=== PATIENT | male | born 1970 | race Caucasian/White ===

== ENCOUNTER 2017-11-19 12:36 | Emergency (ER) | payer OTHER, SELFPAY ==
[2017-11-19 12:38] VITALS: BP 109/76; PULSE 116; RESP 16; TEMP 36.4; O2SAT 95; BMI 29.4
--- NOTE | 2017-11-19 13:08 | RAD_ITS ---
STUDY: X-RAY - LEFT KNEE REASON FOR EXAM: Male, 47 years old. Laceration to the anterior aspect of the knee. TECHNIQUE: 2 view(s) of the knee. 3 images were obtained. COMPARISON: None. FINDINGS: Normal visualized distal femur. Healed Bailey-Schlatter disease. Normal proximal tibiofibular articulation. Normal medial femorotibial compartment. Normal lateral femorotibial compartment. Normal patellofemoral articulation. Laceration of the prepatellar soft tissues. RAD/Knee 1 or 2 Views IMPRESSION: Laceration of the prepatellar soft tissues. Electronically Signed: Murali Alexander MD at 13:36 EDT Tel [phone], Service support ,
--- NOTE | 2017-11-19 14:35 | ED.VISSUMM ---
- ER Visit Summary Date of Service: 11/19/17 Chief Complaint: Laceration History of Present Illness: The patient is a [address] Chandler. His tetanus is up-to-date. Reports that he cut his left knee with a chain saw just prior to coming emergency department. Reports he is a burning pain is 7 out of 10 at worst and 3 out of 10 currently is worsened by walking relieved by rest. Denies any paresthesias distally. Physical Examination: Vitals: Stable. Afebrile. General: Well-nourished and well-developed. Head: Normocephalic atraumatic. Neck: Supple, no lymphadenopathy. No JVD. Nontender. Cardiovascular: Regular rate and rhythm. No murmurs. Respiratory: No respiratory distress. Clear to auscultation bilaterally. Abdominal: Soft, nontender, nondistended, normal bowel sounds. No guarding, rebound, or peritoneal signs. Back: Nontender. Extremities: 4 cm laceration over the left patella. Minimal active bleeding. Neurovascular intact distally.. Skin: Normal color, no rash. Neurologic: Alert and oriented ?3. Cranial nerves II through XII are intact. Normal strength and sensation. Psych: Normal affect. Test Results: X-ray shows no bony involvement. Emergency Department Course and Treatment: Patient refused pain medications. He had his wound anesthetized and repaired. He tolerated it well. Treatment Plan: Patient be discharged instructions follow Dr. Chandler in 2 weeks for suture removal. Return to the emergency department for any worsening symptoms. Disposition: To home in improved and stable condition. Impression: 1. Left knee laceration, 4 cm, repaired. Procedure note: Wound was cleansed with chlorhexidine soap. Anesthetized with 1% lidocaine without epinephrine. Copiously irrigated with normal saline. Wound was explored there is no foreign material present. It was debrided. It was closed with 6 simple interrupted 4-0 ethilon sutures. The patient tolerated it well. This note was generated with [employer] dictation software. It may contain incorrect words, spelling, and punctuation that were not noted in review of the chart prior to signing ED Disposition - Plan for ED Patient: Disposition: Home or Assisted Living Chief Complaint: Laceration Instructions: ED Laceration All Referrals: Criss Chandler MD [Primary Care Provider] - 10-14 Days suture removal
[2017-11-19 14:41] VITALS: BP 128/89; PULSE 83; RESP 16; O2SAT 96
== END 2017-11-19 14:43 | disposition home or self-care (01) ==
LOC: ED 13:28
PROVIDERS: Emergency Provider Emergency Medicine; Family Provider Internal Medicine; PCP Internal Medicine
DX: S81.012A Laceration without foreign body, left knee, initial encounter (principal); E78.00 Pure hypercholesterolemia, unspecified; Z79.899 Other long term (current) drug therapy; W29.3XXA Contact with powered garden and outdoor hand tools and machinery, initial encounter; Y93.89 Activity, other specified; Y92.89 Other specified places as the place of occurrence of the external cause; Y99.8 Other external cause status
CPT/HCPCS: 12002; 73560; 99283

== ENCOUNTER → 2019-09-05 | Outpatient (CLI) | payer OTHER, SELFPAY ==
--- NOTE | 2019-09-05 12:47 | CT_ITS ---
STUDY: CT ABDOMEN AND PELVIS WITHOUT CONTRAST REASON FOR EXAM: Male, 48 years old. ABD/FLANK PAIN, HX PITUITARY TUMOR, ON MEDS TO SHRINK IT X 3 YRS RADIATION DOSAGE (If Supplied By Facility): CTDIvol = ( 10.42 ) mGy, DLP = ( 544.13 ) mGycm TECHNIQUE: Transaxial images were obtained from the dome of the diaphragm to the symphysis pubis without oral contrast, and without intravenous contrast. Sagittal and coronal images were reconstructed. Individualized dose optimization techniques were used for this CT. COMPARISON: None. FINDINGS: The visualized lung bases are unremarkable. The visualized portions of the heart are within normal limits. Normal liver. Normal gallbladder and extrahepatic biliary system. Normal spleen. Normal pancreas. Normal bilateral adrenal glands. Normal right kidney. Normal left kidney. Incidental note is made of a retroaortic left renal vein. There is a small hiatal hernia. Normal small intestine. There are colonic diverticula consistent with diverticulosis. The appendix is visualized and appears normal. There is scattered atherosclerotic calcification of the abdominal aorta, without a demonstrated aneurysm. Normal inferior vena cava. Normal retroperitoneum. Normal urinary bladder. Calcified phleboliths are seen within the pelvis. There is a small umbilical hernia containing fat. Normal osseous structures. CT/Abdomen/Pelvis without Cont IMPRESSION: No acute abnormality is seen. Electronically Signed: Murali Alexander, at 13:28 EDT , Service support ,
== END | disposition home or self-care (01) ==
LOC: CT 12:45
PROVIDERS: PCP Internal Medicine; Referring Provider Nurse Practitioner Adult Health; Visit Provider Nurse Practitioner Adult Health
DX: R10.9 Unspecified abdominal pain (principal)
CPT/HCPCS: 74176

== ENCOUNTER → 2019-12-02 | Outpatient (CLI) | payer OTHER, SELFPAY ==
[2019-12-02 12:46] LABS: Albumin, Serum 3.5 g/dL (3.2-5.0); BUN 12 mg/dL (7-18); BUN/Creat Ratio 9.6 RATIO (10-20); Calcium,Total 9.2 mg/dL (8.5-10.1); Chloride 108 mmol/L (98-107); Creatinine, Serum 1.25 mg/dL (0.70-1.30); EST Glomerular Filtration Rate 65 mL/min (>60); Est Glom Filt Rate - Afr Amer 79 mL/min (>60); Glucose 94 mg/dL (74-106); Phosphorus 2.4 mg/dL (2.5-4.9); Potassium 4.2 mmol/L (3.5-5.1); Sodium Level 139 mmol/L (136-145)
== END | disposition home or self-care (01) ==
LOC: LAB 11:49
PROVIDERS: PCP Internal Medicine; Referring Provider Internal Medicine Nephrology; Visit Provider Internal Medicine Nephrology
DX: N18.2 Chronic kidney disease, stage 2 (mild) (principal)
CPT/HCPCS: 36415; 80069

== ENCOUNTER 2020-07-17 07:37 | Emergency (ER) | payer OTHER, SELFPAY ==
[2020-07-17 07:38] VITALS: BP 144/93; PULSE 106; RESP 16; TEMP 36.8; O2SAT 98; BMI 30.1
--- NOTE | 2020-07-17 08:03 | CT_ITS ---
STUDY: CT ABDOMEN AND PELVIS WITHOUT CONTRAST REASON FOR EXAM: Male, 49 years old. abd pain RADIATION DOSAGE (If Supplied By Facility): CTDIvol = ( 10.55 ) mGy, DLP = ( 566.47 ) mGycm TECHNIQUE: Transaxial images were obtained from the dome of the diaphragm to the symphysis pubis without oral contrast, and without intravenous contrast. Sagittal and coronal images were reconstructed. Individualized dose optimization techniques were used for this CT. COMPARISON: 09/05/2019 FINDINGS: The visualized lung bases are unremarkable. The visualized portions of the heart are within normal limits. Normal liver. Normal gallbladder and extrahepatic biliary system. Normal spleen. Normal pancreas. Normal bilateral adrenal glands. Normal right kidney. Normal left kidney. Normal visualized stomach. Normal small intestine. Normal colon. The appendix is visualized and appears normal. Normal abdominal aorta. Normal inferior vena cava. Normal retroperitoneum. Normal urinary bladder. There is a small umbilical hernia containing fat. Normal osseous structures. CT/Abdomen/Pelvis without Cont IMPRESSION: No acute abnormality. Electronically Signed: Joey Agarwal MD at 9:08 EDT Tel , Service support ,
[2020-07-17 08:05] LABS: Absolute Lymphocyte Count 2.07 X10^3/uL (0.83-4.51); Basophil# 0.07 X10^3/uL; Basophil% 0.6 % (0-1); Eosinophils% 1.7 % (0-5); Hematocrit 44.1 % (40-54); Hemoglobin 13.8 g/dL (13.0-16.5); Lymphocyte # 2.07 X10^3/ul (0.83-4.51); Lymphocyte % 17.7 % (19-41); Mean Corp Hgb Conc 31.3 g/dL (32-36); Mean Corpuscular Hgb 26.3 pg (27.0-32.0); Mean Platelet Vol. 8.9 fl (6.2-12.0); Monocyte# 1.23 X10^3/uL; Monocyte% 10.5 % (0-10); NRBC Flagged by Analyzer 0 % (0-5); Neutrophil # 8.01 X10^3/uL (2.7-7.7); Neutrophil % 68.4 % (47-70); Platelet Count 326 K/mm3 (150-450); RBC Distribution Width CV 13.7 % (11.6-14.6); RBC Distribution Width SD 42.3 fl (35.1-43.9); Red Blood Count 5.25 M/mm3 (4.6-6.2); White Blood Count 11.7 K/mm3 (4.4-11.0)
[2020-07-17 08:08] VITALS: BP 144/93; PULSE 106; RESP 16; TEMP 36.8; O2SAT 98
--- NOTE | 2020-07-17 08:13 | EDS_ITS ---
HPI History of Present Illness Chief Complaint: Abd Pain Informant: patient Narrative Narrative: 49-year-old male presenting with abdominal pain and back pain. He states this started a couple of days ago. He states last week he had fever and sore throat which has now resolved. He was tested for Covid and strep which were both negative. He now complains of constipation, lower back pain, lower abdominal pain. Denies vomiting. Denies fever. Denies chest pain or shortness of breath. Denies other complaints. Recent Illness/Hospitalization: No [facility] Medical History (Updated 07/17/20 @ 10:[address] Marli Duque MD) Depression GERD (gastroesophageal reflux disease) Hyperlipidemia Hypothyroid Pituitary adenoma Home Medications cabergoline 0.5 mg PO BANSAL 11/19/17 [History Last Taken Unknown] pantoprazole 40 mg PO DAILY 11/19/17 [History Last Taken Unknown] rosuvastatin 10 mg PO DAILY 11/19/17 [History Last Taken Unknown] cephalexin 500 mg PO Q12 #14 capsule 07/17/20 [Rx Last Taken Unknown] duloxetine 30 mg PO DAILY 07/17/20 [History Last Taken Unknown] levothyroxine [Levoxyl] 50 mcg PO DAILY 07/17/20 [History Last Taken Unknown] Allergy/AdvReac Type Severity Reaction Status Date / Time Penicillins [PCN] Allergy Rash Verified 11/19/17 12:37 Sulfa (Sulfonamide AdvReac Nausea Verified 11/19/17 12:37 Antibiotics) Surgical History (Updated 07/17/20 @ 07:46 by Cristiane Pascual) H/O umbilical hernia repair Social History Smoking Status: Never smoker ROS [facility] ED Constitutional Constitutional ED: Denies fever(s) Eyes Eyes: Denies change in vision ENT ENT ED: Denies rhinorrhea or sore throat Cardiovascular Cardiovascular: Denies chest pain or palpitations Respiratory/Chest Respiratory/Chest: Denies cough or dyspnea Gastrointestinal Gastrointestinal: Reports abdominal pain and constipation; Denies diarrhea, nausea or vomiting Genitourinary Genitourinary ED: Denies dysuria Musculoskeletal Musculoskeletal: Denies myalgias Integumentary Denies rash Neurologic Neurologic: Denies headache(s) EXAM Physical Exam Const Vital Signs: 07/17/20 07:38 07/17/20 08:08 Temperature 98.2 F 98.2 F Temperature Source Oral Oral Pulse Rate 106 H 106 H Respiratory Rate 16 16 Blood Pressure 144/93 H 144/93 H Blood Pressure Mean 110 110 Pulse Ox 98 98 Oxygen Delivery Method Room Air Positive well nourished and well developed General Appearance ED: well developed HEENT Reports normocephalic and head/scalp atraumatic Eyes PERRL and EOMs intact bilaterally Neck supple General: Negative for tenderness Chest Wall inspection of chest normal Resp normal respiratory effort and clear to auscultation bilaterally Cardio regular rate and regular rhythm GI non-tender and non-distended Palpation: soft; Negative for guarding or rebound tenderness present no CVA tenderness Back/Spine no CVA tenderness Extremity normal to inspection Neuro oriented x3 Sensorium / Orientation: alert Psych mental status grossly normal MDM MDM MDM Narrative Medical decision making narrative: Patient is resting comfortably on reevaluation. CT abdomen pelvis is unremarkable. His creatinine is 1.73. He states he follows with a community planning technician and will follow up with nephrology. UA shows 5-10 white blood cells, 5-10 red blood cells. Urine culture was sent. He was started on Keflex. Advised to follow up with primary care physician. Advised return to ED if worsening complaints. Lab Data Attestation: I reviewed the patient's lab results. Labs: Laboratory Results - last 24 hr 07/17/20 07/17/20 07/17/20 07:53 07:53 08:21 WBC 11.7 H RBC 5.25 Hgb 13.8 Hct 44.1 MCV 84.0 MCH 26.3 L MCHC 31.3 L RDW Std Deviation 42.3 RDW Coeff of Gabriela 13.7 Plt Count 326 MPV 8.9 Immature Gran % (Auto) 1.100 H Neut % (Auto) 68.4 Lymph % (Auto) 17.7 L [place]aines % (Auto) 10.5 H Eos % (Auto) 1.7 Baso % (Auto) 0.6 Absolute Neuts (auto) 8.0 H Absolute Lymphs (auto) 2.07 Nucleated RBC % 0 Sodium 140 Potassium 3.9 Chloride 105 Carbon Dioxide 26.0 Anion Gap 9 BUN 17 Creatinine 1.73 H Estim Creat Clear Calc 53.33 Est GFR (MDRD) Af Amer 54 L Est GFR (MDRD) Non-Af 45 L BUN/Creatinine Ratio 9.8 L Glucose 118 H Calcium 9.1 Total Bilirubin 0.40 Direct Bilirubin 0.13 AST 28 ALT 49 Alkaline Phosphatase 102 Total Protein 7.6 Albumin 3.1 L Globulin 4.5 H Lipase 90 Urine Color Yellow Urine Clarity Clear Urine pH 6.0 Ur Specific Weir 1.010 Urine Protein 30 H Urine Glucose (UA) Normal Urine Ketones Negative Urine Occult Blood 250 H Urine Nitrite Negative Urine Bilirubin Negative Urine Urobilinogen Normal Ur Leukocyte Esterase 100 H Urine RBC 5-10 SEEN Urine WBC 5-10 SEEN Ur Squamous Epith Cells 0 SEEN Urine Bacteria 0 SEEN Urine Mucus 0 SEEN Radiography Diagnostic Testing: Radiology Impression Abdomen/Pelvis CT 07/17/20 08:03 IMPRESSION: No acute abnormality. Electronically Signed: Joey Agarwal MD at 9:08 EDT Tel , Service support , Discharge Plan Triage Chief Complaint: Abd Pain ED Provider: Marli Duque Dx/Rx/DC Orders Clinical Impression: Bilateral flank pain Instructions: ED Flank Pain, Uncertain Cause Prescriptions: New cephalexin [cephalexin] 500 MG capsule 500 mg PO Q12 Qty: 14 RF: 0 No Action pantoprazole 40 MG tablet 40 mg PO DAILY RF: 0 cabergoline 0.5 MG tablet 0.5 mg PO BANSAL RF: 0 rosuvastatin 10 MG tablet 10 mg PO DAILY RF: 0 levothyroxine [Levoxyl] 50 mcg tablet 50 mcg PO DAILY RF: 0 duloxetine 30 mg capsule,delayed release(DR/EC) 30 mg PO DAILY RF: 0 Primary Care Provider: Criss Chandler Referrals: Criss Chandler MD [Primary Care Provider] - Disposition Disposition: Home, self care
[2020-07-17] MEDS: 0.9% Normal Saline 1,000 ML 1000 ML IV (08:17)
[2020-07-17 08:22] LABS: AST(SGOT) 28 U/L (15-37); Alanine Aminotransfer ALT/SGPT 49 U/L (16-61); Albumin, Serum 3.1 g/dL (3.2-5.0); Alkaline Phosphatase 102 U/L (45-117); Anion Gap 9 (5-15); BUN 17 mg/dL (7-18); BUN/Creat Ratio 9.8 RATIO (10-20); Bilirubin, Direct 0.13 mg/dL (0.00-0.30); Calcium,Total 9.1 mg/dL (8.5-10.1); Chloride 105 mmol/L (98-107); Creatinine, Serum 1.73 mg/dL (0.70-1.30); EST Glomerular Filtration Rate 45 mL/min (>60); Est Glom Filt Rate - Afr Amer 54 mL/min (>60); Estimated Creatinine Clearance 53.33 ml/min; Globulin 4.5 g/dL (2.2-4.2); Glucose 118 mg/dL (74-106); Lipase 90 U/L (73-393); Potassium 3.9 mmol/L (3.5-5.1); Protein, Total 7.6 g/dL (6.4-8.2); Sodium Level 140 mmol/L (136-145)
[2020-07-17 08:28] LABS: Bacteria 0 SEEN /hpf (None Seen); Mucous, Urine 0 SEEN /hpf (<or=2+); Squamous Epithelial Cells - UA 0 SEEN /hpf (0-5)
[2020-07-17 08:37] LABS: Color, Urine Yellow (Yellow); Glucose, Dipstick Normal (Normal); Ketone-Dipstick Negative (Negative); Leukocyte Esterase-Dipstick 100 /ul (Negative); Nitrite-Dipstick Negative (Negative); Occult Blood-Urine 250 /ul (Negative); Protein-Dipstick 30 mg/dl (Negative); Urine Bilirubin Dipstick Negative (Negative); Urine Clarity Clear (Clear); Urine Urobilinogen Normal (Normal)
[2020-07-17 08:42] LABS: Red Blood Cells-Urine 5-10 SEEN /hpf (0-5); White Blood Cells 5-10 SEEN /hpf (0-5)
[2020-07-17 10:38] VITALS: BP 141/89; PULSE 85; RESP 16; O2SAT 98
== END 2020-07-17 10:39 | disposition home or self-care (01) ==
PROVIDERS: Emergency Provider Emergency Medicine; PCP Internal Medicine
DX: R10.9 Unspecified abdominal pain (principal); F32.9 Major depressive disorder, single episode, unspecified; K21.9 Gastro-esophageal reflux disease without esophagitis; E78.5 Hyperlipidemia, unspecified; E03.9 Hypothyroidism, unspecified; Z79.899 Other long term (current) drug therapy
CPT/HCPCS: 74176; 80048; 80076; 81001; 83690; 85025; 87086; 87088; 96360; 99285; J7030; A4216

== ENCOUNTER → 2020-08-18 09:31 | Outpatient (CLI) | payer OTHER, SELFPAY ==
[2020-08-18 12:04] LABS: Albumin, Serum 3.5 g/dL (3.2-5.0); BUN 11 mg/dL (7-18); Chloride 105 mmol/L (98-107); Creatinine, Serum 1.37 mg/dL (0.70-1.30); EST Glomerular Filtration Rate 59 mL/min (>60); Est Glom Filt Rate - Afr Amer 71 mL/min (>60); Glucose 95 mg/dL (74-106); Potassium 4.1 mmol/L (3.5-5.1); Sodium Level 139 mmol/L (136-145)
== END ==
PROVIDERS: Visit Provider Internal Medicine Nephrology
DX: N18.2 Chronic kidney disease, stage 2 (mild) (principal)
CPT/HCPCS: 36415; 80069

== ENCOUNTER → 2020-09-27 08:55 | Outpatient (CLI) | payer OTHER, SELFPAY ==
[2020-09-27 09:33] LABS: Hematocrit 46.1 % (40-54); Hemoglobin 14.6 g/dL (13.0-16.5); Mean Corp Hgb Conc 31.7 g/dL (32-36); Mean Corpuscular Hgb 26.9 pg (27.0-32.0); Mean Corpuscular Volume 84.9 fL (80-94); Mean Platelet Vol. 9.4 fl (6.2-12.0); Platelet Count 285 K/mm3 (150-450); RBC Distribution Width CV 14.8 % (11.6-14.6); RBC Distribution Width SD 46.2 fl (35.1-43.9); Red Blood Count 5.43 M/mm3 (4.6-6.2); White Blood Count 7.4 K/mm3 (4.4-11.0)
[2020-09-27 10:03] LABS: Albumin, Serum 3.8 g/dL (3.2-5.0); BUN 13 mg/dL (7-18); BUN/Creat Ratio 10.7 RATIO (10-20); Calcium,Total 8.8 mg/dL (8.5-10.1); Chloride 104 mmol/L (98-107); Creatinine, Serum 1.22 mg/dL (0.70-1.30); EST Glomerular Filtration Rate 67 mL/min (>60); Est Glom Filt Rate - Afr Amer 81 mL/min (>60); Glucose 83 mg/dL (74-106); Phosphorus 2.2 mg/dL (2.5-4.9); Potassium 3.7 mmol/L (3.5-5.1); Sodium Level 139 mmol/L (136-145)
== END ==
PROVIDERS: PCP Internal Medicine; Referring Provider Internal Medicine Nephrology; Visit Provider Internal Medicine Nephrology
DX: N18.2 Chronic kidney disease, stage 2 (mild) (principal)
CPT/HCPCS: 36415; 80069; 85027

== ENCOUNTER → 2021-10-03 | Outpatient (CLI) | payer OTHER, SELFPAY ==
[2021-10-03 09:12] LABS: Albumin, Serum 3.7 g/dL (3.2-5.0); BUN 15 mg/dL (7-18); BUN/Creat Ratio 11.7 RATIO (10-20); Calcium,Total 9.1 mg/dL (8.5-10.1); Chloride 102 mmol/L (98-107); Creatinine, Serum 1.28 mg/dL (0.70-1.30); EST Glomerular Filtration Rate 63 mL/min (>60); Est Glom Filt Rate - Afr Amer 76 mL/min (>60); Glucose 97 mg/dL (74-106); Phosphorus 3.1 mg/dL (2.5-4.9); Potassium 3.9 mmol/L (3.5-5.1); Sodium Level 135 mmol/L (136-145)
== END | disposition home or self-care (01) ==
LOC: LAB 08:09
PROVIDERS: PCP Internal Medicine; Referring Provider Internal Medicine Nephrology; Visit Provider Internal Medicine Nephrology
DX: N18.2 Chronic kidney disease, stage 2 (mild) (principal)
CPT/HCPCS: 36415; 80069

== ENCOUNTER 2022-01-09 15:02 | Day surgery (SDC) | payer OTHER, SELFPAY ==
[2022-01-09 15:03] VITALS: BP 146/101; PULSE 122; RESP 16; TEMP 37.1; O2SAT 98; BMI 32.5
--- NOTE | 2022-01-09 15:08 | CT_ITS ---
INDICATION: Strangulated hernia. History of umbilical hernia repair x3 EXAMINATION: CT ABDOMEN AND PELVIS WITH CONTRAST - CT Abdomen And Pelvis W/ Contrast Injection TECHNIQUE: Helically acquired images were obtained of the abdomen and pelvis following IV contrast. A radiation dose optimization technique was used for this scan. IV Contrast dosage and agent: 100 mL of Isovue 370 Oral contrast: None. COMPARISON: July 17, 2020. FINDINGS: LOWER CHEST: Lung bases are clear. No cardiomegaly or pericardial effusion. LIVER: Homogeneous. No focal mass. GALLBLADDER AND BILIARY TREE: No calcified gallstones. No gallbladder distension or wall edema. No intra- or extrahepatic biliary ductal dilation. PANCREAS: No focal cystic or solid mass. SPLEEN: Normal size without focal cystic or solid mass. ADRENAL GLANDS: No nodules. KIDNEYS AND URETERS: Normal right kidney. There is a small cyst in the lower pole of the left kidney. No hydronephrosis. Normal visualized ureters. PERITONEUM: No ascites or free air. No other fluid collection. BOWEL: Normal stomach. Normal small bowel. Sigmoid diverticula to gliosis without acute inflammatory change. Normal appendix. LYMPH NODES: No enlarged mesenteric or retroperitoneal lymph nodes. VESSELS: Aorta is non-dilated. Normal IVC. URINARY BLADDER: Unremarkable. REPRODUCTIVE ORGANS: Normal prostate and seminal vesicles. Phleboliths are noted in the pelvis. ABDOMINAL WALL: There is an umbilical hernia of omental fat with marked stranding most within the omental fat and surrounding subcutaneous tissues. The possible strangulation cannot be ruled out. BONES: No lytic or blastic abnormality. CT/Abdomen/Pelvis W IV Cont ONLY IMPRESSION: 1. Umbilical hernia with marked inflammatory changes suggesting possible strangulated hernia. 2. Otherwise stable findings. Electronically Signed: Rock Peters DO at 16:21 EST ,
[2022-01-09 15:50] LABS: Absolute Lymphocyte Count 2.57 X10^3/uL (0.83-4.51); Absolute Neutrophil Count 4.6 X10^3/uL (2.0-7.7); Basophil# 0.06 X10^3/uL; Basophil% 0.7 % (0-1); Eosinophil# 0.19 X10^3/uL; Eosinophils% 2.3 % (0-5); Hematocrit 49.2 % (40-54); Hemoglobin 16.5 g/dL (13.0-16.5); Lymphocyte # 2.57 X10^3/ul (0.83-4.51); Lymphocyte % 31.1 % (19-41); Mean Corp Hgb Conc 33.5 g/dL (32-36); Mean Corpuscular Hgb 29.5 pg (27.0-32.0); Mean Corpuscular Volume 87.9 fL (80-94); Mean Platelet Vol. 9.1 fl (6.2-12.0); Monocyte# 0.81 X10^3/uL; Monocyte% 9.8 % (0-10); NRBC Flagged by Analyzer 0 % (0-5); Neutrophil # 4.61 X10^3/uL (2.7-7.7); Neutrophil % 55.9 % (47-70); Platelet Count 269 K/mm3 (150-450); RBC Distribution Width CV 13.2 % (11.6-14.6); RBC Distribution Width SD 42.4 fl (35.1-43.9); White Blood Count 8.3 K/mm3 (4.4-11.0)
--- NOTE | 2022-01-09 16:02 | EX.ED.DYSGE1 ---
HPI History of Present Illness Chief Complaint: Abd Pain Narrative Narrative: Patient presents with abdominal pain that started yesterday he has a history of umbilical hernia, he has had it repaired he saw his surgeon today who could not reduce except ER. He has no fever or chills but he does complaining of pain. He has some nausea but no vomiting he thinks he is still passing gas [facility] Medical History Depression GERD (gastroesophageal reflux disease) Hyperlipidemia Hypothyroid Pituitary adenoma Home Medications pantoprazole 40 mg tablet,delayed release 40 mg PO DAILY 11/19/17 [History Last Taken Unknown] duloxetine 30 mg capsule,delayed release 30 mg PO DAILY 07/17/20 [History Last Taken Unknown] levothyroxine 50 mcg tablet (Levoxyl) 50 mcg PO DAILY 07/17/20 [History Last Taken Unknown] Allergy/AdvReac Type Severity Reaction Status Date / Time Penicillins [PCN] Allergy Rash Verified 01/09/22 15:05 Sulfa (Sulfonamide AdvReac Nausea Verified 01/09/22 15:05 Antibiotics) Surgical History H/O umbilical hernia repair Social History Smoking Status: Never smoker ROS ROS ED ROS Narrative Past medical history: Reviewed Medications: Reviewed Social history: Noncontributory Review of systems: All systems negative except as indicated General: No fever Neck: No neck pain Cardiovascular: No chest pain Respiratory: No shortness of breath or cough Gastrointestinal: Abdominal pain as in HPI Genitourinary: No dysuria Musculoskeletal: Denies myalgias no difficulty with ambulation Skin: No rash Neurological: No memory loss, confusion or any focal weakness Psych: No recent behavioral changes Hematologic: No easy bleeding or easy bruising EXAM Physical Exam Narrative Exam Narrative: Physical exam General: Patient appears relatively comfortable in the bed Head: Normocephalic, Atraumatic Eyes: Conjunctiva not pale ENT: Moist mucous membranes Neck: Supple, Nontender, No lymphadenopathy Cardiovascular: Regular, slightly tachycardic. No obvious murmur Respiratory: No distress, CTA bilaterally Abdomen: Soft, there is an umbilical hernia that is indurated and erythematous, I cannot reproduce it. Back: Nontender, Normal Inspection. Negative for: CVA tenderness Extremities: Nontender, No edema Skin: Normal color, No rash Neurological: Alert, Normal Strength, Normal Sensation Psychological: Normal affect Const Vital Signs: 01/09/22 15:03 Temperature 98.8 F Temperature Source Temporal Pulse Rate 122 H Respiratory Rate 16 Blood Pressure 146/101 H Blood Pressure Mean 116 Pulse Ox 98 Oxygen Delivery Method Room Air MDM MDM MDM Narrative Medical decision making narrative: Patient does not have current leukocytosis he appears well he does not require analgesia at this time. I will do a CAT scan and he will need to go to the operating room I talked to the surgeon Lab Data Labs: Laboratory Results - last 24 hr 01/09/22 15:40 WBC 8.3 RBC 5.60 Hgb 16.5 Hct 49.2 MCV 87.9 MCH 29.5 MCHC 33.5 RDW Std Deviation 42.4 RDW Coeff of Gabriela 13.2 Plt Count 269 MPV 9.1 Immature Gran % (Auto) 0.200 Neut % (Auto) 55.9 Lymph % (Auto) 31.1 [place] % (Auto) 9.8 Eos % (Auto) 2.3 Baso % (Auto) 0.7 Absolute Neuts (auto) 4.6 Absolute Lymphs (auto) 2.57 Nucleated RBC % 0 Discharge Plan Triage Chief Complaint: Abd Pain ED Provider: Destin Melendez Dx/Rx/DC Orders Clinical Impression: Incarcerated umbilical hernia, Abdominal pain, Nausea Prescriptions: No Action pantoprazole 40 MG tablet 40 mg PO DAILY levothyroxine [Levoxyl] 50 mcg tablet 50 mcg PO DAILY duloxetine 30 mg capsule,delayed release(DR/EC) 30 mg PO DAILY Primary Care Provider: Criss Chandler Referrals: Criss Chandler MD [Primary Care Provider] - Disposition Disposition: Acute Care Hospital [facility]
[2022-01-09 16:14] LABS: Anion Gap 7 (5-15); BUN 13 mg/dL (7-18); BUN/Creat Ratio 9.3 RATIO (10-20); Calcium,Total 9.2 mg/dL (8.5-10.1); Chloride 104 mmol/L (98-107); EST Glomerular Filtration Rate 57 mL/min (>60); Est Glom Filt Rate - Afr Amer 69 mL/min (>60); Estimated Creatinine Clearance 62.42 ml/min; Glucose 104 mg/dL (74-106); Potassium 4.1 mmol/L (3.5-5.1); Sodium Level 138 mmol/L (136-145)
--- NOTE | 2022-01-09 16:54 | PCM.HP.BLA ---
History and Physical Date of Admission: 01/09/22 HISTORY AND PHYSICAL ? Yo Vaughn 1970 ? ? REFERRING PHYSICIAN: Marya Palomino APRN.CNP ? CHIEF COMPLAINT: Consult ? HPI: Yo is a 51 year old male with a complaint of a bulge and discomfort in his prior umbilical incision. The patient notes discomfort in this area with lifting, straining, coughing, and moving. The symptoms have increased, over the past few hours. ? The patient notes no symptoms of bowel obstruction and denies nausea or vomiting. The patient was seen by his primary care physician who felt the patient has a hernia. Yo was referred for evaluation and treatment. ? The patient is being seen by me today at the request of Dr. Palomino for my opinion and advice regarding Recurrent incisional hernia with incarceration (primary encounter diagnosis). ? ? PAST MEDICAL HISTORY PAST MEDICAL HISTORY Diagnosis Date ? ALLERGIC RHINITIS NOS 06/29/2005 ? ANXIETY STATE NOS 06/29/2005 ? CHR SOLAR SKIN DAMAGE NOS 06/01/2006 ? Chronic musculoskeletal pain ? ? Esophageal reflux 06/29/2005 ? HYPERLIPIDEMIA NEC/NOS 06/29/2005 ? Hypogonadotropic hypogonadism (HCC) 01/02/2017 ? Hypothyroidism 01/02/2017 ? Pituitary macroadenoma (HCC) 01/02/2017 ? Pituitary tumor ? ? [facility] ? Sebaceous cyst 06/01/2006 ? SEBORRHEIC KERATOSIS NOS 06/01/2006 ? SOLAR LENGINES///DYSCHROMIA OTHER 06/01/2006 ? ? PAST SURGICAL HISTORY PAST SURGICAL HISTORY Procedure Laterality Date ? EGD ? 04/16/2002 ? incompetent LES ? ESOPHAGOGASTRODUODENOSCOPY TRANSORAL DIAGNOSTIC ? 07/16/2017 ? EGD ? REPAIR FIRST ABDOMINAL WALL HERNIA ? 11/12/2006 ? supraumbilical hernia with mesh ? RPR UMBILICAL HRNA 5 YRS/> REDUCIBLE ? 11/02/2006 ? simple umbilical hernia ? ? ? CURRENT MEDICATIONS Current Outpatient Medications Medication Sig ? levothyroxine (LEVOXYL) 50 mcg tablet Take 1 tablet by mouth once daily. Take on empty stomach. For Thyroid ? pantoprazole DR (PROTONIX) 40 mg tablet To take empty stomach with water 2 times a day. ? DULoxetine (CYMBALTA) 30 mg capsule TAKE 1 CAPSULE DAILY FOR CHRONIC MUSCULOSKELETAL PAIN ? clonazePAM (KLONOPIN) 0.5 mg tablet Take 1 tablet by mouth once daily as needed for up to 90 days. ? iv contrast (will be provided with radiology test) CT ABD/PEL -Inject, intravenously, once for 1 dose.No IV access, insert saline lock prior to the beginning of sedation, infusion, injection of imaging exam. Discontinue saline lock post exam. If Pt. has a central line or IVAD, may access for administration according to line specific nursing protocol. Once exam is complete flush line and de-access according to line specific nursing protocol in the CT contrast administration guidelines link. ? enteric contrast (will be provided with radiology test) For CT ABD/PEL W IVCON Routine order Administer, As Directed One Time Only, via Oral, Rectal, both Oral and Rectal, Enteric Tube, Stoma or Indwelling Catheter, Enteric Contrast as designated per enteric contrast guidelines ? rosuvastatin (CRESTOR) 10 mg tablet Take 1 tablet by mouth once daily. ? acetaminophen (TYLENOL EXTRA STRENGTH) 500 mg tablet Take 1 tablet by mouth every 6 hours as needed for Pain. ? No current facility-administered medications for this visit. ? ? ALLERGIES: Lipitor [Atorvastatin Calcium], Penicillins, Seasonal Allergies, and Sulfa (Sulfonamide Antibiotics) ? PERSONAL HISTORY: SOCIAL HISTORY Social History ? Tobacco Use ? Smoking status: Never ? Smokeless tobacco: Current ? ? Types: Chew Vaping Use ? Vaping Use: Never used Substance Use Topics ? Alcohol use: Not Currently ? ? Comment: Occasionally once every 3-4 months ? Drug use: No ? FAMILY HISTORY: FAMILY HISTORY FAMILY HISTORY Problem Relation Age of Onset ? Hypertension Mother ? ? HYPERLIPIDEMIA ? Lipids Mother ? ? Thyroid Mother ? ? Hypertension Father ? ? Lipids Father ? ? No Known Problems Sister ? ? No Known Problems Sister ? ? No Known Problems Brother ? ? No Known Problems Maternal Grandmother ? ? Stroke Maternal Grandfather ? ? No Known Problems Paternal Grandmother ? ? No Known Problems Paternal Grandfather ? ? ? REVIEW OF SYMPTOMS: The review of systems data was entered by the nurse and reviewed by me ? Nursing Notes: Adrienne Houston RN 01/09/2022 2:34 PM Signed REVIEW OF SYSTEMS: General: The patient denies fatigue, denies weight loss, denies weight gain, denies feeling hot, and denies feelings of cold. Eyes: The patient denies glaucoma, denies eye injury/surgery, does not wear glasses or contacts. Ear/Nose/Throat: The patient NOTES allergies, NOTES hayfever, denies ear infections, and denies bloody noses. Cardiovascular: The patient denies chest pain, denies heart disease, denies high blood pressure,denies cardiac stent, denies prior heart attack, denies irregular heart beat, NOTES high cholesterol, denies poor circulation, denies heart failure, other cardiac issues, denies claudication, denies cold feet, denies peripheral arterial stent. Respiratory: The patient denies tuberculosis, denies pneumonia, denies frequent cough, denies pulmonary embolism, denies shortness of breath, and denies coughing up blood. Gastrointestinal: The patient denies difficulty swallowing, NOTES acid reflux, denies ulcers, denies vomiting, denies jaundice/hepatitis, denies gallbladder problems, denies black or tarry stools, denies hemorrhoids, denies bleeding from rectum, denies diverticulitis, denies constipation, denies diarrhea, denies loss of stool control, and NOTES hernias. Kidney/Bladder: The patient denies kidney stones, NOTES kidney failure, denies urine infections, and denies bloody urine. Skin: The patient denies a history of skin cancer, denies bleeding/changing moles, and denies a history of skin rash. Neurologic: The patient denies a history of epilepsy/convulsions, denies headaches, denies head/spinal injuries, and denies stroke/TIA. Psychiatric: The patient denies psychiatric medications, denies depression, and denies voices, denies substance abuse. Endocrine: The patient NOTES thyroid disorders, denies diabetes, and NOTES hormonal problems. Hematologic: The patient denies a history of bruising, denies bleeding, and denies anemia, denies blood clots. Infections: The patient denies a history of measles and mumps, denies rheumatic fever, and denies sexually transmitted diseases. Musculoskeletal: The patient denies back pain/injury, denies back problems, denies sciatica, denies knee/foot trouble, denies arthritis, or denies gout. ? ? When was patient's last Mammogram screening? N/A ? Last Colonoscopy: None ? Adrienne Houston RN PHYSICAL EXAMINATION: ? General: The patient is 51 year old male, well nourished, well hydrated in no acute distress. The patient is oriented to time, place, and person. ? VITALS: Blood pressure 124/92, pulse 110, temperature 36.3 ?C (97.3 ?F), temperature source Temporal, resp. rate 16, height 175.3 cm (5' 9), weight 101.6 kg (224 lb), SpO2 97 %. Body mass index is 33.08 kg/m?. ? HEENT: Normal cephalic, ataumatic, pupils are equally round, sclera are anicteric, mucous membranes are moist, oropharynx is clear. Neck has no masses, asymmetry or lymphadenopathy. Thyroid is unremarkable. ? Respiratory: Clear to auscultation and percussion. Normal respiratory excursion and pattern. ? Cardiac: Examination is regular rate and rhythm. ? Abdominal exam: Soft, nontender, with no palpable masses. No hepatosplenomegaly. A moderate incisional hernia ? Rectal exam: exam deferred ? Extremities: no clubbing, cyanosis or edema. No adenopathy. ? Other: ? ? LABORATORY VALUES: As Noted ? RADIOLOGIC STUDIES: As Noted ? Assessment IMPRESSION: Recurrent incisional hernia with incarceration (primary encounter diagnosis) ? PLAN: My plan is to perform a incisional hernia repair with mesh. The planned surgical procedure was discussed extensively with the patient. The risks, benefits, anticipated outcomes and possible complications were mentioned. Yo figueroaands that all hernia repair surgery has a chance of recurrence and/or chronic post operative pain. My staff has also explained the procedure in understandable terms and the patient was given the option to take printed material concerning the planned procedure. The patient had the opportunity to ask questions concerning the planned procedure. The patient freely consents to the planned procedure. ? ? Patient will be going to the emergency department for a stat CT scan of the abdomen. After this will be taking him to surgery. I do not believe he has bowel stuck in this but he is exquisitely tender and this needs to be done tonight ? My findings have been communicated to Dr. Palomino via shared medical record. This note will be forwarded to Dr. Criss Chandler MD. ? Diagnoses: (K43.0) Recurrent incisional hernia with incarceration (primary encounter diagnosis) ? Anticipated CPT Code: recurrent incarcerated ventral/incisional hernia repair with mesh- [id number]? + [id number] ? Anticipated Anesthetic: General ? Patient weight: Blood pressure 124/92, pulse 110, temperature 36.3 ?C (97.3 ?F), temperature source Temporal, resp. rate 16, height 175.3 cm (5' 9), weight 101.6 kg (224 lb), SpO2 97 %. BMI: Body mass index is 33.08 kg/m?. ? Planned antibiotic: clindamycin 900mg IVPB configuration management advisor to OR ? SCDs needed - Yes Return to Clinic: The patient is instructed to follow-up with me 1 week post operatively. ? Pablo Alfaro III, MD I have examined the patient and the H&P has been reviewed. There are no clinical changes since date of exam.
--- NOTE | 2022-01-09 16:55 | OP.PCM_ITS ---
Problems Associated Problem List Diagnoses (1) Recurrent incisional hernia with incarceration: Report of Operation Date of Procedure: 01/09/22 Pre-Operative Diagnosis: Recurrent incisional hernia with incarceration Post-Operative Diagnosis: Same Surgery/Procedure Performed:: Repair of recurrent incarcerated incisional hernia no mesh Surgeon: Pablo Alfaro x ray developer: Janie Castellanos Type of Anesthesia: General Anesthesiologist: Timbo Cam Specimen's removed: Strangulated omentum Estimated Blood Loss (mL): < 25 cc Description of Procedure: Patient was brought into the operating room. Placed in the supine position. Under excellent general anesthetic the abdomen was sterilely prepped and draped in usual fashion. Local was injected just above the umbilicus and going down towards the left side. Incision was made dissection was carried down hard omentum was identified it was dusky. I dissected all around it with electrocautery and eventually I came to the point where I needed to make a decision on what to do with this firm omentum I thought the best thing to do was using harmonic dissector and transected which I did and I sent the omental piece off to pathology for permanent sectioning I had good pneumostasis here I brought the defect together which was approximately the size of a dime with 3 interrupted sutures of #1 Nurolon's. Local was injected into the fascia. Incision was brought together with deep dermal stitches of 3-0 Vicryl then a running 4-0 Monocryl. Steri-Strips were applied sterile dressings were applied and the patient tolerated the procedure well. Admit VTE Documentation VTE Present on Admission: No VTE Mechan Device Prophylaxis: SCD's VTE Pharm Prophylaxis ordered?: No Reason prophylaxis not ordered:: Treatment Not Indicated
[2022-01-09] MEDS: Clindamycin 900 MG/50 ML BAG 75 MG IV (17:00)
--- NOTE | 2022-01-09 17:15 | HERN_PTH ---
PATIENT: NICK CINTRON LOC: [facility] [place][id number] AGE/SX: 51/M ROOM: RE01/09/[address]: Dr. Pablo Alfaro MD : 1970 BED: DIS: 01/09/2022 SPEC #: [id number] RECD: 01/10/22 06:55 STATUS: MARÍA WIL #: [id number] CHRYSTAL: 01/09/22 17:[address]: Pablo Alfaro DEPT: SURGICAL PATHOLOGY RECD BY: Rocío Liao ENTERED: 01/10/22 08:04 SP TYPE: Hernia OTHR DR: Dr. Criss Chandler MD Tissues: HERNIA Procedures: Surgery Specimen Level II HEADER OPERATION: Hernia, umbilical repair PRE-OP DIAGNOSIS: Incarcerated umbilical hernia TISSUE SUBMITTED: Hernia MICROSCOPIC DIAGNOSIS Hernia: A piece of fibroadipose and fibroconnective tissue, consistent with hernia sac with focal hemorrhage, chronic inflammation and reactive changes. /SJ 01/11/22 MICROSCOPIC DESCRIPTION Slides are reviewed. GROSS DESCRIPTION Received is one container labeled with the patient name and designated hernia. The specimen consists of one irregular fragment of light elder soft tissue that measures 4 x 3 x 2.5 cm. Sections reveal focal hemorrhagic cut surfaces. No mass lesion is identified. Bushwalking Guide sections are submitted in one cassette. /SJ:isaak 01/10/2022 TC:5 CPT:21486
[2022-01-09] MEDS: Bupivacaine 0.25% 30 ML Vial (17:36)
--- NOTE | 2022-01-09 17:39 | EX.PCM.DISCH ---
Discharge Instructions Procedure Hernia Diet Discharge Diet: Light diet - advance as tolerated Activity Discharge Activity: Return to Normal Activity, May Drive (when you are no longer taking narcotic pain medications.) and May Shower (with the bandage in place 1-2 days after surgery.) Lifting Restrictions: 20 pounds for 8 weeks. Additional Activity Instructions:: Climbing stairs is fine, walking is encouraged. Sitting in bed may be uncomfortable. Sitting up using your lateral muscles (sitting up sideways) is usually more comfortable. Do not drive, work heavy equipment of sign legal documents for 24 hours. If your hernia repair was an ingunial repair, you may have scrotal swelling, an ice pack and/or athletic support can provide more comfort. Pain medications may cause nausea, you should typically eat light foods as you take your pain medications. Pain medications may also cause constipation. If you have difficulty with this, discuss with your doctor. Dressing / Incision Call your doctor if your incision/area has: Continuous Slow Oozing, Sudden Increased Bleeding, Increased Pain/ Swelling, Increased Redness and Foul Smelling Discharge Call your doctor if you observe: Fever of 101 or Higher Suture Line Care: Avoid Pulling/Pushing and Avoid Pinching/Bending Change Dressing in: 2 days Cleanse incision/area with: Soap & Water Additional Dressing/Incision Instructions:: Leave the operative bandage on for 2-3 days. When you remove the bandage, leave the steri-strips on place until your follow up appointment or they fall off. Follow Up Care Please Follow Up With: Karma Marshall PA-C When: Call office to schedule an appointment to be seen in 7 days. Test Results: Test results from this visit will be discussed in further detail at your follow-up appointment, if applicable. Discharge Plan Triage Chief Complaint: Abd Pain ED Provider: Destin Melendez Dx/Rx/DC Orders Clinical Impression: Incarcerated umbilical hernia, Abdominal pain, Nausea Prescriptions: New oxycodone-acetaminophen [Percocet] 5-325 mg tablet 1 tab PO Q4H PRN (Reason: pain) 5 Days Qty: 20 0RF No Action pantoprazole 40 MG tablet 40 mg PO DAILY levothyroxine [Levoxyl] 50 mcg tablet 50 mcg PO DAILY duloxetine 30 mg capsule,delayed release(DR/EC) 30 mg PO DAILY Primary Care Provider: Criss Chandler Referrals: Criss Chandler MD [Primary Care Provider] - Karma Marshall PA-C [Med Staff - [facility]] - Disposition Disposition: Home, Self Care Discharge Date/Time: 01/09/22 16:39
[2022-01-09 17:57] VITALS: BP 146/101; BP 147/99; PULSE 107; RESP 16; TEMP 36.8; O2SAT 93
[2022-01-09 18:00] VITALS: BP 121/89; BP 146/101; PULSE 101; RESP 16; O2SAT 92
[2022-01-09 18:15] VITALS: BP 134/90; BP 146/101; PULSE 101; RESP 16; O2SAT 95
[2022-01-09 18:30] VITALS: BP 125/92; BP 146/101; PULSE 89; RESP 16; TEMP 37.1; O2SAT 97
[2022-01-09 18:59] VITALS: BP 120/92; BP 146/101; PULSE 89; RESP 16; O2SAT 97
[2022-01-14 08:18] VITALS: BP 120/92; PULSE 89; RESP 16; TEMP 37.1; O2SAT 97
== END 2022-01-09 19:04 | disposition home or self-care (01) ==
LOC: ED 16:30 → SDC 18:04 → ACINP 18:04
PROVIDERS: Emergency Provider Emergency Medicine; PCP Internal Medicine; Visit Provider Surgery
PROC: (CPT 49566; principal; 2022-01-09 17:00)
DX: K43.0 Incisional hernia with obstruction, without gangrene (principal); K21.9 Gastro-esophageal reflux disease without esophagitis; F32.A Depression, unspecified; E03.9 Hypothyroidism, unspecified; Z79.899 Other long term (current) drug therapy
CPT/HCPCS: 49566; 00752; 74177; 80048; 85025; 88302; 99281; J7120; Q9967; J2405

== ENCOUNTER 2023-08-29 11:27 | Emergency (ER) | payer OTHER, SELFPAY ==
[2023-08-29] VITALS (7 sets, daily range): BP systolic 138–146; BP diastolic 89–104; PULSE 46–100; RESP 7–18; TEMP 36.9–37; O2SAT 95–100; BMI 30.8
--- NOTE | 2023-08-29 11:24 | EKG12_ITS ---
Test Reason : SVT Blood Pressure : / mmHG Vent. Rate : 096 BPM Atrial Rate : 096 BPM P-R Int : 168 ms QRS Dur : 086 ms QT Int : 342 ms P-R-T Axes : 042 055 026 degrees QTc Int : 432 ms Normal sinus rhythm Normal ECG Confirmed by DESHAUN JUNIOR, DONNA ([id number]), assignment editor ROMÁN WILLS ([id number]) on 08/31/2023 9:29:24 AM Referred By: OTIS/PAMELLA Confirmed By:DONNA MEADE MD
--- NOTE | 2023-08-29 11:30 | ED.VIS.CHEST ---
HPI History of Present Illness Chief Complaint: Palpitations [facility] Medical History Depression GERD (gastroesophageal reflux disease) Hyperlipidemia Hypothyroid Pituitary adenoma Home Medications ?Medication ?Instructions ?Recorded ?Last Taken ?Type pantoprazole 40 mg tablet,delayed 40 mg PO DAILY 11/19/17 Unknown History release duloxetine 30 mg capsule,delayed 30 mg PO DAILY 07/17/20 Unknown History release levothyroxine 50 mcg tablet 50 mcg PO DAILY 07/17/20 Unknown History (Levoxyl) cabergoline 0.5 mg tablet 0.25 mg PO .week 08/29/23 Unknown History metoprolol tartrate 25 mg tablet 12.5 mg (1/2 x 25 mg) PO BID 08/29/23 Unknown Rx days #30 tabs Allergy/AdvReac Type Severity Reaction Status Date / Time Penicillins (PCN) Allergy Rash Verified 08/29/23 11:37 Sulfa (Sulfonamide AdvReac Nausea Verified 08/29/23 11:37 Antibiotics) Surgical History H/O umbilical hernia repair Social History Smoking Status: Never smoker EXAM Physical Exam Const Vital Signs: 08/29/23 11:28 08/29/23 11:30 08/29/23 12:27 Temperature 98.5 F Temperature Source Temporal Pulse Rate 100 73 Respiratory Rate 17 13 Respiratory Effort Normal Non-Labored Respiratory Pattern Normal Blood Pressure 146/104 H 138/89 H Blood Pressure Mean 118 105 Pulse Ox 95 96 Oxygen Delivery Method Room Air Room Air 08/29/23 13:00 08/29/23 13:30 08/29/23 14:00 Temperature Temperature Source Pulse Rate 62 58 L 60 Respiratory Rate 14 12 17 Respiratory Effort Respiratory Pattern Blood Pressure 144/102 H 140/103 H Blood Pressure Mean 116 115 Pulse Ox 99 96 98 Oxygen Delivery Method Room Air 08/29/23 14:00 08/29/23 14:15 08/29/23 14:50 Temperature 98.6 F Temperature Source Pulse Rate 46 L 54 L 61 Respiratory Rate 7 L 17 18 Respiratory Effort Respiratory Pattern Blood Pressure 140/103 H 140/103 H Blood Pressure Mean 115 115 Pulse Ox 100 Oxygen Delivery Method MDM MDM MDM Narrative Medical decision making narrative: HISTORY OF PRESENT ILLNESS: 52-year-old male presents with palpitations. He states yesterday evening approximately 18 hours prior to arrival patient noted lightheadedness and palpitations. He noted this was exacerbated by exertion. Denies chest pain or shortness of breath. Denies using any stimulant drugs (cocaine, methamphetamine). Notes he drinks coffee but this is normal. 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 Denies any leg swelling or calf tenderness. Denies any family history of sudden cardiac . Notes his mother has history of A-fib. He denies ever having an issue with his heart rhythm. Notes compliance with levothyroxine. Denies any additional doses. Denies any bleeding diathesis, volume loss. Notes he sweats a lot although he drinks lots of Powerade which has large electrolytes she does not think he is dehydrated. The patient denies recent surgery in the last 4 weeks or immobilization in the last 3 days, denies previous diagnosis of DVT or PE, hemoptysis, unilateral leg swelling or malignancy with treatment the last 6 months or palliative. No estrogen use noted. REVIEW OF SYSTEMS: Pertinent positives: Palpitations Pertinent negatives: Chest pain, shortness of breath, lightheadedness, syncope PHYSICAL EXAM: Nursing triage notes reviewed, Vital signs reviewed Constitutional: please see mdm HENT: MMM Eyes: Pupils equal round and reactive to light, Extraocular muscles intact Neck: No stridor, no JVD, full neck ROM Lungs: Clear to auscultation, No wheezing or rales. No increased work of breathing, no conversational dyspnea, no accessory muscle use, no nasal flaring. No respiratory distress noted Heart: Regular rate and rhythm, No murmurs, No rubs and No gallops, 2+ distal pulses (radial, femoral, posterior tibial) in all extremities Abdomen: Soft, there is no tenderness, rigidity, rebound or guarding, no obvious peritoneal signs, no palpable pulsatile abdominal masses, no auscultated abdominal bruit : No CVAT Extremities: No edema Neuro: No focal neurological deficits, cranial nerves II through XII intact, 5/5 strength in all extremities. Intact sensation to light touch in all extremities, 2+ reflexes bilateral patella tendons. Normal gait. No ataxia. Skin: No rash or lesions noted MEDICAL DECISION MAKING: Chief Complaint: Palpitations External records reviewed: No recent cardiac catheterizations, stress test or echocardiograms noted in the chart Factors affecting care: Hypothyroidism, Social determinants of health: Chewing tobacco, denies methamphetamine or cocaine History obtained from others: Patient's Consults: none MDM Narrative: Patient was initially was hemodynamically stable, afebrile and nontoxic-appearing. No focal cardiopulmonary maladies. No stigmata of VTE. Patient did not appear dehydrated or in distress. I considered the following differential diagnosis: Arrhythmia, anemia, electro disturbance, ACS, PE While I considered pulmonary embolism as a potential etiology I think this is less likely given low risk Wells score and negative D-dimer. I obtained a broad lab and imaging workup to further elucidate the etiology the patient complaint. Treat the patient initially 1 L normal saline and oral metoprolol to control his heart rate given the positional nature of his arrhythmia. ALL IMAGES (IF OBTAINED) HAVE BEEN PERSONALLY REVIEWED AND INTERPRETED BY MYSELF. EKG with normal sinus rhythm, right axis deviation, normal intervals, no STEMI, no WPW, no short OK, no ARVD, no Brugada syndrome noted CBC without leukocytosis, severe anemia, no thrombocytopenia. BMP without evidence of significant electrolyte abnormalities, no anion gap, no acute kidney injury. D-dimer negative, low VTE High-sensitivity troponin is negative, no evidence of myocardial ischemia TSH, free T3 and free T4 negative I have personally reviewed the patient's chest x-ray. Chest x-ray is unremarkable for pulmonary edema, pneumothorax, pneumonia or focal cardiopulmonary abnormality. The synthesis of the patient's history, physical exam, images suggest no acute life-limiting etiology. He was given a prophylactic dose of oral metoprolol which improved his symptoms. No obvious arrhythmia, recurrent ischemia. No evidence precipitating cause. Will give close cardiology follow-up and a prescription for metoprolol to take 12.5 mg twice a day. I will arrange close cardiology follow-up. The patient and/or family, caregivers express understanding. The patient and/or family, caregivers agrees with the plan. Shared decision making: I will have a discussion with the patient and or visitors regarding risk/benefits of further testing or admission. They will be made aware of of the risk/benefits inherent in this decision they will be given the opportunity to voice understanding. Total critical care time today provided was at least 0 minutes. This excludes separately billable procedures. Critical care time (if documented) is secondary to the patient having high probability of clinically significant/life threatening deterioration in the patient's condition which required my urgent intervention. Impression: 1. Palpitations 2. SVT (resolved) Dispo: Discharge home This note was generated with [employer] dictation software. It may contain incorrect words, spelling, and punctuation that were not noted in review of the chart prior to signing. Lab Data Labs: Laboratory Results - last 24 hr 08/29/23 08/29/23 11:30 13:50 WBC 7.8 RBC 6.03 Hgb 16.9 H Hct 53.2 MCV 88.2 MCH 28.0 MCHC 31.8 L RDW Std Deviation 44.6 H RDW Coeff of Gabriela 13.9 Plt Count 303 MPV 9.6 Immature Gran % (Auto) 0.500 Neut % (Auto) 57.8 Lymph % (Auto) 29.4 Gaines % (Auto) 9.0 Eos % (Auto) 2.1 Baso % (Auto) 1.2 H Absolute Neuts (auto) 4.5 Absolute Lymphs (auto) 2.29 Nucleated RBC % 0 D-Dimer Quant (PE/DVT) 0.32 Sodium 137 Potassium 3.7 Chloride 102 Carbon Dioxide 29.0 Anion Gap 6 BUN 16 Creatinine 1.39 H Estim Creat Clear Calc 72.78 Est GFR (MDRD) Af Amer 69 Est GFR (MDRD) Non-Af 57 L BUN/Creatinine Ratio 11.5 Glucose 92 Calcium 10.0 Troponin I High Sens 5 4 TSH 2.59 Free T4 0.88 Free T3 pg/dL 2.7 Radiography Diagnostic Testing: Clinical Impression(s) from Imaging Studies Chest X-Ray 08/29/23 11:42 IMPRESSION: No active disease. Electronically Signed: Joey Agarwal MD at 12:21 EDT , Discharge Plan Triage Chief Complaint: Palpitations ED Provider: Colton Downs Dx/Rx/DC Orders Instructions: ED Understanding Supraventricular Tachycardia (SVT) Prescriptions: New metoprolol tartrate 25 mg tablet 12.5 mg PO BID 30 Days Qty: 30 0RF No Action pantoprazole 40 MG tablet 40 mg PO DAILY levothyroxine [Levoxyl] 50 mcg tablet 50 mcg PO DAILY duloxetine 30 mg capsule,delayed release(DR/EC) 30 mg PO DAILY cabergoline 0.5 mg tablet 0.25 mg PO .week Primary Care Provider: Criss Chandler Referrals: Klever Elena MD [Med Staff - Active Staff] - Activity Restrictions/Additional Instructions: Thank you for trusting us with your care today! Please take metoprolol 200 mg twice a day. Please return to the emergency department if your symptoms change or worsen. Please follow with cardiology (Dr. Elena) for further outpatient evaluation and management. Print Language: Cook Islander Disposition Disposition: Home, Self Care Discharge Date/Time: 08/29/23 15:08
--- NOTE | 2023-08-29 11:42 | RAD_ITS ---
STUDY: X-RAY CHEST REASON FOR EXAM: Male, 52 years old. palpitations TECHNIQUE: Single AP portable view of the chest. COMPARISON: 06/27/2009 FINDINGS: The lungs are clear and expanded. Elevated right hemidiaphragm which is unchanged. Normal size heart. Normal mediastinum and jose j. Normal visualized pulmonary arteries. Normal visualized aortic arch and descending thoracic aorta. Normal visualized thoracic spine. Normal visualized ribs, clavicles, and shoulders. There is no demonstrated abnormality of the visualized soft tissue structures of the upper abdomen. RAD/Chest 1 View (Portable) IMPRESSION: No active disease. Electronically Signed: Joey Agarwal MD at 12:21 EDT ,
[2023-08-29 12:02] LABS: Absolute Lymphocyte Count 2.29 X10^3/uL (0.83-4.51); Absolute Neutrophil Count 4.5 X10^3/uL (2.0-7.7); Basophil# 0.09 X10^3/uL; Basophil% 1.2 % (0-1); Eosinophil# 0.16 X10^3/uL; Eosinophils% 2.1 % (0-5); Hematocrit 53.2 % (40-54); Hemoglobin 16.9 g/dL (13.0-16.5); Lymphocyte # 2.29 X10^3/ul (0.83-4.51); Lymphocyte % 29.4 % (19-41); Mean Corp Hgb Conc 31.8 g/dL (32-36); Mean Corpuscular Volume 88.2 fL (80-94); Mean Platelet Vol. 9.6 fl (6.2-12.0); NRBC Flagged by Analyzer 0 % (0-5); Neutrophil % 57.8 % (47-70); Platelet Count 303 K/mm3 (150-450); RBC Distribution Width CV 13.9 % (11.6-14.6); RBC Distribution Width SD 44.6 fl (35.1-43.9); Red Blood Count 6.03 M/mm3 (4.6-6.2); White Blood Count 7.8 K/mm3 (4.4-11.0)
[2023-08-29 12:20] LABS: Anion Gap 6 (5-15); BUN 16 mg/dL (7-18); BUN/Creat Ratio 11.5 RATIO (10-20); Chloride 102 mmol/L (98-107); Creatinine, Serum 1.39 mg/dL (0.70-1.30); EST Glomerular Filtration Rate 57 mL/min (>60); Est Glom Filt Rate - Afr Amer 69 mL/min (>60); Estimated Creatinine Clearance 72.78 ml/min; Free T3 2.7 pg/mL (2.18-3.98); Glucose 92 mg/dL (74-106); Potassium 3.7 mmol/L (3.5-5.1); Sodium Level 137 mmol/L (136-145); T4 Free Direct 0.88 ng/dL (0.76-1.46); Thyroid Stim Hormone (TSH) 2.59 uIU/mL (0.358-3.74); Troponin-I HS (w/2H Reflex) 5 pg/mL (3.0-78.0)
[2023-08-29] MEDS: 0.9% Normal Saline (1000mL) 1,000 ML 999 ML IV (12:30)
[2023-08-29] MEDS: Metoprolol Tartrate 25 MG Tablet PO (12:31)
[2023-08-29 12:33] LABS: D-Dimer Quantitative (DVT/PE) 0.32 FEU/ug/m (0.27-0.49)
[2023-08-29 13:52] LABS: Reflex Troponin-HS? (from REC) Y
[2023-08-29 14:18] LABS: Troponin-I HS 4 pg/mL (3.0-78.0)
== END 2023-08-29 15:08 | disposition home or self-care (01) ==
PROVIDERS: Emergency Provider Emergency Medicine; PCP Internal Medicine; Visit Provider Emergency Medicine
DX: R00.2 Palpitations (principal); I48.91 Unspecified atrial fibrillation; E78.5 Hyperlipidemia, unspecified; E03.9 Hypothyroidism, unspecified; K21.9 Gastro-esophageal reflux disease without esophagitis; C00-D49 Neoplasms; Z79.890 Hormone replacement therapy; F17.220 Nicotine dependence, chewing tobacco, uncomplicated; D64.9 Anemia, unspecified; Z79.899 Other long term (current) drug therapy; R42 Dizziness and giddiness
CPT/HCPCS: 71045; 80048; 83880; 84439; 84443; 84481; 84484; 85025; 85379; 93005; 96360; 96361; 99284; J7030; A4216

== ENCOUNTER 2023-11-20 08:31 | Day surgery (SDC) | payer OTHER, SELFPAY ==
--- NOTE | 2023-11-14 09:20 | PCM.HP.BLA ---
History and Physical Date of Admission: 11/20/23 Pleasant 53-year-old who presents for an EP study and possible ablation. 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 In the emergency room he was noted to be hemodynamically stable blood work was unremarkable with a hemoglobin of 16 electrolytes were normal TSH troponin and T3 were all noted to be normal. He was subsequently discharged with low-dose beta-loco. His EKG while he was not in the SVT demonstrated normal sinus rhythm with a rate of 96 bpm. He has not had this in the past but he says that more recently he has been having some and it appears to be worse when he stands up. His lipid profile in February demonstrated total cholesterol of 252 HDL of 34 LDL 170. His physical exam he has unremarkable his electrocardiogram demonstrates sinus rhythm with a rate of 85 bpm. Intake Vital Signs See EMR Allergies See EMR Medications See EMR [facility] Medical History Palpitations Hypogonadotropic hypogonadism Chronic musculoskeletal pain Anxiety Incarcerated umbilical hernia Pituitary adenoma Hypothyroid Hyperlipidemia Depression GERD (gastroesophageal reflux disease) Surgical History H/O umbilical hernia repair Family History Mother Hypertension Hyperlipidemia Thyroid disorderFather Hypertension HyperlipidemiaGrandfather CVA (cerebral vascular accident) Social History Smoking Status: Never smoker Smokeless tobacco user: chewing tobacco alcohol intake: current alcohol intake frequency: holidays/special occasions only substance use type: does not use ROS Const Const: Positive for fatigue; Negative for weakness, headache(s), daytime sleepiness or difficulty sleeping ENT ENT: Negative for headache(s), dizziness or Nosebleed/epistaxis Cardio Chest Pain: No Palpitations: Yes (fluttering) feels like its: fast Edema: None Resp Respiratory: Negative for SOB with activity, SOB at rest, SOB orthopnea\SOB lying down or Cough GI GI: Negative nausea, vomiting or heartburn Neuro Neuro: Negative for dizziness, lightheadedness, near syncope, headache(s) or weakness Endo Endo: Positive for fatigue Cardiology Exam Const Appearance: cooperative, healthy appearing, no acute distress, well developed and well groomed Nutritional Appearance: average body habitus and well nourished Orientation: alert, awake and oriented x3 Head Head: normal to inspection, normocephalic and atraumatic Ears: hearing grossly normal bilaterally and external ears normal Nose: external nose normal, nares normal, nasal mucous membranes and turbinates normal, septum normal and no nasal discharge Face and Sinus: face symmetric Mouth: oral mucosae normal, tongue normal, oropharynx normal and moist mucous membranes Teeth and gingiva: dentition normal Throat: posterior oropharynx normal, tonsils normal and uvula midline Eyes General: appearance normal, both eyes and all related structures Eyelids: eyelids normal Conjunctivae: conjunctivae normal Pupils: PERRL, normal by confrontation and accommodation normal EOM: EOM intact bilaterally Neck Neck: normal visual inspection, trachea midline and no JVD JVD: +5 Carotids: normal carotid upstroke and bounding pulses Chest Chest inspection: normal inspection of the chest, symmetric chest movement and normal respiratory effort Auscultation: Bilateral: Clear to Auscultation Cardio Palpation: normal PMI Rate: regular rate Rhythm: regular rhythm Heart sounds: S1 normal, S2 normal and normal, physiologic split S2; Negative rub, gallop or murmur GI GI: normal to inspection, soft, no hepatosplenomegaly and bowel sounds present Neuro General: patient alert, patient awake, patient oriented x3, gait normal, moves all extremities and no focal sensory deficit Skin Skin: no rashes or lesions noted Extremities Pulses: Normal: Right Femoral Pulse, Left Femoral Pulse, Right Dorsalis Pedis Pulse, Left Dorsalis Pedis Pulse, Right Posterior Tibial Pulse, Left Posterior Tibial Pulse, Right Radial Pulse and Left Radial Pulse Lower Extremity Edema: None: Bilateral Musculoskel Musculoskeletal: No joint tenderness Psych Psychological: normal affect Supplemental Info Supplemental Information Assessment and Plan Assessment and Plan (1) SVT (supraventricular tachycardia): Status: Acute Plan: He does have a history of a supraventricular tachycardia. He will proceed with an EP study with review to AV nayeli ablation modification.
[2023-11-19 09:38] VITALS: BMI 29.7
[2023-11-20 08:54] LABS: Hematocrit 48.7 % (40-54); Hemoglobin 15.6 g/dL (13.0-16.5); Mean Corpuscular Hgb 28.4 pg (27.0-32.0); Mean Corpuscular Volume 88.5 fL (80-94); Mean Platelet Vol. 9.1 fl (6.2-12.0); Platelet Count 251 K/mm3 (150-450); RBC Distribution Width CV 12.9 % (11.6-14.6); RBC Distribution Width SD 42.3 fl (35.1-43.9); White Blood Count 6.9 K/mm3 (4.4-11.0)
[2023-11-20 09:21] LABS: Anion Gap 5 (5-15); BUN 12 mg/dL (7-18); BUN/Creat Ratio 10.2 RATIO (10-20); Calcium,Total 9.5 mg/dL (8.5-10.1); Chloride 107 mmol/L (98-107); Creatinine, Serum 1.18 mg/dL (0.70-1.30); EST Glomerular Filtration Rate 69 mL/min (>60); Est Glom Filt Rate - Afr Amer 83 mL/min (>60); Estimated Creatinine Clearance 83.31 ml/min; Glucose 104 mg/dL (74-106); Potassium 4.2 mmol/L (3.5-5.1); Sodium Level 139 mmol/L (136-145)
--- NOTE | 2023-11-20 11:29 | ELECTROSTU_ITS ---
Electrophysiology Report Electrophysiology Report Yo West is a 53 year old male who has a past medical history of palpitations, hypogonadotropic hypogonadism, depression, hyperlipidemia, hypothyroidism, and an incarcerated hernia, who presented to the [facility] EP lab for further evaluation regarding palpitations and SVT. Procedure Summary * Patient prepped and draped in sterile fashion. * Right groin infiltrated with lidocaine. * Right femoral access obtained x3 with ultrasound guidance. * Sheaths inserted into femoral veins via Seldinger technique. * Catheters inserted through right groin. * EPS results listed below in conclusions. * Isuprel testing performed. * Sheaths pulled in lab and hemostasis achieved per protocol. Findings: BASELINE ISUPREL 3mcg/min 6mcg/min SCL: 793ms SCL: 650ms 540ms AH: 107ms AH: 69ms 73ms HV: 43ms HV: 49ms 46ms Maximum SNRT: 1055ms CSNRT: [ ]ms AVBCL: [ ]ms AVBCL: [ ]ms VABCL: [ ]ms VABCL: [ ]ms Decremental Conduction? [Y/N] Decremental Conduction? [Y/N] Concentric: [Y/N] Concentric: [Y/N] AP BCL: [ ]ms AVN ERP [ ]ms @ [ ]ms AVN ERP [ ]ms @ [ ]ms AP ERP [ ]ms @ [ ]ms AP ERP [ ]ms @ [ ]ms VERP [ ]ms @ [ ]ms VERP [ ]ms @ [ ]ms [ ]ms @ [ ]ms [ ]ms @ [ ]ms [ ]ms @ [ ]ms [ ]ms @ [ ]ms BASELINE ISUPREL Inducible Tachycardia: [Y/N] Inducible Tachycardia: [Y/N] Diagnosis: [ ] Diagnosis: [ ] VA interval at Hisduring tachycardia: [ ] VA interval at Hisduring tachycardia: [ ] Ablation of: [ ] Ablation Parameters: [ ] Ablation Catheter Used: [ ] Results of Ablation Site of Ablation: [ ] [Successful/Unsuccessful] Post Ablation Testing BASELINE ISUPREL SCL: [ ]ms SCL: [ ]ms AH: [ ]ms AH: [ ]ms HV: [ ]ms HV: [ ]ms AVBCL: [ ]ms AVBCL: [ ]ms AVN ERP [ ]ms @ [ ]ms AVN ERP [ ]ms @ [ ]ms VA BCL: [ ]ms VA BCL: [ ]ms Bidirectional Block Achieved: [Y/N] Septal to Lateral Block Conduction Time: [ ] Lateral to septal Block Conduction Time: [ ] Conclusions 1. Baseline rhythm is [ ]. 2. Normal sinus node function (longest SNRT [ ]ms). 3. Normal AV node function, normal infranodal conduction (HV= [ ]ms). 4. No evidence of accessory pathway. 5. No evidence of dual AV node physiology. 6. VA conduction present and is decremental.? 7. No inducible SVT or VT, latter by S5 protocol. Recommendations 1. [ ] 2. Bedrest for [ ] hours 3. The patient can continue to follow-up with [ ].
--- NOTE | 2023-11-20 11:29 | EX.ELECTROPH ---
Electrophysiology Report Electrophysiology Report Yo West is a 53 year old male who has a past medical history of palpitations, hypogonadotropic hypogonadism, depression, hyperlipidemia, hypothyroidism, and an incarcerated hernia, who presented to the [place] EP lab for further evaluation regarding palpitations and SVT. Procedure Summary Patient prepped and draped in sterile fashion. Right groin infiltrated with lidocaine. Right femoral access obtained x3 with ultrasound guidance. Sheaths inserted into femoral veins via Seldinger technique. Catheters inserted through right groin. EPS results listed below in conclusions. Isuprel testing performed. Sheaths pulled in lab and hemostasis achieved per protocol. Findings: BASELINE ISUPREL 3mcg/min 6mcg/min SCL: 793ms SCL: 650ms 540ms AH: 107ms AH: 69ms HV: 43ms HV: 49ms 46ms Maximum SNRT: 1055ms CSNRT: 266ms AVBCL: 390ms AVBCL: 320ms 260ms VABCL: VAD VABCL: intermittent at 580ms 460ms Decremental Conduction? NA Decremental Conduction? y Concentric: NA Concentric: Y AP BCL: NA AVN ERP 280ms @ 600ms AVN ERP <200ms @ 500ms <200 @ 460ms VERP NA VERP 400ms @ 460ms BASELINE ISUPREL Inducible Tachycardia: N Inducible Tachycardia: N Conclusions 1. Baseline rhythm is sinus. 2. Normal sinus node function (longest SNRT 1055ms). 3. Normal AV node function, normal infranodal conduction (HV= 43ms). 4. No evidence of accessory pathway. 5. No evidence of dual AV node physiology. 6. VAD at baseline, with intermittent conduction on isuprel 7. No inducible SVT at baseline or on isuprel Recommendations 1. Continue metoprolol. Obtain 30 day event monitor 2. Bedrest for 3 hours 3. The patient can continue to follow-up with Dr. Elena.
== END 2023-11-20 14:40 | disposition home or self-care (01) ==
PROVIDERS: Internal Medicine Cardiovascular Disease; PCP Internal Medicine; Referring Provider Internal Medicine; Visit Provider Internal Medicine
DX: I47.10 Supraventricular tachycardia, unspecified (principal); E78.5 Hyperlipidemia, unspecified; K21.9 Gastro-esophageal reflux disease without esophagitis; F17.220 Nicotine dependence, chewing tobacco, uncomplicated
CPT/HCPCS: 36415; 80048; 85027; 93620; 93623; 99152; 99153; C1730; J7040; C1894; J2405

== ENCOUNTER 2024-10-25 10:54 | Emergency (ER) | payer OTHER, SELFPAY ==
[2024-10-25 10:55] VITALS: BP 163/111; PULSE 107; RESP 18; TEMP 37.4; O2SAT 96; BMI 30.2
--- NOTE | 2024-10-25 11:57 | RAD_ITS ---
EXAM: Two-view x-ray evaluation of the right tibia and fibula. CLINICAL HISTORY: Posterior calf pain. COMPARISON: None. TECHNIQUE: AP and lateral views of the right tibia and fibula were obtained. FINDINGS: The tibia and fibula are intact. The knee and ankle joints appear unremarkable. 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 There are no soft tissue abnormalities. RAD/Tibia & Fibula 2 Views IMPRESSION: Normal right tibia and fibula. Reading Location: [id number]
--- OUTSIDE RECORDS SUMMARY | 2024-10-25 12:05 | XMS RPT_ITS | CCD ---
Author Organization [facility] ion Partnership [facility] Care Team Providers Care Lead Slot Technician Name Role Phone Geraldine JUNIOR, Thuan Primary Care Provider Ganta, Thuan Primary Care Unavailable Colton Downs Attending Unavailable Jet AR MANAGER, Gisel Attending Unavailable Ganta, Thuan Primary Care Unavailable Harmony, Khurram Consulting Unavailable Harmony, Khurram Referring Unavailable Ganta, Thuan Primary Care Unavailable Harmony, Khurram Consulting Unavailable Harmony, Khurram Attending Unavailable Harmony, Khurram Referring Unavailable Ganta, Thuan Referring Unavailable Ganta, Thuan Primary Care Unavailable Angella AR MANAGER, Issa Reveles Attending Unavailable Ganta, Thuan Primary Care Unavailable Harmony, Khurram Referring Unavailable Harmony, Khurram Attending Unavailable Ganta, Thuan Primary Care Unavailable Ulices, Klever Attending Unavailable Ulices, Florence Referring Unavailable Ganta, Thuan Primary Care Unavailable Ulices, Florence Attending Unavailable Ganta, Thuan Referring Unavailable Eloiseta Thuan JUNIOR Primary Care Provider Val Landis PA-C Unavailable Older MARINE SERVICE OPERATOR.NIGHT MANAGER, Marya Unavailable Syl Serrato PA-C Unavailable MIRA EDGE Attending Unavailable GANTA, THUAN Primary Care Unavailable GANTA, THUAN Primary Care Unavailable NICCI MARKS Attending Unavailable GANTA, THUAN Primary Care Unavailable NICCI MARKS Referring Unavailable GANTA, THUAN Primary Care Unavailable GANTA, THUAN Attending Unavailable Allergies Allergy Classification Reported Allergen(s) Allergy Type Date of Onset Reaction(s) Facility (20 sources) atorvastatin; Translations: [ATORVASTATIN CALCIUM] Drug Allergy 4 Other: See Comments [facility] Work Phone: (5 sources) Penicillins; Translations: [PENICILLINS] Propensity to adverse reactions 6 Rash [facility] (20 sources) Seasonal allergy; Translations: [SEASONAL ALLERGIES] Allergy to substance 8 Itching [facility] Work Phone: (20 sources) Sulfonamides (Antibiotic); Translations: [SULFA (SULFONAMIDE ANTIBIOTICS)] Drug Allergy 8 GI Upset [facility] (16 sources) Penicillins Propensity to adverse reactions 6 [facility] (1 source) Penicillins Allergy to substance 2 Rash [facility] Work Phone: (1 source) Sulfonamides (Antibiotic) Propensity to adverse reactions 2 Nausea [facility] Work Phone: (15 sources) ezetimibe; Translations: [EZETIMIBE] Drug Allergy 2 Diarrhea [facility] Work Phone: (15 sources) rosuvastatin; Translations: [ROSUVASTATIN] Drug Allergy 2 Other: See Comments [facility] Work Phone: (1 source) atorvastatin Drug Allergy 4 [facility] (1 source) ezetimibe Drug Allergy 4 [facility] (1 source) Penicillins Drug allergy (disorder) 4 [facility] (1 source) rosuvastatin Drug Allergy 4 [facility] (1 source) Sulfonamides (Antibiotic) Drug allergy (disorder) 4 [facility] (1 source) Penicillins Propensity to adverse reactions 6 [facility] Medications Current Medications Medication Drug Class(es) Dates Sig (Normalized) Sig (Original) cephalexin 500 mg oral capsule (1 source) Cephalosporin Antibacterial Start: 07-17-2020 take 500 mg by mouth every twelve hours Cephalexin Active 500 MG PO EVERY 12 HOURS July 17, 2020 12:00am clonazePAM 0.5 mg oral tablet (16 sources) Benzodiazepine Start: 03-20-2023 End: 08-31-2024 take 1 tablet by mouth once daily as needed clonazePAM (KLONOPIN) 0.5 mg tablet Indications: Panic attack Take 1 tablet by mouth once daily as needed for up to 90 days. 30 tablet 1 06/02/2024 08/31/2024 Active Start: 01-31-2022 End: 05-01-2022 take 1 tablet by mouth once daily as needed clonazePAM (KLONOPIN) 0.5 mg tablet Indications: PFD (pelvic floor dysfunction) Take 1 tablet by mouth once daily as needed for up to 90 days. 30 tablet 1 01/31/2022 Active Start: 11-18-2019 take 1 tablet by kishore th once daily as needed clonazePAM (KLONOPIN) 0.5 mg tablet Indications: PFD (pelvic floor dysfunction) Take 1 tablet by mouth once daily as needed for up to 90 days. 30 tablet 1 11/18/2019 Active Comment on above: Take 1 tablet by kishore th once daily as needed for up to 90 days. DULoxetine 30 mg delayed release oral capsule (20 sources) Serotonin and Norepinephrine Reuptake Inhibitor Start: 02-24-2024 End: 06-02-2024 DULoxetine (CYMBALTA) 30 mg capsule Indications: Anxiety TAKE 1 CAPSULE DAILY FOR CHRONIC MUSCULOSKELETAL PAIN 90 capsule 3 06/02/2024 Active Start: 02-27-2023 End: 02-22-2024 DULoxetine (CYMBALTA) 30 mg capsule TAKE 1 CAPSULE DAILY FOR CHRONIC MUSCULOSKELETAL PAIN 90 capsule 3 02/27/2023 02/22/2024 Discontinued Start: 01-30-2022 DULoxetine (CY MBALTA) 30 mg capsule TAKE 1 CAPSULE DAILY FOR CHRONIC MUSCULOSKELETAL PAIN 90 capsule 3 01/30/2022 Active Start: 07-17-2020 End: 07-28-2021 DULoxetine (CYMBALTA) 30 mg capsule TAKE 1 CAPSULE DAILY FOR CHRONIC MUSCULOSKELETAL PAIN 90 capsule 3 01/17/2021 Active Comment on above: TAKE 1 CAPSULE DAILY FOR CHRONIC MUSCULOSKELETAL PAIN enteric contrast (will be provided with radiology test) (2 sources) Start: 01-09-2022 End: 01-10-2022 enteric contrast (will be provided with radiology test) Indications: Periumbilical abdominal pain , Periumbilical mass , Infection in abdomen (HCC) For CT ABD/PEL W IVCON Routine order Administer, As Directed One Time Only, via Oral, Rectal, both Oral and Rectal, Enteric Tube, Stoma or Indwelling Catheter, Enteric Contrast as designated per enteric contrast guidelines 1 Each 0 01/09/2022 01/10/2022 Active Comment on above: For CT ABD/PEL W IVC ON Routine order Administer, As Directed One Time Only, via Oral, Rectal, both Oral and Rectal, Enteric Tube, Stoma or Indwelling Catheter, Enteric Contrast as designated per enteric contrast guidelines iv contrast (will be provided with radiology test) (3 sources) Start: 02-06-2022 End: 02-07-2022 iv contrast (will be provided with radiology test) Indications: Prolactinoma (HCC) MRI Pituitary Inject, intravenously, once for 1 dose. No IV access, insert saline lock prior to the beginning of sedation, infusion, injection of imaging exam. Discontinue saline lock post exam. If Pt. has a central line or IVAD, may access for administration according to line specific nursing protocol. Once exam is complete flush line and de-access according to line specific nursing protocol in the MR contrast administration guidelines link. 1 Each 0 02/06/2022 02/07/2022 Active Start: 01-09-2022 End: 01-10-2022 iv contrast (will be provide d with radiology test) Indications: Periumbilical abdominal pain , Periumbilical mass , Infection in abdomen (HCC) CT ABD/PEL -Inject, intravenously, once for 1 dose.No IV access, insert saline lock prior to the beginning of sedation, infusion, injection of imaging exam. Discontinue saline lock post exam. If Pt. has a central line or IVAD, may access for administration according to line specific nursing protocol. Once exam is complete flush line and de-access according to line specific nursing protocol in the CT contrast administration guidelines link. 1 Each 0 01/09/2022 01/10/2022 Active Comment on above: CT ABD/PEL -Inject, intravenously, once for 1 dose.No IV access, insert saline lock prior to the beginning of sedation, infusion, injection of imaging exam. Discontinue saline lock post exam. If Pt. has a central line or IVAD, may access for administration according to line specific nursing protocol. Once exam is complete flush line and de-access according to line specific nursing protocol in the CT contrast administration guidelines link. MRI Pituitary Inject , intravenously, once for 1 dose. No IV access, insert saline lock prior to the beginning of sedation, infusion, injection of imaging exam. Discontinue saline lock post exam. If Pt. has a central line or IVAD, may access for administration according to line specific nursing protocol. Once exam is complete flush line and de-access according to line specific nursing protocol in the MR contrast administration guidelines link. lansoprazole 30 mg delayed release oral capsule (3 sources) Proton Pump Inhibitor Start: End: take 1 capsule by mouth once daily lansoprazole (PREVACID) 30 mg capsule Take 1 capsule by mouth once daily. 90 capsule 3 01/21/2021 07/28/2021 Discontinued Comment on above: Take 1 capsule by mo [facility] once daily. levothyroxine sodium 0.05 mg oral tablet (20 sources) l-Thyroxine Start: End: take 1 tablet by mouth once daily for thyroid dysfunction levothyroxine (LEVOXYL) 50 mcg tablet Indications: Hypothyroidism, unspecified type Take 1 tablet by mouth once daily. Take on empty stomach. For Thyroid 90 tablet 3 06/02/2024 Active Start: 03-20-2023 End: 04-04-2024 take 1 tablet by mouth once daily for thyroid dysfunction levothyroxine (LEVOXYL) 50 mcg tablet Indications: Hypothyroidism, unspecified type Take 1 tablet by mouth once daily. Take on empty stomach. For Thyroid 90 tablet 3 03/20/2023 04/04/2024 Discontinued Start: 07-17-2020 End: 08-01-2022 take 1 tablet by mouth once daily for thyroid dysfunction levothyroxine (LEVOXYL) 50 mcg tablet Indications: Hypothyroidism, unspecified type Take 1 tablet by mouth once daily. Take on empty stomach. For Thyroid 90 tablet 3 07/28/2021 08/01/2022 Discontinued Comment on above: [facility] Take on empty stomach. For Thyroid lisdexamfetamine dimesylate 20 mg oral capsule (12 sources) Central Nervous System Stimulant Start: End: take 1 capsule by mouth once daily lisdexamfetamine (VYVANSE) 20 mg capsule Indications: Attention deficit hyperactivity disorder (ADHD), unspecified ADHD type Take 1 capsule by mouth once daily for 30 days. Do not start before March 26, 2021. 30 capsule 0 03/26/2021 07/28/2021 Discontinued Start: 01-21-2021 End: 07-28-2021 take 1 tablet by mouth once daily lisdexamfetamine (VYVANSE) 20 mg chew Indications: Attention deficit hyperactivity disorder (ADHD), predominantly inattentive type Take 1 tablet by mouth once daily for 30 days. 30 tablet 0 01/21/2021 07/28/2021 Discontinued Comment on above: Take 1 tablet by [facility] once daily for 30 days. Take 1 capsule by mo [facility] once daily for 30 days. Take 1 capsule by [facility] once daily for 30 days. Do not start before February 24, 2021. Take 1 capsule by [facility] once daily for 30 days. Do not start before March 26, 2021. pantoprazole 40 mg delayed release oral tablet (20 sources) Proton Pump Inhibitor Start: 03-27-2024 End: 06-02-[address] (PROTONIX) 40 mg tablet Indications: Gastroesophageal reflux disease without esophagitis To take empty stomach with water 2 times a day. 180 tablet 3 06/02/2024 Active Start: 03-20-2023 End: 03-25-[address] (PROTONIX) 4 0 mg tablet To take empty stomach with water 2 times a day. 180 tablet 3 03/20/2023 03/25/2024 Discontinued Start: 01-30-2022 pantoprazole D R (PROTONIX) 40 mg tablet To take empty stomach with water 2 times a day. 180 tablet 3 01/30/2022 Active Start: 03-16-2021 pantoprazole D R (PROTONIX) 40 mg tablet To take empty stomach with water 2 times a day. 180 tablet 3 03/16/2021 Active Start: 11-19-2017 take 40 mg by mouth once daily Pantoprazole Active 40 MG PO DAILY November 18, 2017 11:00pm Comment on above: To take empty stomac h with water 2 times a day. Completed/Discontinued Medications Medication Drug Class(es) Dates Sig (Normalized) Sig (Original) acetaminophen 500 mg oral tablet (6 sources) Start: 07-10-2020 take 1 tablet by mouth every six hours as needed acetaminophen (TYLENOL EXTRA STRENGTH) 500 mg tablet Take 1 tablet by mouth every 6 hours as needed for Pain. 20 tablet 0 07/10/2020 Active Comment on above: Take 1 tablet by kishore every 6 hours as needed for Pain. benzocaine 15 mg / menthol 2.6 mg oral lozenge (4 sources) Standardized Chemical Allergen Start: 07-10-2020 End: 01-09-2022 benzocaine-menthol (CEPACOL) 15-2.6 mg lozg lozenge Take 1 Lozenge by mouth every 3 hours as needed. 15 Lozenge 0 07/10/2020 01/09/2022 Discontinued (Discontinued by Patient) Comment on above: Take 1 Lozenge by mo [facility] every 3 hours as needed. cabergoline 0.5 mg oral tablet (17 sources) Ergot Derivative Start: 08-09-2022 End: 06-02-2024 take 0.5 tablet by mouth once cabergoline (DOSTINEX) 0.5 mg tablet Indications: Hyperprolactinemia (HCC) Take 0.5 tablets by mouth every Sunday and Sunday. 12 tablet 3 08/09/2022 06/02/2024 Discontinued Start: 02-19-2022 End: 08-07-2022 take 0.5 tablet by mouth once cabergoline (DOSTINEX) 0.5 mg tablet Indications: Hyperprolactinemia (HCC) Take 0.5 tablets by mouth every Sunday and Sunday. 12 tablet 3 02/19/2022 08/07/2022 Discontinued Start: 11-19-2017 End: 07-28-2021 take 1 tablet by mouth every week cabergoline (DOSTINEX) 0.5 mg tablet Take 1 tablet by mouth one time a week. 12 tablet 3 08/20/2019 07/28/2021 Discontinued Comment on above: [facility]. Take 0.5 tablets by mouth every Sunday and Sunday. metoprolol tartrate 25 mg oral tablet (8 sources) beta-Adrenergic Loco Start: 08-29-2023 End: 06-02-2024 metoprolol tartrate, short acting, (LOPRESSOR) 25 mg tablet Take 12.5 mg by mouth two times a day. 08/29/2023 06/02/2024 Discontinued omega-3 acid ethyl esters (long term) 1000 mg oral capsule (3 sources) Start: 03-20-2023 End: 09-17-2023 omega-3 acid ethyl esters (LOVAZA) 1 gram capsule Indications: Mixed hyperlipidemia Take 2 capsules by mouth two times a day. 360 capsule 3 03/20/2023 09/17/2023 Discontinued Start: 08-07-2022 omega-3 acid e thyl esters (LOVAZA) 1 gram capsule Indications: Mixed hyperlipidemia Take 2 capsules by mouth twice daily. 360 capsule 3 08/07/2022 Active Comment on above: Take 2 capsules by [facility] twice daily. polyethylene glycol 3350 [id number] mg / potassium chloride 2970 mg / sodium bicarbonate 6740 mg / sodium chloride 5860 mg / sodium sulfate 30995 mg powder for oral solution (3 sources) Osmotic Laxative Start: End: peg 3350-Electrolytes (GOLYTELY) 236-22.74-6.74 -5.86 gram suspension Follow colonoscopy instructions 4000 mL 0 08/04/2022 09/17/2023 Discontinued Comment on above: Follow colonoscopy i nstructions pregabalin 25 mg oral capsule (2 sources) Start: End: take 1 capsule by mouth twice daily pregabalin (LYRICA) 25 mg capsule Indications: Neuropathy Take 1 capsule by mouth twice daily for 180 days. 60 capsule 5 07/28/2021 01/09/2022 Discontinued (Discontinued by Patient) Comment on above: Take 1 capsule by [facility] twice daily for 180 days. rosuvastatin calcium 10 mg oral tablet (10 sources) HMG-CoA Reductase Inhibitor Start: 018 End: take 1 tablet by mouth once daily rosuvastatin (CRESTOR) 10 mg tablet Indications: Mixed hyperlipidemia Take 1 tablet by mouth once daily. 90 tablet 3 07/28/2021 02/07/2022 Discontinued (Side Effects) Comment on above: TAKE 1 TABLET ONCE D AILY [facility] sildenafil 50 mg oral tablet (3 sources) Phosphodiesterase 5 Inhibitor Start: 023 End: sildenafil (VIAGRA) 50 mg tablet Indications: Erectile dysfunction, unspecified erectile dysfunction type Take 1 tablet by mouth as needed. 12 tablet 3 08/07/2022 09/17/2023 Discontinued Comment on above: Take 1 tablet by kishore as needed. 1 ml triamcinolone acetonide 40 mg/ml injection (7 sources) Corticosteroid Start: 025 End: 025 triamcinolone acetonide 40 mg injection (KeNALog 40) Start: 06-02-2024 End: 06-02-2024 inject 1 dose by intramuscular injection once 40 mg, INTRAMUSCULAR, ONCE, 1 dose, On Sun06/02/24 at 1000 Start: 06-27-2023 End: 06-27-2023 inject 1 mL by intramuscular injection once triamcinolone acetonide (KENALOG) 40 mg/mL injection Inject 1 mL intramuscularly one time only for 1 dose. 1 mL 0 06/27/2023 06/27/2023 Discontinued Start: 06-27-2023 End: 06-27-2023 triamcinolone acetonide 40 m g injection (KeNALog 40) Start: 06-27-2023 End: 06-27-2023 triamcinolone acetonide 40 m g injection (KeNALog 40) Start: 08-01-2022 End: 08-01-2022 triamcinolone acetonide 40 m g injection (KeNALog 40) Start: 07-28-2021 End: 07-28-2021 triamcinolone acetonide 40 m g injection (KeNALog 40) Problems Active Problems Problem Classification Problem Date Documented Da te Episodic/Chronic Abdominal pain (4 sources) Flank pain; Translations: [Unspecified abdominal pain] Episodic Allergic reactions (4 sources) Allergic condition; Translations: [Allergy, unspecified, initial encounter] Episodic Anxiety disorders (20 sources) Mixed anxiety and depressive disorder; Translations: [Anxiety disorder, unspecified] Onset: 6 Resolved: 2 10-30-2018 Chronic Cardiac dysrhythmias (3 sources) Supraventricular tachycardia; Translations: [SVT (supraventricular tachycardia) (HCC)] Onset: 4 09-17-2023 Chronic Cardiac dysrhythmias (2 sources) Palpitations; Translations: [Palpitations] Onset: 4 Episodic Disorders of lipid metabolism (20 sources) Mixed hyperlipidemia; Translations: [Mixed hyperlipidemia] Onset: 6 07-23-2018 Chronic Esophageal disorders (20 sources) Gastroesophageal reflux disease; Translations: [Gastro-esophageal reflux disease without esophagitis] Onset: 6 06-29-2005 Chronic Nausea and vomiting (1 source) Nausea; Translations: [Nausea] Episodic Nutritional deficiencies (20 sources) Vitamin D deficiency; Translations: [Vitamin D deficiency, unspecified] Onset: 9 10-30-2018 Chronic Other and unspecified benign neoplasm (10 sources) Pituitary adenoma; 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] Onset: 9 10-30-2018 Episodic Other and unspecified benign neoplasm (3 sources) Prolactinoma; 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] Episodic Other connective tissue disease (1 source) Pelvic floor dysfunction; Translations: [Other specified disorders of muscle] 06-02-2024 Episodic Other endocrine disorders (16 sources) Male hypogonadism; Translations: [Testicular hypofunction] Onset: 2 Chronic Other endocrine disorders (19 sources) Hyperprolactinemia; Translations: [Hyperprolactinemia] Onset: 2 Chronic Other endocrine disorders (1 source) Hyperprolactinemia; Translations: [Hyperprolactinemia (HCC)] Onset: 2 Chronic Other gastrointestinal disorders (1 source) Central abdominal mass; Translations: [Periumbilic swelling, mass or lump] Episodic Other nervous system disorders (1 source) Neuropathy; Translations: [Polyneuropathy, unspecified] Chronic Other nervous system disorders (1 source) Polyneuropathy; Translations: [Polyneuropathy, unspecified] 06-02-2024 Chronic Other nutritional; endocrine; and metabolic disorders (15 sources) Obese class I; Translations: [Obesity, unspecified] Onset: 2 Chronic Other upper respiratory disease (11 sources) Allergic rhinitis; Translations: [Allergic rhinitis, unspecified] Onset: 6 06-29-2005 Chronic Other upper respiratory disease (10 sources) Seasonal allergic rhinitis; Translations: [Other seasonal allergic rhinitis] Onset: 6 06-27-2023 Chronic Peritonitis and intestinal abscess (1 source) Infectious disease of abdomen; Translations: [Peritonitis, unspecified] Episodic Thyroid disorders (20 sources) Hypothyroidism; Translations: [Hypothyroidism, unspecified] Onset: 4 Chronic Unclassified (2 sources) Supraventricular tachycardia, unspecified; Translations: [Supraventricular tachycardia, unspecified] Onset: 4 Past or Other Problems Problem Classification Problem Date Documented Da te Episodic/Chronic Abdominal hernia (20 sources) Umbilical hernia; Translations: [Umbilical hernia without obstruction or gangrene] Onset: 10-03-2006 Resolved: 08-08-2022 10-03-2006 Episodic Gastritis and duodenitis (15 sources) Gastritis; Translations: [Gastritis, unspecified, without bleeding] Onset: 10-30-2018 Resolved: 02-06-2022 10-30-2018 Episodic Other aftercare (1 source) Encounter for therapeutic drug level monitoring; Translations: [Encounter for therapeutic drug monitoring] Onset: 09-17-2023 Episodic Other and unspecified benign neoplasm (12 sources) Microprolactinoma; 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] Onset: 03-08-2022 03-08-2022 Episodic Other circulatory disease (10 sources) Elevated blood-pressure reading without diagnosis of hypertension; Translations: [Elevated blood-pressure reading, without diagnosis of hypertension] Onset: 08-08-2022 08-08-2022 Episodic Other screening for suspected conditions (not mental disorders or infectious disease) (18 sources) Patient encounter status; Translations: [Encounter for screening for malignant neoplasm of prostate] Onset: 08-24-2022 Episodic Residual codes; unclassified (9 sources) Obstructive sleep apnea syndrome; Translations: [Obstructive sleep apnea (adult) (pediatric)] Onset: 05-06-2012 Resolved: 11-18-2019 02-21-2021 Chronic Results Test Name Value Interpretation Reference Range Facility CNOVon 06-02-2024 CNOV Office Visit ([facility] ) YO CINTRON ([id number]) 1970 M Date Time Provider Department 06/02/24 9:00 AM THUAN WESTFALL During your visit today, we recorded the following information about you: Pulse Respiration Blood pressure 75/minute 16/minute 135/86 Thuan Westfall MD 06/02/2024 10:18 PM Signed Reason for Visit Follow up SARAH Ram is a 53-year-old male with a history of prolactinoma, neuropathy of the feet, HLD, GERD, and SVT, presenting for follow-up. Yo reports two episodes of SVT within the last 12 months, with one episode lasting approximately 3 days. He was prescribed metoprolol but discontinued it due to significant fatigue and an episode where he felt he was going to pass out while splitting wood. He describes an incident where he fell and had to army crawl to his house, stating, I thought I was going to . Since discontinuing metoprolol, he reports no further issues with SVT. He underwent an attempted ablation at [facility], but the procedure was unsuccessful in inducing SVT. He denies current use of metoprolol and reports drinking one cup of very strong coffee daily, denying the use of energy drinks like Monster or Red Bull. Yo also reports persistent fatigue, which he attributes to low testosterone levels. He discontinued cabergoline approximately a year ago, stating it was ineffective and caused side effects. He expresses a desire for testosterone replacement therapy but cites financial constraints due to high insurance co-pays and deductibles. He reports a total testosterone level of 319 ng/dL and a free testosterone level of 11.5 pg/mL from a year ago. He denies ever being on testosterone replacement therapy. Yo is currently taking duloxetine for anxiety, pantoprazole for GERD, and thyroid medication. He requests a Kenalog shot for allergies, stating he gets it every year and is currently experiencing significant itching. He also mentions upcoming travel to [place] to visit his mother, who has severe dementia and is in an assisted living facility. Social History Tobacco Use Smoking status: Never Smokeless tobacco: Current Types: Chew Vaping Use Vaping status: Never Used Substance Use Topics Alcohol use: Not Currently Comment: Occasionally once every 3-4 months Drug use: No Past medical history, appointments, medications, allergies reviewed. Pertinent Lab/Diagnostic Studies are reviewed and discussed today Current Outpatient Medications: clonazePAM (KLONOPIN) 0.5 mg tablet levothyroxine (LEVOXYL) 50 mcg tablet DULoxetine (CYMBALTA) [address] (PROTONIX) 40 mg tablet Current Facility-Administered Medications: triamcinolone acetonide 40 mg injection (KeNALog 40) Health Maintenance Hepatitis B Vaccine(1 of 3 - 19+ 3-dose series) Pneumococcal Vaccine: 50+(1 of 1 - PCV) Influenza Vaccine(1) Covid-19 Vaccine( season)@ Review Of Systems Constitutional: (+) fatigue Skin: (+) pruritus Gastrointestinal: (+) heartburn Psychiatric: (+) anxiety, (+) panic attacks, (+) decreased motivation Physical Exam BP 135/86 (BP Position: Sitting) Pulse 75 Resp 16 GENERAL: NAD, alert and oriented. SKIN: Unremarkable, no rash or skin lesions. HEAD: Normocephalic. EYES: PERRLA, EOMI, conjunctiva clear. EARS: External ears normal, canals clear, TM's normal. NOSE/SINUSES: Nares normal. Septum midline. OROPHARYNX: Lips, mucosa, and tongue normal, good dentition. No oral lesions noted. NECK: Supple, no lymphadenopathy, normal thyroid, no carotid bruits. LUNGS: Clear to auscultation bilaterally, no wheezes/rhonchi/rales. HEART: Regular rate and rhythm, no murmurs. No ectopy. EXTREMITIES: Normal, no deformities, no skin discoloration, no edema. NEURO: Awake, alert and oriented x3, cranial nerves II-XII grossly intact, normal gait, no involuntary motions. Assessment and Plan 1. PFD (pelvic floor dysfunction) (M62.89) Previously experienced symptoms of pelvic floor dysfunction, including throbbing sensations, which have since resolved. 2. Allergy, sequela (T78.40XS) Experiencing significant pruritus and anticipates worsening symptoms in the coming weeks. - Administered Kenalog injection. 3. Panic attack (F41.0) Managed with Klonopin as needed. 4. Hypothyroidism, unspecified type (E03.9) Stable on current medication regimen. - Refilled thyroid medication. 5. Gastroesophageal reflux disease without esophagitis (K21.9) Controlled with pantoprazole. - Refilled pantoprazole, instructed to take twice daily. 6. Anxiety (F41.9) Managed with duloxetine. - Refilled duloxetine 90 mg with three refills. 7. Hyperprolactinemia (HCC) (E22.1) Discontinued cabergoline approximately one year ago due to perceived ineffectiveness and side effects. - Discussed the importance of monitoring prolactin (more content not included)... Normal [facility] Cardiology Visit Reporton Cardiology Visit Report [facility] 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 In the emergency room he was noted to be hemodynamically stable blood work was unremarkable with a hemoglobin of 16 electrolytes were normal TSH troponin and T3 were all noted to be normal. He was subsequently discharged with low-dose beta-loco. His EKG while he was not in the SVT demonstrated normal sinus rhythm with a rate of 96 bpm. He underwent electrophysiology study on 11/20/[address] Dumont at [facility] in which no inducible SVT was noted. No evidence of accessory pathway was noted. He denies chest, arm, jaw, or neck discomfort. He denies palpitations. He denies bilateral lower extremity edema. He denies claudication. He denies shortness of breath with activity, shortness of breath at rest, orthopnea, or PND. He denies chronic cough. He denies significant, sudden weight gain. He denies lightheadedness, dizziness, near-syncope, or syncope. He denies blood in urine, blood in stool, or epistaxis. He denies fever with chills. He denies myalgia. He denies fatigue. His exercise level has remained stable. Intake Vital Signs 10/03/23 14:43 11/20/23 09:03 11/28/23 08:47 Height 5 ft 10 in 5 ft 10 in 5 ft 10 in Weight: 211 lb BMI 30.2 BP 126/88 H Blood Pressure Location Lt brachial Position Sitting Respiration 16 Pulse 73 Pulse Source NIBP Comment Manual BP Intake Visit Reasons: 8 W FU Collar Band Creaser Required: No Is patient in pain?: No Allergies Penicillins (PCN) Allergy (Verified 11/28/23 08:52) Rash atorvastatin Adverse Reaction (Severe, Verified 11/28/23 08:52) myalgia rosuvastatin (From Crestor) Adverse Reaction (Severe, Verified 11/28/23 08:52) myalgia ezetimibe (From Zetia) Adverse Reaction (Intermediate, Verified 11/28/23 08:52) Myalgia Sulfa (Sulfonamide Antibiotics) Adverse Reaction (Verified 11/28/23 08:52) Nausea Medications ???Medication ???Instructions ???Recorded ???Confirmed ???Type duloxetine 30 mg capsule,delayed 30 mg PO DAILY 07/17/20 11/28/23 History release levothyroxine 50 mcg tablet 50 mcg PO DAILY 07/17/20 11/28/23 History (Levoxyl) sildenafil 50 mg tablet 50 mg PO PRN erectile dysfunction 09/10/23 11/28/23 History pantoprazole 40 mg tablet,delayed 40 mg PO DAILY 10/03/23 11/28/23 History release cabergoline 0.5 mg tablet 0.5 mg PO SUWE 11/28/23 11/28/23 History clonazepam 0.5 mg tablet 0.5 mg PO DAILY PRN 11/28/23 11/28/23 History Have you fallen in the past year?: Yes (Trip and fall) [facility] Medical History Palpitations Hypogonadotropic hypogonadism Chronic musculoskeletal pain Anxiety Incarcerated umbilical hernia Pituitary adenoma Hypothyroid Hyperlipidemia Depression GERD (gastroesophageal reflux disease) Surgical History History of electrophysiologic study (11/20/23) H/O umbilical hernia repair Family History Mother Hypertension Hyperlipidemia Thyroid disorder Father Hypertension Hyperlipidemia Grandfather CVA (cerebral vascular accident) Social History Smoking Status: Never smoker Smokeless tobacco user: chewing tobacco alcohol intake: current alcohol intake frequency: holidays/special occasions only substance use type: does not use ROS Const Const: Negative for fatigue or weakness Eyes Eyes: Negative for change in vision ENT ENT: Negative for dizziness, Nosebleed/epistaxis or balance problems Cardio Chest Pain: No Palpitations: No Edema: None Muscle aches with walking: None Resp Respiratory: Negative for SOB with activity, SOB at rest, SOB orthopnea SOB lying down, Cough or paroxysmal nocturnal dyspnea GI GI: Negative nausea, heartburn or black,tarry stools : Negative for hematuria Musc Musc: Negative for muscle aches/ myalgia, muscle weakness, joint pain or balance problems Skin Skin: Negative rash Neuro Neuro: Negative for dizziness, lightheadedness, near syncope, syncope or weakness Amadou Hematologic/Lymphatic: Negative for easy bleeding or easy bruis (more content not included)... Normal [facility] Basic Metabolic Profile (BMP )on 11-20-2023 BUN/CRE 10.2 RATIO Normal 10-20 [facility] Comment on above: Performed By: #### L 500.2500, L100.0500 #### [facility] [address] [place], [address] CA,Total 9.5 mg/dL Normal 8.5-10.1 [facility] Comment on above: Performed By: #### L 500.2500, L100.0500 #### [facility] [address] [facility] [address] Chloride [Moles/Vol] 107 mmol/L Normal 98-107 [facility] Comment on above: Performed By: #### L 500.2500, L100.0500 #### [facility] [address] [facility] [address] CO2 [Moles/Vol] 27.0 mmol/L Normal 21.0-32.0 [facility] Comment on above: Performed By: #### L 500.2500, L100.0500 #### [facility] [address] [place], [address] Creatinine [Mass/Vol] 1.18 mg/dL Normal 0.70-1.30 [facility] Comment on above: Result Comment: The validity of the calculated GFR GFRAA in patients over 70 years has not been determined. Clinical correlation is essential. Performed By: #### L 500.2500, L100.0500 #### [facility] [address] [place], [address] ECRCL 83.31 ml/min Normal [facility] Comment on above: Performed By: #### L 500.2500, L100.0500 #### [facility] [address] [place], [address] EST GFR - AA 83 mL/min Normal >60 [facility] Comment on above: Result Comment: Afri can Citizen Of [place] GFR Calc Performed By: #### L 500.2500, L100.0500 #### [facility] [address] [place], [address] GAP 5 Normal 5-15 [facility] Comment on above: Performed By: #### L 500.2500, L100.0500 #### [facility] [address] [place], [address] GFR/1.73 sq M.predicted among non-blacks MDRD (S/P/Bld) [Vol rate/Area] 69 mL/min/{1.73_m2} Normal >60 [facility] Comment on above: Result Comment: Non- GFR Calc Performed By: #### L 500.2500, L100.0500 #### [facility] [address] [place], [address] Glucose [Mass/Vol] 104 mg/dL Normal 74-106 [facility] Comment on above: Result Comment: Fast ing Glucose result from 100 to 125 mg/dL suggests IMPAIRED HOMEOSTASIS per A.D.A. criteria. Performed By: #### L 500.2500, L100.0500 #### [facility] [address] [place], [address] Potassium [Moles/Vol] 4.2 mmol/L Normal 3.5-5.1 [facility] Comment on above: Performed By: #### L 500.2500, L100.0500 #### [facility] [address] [place], [address] Sodium [Moles/Vol] 139 mmol/L Normal 136-145 [facility] Comment on above: Performed By: #### L 500.2500, L100.0500 #### [facility] [address] [place], [address] Urea nitrogen [Mass/Vol] 12 mg/dL Normal 7-18 [facility] Comment on above: Performed By: #### L 500.2500, L100.0500 #### [facility] [address] [place], [address] CBC-Complete Blood Cnt No Di ffon 11-20-2023 Erythrocyte distribution width (RBC) [Ratio] 12.9 % Normal 11.6-14.6 [facility] Comment on above: Performed By: #### L 500.2500, L100.0500 #### [facility] [address] [place], [address] Hematocrit (Bld) [Volume fraction] 48.7 % Normal 40-54 [facility] Comment on above: Performed By: #### L 500.2500, L100.0500 #### [facility] [address] [place], [address] Hemoglobin (Bld) [Mass/Vol] 15.6 g/dL Normal 13.0-16.5 [facility] Comment on above: Performed By: #### L 500.2500, L100.0500 #### [facility] [address] [place], [address] MCH (RBC) [Entitic mass] 28.4 pg Normal 27.0-32.0 [facility] Comment on above: Performed By: #### L 500.2500, L100.0500 #### [facility] [address] [place], [address] MCHC (RBC) [Mass/Vol] 32.0 g/dL Normal 32-36 [facility] Comment on above: Performed By: #### L 500.2500, L100.0500 #### [facility] [address] [place], [address] MCV (RBC) [Entitic vol] 88.5 fL Normal 80-94 [facility] Comment on above: Performed By: #### L 500.2500, L100.0500 #### [facility] [address] [place], [address] Platelet mean volume (Bld) [Entitic vol] 9.1 fL Normal 6.2-12.0 [facility] Comment on above: Performed By: #### L 500.2500, L100.0500 #### [facility] [address] [place], [address] Platelets (Bld) [#/Vol] 251 10*3/uL Normal 150-450 [facility] Comment on above: Performed By: #### L 500.2500, L100.0500 #### [facility] [address] [place], [address] RBC (Bld) [#/Vol] 5.50 10*6/uL Normal 4.6-6.2 [facility] Comment on above: Performed By: #### L 500.2500, L100.0500 #### [facility] [address] [place], [address] RDW SD 42.3 fl Normal 35.1-43.9 [facility] Comment on above: Performed By: #### L 500.2500, L100.0500 #### [facility] [address] [place], [address] WBC (Bld) [#/Vol] 6.9 10*3/uL Normal 4.4-11.0 [facility] Comment on above: Performed By: #### L 500.2500, L100.0500 #### [facility] [address] [place], [address] CVS/ELECTROSTUon 11-20-2023 CVS/ELECTROSTU [facility] [address] [place] [address] Electrophysiology Report MR#: [id number] Acct: [id number] Name: YO CINTRON Rep #: [id number] : 1970 M 53 From: Khurram Dumont MD PCP: Dr. Thuan Westfall MD Status: [facility] Study: Date of Exam: Exam# Ordering Dr: Electrophysiology Report Electrophysiology Report Yo West is a 53 year old male who has a past medical history of palpitations, hypogonadotropic hypogonadism, depression, hyperlipidemia, hypothyroidism, and an incarcerated hernia, who presented to the [place] EP lab for further evaluation regarding palpitations and SVT. Procedure Summary * Patient prepped and draped in sterile fashion. * Right groin infiltrated with lidocaine. * Right femoral access obtained x3 with ultrasound guidance. * Sheaths inserted into femoral veins via Seldinger technique. * Catheters inserted through right groin. * EPS results listed below in conclusions. * Isuprel testing performed. * Sheaths pulled in lab and hemostasis achieved per protocol. Findings: BASELINE ISUPREL 3mcg/min 6mcg/min SCL: 793ms SCL: 650ms 540ms AH: 107ms AH: 69ms HV: 43ms HV: 49ms 46ms Maximum SNRT: 1055ms CSNRT: 266ms AVBCL: 390ms AVBCL: 320ms 260ms VABCL: VAD VABCL: intermittent at 580ms 460ms Decremental Conduction? NA Decremental Conduction? y Concentric: NA Concentric: Y AP BCL: NA AVN ERP 280ms @ 600ms AVN ERP <200ms @ 500ms <200 @ 460ms VERP NA VERP 400ms @ 460ms BASELINE ISUPREL Inducible Tachycardia: N Inducible Tachycardia: N Conclusions 1. Baseline rhythm is sinus. 2. Normal sinus node function (longest SNRT 1055ms). 3. Normal AV node function, normal infranodal conduction (HV= 43ms). 4. No evidence of accessory pathway. 5. No evidence of dual AV node physiology. 6. VAD at baseline, with intermittent conduction on isuprel 7. No inducible SVT at baseline or on isuprel Recommendations 1. Continue metoprolol. Obtain 30 day event monitor 2. Bedrest for 3 hours 3. The patient can continue to follow-up with Dr. Elena. 11/20/23 1152 Date Khurram Dumont MD CC: Dr. Thuan Westfall MD; Dr. Klever Elena MD; Dr. Khurram Dumont MD Date Dictated: 11/20/231128 Date Transcribed: 11/20/23 112 Toby Maker: SS Signed Normal [facility] 12 Lead E[place] [facility] [place] 10-[place]-2023 12 Lead EKG performed by [facility] [address] [place] [address] 12 Lead EKG [place] [facility] [place] 10/03/23 1443 MR#: [id number] Acct: [id number] Name: YO CINTRON Rep #: [id number] : 1970 52 From: Klever Elena MD Attending Dr: Dr. Klever Elena MD Status: DEP A MB Ordering Dr: Klever Elena MD Date: 10/03/23 [place] [facility] [place] M C [place] [facility] [place] E[place] [facility] ECG Report Interpretation Si nus Rhythm -RSR(V1) -nondiagnostic. PROBABLY NORMALElectronically signed on 10/09/2023 at 10:40 by Klever Elena Software Version [id number] 10/09/23 1042 Date Klever Elena MD CC: Dr. Thuan Westfall MD Date Dictated: 10/03/231442 Date Transcribed: 10/03/231442 Toby Maker: CO Signed Normal [facility] Cardiology Visit Reporton Cardiology Visit Report [facility] [address] [place] [address] OFFICE VISIT Date of Service: 10/03/23 MR#: [id number] Acct: [id number] Name: YO CINTRON Rep #: [id number] : 1970 Provider: Dr. 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 In the emergency room he was noted to be hemodynamically stable blood work was unremarkable with a hemoglobin of 16 electrolytes were normal TSH troponin and T3 were all noted to be normal. He was subsequently discharged with low-dose beta-loco. His EKG while he was not in the SVT demonstrated normal sinus rhythm with a rate of 96 bpm. He has not had this in the past but he says that more recently he has been having some and it appears to be worse when he stands up. His lipid profile in February demonstrated total cholesterol of 252 HDL of 34 LDL 170. His physical exam he has unremarkable his electrocardiogram demonstrates sinus rhythm with a rate of 85 bpm. Intake Vital Signs 08/29/23 11:28 10/03/23 14:43 Height 5 ft 10 in 5 ft 10 in Weight: 207 lb BMI 29.7 BP 127/80 H Blood Pressure Location Lt brachial Position Sitting Respiration 16 Pulse 86 Pulse Source Monitor Intake Visit Reasons: PALPS ([facility]) Collar Band Creaser Required: No Accompanied by: Is patient in pain?: No Allergies Penicillins (PCN) Allergy (Verified 10/03/23 14:46) Rash atorvastatin Adverse Reaction (Severe, Verified 10/03/23 14:46) myalgia rosuvastatin (From Crestor) Adverse Reaction (Severe, Verified 10/03/23 14:46) myalgia ezetimibe (From Zetia) Adverse Reaction (Intermediate, Verified 10/03/23 14:46) Myalgia Sulfa (Sulfonamide Antibiotics) Adverse Reaction (Verified 10/03/23 14:46) Nausea Medications ???Medication ???Instructions ???Recorded ???Confirmed ???Type duloxetine 30 mg capsule,delayed 30 mg PO DAILY 07/17/20 10/03/23 History release levothyroxine 50 mcg tablet 50 mcg PO DAILY 07/17/20 10/03/23 History (Levoxyl) metoprolol tartrate 25 mg tablet 12.5 mg (1/2 x 25 mg) PO BID 30 08/29/23 10/03/23 Rx days #30 tabs cabergoline 0.5 mg tablet 0.5 mg PO .every Sun/Sun09/10/23 10/03/23 History clonazepam 0.5 mg tablet 0.5 mg PO DAILY PRN 09/10/23 10/03/23 History sildenafil 50 mg tablet 50 mg PO PRN 09/10/23 10/03/23 History pantoprazole 40 mg tablet,delayed 40 mg PO DAILY 10/03/23 10/03/23 History release Have you fallen in the past year?: No [facility] Medical History Palpitations Hypogonadotropic hypogonadism Chronic musculoskeletal pain Anxiety Incarcerated umbilical hernia Pituitary adenoma Hypothyroid Hyperlipidemia Depression GERD (gastroesophageal reflux disease) Surgical History H/O umbilical hernia repair Family History Mother Hypertension Hyperlipidemia Thyroid disorder Father Hypertension Hyperlipidemia Grandfather CVA (cerebral vascular accident) Social History Smoking Status: Never smoker Smokeless tobacco user: chewing tobacco alcohol intake: current alcohol intake frequency: holidays/special occasions only substance use type: does not use ROS Const Const: Positive for fatigue; Negative for weakness, headache(s), daytime sleepiness or difficulty sleeping ENT ENT: Negative for headache(s), dizziness or Nosebleed/epistaxis Cardio Chest Pain: No Palpitations: Yes (fluttering) feels like its: fast Edema: None Resp Respiratory: Negative for SOB with activity, SOB at rest, SOB orthopnea SOB lying down or Cough GI GI: Negative nausea, vomiting or heartburn Neuro Neuro: Negative for dizziness, lightheadedness, near syncope, headache(s) or weakness Endo Endo: Positive for fatigue Cardiology Exam Const Appearance: cooperative, healthy appearing, no acute distress, well developed and well groomed Nutritional Appearance: average body habitus and well nourished Orientation: alert, awake and oriented x3 Head Head: normal to inspection, normocephalic and atraumatic Ears: hearing grossly normal bilaterally and external ears normal Nose: external nose normal, nares normal, nasal mucous membranes and turbinates normal, septum normal and no nasal discharge Face and Sinus: face symmetric Mouth: or (more content not included)... Normal [facility] 09-25-2023 [facility] Telephone (INTMWS) SAIDAYO Bello ([id number]) 1970 M Date Time Provider Department 09/25/23 NICCI MARKS INTASHA During your visit today, we recorded the following information about you: Nicci Marks APRN.[facility] 09/25/2023 4:12 PM Signed Yo Arriaga is a mutual patient who was seen in our office recently. He questions having some symptoms of low testosterone and is wondering if he would be a candidate for testosterone replacement. He has a history of microprolactinoma, hyperprolactinemia, hypogonadism, and ED. He last saw Dr. Watkins 07/2022. We updated his labs on 09/19/2023. Total testosterone is 319, prolactin, LH and FSH were WNL. With his symptoms of low libido, ED, fatigue and the borderline low testosterone would he be a candidate for testosterone replacement given his endocrine history? If yes, would he be better treated with testosterone injections or would he be a candidate for something like Clomid to help boost his levels? Do you prefer to see him back in the endocrine office to address or would you like primary care to? Thank you. Nicci Marks APRN.Greg Tran MD 09/26/2023 7:19 AM Signed Will get him back to reassess. Will likely give him trial of parenteral testosterone which he will have to pay for out of pocket since T level is normal. Dayna Carney 10/01/2023 9:55 AM Signed Patient scheduled 10.17.2023. Sent [employer] message. I will postpone and follow up on this to make sure patient reads it. Dayna Carney 10/02/2023 7:54 AM Signed Patient read [employer] message 10.01.2023 and is aware appointment is scheduled. Allergies As of Date: 09/25/2023 Noted Allergy Reaction CRESTOR (ROSUVASTATIN) 01/30/2022 14 - Other: See Comments Comments: Has neuropathy LIPITOR (ATORVASTATIN CALCIUM) 11/24/2013 14 - Other: See Comments Comments: myaglias PENICILLINS 06/29/2005 SEASONAL ALLERGIES 07/30/2017 9 - Itching SULFA (SULFONAMIDE ANTIBIOTICS) 03/23/2020 8 - GI Upset ZETIA (EZETIMIBE) 01/30/2022 6 - Diarrhea Comments: Diarrhea, immediately. Date Reviewed: 09/17/2023 Reviewed by: Nicci Marks APRN.NIGHT MANAGER - Fully Assessed Reason for Visit: Results [95] Prescriptions as of 10/02/2023 - metoprolol tartrate, short acting, (LOPRESSOR) 25 mg tablet Take 12.5 mg by mouth two times a day. - pantoprazole DR (PROTONIX) 40 mg tablet To take empty stomach with water 2 times a day. - clonazePAM (KLONOPIN) 0.5 mg tablet Take 1 tablet by mouth once daily as needed for up to 90 days. - levothyroxine (LEVOXYL) 50 mcg tablet Take 1 tablet by mouth once daily. Take on empty stomach. For Thyroid - DULoxetine (CYMBALTA) 30 mg capsule TAKE 1 CAPSULE DAILY FOR CHRONIC MUSCULOSKELETAL PAIN - cabergoline (DOSTINEX) 0.5 mg tablet Take 0.5 tablets by mouth every Sunday and Sunday. Problem List As Of Date 09/25/2023 Noted Resolved Anxiety state [F41.1] 06/29/2005 11/18/2019 Chronic seasonal allergic rhinitis [J30.2] 06/29/2005 Mixed hyperlipidemia [E78.2] 06/29/2005 ESOPHAGEAL REFLUX [K21.9] 06/29/2005 UMBILICAL HERNIA [K42.9] 10/03/2006 Ventral hernia, unspecified, without mention of*11/19/2006 08/08/2022 LILI (obstructive sleep apnea) [G47.33] 05/06/2012 11/18/2019 Hypothyroid [E03.9] 11/24/2013 Gastroesophageal reflux disease without esophag*06/22/2017 Vitamin D deficiency [E55.9] 10/30/2018 Anxiety and depression [F41.9, F32.A] 10/30/2018 02/06/2022 Gastritis without bleeding [K29.70] 10/30/2018 02/06/2022 Panic attack [F41.0] 10/30/2018 02/06/2022 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] 02/06/2022 Hyperprolactinemia (HCC) [E22.1] 02/06/2022 Obesity, Class I, BMI 30-34.9 [E66.9] 02/07/2022 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] 03/08/2022 Elevated blood pressure reading without diagnos*08/08/2022 Special screening for malignant neoplasms, colo*08/24/2022 Encounter Status:Closed by NICCI MARKS on 09/26/23 Normal [facility] 25(OH)D3 Sola 2023 25-hydroxyvitamin D3 [Mass/Vol] 55.0 ng/mL Normal 31.0-80.0 [facility] Comment on above: Order Comment: Speci men Type: BLOOD SPECIMEN Ordering Facility: [facility] Address: [address] [place] [address] Performed By: #### 1 [id number] #### [facility] CLIA [id number] [address] [place] [address] [place] CBC W Auto Differential pane l (Bld)on 09-19-2023 Basophils (Bld) [#/Vol] 0.06 10*3/uL Normal <0.11 [facility] Comment on above: Order Comment: Speci men Type: BLOOD SPECIMEN Ordering Facility: [facility] Address: [address] [place] [address] Performed By: #### 5 [id number] #### [facility] CLIA [id number] [place] [address] [place] Basophils/100 WBC (Bld) 0.9 % Normal [facility] Comment on above: Order Comment: Speci men Type: BLOOD SPECIMEN Ordering Facility: [facility] Address: [address] [place] [address] Performed By: #### 5 7021-8 #### [facility] CLIA [id number] [address] [place] [address] [place] Differential cell count method Nom (Bld) Auto Normal [facility] Comment on above: Order Comment: Speci men Type: BLOOD SPECIMEN Ordering Facility: [facility] Address: [address] [place] [address] Performed By: #### 5 7021-8 #### [facility] CLIA [id number] [address] [place] [address] [place] Eosinophils (Bld) [#/Vol] 0.12 10*3/uL Normal <0.46 [facility] Comment on above: Order Comment: Speci men Type: BLOOD SPECIMEN Ordering Facility: [facility] Address: [address] [place] [address] Performed By: #### 5 7021-8 #### [facility] CLIA [id number] [address] [place] [address] [place] Eosinophils/100 WBC (Bld) 1.8 % Normal [facility] Comment on above: Order Comment: Speci men Type: BLOOD SPECIMEN Ordering Facility: [facility] Address: [address] [place] [address] Performed By: #### 5 7021-8 #### [facility] CLIA [id number] [address] [place] [address] [place] Erythrocyte distribution width (RBC) [Ratio] 13.8 % Normal 11.5-15.0 [facility] Comment on above: Order Comment: Speci men Type: BLOOD SPECIMEN Ordering Facility: [facility] Address: [address] [place] [address] Performed By: #### 5 7021-8 #### [facility] CLIA [id number] [address] [place] [address] [place] Hematocrit (Bld) [Volume fraction] 50.4 % Normal 39.0-51.0 [facility] Comment on above: Order Comment: Speci men Type: BLOOD SPECIMEN Ordering Facility: [facility] Address: [address] [place] [address] Performed By: #### 5 7021-8 #### [facility] CLIA [id number] [address] [place] [address] [place] Hemoglobin (Bld) [Mass/Vol] 16.1 g/dL Normal 13.0-17.0 [facility] Comment on above: Order Comment: Speci men Type: BLOOD SPECIMEN Ordering Facility: [facility] Address: [address] [place] [address] Performed By: #### 5 7021-8 #### [facility] CLIA [id number] [address] [place] [address] [place] Immature granulocytes (Bld) [#/Vol] 10*3/uL Normal <0.10 [facility] Comment on above: Order Comment: Speci men Type: BLOOD SPECIMEN Ordering Facility: [facility] Address: [address] [place] [address] Performed By: #### 5 7021-8 #### [facility] CLIA [id number] [address] [place] [address] [place] Immature granulocytes/100 WBC (Bld) 0.3 % Normal [facility] Comment on above: Order Comment: Speci men Type: BLOOD SPECIMEN Ordering Facility: [facility] Address: [address] [place] [address] Performed By: #### 5 7021-8 #### [facility] CLIA [id number] [address] [place] [address] [place] Lymphocytes (Bld) [#/Vol] 1.84 10*3/uL Normal 1.00-4.00 [facility] Comment on above: Order Comment: Speci men Type: BLOOD SPECIMEN Ordering Facility: [facility] Address: [address] [place] [address] Performed By: #### 5 7021-8 #### [facility] CLIA [id number] [address] [place] [address] [place] Lymphocytes/100 WBC (Bld) 26.9 % Normal [facility] Comment on above: Order Comment: Speci men Type: BLOOD SPECIMEN Ordering Facility: [facility] Address: [address] [place] [address] Performed By: #### 5 7021-8 #### [facility] CLIA [id number] [address] [place] [address] [place] MCH (RBC) [Entitic mass] 28.8 pg Normal 26.0-34.0 [facility] Comment on above: Order Comment: Speci men Type: BLOOD SPECIMEN Ordering Facility: [facility] Address: [address] [place] [address] Performed By: #### 5 7021-8 #### [facility] CLIA [id number] [address] [place] [address] [place] MCHC (RBC) [Mass/Vol] 31.9 g/dL Normal 30.5-36.0 [facility] Comment on above: Order Comment: Speci men Type: BLOOD SPECIMEN Ordering Facility: [facility] Address: [address] [place] [address] Performed By: #### 5 7021-8 #### [facility] CLIA [id number] [address] [place] [address] [place] MCV (RBC) [Entitic vol] 90.2 fL Normal 80.0-100.0 [facility] Comment on above: Order Comment: Speci men Type: BLOOD SPECIMEN Ordering Facility: [facility] Address: [address] [place] [address] Performed By: #### 5 7021-8 #### [facility] CLIA [id number] [address] [place] [address] [place] Monocytes (Bld) [#/Vol] 0.63 10*3/uL Normal <0.87 [facility] Comment on above: Order Comment: Speci men Type: BLOOD SPECIMEN Ordering Facility: [facility] Address: [address] [place] [address] Performed By: #### 5 7021-8 #### [facility] CLIA [id number] [address] [place] [address] [place] Monocytes/100 WBC (Bld) 9.2 % Normal [facility] Comment on above: Order Comment: Speci men Type: BLOOD SPECIMEN Ordering Facility: [facility] Address: [address] [place] [address] Performed By: #### 5 7021-8 #### [facility] CLIA [id number] [address] [place] [address] [place] Neutrophils (Bld) [#/Vol] 4.17 10*3/uL Normal 1.45-7.50 [facility] Comment on above: Order Comment: Speci men Type: BLOOD SPECIMEN Ordering Facility: [facility] Address: [address] [place] [address] Performed By: #### 5 7021-8 #### [facility] CLIA [id number] [address] [place] [address] [place] Neutrophils/100 WBC (Bld) 60.9 % Normal [facility] Comment on above: Order Comment: Speci men Type: BLOOD SPECIMEN Ordering Facility: [facility] Address: [address] [place] [address] Performed By: #### 5 7021-8 #### [facility] CLIA [id number] [address] [place] [address] [place] Nucleated RBC (Bld) [#/Vol] 10*3/uL Normal <0.01 [facility] Comment on above: Order Comment: Speci men Type: BLOOD SPECIMEN Ordering Facility: [facility] Address: [address] [place] [address] Performed By: #### 5 7021-8 #### [facility] CLIA [id number] [address] [place] [address] [place] Nucleated RBC/100 WBC (Bld) [Ratio] 0.0 /100 WBC Normal [facility] Comment on above: Order Comment: Speci men Type: BLOOD SPECIMEN Ordering Facility: [facility] Address: [address] [place] [address] Performed By: #### 5 7021-8 #### [facility] CLIA [id number] [address] [place] [address] [place] Platelet mean volume (Bld) [Entitic vol] 9.7 fL Normal 9.0-12.7 [facility] Comment on above: Order Comment: Speci men Type: BLOOD SPECIMEN Ordering Facility: [facility] Address: [address] [place] [address] Performed By: #### 5 7021-8 #### [facility] CLIA [id number] [address] [place] [address] [place] Platelets (Bld) [#/Vol] 269 10*3/uL Normal 150-400 [facility] Comment on above: Order Comment: Speci men Type: BLOOD SPECIMEN Ordering Facility: [facility] Address: [address] [place] [address] Performed By: #### 5 7021-8 #### [facility] CLIA [id number] [address] [place] [address] [place] RBC (Bld) [#/Vol] 5.59 10*6/uL Normal 4.20-6.00 [facility] Comment on above: Order Comment: Speci men Type: BLOOD SPECIMEN Ordering Facility: [facility] Address: [address] [place] [address] Performed By: #### 5 7021-8 #### [facility] CLIA [id number] [address] [place] [address] [place] WBC (Bld) [#/Vol] 6.84 10*3/uL Normal 3.70-11.00 [facility] Comment on above: Order Comment: Speci men Type: BLOOD SPECIMEN Ordering Facility: [facility] Address: [address] [place] [address] Performed By: #### 5 7021-8 #### [facility] CLIA [id number] [address] [place] [address] [place] Comprehensive metabolic 2000 panelon 09-19-2023 Albumin [Mass/Vol] 4.5 g/dL Normal 3.9-4.9 [facility] Comment on above: Order Comment: Speci men Type: BLOOD SPECIMEN Ordering Facility: [facility] Address: [address] [place] [address] Performed By: #### 1 989-3 #### [facility] CLIA [id number] [address] [place], [place] [id number] [place] ALP [Catalytic activity/Vol] 93 U/L Normal 38-113 [facility] Comment on above: Order Comment: Speci men Type: BLOOD SPECIMEN Ordering Facility: [facility] Address: [address] [place] [address] Performed By: #### 1 989-3 #### [facility] CLIA [id number] [address] [place] [address] [place] ALT [Catalytic activity/Vol] 26 U/L Normal 10-54 [facility] Comment on above: Order Comment: Speci men Type: BLOOD SPECIMEN Ordering Facility: [facility] Address: [address] [place] [address] Performed By: #### 1 989-3 #### [facility] CLIA [id number] [address] [place] [address] [place] Anion gap [Moles/Vol] 12 mmol/L Normal 8-15 [facility] Comment on above: Order Comment: Speci men Type: BLOOD SPECIMEN Ordering Facility: [facility] Address: [address] [place] [address] Performed By: #### 1 989-3 #### [facility] CLIA [id number] [address] [place] [address] [place] AST [Catalytic activity/Vol] 23 U/L Normal 14-40 [facility] Comment on above: Order Comment: Speci men Type: BLOOD SPECIMEN Ordering Facility: [facility] Address: [address] [place] [address] Performed By: #### 1 989-3 #### [facility] CLIA [id number] [address] [place] [address] [place] Bilirubin [Mass/Vol] 0.4 mg/dL Normal 0.2-1.3 [facility] Comment on above: Order Comment: Speci men Type: BLOOD SPECIMEN Ordering Facility: [facility] Address: [address] [id number] Performed By: #### 1 989-3 #### [facility] CLIA [id number] [address] [place] [address] [place] Calcium [Mass/Vol] 10.0 mg/dL Normal 8.5-10.2 [facility] Comment on above: Order Comment: Speci men Type: BLOOD SPECIMEN Ordering Facility: [facility] Address: [address] [place] [address] Performed By: #### 1 989-3 #### [facility] CLIA [id number] [address] [place] [address] [place] Chloride [Moles/Vol] 101 mmol/L Normal 98-107 [facility] Comment on above: Order Comment: Speci men Type: BLOOD SPECIMEN Ordering Facility: [facility] Address: [address] [place] [address] Performed By: #### 1 989-3 #### [facility] CLIA [id number] [address] [place] [address] [place] CO2 [Moles/Vol] 27 mmol/L Normal 22-30 [facility] Comment on above: Order Comment: Speci men Type: BLOOD SPECIMEN Ordering Facility: [facility] Address: [address] [place] [address] Performed By: #### 1 989-3 #### [facility] CLIA [id number] [address] [place] [address] [place] Creatinine [Mass/Vol] 1.19 mg/dL Normal 0.73-1.22 [facility] Comment on above: Order Comment: Speci men Type: BLOOD SPECIMEN Ordering Facility: [facility] Address: [address] [place] [address] Performed By: #### 1 989-3 #### [facility] CLIA [id number] [address] [place] [address] [place] Creatinine and Glomerular filtration rate.predicted panel (S/P/Bld) 73 mL/min/1.73m??? Normal >=60 [facility] Comment on above: Order Comment: Tova pope Type: BLOOD SPECIMEN Ordering Facility: [facility] Address: [address] [place] [address] Result Comment: Andree mated Glomerular Filtration Rate (eGFR) is calculated using the 2020 CKD-EPI creatinine equation. This equation utilizes serum creatinine, sex, and age as parameters. The creatinine assay has traceable calibration to isotope dilution-mass spectrometry. Refer to KDIGO guidelines for clinical interpretation. In patients with unstable renal function, e.g. those with acute kidney injury, the eGFR may not accurately reflect actual GFR. Performed By: #### 1 989-3 #### [facility] CLIA [id number] [address] [place] [address] [place] Glucose [Mass/Vol] 97 mg/dL Normal 74-99 [facility] Comment on above: Order Comment: Tova pope Type: BLOOD SPECIMEN Ordering Facility: [facility] Address: [address] [place] [address] Result Comment: The [place] Diabetes Association (ADA) provides guidance for cutoff values for fasting glucose and random glucose. The ADA defines fasting as no caloric intake for at least 8 hours. Fasting plasma glucose results between 100 to 125 mg/dL indicate increased risk for diabetes (prediabetes). Fasting plasma glucose results greater than or equal to 126 mg/dL meet the criteria for diagnosis of diabetes. In the absence of unequivocal hyperglycemia, results should be confirmed by repeat testing. In a patient with classic symptoms of hyperglycemia or hyperglycemic crisis, random plasma glucose results greater than or equal to 200 mg/dL meet the criteria for diagnosis of diabetes. Reference: Standards of Medical Care in Diabetes 2016, [place] Diabetes Association. Diabetes Care. 2016.39(Suppl 1). Performed By: #### 1 989-3 #### [facility] CLIA [id number] [address] [place] [address] [place] Potassium [Moles/Vol] 4.3 mmol/L Normal 3.7-5.1 [facility] Comment on above: Order Comment: Speci men Type: BLOOD SPECIMEN Ordering Facility: [facility] Address: [address] [place] [address] Performed By: #### 1 989-3 #### [facility] CLIA [id number] [address] [place] [address] [place] Protein [Mass/Vol] 7.4 g/dL Normal 6.3-8.0 [facility] Comment on above: Order Comment: Speci men Type: BLOOD SPECIMEN Ordering Facility: [facility] Address: [address] [place] [address] Performed By: #### 1 989-3 #### [facility] CLIA [id number] [address] [place] [address] [place] Sodium [Moles/Vol] 140 mmol/L Normal 136-144 [facility] Comment on above: Order Comment: Speci men Type: BLOOD SPECIMEN Ordering Facility: [facility] Address: [address] [place] [address] Performed By: #### 1 989-3 #### [facility] CLIA [id number] [address] [place] [address] [place] Urea nitrogen [Mass/Vol] 12 mg/dL Normal 9-24 [facility] Comment on above: Order Comment: Speci men Type: BLOOD SPECIMEN Ordering Facility: [facility] Address: [address] [place] [address] Performed By: #### 1 989-3 #### [facility] CLIA [id number] [address] [place], [place] [id number] [place] FSH SerPl-aCncon 09-19-2023 Follitropin Qn 4.4 m[IU]/mL Normal 1.5-12.4 [facility] Comment on above: Order Comment: Speci men Type: BLOOD SPECIMEN Ordering Facility: [facility] Address: [address] [place] [address] Performed By: #### 1 989-3 #### [facility] CLIA [id number] [address] [place] [address] [place] HbA1c (Bld)on 09-19-2023 Average glucose Estimated from glycated hemoglobin (Bld) [Mass/Vol] 120 mg/dL Normal [facility] Comment on above: Order Comment: Tova pope Type: BLOOD SPECIMEN Ordering Facility: [facility] Address: [address] [place] [address] Result Comment: eAG: (Estimated average glucose) is a calculated value from HgbA1c and is customer operations representative of the average blood glucose level in the last 2-3 month period. Performed By: #### 5 5454-3 #### [facility] [place] [id number] [address] [place] [address] [place] HbA1c (Bld) [Mass fraction] 5.8 % High 4.3-5.6 [facility] Comment on above: Order Comment: Tova pope Type: BLOOD SPECIMEN Ordering Facility: [facility] Address: [address] [place] [address] Result Comment: [place] Diabetes Association guidelines indicate that patients with HgbA1c in the range 5.7-6.4% are at increased risk for development of diabetes, and intervention by lifestyle modification may be beneficial. HgbA1c greater or equal to 6.5% is considered diagnostic of diabetes. Performed By: #### 5 5454-3 #### [facility] IA [id number] [address] [place] [address] [place] LH SerPl-aCncon 09-19-2023 Lutropin Qn 4.5 m[IU]/mL Normal 1.8-10.8 [facility] Comment on above: Order Comment: Tova pope Type: BLOOD SPECIMEN Ordering Facility: [facility] Address: [address] [place] [address] Performed By: #### 1 989-3 #### [facility] IA [id number] [address] [place] [address] [place] Magnesium SerPl-mCncon 09-18 Magnesium [Mass/Vol] 2.3 mg/dL Normal 1.7-2.3 [facility] Comment on above: Order Comment: Speci men Type: BLOOD SPECIMEN Ordering Facility: [facility] Address: [address] [place] [address] Performed By: #### 1 9123-9, 3024-7, 3051-0, 3016-3 #### [facility] CLIA [id number] [address] [place] [address] [place] PSA/PROSTATE SPECIFIC ANTIGE N SCREENINGon 09-19-2023 Prostate specific Ag [Mass/Vol] 0.78 ng/mL Normal <2.60 [facility] Comment on above: Order Comment: Speci men Type: BLOOD SPECIMEN Ordering Facility: [facility] Address: [address] [place] [address] Result Comment: Tota l PSA test methodology used is the Electrochemiluminescence Immunoassay by [employer]. Total PSA values by differing methodologies cannot be interchanged. Performed By: #### 1 989-3 #### [facility] CLIA [id number] [address] [place] [address] [place] Prolactin SerPl-mCncon 09-18 Prolactin [Mass/Vol] 9.3 ng/mL Normal 4.0-15.2 [facility] Comment on above: Order Comment: Speci men Type: BLOOD SPECIMEN Ordering Facility: [facility] Address: [address] [place] [address] Result Comment: Prol actin test is performed using the [employer] Electrochemiluminescence Immunoassay method. Results obtained with different methods or kits cannot be used interchangeably. Performed By: #### 5 7021-8 #### [facility] CLIA [id number] [address] [place] [address] [place] T3Free SerPl-mCncon 09-19-19 Free T3 [Mass/Vol] 2.8 pg/mL Normal 2.3-4.1 [facility] Comment on above: Order Comment: Speci men Type: BLOOD SPECIMEN Ordering Facility: [facility] Address: [address] [place] [address] Performed By: #### 1 9123-9, 3024-7, 3051-0, 3016-3 #### [facility] CLIA [id number] [address] [place] [address] [place] T4 Free SerPl-mCncon 024 Free T4 [Mass/Vol] 1.1 ng/dL Normal 0.9-1.7 [facility] Comment on above: Order Comment: Speci men Type: BLOOD SPECIMEN Ordering Facility: [facility] Address: [address] [place] [address] Performed By: #### 1 9123-9, 3024-7, 3051-0, 3016-3 #### [facility] CLIA [id number] [address] [place] [address] [place] TESTOSTERONE, FREE AND TOTAL on 09-19-2023 TESTOSTERONE, FREE, S 11.5 ng/dL Normal 4.06-15.6 [facility] Comment on above: Order Comment: Speci men Type: BLOOD SPECIMEN Ordering Facility: [facility] Address: [address] [place] [address] Result Comment: ADDITIONAL INFORMATION This test was developed and its performance characteristics determined by [facility] in a manner consistent with CLIA requirements. This test has not been cleared or approved by the U.S. Food and Drug Administration. Performed By: #### 1 989-3 #### [facility] CLIA [id number] [address] [place] [address] [place] TESTOSTERONE, TOTAL, S 319 ng/dL Normal 240-950 [facility] Comment on above: Order Comment: Speci men Type: BLOOD SPECIMEN Ordering Facility: [facility] Address: [address] [place] [address] Result Comment: ADDITIONAL INFORMATION Testing performed by Liquid Chromatography-Tandem Mass Spectrometry (LC-MS/MS). This test was developed and its performance characteristics determined by [facility] in a manner consistent with CLIA requirements. This test has not been cleared or approved by the U.S. Food and Drug Administration. Test Performed by: [facility] [address] [place] [address] Passenger Relations Representative: Jed Rahman Ph.D.; CLIA# [id number] Performed By: #### 1 989-3 #### [facility] CLIA [id number] [address] [place] [address] [place] TSH SerPl-aCncon 09-19-2023 TSH Qn 2.120 m[IU]/L Normal 0.270-4.200 [facility] Comment on above: Order Comment: Speci men Type: BLOOD SPECIMEN Ordering Facility: [facility] Address: [address] [place] [address] Performed By: #### 1 9123-9, 3024-7, 3051-0, 3016-3 #### [facility] CLIA [id number] [address] [place] [address] [place] CNOVon 09-17-2023 CNOV Office Visit (INTMWS ) YO CINTRON ([id number]) 1970 M Date Time Provider Department 09/17/23 11:00 AM NICCI MARKS INTMWS During your visit today, we recorded the following information about you: Pulse Blood pressure Weight 75/minute 118/80 95.3 kg Nicci Marks APRN.NIGHT MANAGER 09/17/2023 12:56 PM Signed SUBJECTIVE Yo Cintron is a 52 year old male here today for a check up on his medical problems. Chief Complaint Patient presents with: F/U 6 months HPI Yo Cintron is a 52 year old male. He is an established patient of Thuan Westfall MD. Here today for a 6 month follow up. History of hyperprolactinemia, hypothyroid, GERD, hyperlipidemia. Follows with endocrine, Dr. Watkins. Concerns of fatigue and decreased libido. Would like to get updated labs checked. Recently in ER at [facility] and found to have SVT. This seemed to be positional. Occurred with a deep breath or with standing. Short runs. No prior SVT issues. Planning to follow up with [facility]. Started on metoprolol. Had a chest xray done. Has been controlled with starting the metoprolol. Behavioral Health Screening PHQ-2 Score: 0 (Lower risk for depression) BRAD-2 Score: 0 (Lower risk for anxiety) Recommendation: no further intervention at this time His medications were reviewed today and his list is now up to date. Medications Current Outpatient Medications Medication Sig metoprolol tartrate, short acting, (LOPRESSOR) 25 mg tablet Take 12.5 mg by mouth two times a day. pantoprazole DR (PROTONIX) 40 mg tablet To take empty stomach with water 2 times a day. clonazePAM (KLONOPIN) 0.5 mg tablet Take 1 tablet by mouth once daily as needed for up to 90 days. levothyroxine (LEVOXYL) 50 mcg tablet Take 1 tablet by mouth once daily. Take on empty stomach. For Thyroid DULoxetine (CYMBALTA) 30 mg capsule TAKE 1 CAPSULE DAILY FOR CHRONIC MUSCULOSKELETAL PAIN cabergoline (DOSTINEX) 0.5 mg tablet Take 0.5 tablets by mouth every Sunday and Sunday. No current facility-administered medications for this visit. ALLERGIES Allergen Reactions Crestor [Rosuvastat* Other: See Comments Has neuropathy Lipitor [Atorvastat* Other: See Comments myaglias Penicillins Seasonal Allergies Itching Sulfa (Sulfonamide * GI Upset Zetia [Ezetimibe] Diarrhea Diarrhea, immediately. 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 Obesity, Class I, Bmi 30-34.9 - 02/07/2022 Secondary hypogonadism - 02/06/2022 Hyperprolactinemia ([facility]) - 02/06/2022 Vitamin D Deficiency - 10/30/2018 Gastroesophageal Reflux Disease Without Esophagitis - 06/22/2017 Comment: Added automatically from request for surgery [id number] Hypothyroid - 11/24/2013 Umbilical Hernia Without Mention of Obstruction Or Gangrene - 10/03/2006 Chronic Seasonal Allergic Rhinitis - 06/29/2005 Mixed Hyperlipidemia - 06/29/2005 Esophageal Reflux - 06/29/2005 Social History Tobacco Use Smoking status: Never Smokeless tobacco: Current Types: Chew Vaping Use Vaping Use: Never used Substance Use Topics Alcohol use: Not Currently Comment: Occasionally once every 3-4 months Drug use: No Review of Systems Constitutional: Positive for fatigue. Respiratory: Negative. Cardiovascular: Negative. OBJECTIVE BP 118/80 Pulse 75 Wt 210 lb (95.3kg) SpO2 98% Physical Exam Vitals and nursing note reviewed. Constitutional: General: He is awake. He is not in acute distress. Appearance: Normal appearance. He is well-developed and well-groomed. He is not ill-appearing, toxic-appearing or diaphoretic. HENT: Head: Normocephalic. Right Ear: External ear normal. Left Ear: External ear normal. Nose: Nose normal. Eyes: General: Vision grossly intact. Conjunctiva/sclera: Conjunctivae normal. Pupils: Pupils are equal, round, and reactive to light. Neck: Vascular: No JVD. Trachea: Trachea normal. Cardiovascular: Rate and Rhythm: Normal rate and regular rhythm. Pulses: Normal pulses. Heart sounds: Normal heart sounds. No murmur heard. Pulmonary: Effort: Pulmonary effort is normal. No accessory muscle usage, prolonged expiration or respiratory distress. Breath sounds: Normal breath sounds. Musculoskeletal: Cervical back: Neck supple. Skin: General: Skin is warm and dry. Capillary Refill: Capillary refill takes less than 2 seconds. Neurological: General: No focal deficit present. Mental Status: He is alert and oriented to person, place, and time. Mental status is at baseline. Psychiatric: Attention and Perception: Attention and perception normal. Mood and Affect: Mood and affect normal. Speech: Speech normal. Behavior: Behavior normal. Behavior is (more content not included)... Normal [facility] 12 Lead EKGon 08-29-2023 12 Lead EKG [facility] Cardiovascular Services [address] [place] [address] 12 Lead EKG 08/29/23 1124 MR#: [id number] Acct: [id number] Name: YO CINTRON Rep #: [id number] : 1970 52 From: Klever Elena MD Attending Dr: Status: DEP ER Ordering Dr: Colton Downs DO Date: 08/29/23 Location: ED Sex: M C Admitted: Test Reason : SVT Blood Pressure : / mmHG Vent. Rate : 096 BPM Atrial Rate : 096 BPM P-R Int : 168 ms QRS Dur : 086 ms QT Int : 342 ms P-R-T Axes : 042 055 026 degrees QTc Int : 432 ms Normal sinus rhythm Normal ECG Confirmed by ULICES JUNIOR, KLEVER ([id number]), scientific editor ROMÁN WILLS ([id number]) on 08/31/2023 9:29:24 AM Referred By: OTIS/PAMELLA Confirmed By:KLEVER ELENA MD 08/31/23 0929 Date Klever Elena MD CC: Dr. Thuan Westfall MD; Dr. Colton Downs DO Signed Normal [facility] BNP,B-Type NATRIURETIC PEPTI Richi 08-29-2023 BNP Normal 0-100 [facility] Comment on above: Result Comment: TEST RESULTS LIMITS BNP 16 0-99 pg/mL Comments: <100 pg/mL - Heart failure unlikely 100-299 pg/mL - Intermediate probability of acute heart failure exacerbation. Correlate with clinical context and patient history. >=300 pg/mL - Heart failure likely. Correlate with clinical context and patient history. BNP testing is performed using different testing methodology at [facility] than at other [facility]. Direct result comparisons should only be made within the same method. TESTING PERFORMED AT [facility]. ORIGINAL REPORT ON FILE IN LAB CONTAINS ADDITIONAL TEST SITE INFORMATION. Performed By: #### L 501.96643, L501.9520, L500.2500, L501.5425, L503.6620, L300.8000, L506.0400, L100.0100 ####[facility] [address] [place], [address] Basic Metabolic Profile (BMP )on 08-29-2023 BUN/CRE 11.5 RATIO Normal 10-20 [facility] Comment on above: Order Comment: 1 Y Performed By: #### L 501.05508, L501.9520, L500.2500, L501.5425, L503.6620, L300.8000, L506.0400, L100.0100 #### [facility] [address] [place], [address] CA,Total 10.0 mg/dL Normal 8.5-10.1 [facility] Comment on above: Order Comment: 1 Y Performed By: #### L 501.76119, L501.9520, L500.2500, L501.5425, L503.6620, L300.8000, L506.0400, L100.0100 #### [facility] [address] [place], [address] Chloride [Moles/Vol] 102 mmol/L Normal 98-107 [facility] Comment on above: Order Comment: 1 Y Performed By: #### L 501.90370, L501.9520, L500.2500, L501.5425, L503.6620, L300.8000, L506.0400, L100.0100 #### [facility] [address] [place], [address] CO2 [Moles/Vol] 29.0 mmol/L Normal 21.0-32.0 [facility] Comment on above: Order Comment: 1 Y Performed By: #### L 501.10175, L501.9520, L500.2500, L501.5425, L503.6620, L300.8000, L506.0400, L100.0100 #### [facility] [address] [place], [address] Creatinine [Mass/Vol] 1.39 mg/dL High 0.70-1.30 [facility] Comment on above: Order Comment: 1 Y Result Comment: The validity of the calculated GFR GFRAA in patients over 70 years has not been determined. Clinical correlation is essential. Performed By: #### L 501.28741, L501.9520, L500.2500, L501.5425, L503.6620, L300.8000, L506.0400, L100.0100 #### [facility] [address] [place], [address] ECRCL 72.78 ml/min Normal [facility] Comment on above: Order Comment: 1 Y Performed By: #### L 501.55996, L501.9520, L500.2500, L501.5425, L503.6620, L300.8000, L506.0400, L100.0100 #### [facility] [address] [place], [address] EST GFR - AA 69 mL/min Normal >60 [facility] Comment on above: Order Comment: 1 Y Result Comment: Afri can Citizen Of [place] GFR Calc Performed By: #### L 501.69122, L501.9520, L500.2500, L501.5425, L503.6620, L300.8000, L506.0400, L100.0100 #### [facility] [address] [place], [address] GAP 6 Normal 5-15 [facility] Comment on above: Order Comment: 1 Y Performed By: #### L 501.80724, L501.9520, L500.2500, L501.5425, L503.6620, L300.8000, L506.0400, L100.0100 #### [facility] [address] [place], [address] GFR/1.73 sq M.predicted among non-blacks MDRD (S/P/Bld) [Vol rate/Area] 57 mL/min/{1.73_m2} Low >60 [facility] Comment on above: Order Comment: 1 Y Result Comment: Non- GFR Calc Performed By: #### L 501.54655, L501.9520, L500.2500, L501.5425, L503.6620, L300.8000, L506.0400, L100.0100 #### [facility] [address] [place], [address] Glucose [Mass/Vol] 92 mg/dL Normal 74-106 [facility] Comment on above: Order Comment: 1 Y Performed By: #### L 501.26309, L501.9520, L500.2500, L501.5425, L503.6620, L300.8000, L506.0400, L100.0100 #### [facility] [address] [place], [address] Potassium [Moles/Vol] 3.7 mmol/L Normal 3.5-5.1 [facility] Comment on above: Order Comment: 1 Y Performed By: #### L 501.86319, L501.9520, L500.2500, L501.5425, L503.6620, L300.8000, L506.0400, L100.0100 #### [facility] [address] [place], [place], [phone] Sodium [Moles/Vol] 137 mmol/L Normal 136-145 [facility] Comment on above: Order Comment: 1 Y Performed By: #### L 501.09841, L501.9520, L500.2500, L501.5425, L503.6620, L300.8000, L506.0400, L100.0100 #### [facility] [address] [place], [address] Urea nitrogen [Mass/Vol] 16 mg/dL Normal 7-18 [facility] Comment on above: Order Comment: 1 Y Performed By: #### L 501.83002, L501.9520, L500.2500, L501.5425, L503.6620, L300.8000, L506.0400, L100.0100 #### [facility] [address] [place], [place], [phone] CBC W/Diff, Automatedon 07-0 3-2023 Absolute Lymph 2.29 X10 3/uL Normal 0.83-4.51 [facility] Comment on above: Performed By: #### L 501.98466, L501.9520, L500.2500, L501.5425, L503.6620, L300.8000, L506.0400, L100.0100 #### [facility] [address] [place], [place], [phone] Absolute Neut 4.5 X10 3/uL Normal 2.0-7.7 [facility] Comment on above: Performed By: #### L 501.37952, L501.9520, L500.2500, L501.5425, L503.6620, L300.8000, L506.0400, L100.0100 #### [facility] [address] [place], [address] Basophils/100 WBC (Bld) 1.2 % High 0-1 [facility] Comment on above: Performed By: #### L 501.02237, L501.9520, L500.2500, L501.5425, L503.6620, L300.8000, L506.0400, L100.0100 #### [facility] [address] [place], [address] Eosinophils/100 WBC (Bld) 2.1 % Normal 0-5 [facility] Comment on above: Performed By: #### L 501.04780, L501.9520, L500.2500, L501.5425, L503.6620, L300.8000, L506.0400, L100.0100 #### [facility] [address] [place], [address] Erythrocyte distribution width (RBC) [Ratio] 13.9 % Normal 11.6-14.6 [facility] Comment on above: Performed By: #### L 501.57377, L501.9520, L500.2500, L501.5425, L503.6620, L300.8000, L506.0400, L100.0100 #### [facility] [address] [place], [address] Hematocrit (Bld) [Volume fraction] 53.2 % Normal 40-54 [facility] Comment on above: Performed By: #### L 501.93528, L501.9520, L500.2500, L501.5425, L503.6620, L300.8000, L506.0400, L100.0100 #### [facility] [address] [place], [address] Hemoglobin (Bld) [Mass/Vol] 16.9 g/dL High 13.0-16.5 [facility] Comment on above: Performed By: #### L 501.93953, L501.9520, L500.2500, L501.5425, L503.6620, L300.8000, L506.0400, L100.0100 #### [facility] [address] [place], [address] IG% 0.500 Normal 0.0-0.9 [facility] Comment on above: Result Comment: IG% - Immature Granulocytes (promyelocytes, myelocytes and metamyelocytes) > 1% indicates that a LEFT SHIFT is Present. Performed By: #### L 501.09370, L501.9520, L500.2500, L501.5425, L503.6620, L300.8000, L506.0400, L100.0100 #### [facility] [address] [place], [address] Lymphocytes/100 WBC (Bld) 29.4 % Normal 19-41 [facility] Comment on above: Performed By: #### L 501.84168, L501.9520, L500.2500, L501.5425, L503.6620, L300.8000, L506.0400, L100.0100 #### [facility] [address] [place], [address] MCH (RBC) [Entitic mass] 28.0 pg Normal 27.0-32.0 [facility] Comment on above: Performed By: #### L 501.47483, L501.9520, L500.2500, L501.5425, L503.6620, L300.8000, L506.0400, L100.0100 #### [facility] [address] [place], [address] MCHC (RBC) [Mass/Vol] 31.8 g/dL Low 32-36 [facility] Comment on above: Performed By: #### L 501.66862, L501.9520, L500.2500, L501.5425, L503.6620, L300.8000, L506.0400, L100.0100 #### [facility] [address] [place], [address] MCV (RBC) [Entitic vol] 88.2 fL Normal 80-94 [facility] Comment on above: Performed By: #### L 501.88054, L501.9520, L500.2500, L501.5425, L503.6620, L300.8000, L506.0400, L100.0100 #### [facility] [address] [place], [address] Monocytes/100 WBC (Bld) 9.0 % Normal 0-10 [facility] Comment on above: Performed By: #### L 501.64145, L501.9520, L500.2500, L501.5425, L503.6620, L300.8000, L506.0400, L100.0100 #### [facility] [address] [place], [address] Neutrophils/100 WBC (Bld) 57.8 % Normal 47-70 [facility] Comment on above: Performed By: #### L 501.15396, L501.9520, L500.2500, L501.5425, L503.6620, L300.8000, L506.0400, L100.0100 #### [facility] [address] [place], [address] Nucleated RBC (Bld) [#/Vol] 0 10*3/uL Normal 0-5 [facility] Comment on above: Performed By: #### L 501.54536, L501.9520, L500.2500, L501.5425, L503.6620, L300.8000, L506.0400, L100.0100 #### [facility] [address] [place], [address] Platelet mean volume (Bld) [Entitic vol] 9.6 fL Normal 6.2-12.0 [facility] Comment on above: Performed By: #### L 501.18184, L501.9520, L500.2500, L501.5425, L503.6620, L300.8000, L506.0400, L100.0100 #### [facility] [address] [place], [address] Platelets (Bld) [#/Vol] 303 10*3/uL Normal 150-450 [facility] Comment on above: Performed By: #### L 501.26570, L501.9520, L500.2500, L501.5425, L503.6620, L300.8000, L506.0400, L100.0100 #### [facility] [address] [place], [address] RBC (Bld) [#/Vol] 6.03 10*6/uL Normal 4.6-6.2 [facility] Comment on above: Performed By: #### L 501.83245, L501.9520, L500.2500, L501.5425, L503.6620, L300.8000, L506.0400, L100.0100 #### [facility] [address] [place], [address] RDW SD 44.6 fl High 35.1-43.9 [facility] Comment on above: Performed By: #### L 501.80862, L501.9520, L500.2500, L501.5425, L503.6620, L300.8000, L506.0400, L100.0100 #### [facility] [address] [place], [address] WBC (Bld) [#/Vol] 7.8 10*3/uL Normal 4.4-11.0 [facility] Comment on above: Performed By: #### L 501.87203, L501.9520, L500.2500, L501.5425, L503.6620, L300.8000, L506.0400, L100.0100 #### [facility] [address] [place], [address] Chest 1 View (Portable)on Chest 1 View (Portable) [facility] Imaging Services [address] [place], [place] [address] Chest 1 View (Portable) MR#: [id number] Acct: [id number] Name: YO CINTRON Rep #: [id number] : 1970 M 52 From: Greg Agarwal MD PCP: Dr. Thuan Westfall MD Status: REG ER Study: Chest 1 View (Portable) Date of Exam: 08/29/23 Exam# [id number] Ordering Dr: Colton Downs DO :[id number] STUDY: X-RAY CHEST REASON FOR EXAM: Male, 52 years old. palpitations TECHNIQUE: Single AP portable view of the chest. COMPARISON: 06/27/2009 FINDINGS: The lungs are clear and expanded. Elevated right hemidiaphragm which is unchanged. Normal size heart. Normal mediastinum and jose j. Normal visualized pulmonary arteries. Normal visualized aortic arch and descending thoracic aorta. Normal visualized thoracic spine. Normal visualized ribs, clavicles, and shoulders. There is no demonstrated abnormality of the visualized soft tissue structures of the upper abdomen. RAD/Chest 1 View (Portable) IMPRESSION: No active disease. Electronically Signed: Greg Agarwal MD at 12:21 EDT , CC: Dr. Thuan Westfall MD; Dr. Colton Downs DO Toby Maker: Signed Normal [facility] D-Dimer Quantitative (DVT/PE )on 08-29-2023 D-DIMER QUANT 0.32 FEU/ug/m Normal 0.27-0.49 [facility] Comment on above: Result Comment: NORM AL D-Dimer level (<0.50) indicates no DVT or PE. Performed By: #### L 501.32025, L501.9520, L500.2500, L501.5425, L503.6620, L300.8000, L506.0400, L100.0100 ####[facility] [address] [facility] [place], [address] Emergency Department Summary on 08-29-[address] [facility] Medical Records Department [address] [place] [address] Emergency Department Summary 08/29/23 MR#: [id number] Acct: [id number] Name: YO CINTRON Rep #: [id number] : 1970 52 From: Colton Downs DO PCP: Dr. Thuan Westfall MD Status:DEP ER Location: ED HPI History of Present Illness Chief Complaint: Palpitations PFSH [facility] Medical History Depression GERD (gastroesophageal reflux disease) Hyperlipidemia Hypothyroid Pituitary adenoma Home Medications ???Medication ???Instructions ???Recorded ???Last Taken ???Type pantoprazole 40 mg tablet,delayed 40 mg PO DAILY 11/19/17 Unknown History release duloxetine 30 mg capsule,delayed 30 mg PO DAILY 07/17/20 Unknown History release levothyroxine 50 mcg tablet 50 mcg PO DAILY 07/17/20 Unknown History (Levoxyl) cabergoline 0.5 mg tablet 0.25 mg PO .week 08/29/23 Unknown History metoprolol tartrate 25 mg tablet 12.5 mg (1/2 x 25 mg) PO BID 30 08/29/23 Unknown Rx days #30 tabs Allergy/AdvReac Type Severity Reaction Status Date / Time Penicillins (PCN) Allergy Rash Verified 08/29/23 11:37 Sulfa (Sulfonamide AdvReac Nausea Verified 08/29/23 11:37 Antibiotics) Surgical History H/O umbilical hernia repair Social History Smoking Status: Never smoker EXAM Physical Exam Const Vital Signs: 08/29/23 11:28 08/29/23 11:30 08/29/23 12:27 Temperature 98.5 F Temperature Source Temporal Pulse Rate 100 73 Respiratory Rate 17 13 Respiratory Effort Normal Non-Labored Respiratory Pattern Normal Blood Pressure 146/104 H 138/89 H Blood Pressure Mean 118 105 Pulse Ox 95 96 Oxygen Delivery Method Room Air Room Air 08/29/23 13:00 08/29/23 13:30 08/29/23 14:00 Temperature Temperature Source Pulse Rate 62 58 L 60 Respiratory Rate 14 12 17 Respiratory Effort Respiratory Pattern Blood Pressure 144/102 H 140/103 H Blood Pressure Mean 116 115 Pulse Ox 99 96 98 Oxygen Delivery Method Room Air 08/29/23 14:00 08/29/23 14:15 08/29/23 14:50 Temperature 98.6 F Temperature Source Pulse Rate 46 L 54 L 61 Respiratory Rate 7 L 17 18 Respiratory Effort Respiratory Pattern Blood Pressure 140/103 H 140/103 H Blood Pressure Mean 115 115 Pulse Ox 100 Oxygen Delivery Method MDM MDM MDM Narrative Medical decision making narrative: HISTORY OF PRESENT ILLNESS: 52-year-old male presents with palpitations. He states yesterday evening approximately 18 hours prior to arrival patient noted lightheadedness and palpitations. He noted this was exacerbated by exertion. Denies chest pain or shortness of breath. Denies using any stimulant drugs (cocaine, methamphetamine). Notes he drinks coffee but this is normal. 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 Denies any leg swelling or calf tenderness. Denies any family history of sudden cardiac . Notes his mother has history of A-fib. He denies ever having an issue with his heart rhythm. Notes compliance with levothyroxine. Denies any additional doses. Denies any bleeding diathesis, volume loss. Notes he sweats a lot although he drinks lots of Powerade which has large electrolytes she does not think he is dehydrated. The patient denies recent surgery in the last 4 weeks or immobilization in the last 3 days, denies previous diagnosis of DVT or PE, hemoptysis, unilateral leg swelling or malignancy with treatment the last 6 months or palliative. No estrogen use noted. REVIEW OF SYSTEMS: Pertinent positives: Palpitations Pertinent negatives: Chest pain, shortness of breath, lightheadedness, syncope PHYSICAL EXAM: Nursing triage notes reviewed, Vital signs reviewed Constitutional: please see mdm HENT: MMM Eyes: Pupils equal round and reactive to light, Extraocular muscles intact Neck: No stridor, no JVD, full neck ROM Lungs: Clear to auscultation, No wheezing or rales. No increased work of breathing, no conversational dyspnea, no accessory muscle use, no nasal flaring. No respiratory distress noted Heart: Regular rate and rhythm, No murmurs, No rubs and No gallops, 2+ distal pulses (radial, femoral, posterior tibial) in all extremities Abdomen: Soft, there is no tenderness, rigidity, rebound or guarding, no obvious peritoneal signs, no palpable pulsatile abdominal masses, no auscultated abdominal bruit : No CVAT Extremities: No edema Neuro: No focal neurological deficits, cranial nerves II through XII intact, 5/5 strength in all extremities. Intact sensation to light touch in all extremities, 2 (more content not included)... Normal [facility] Free T3on 08-29-2023 Free T3 [Mass/Vol] 2.7 pg/mL Normal 2.18-3.98 [facility] Comment on above: Order Comment: 1 Y Performed By: #### L 501.28868, L501.9520, L500.2500, L501.5425, L503.6620, L300.8000, L506.0400, L100.0100 #### [facility] [address] [place], [address] L501.4020on 08-29-2023 TROPONIN-I HS 4 pg/mL Normal 3.0-78.0 [facility] Comment on above: Result Comment: Plea se Note: New Test Units and Gender Specific Reference Ranges. For more information see Policy Stat Procedure [place] High Sensitivity Troponin (TNIH) and attachments. Performed By: #### L 501.4020 ####[facility] [address] [place], [address] L501.5425on 08-29-2023 TROPONIN-I HS 5 pg/mL Normal 3.0-78.0 [facility] Comment on above: Order Comment: 1 Y Result Comment: Analy melgar Note: New Test Units and Gender Specific Reference Ranges. For more information see Policy Stat Procedure [place] High Sensitivity Troponin (TNIH) and attachments. Performed By: #### L 501.88204, L501.9520, L500.2500, L501.5425, L503.6620, L300.8000, L506.0400, L100.0100 #### [facility] [address] [place], [place], [id number] T4 Free Directon 08-29-2023 T4 FREE DIRECT 0.88 ng/dL Normal 0.76-1.46 [facility] Comment on above: Order Comment: 1Y Performed By: #### L 501.06090, L501.9520, L500.2500, L501.5425, L503.6620, L300.8000, L506.0400, L100.0100 ####[facility] [address] [place], [place], [id number] Thyroid Stim Hormone (TSH)on 08-29-2023 TSH 2.59 uIU/mL Normal 0.358-3.74 [facility] Comment on above: Order Comment: 1Y Performed By: #### L 501.53964, L501.9520, L500.2500, L501.5425, L503.6620, L300.8000, L506.0400, L100.0100 ####[facility] [address] [place], [place], [id number] CNOVon 06-27-2023 CNOV Office Visit (INTMWS ) YO CINTRON ([id number]) 1970 Date Time Provider Department 06/27/23 10:40 AM MIRA EDGE INTMWS During your visit today, we recorded the following information about you: Pulse Respiration Blood pressure Weight 77/minute 12/minute 120/92 96.2 kg Mira Edge, MARINE SERVICE OPERATOR.NIGHT MANAGER 06/27/2023 10:57 AM Signed CC: Patient presents with: Allergies: Requesting kenalog injection HPI Yo Cintron is a 52 year old male who presents today for above. He has been dealing with seasonal allergies every Spring/Summer for years. Previous treatments included allergy shots and OTC medications without any relief. He has been getting Kenalog injection yearly which is very effective. Allergy symptoms including runny nose, nasal congestion, post nasal drainage, scratchy throat and itchy/watery eyes. He takes Benadryl multiple times a day which is the only other thing that helps. Review of Systems Constitutional: Negative for chills, diaphoresis, fatigue, fever and unexpected weight change. Respiratory: Negative for cough, shortness of breath and wheezing. Cardiovascular: Negative for chest pain, palpitations and leg swelling. PAST MEDICAL HISTORY Diagnosis Date ALLERGIC RHINITIS NOS 06/29/2005 Anxiety and depression 10/30/2018 ANXIETY STATE NOS 06/29/2005 CHR SOLAR SKIN DAMAGE NOS 06/01/2006 Chronic musculoskeletal pain Esophageal reflux 06/29/2005 Gastritis without bleeding 10/30/2018 HYPERLIPIDEMIA NEC/NOS 06/29/2005 Hypogonadotropic hypogonadism (HCC) 01/02/2017 Hypothyroidism 01/02/2017 Pituitary macroadenoma (HCC) 01/02/2017 Pituitary tumor [facility] Sebaceous cyst 06/01/2006 SEBORRHEIC KERATOSIS NOS 06/01/2006 SOLAR LENGINES///DYSCHROMIA OTHER 06/01/2006 PAST SURGICAL HISTORY Procedure Laterality Date COLONOSCOPY 08/24/2022 repeat in 10 years EGD 04/16/2002 incompetent LES ESOPHAGOGASTRODUODENOSCOPY TRANSORAL DIAGNOSTIC 07/16/2017 EGD HERNIA REPAIR HX REPAIR FIRST ABDOMINAL WALL HERNIA 11/12/2006 supraumbilical hernia with mesh RPR RECRT INCAL/VNT HERNIA INCARCERATED 01/09/2022 RPR UMBILICAL HRNA 5 YRS/> REDUCIBLE 11/02/2006 simple umbilical hernia ALLERGIES Crestor [Rosuvastatin], Lipitor [Atorvastatin Calcium], Penicillins, Seasonal Allergies, Sulfa (Sulfonamide Antibiotics), and Zetia [Ezetimibe] MEDICATIONS pantoprazole DR (PROTONIX) 40 mg tablet To take empty stomach with water 2 times a day. clonazePAM (KLONOPIN) 0.5 mg tablet Take 1 tablet by mouth once daily as needed for up to 90 days. omega-3 acid ethyl esters (LOVAZA) 1 gram capsule Take 2 capsules by mouth two times a day. levothyroxine (LEVOXYL) 50 mcg tablet Take 1 tablet by mouth once daily. Take on empty stomach. For Thyroid DULoxetine (CYMBALTA) 30 mg capsule TAKE 1 CAPSULE DAILY FOR CHRONIC MUSCULOSKELETAL PAIN cabergoline (DOSTINEX) 0.5 mg tablet Take 0.5 tablets by mouth every Sunday and Sunday. sildenafil (VIAGRA) 50 mg tablet Take 1 tablet by mouth as needed. (Patient not taking: Reported on 03/20/2023) peg 3350-Electrolytes (GOLYTELY) 236-22.74-6.74 -5.86 gram suspension Follow colonoscopy instructions (Patient not taking: Reported on 03/20/2023) FAMILY HISTORY Problem Relation Age of Onset Hypertension Mother HYPERLIPIDEMIA Lipids Mother Thyroid Mother Hypertension Father Lipids Father No Known Problems Sister No Known Problems Sister No Known Problems Brother No Known Problems Maternal Grandmother Stroke Maternal Grandfather No Known Problems Paternal Grandmother No Known Problems Paternal Grandfather Social History Tobacco Use Smoking status: Never Smokeless tobacco: Current Types: Chew Vaping Use Vaping Use: Never used Substance Use Topics Alcohol use: Not Currently Comment: Occasionally once every 3-4 months Drug use: No BP 120/92 Pulse 77 Resp 12 Wt 96.2 kg (212 lb) SpO2 97% BMI 30.42 kg/m? Physical Exam Vitals reviewed. Constitutional: Appearance: Normal appearance. HENT: Mouth/Throat: Lips: [place]. Mouth: Mucous membranes are moist. Pharynx: Posterior oropharyngeal erythema present. Eyes: Conjunctiva/sclera: Conjunctivae normal. Cardiovascular: Rate and Rhythm: Normal rate and regular rhythm. Heart sounds: Normal heart sounds. No murmur heard. Pulmonary: Effort: Pulmonary effort is normal. Breath sounds: Normal breath sounds and air entry. No wheezing, rhonchi or rales. Lymphadenopathy: Cervical: No cervical adenopathy. Skin: General: Skin is warm and dry. Neurological: Mental Status: He is alert. DATA REVIEWED: Most recent labs ASSESSMENT/PLAN: 1. Chronic seasonal allergic rhinitis - ICD9: 477.8, ICD10: J30.2 Patient requesting yearly Kenalog injection which is the only other medication besides Benadryl that is effective. Cautioned patient about the (more content not included)... Normal [facility] COLONOSCOPY SCREENINGon 06-2 [facility] MRI PITUITARY WO/W IVCONon 0 03-08-2022 [facility] Comprehensive metabolic 2000 panelon 02-07-2022 Albumin [Mass/Vol] 4.4 g/dL 3.9 - 4.9 g/dL [facility] ALP [Catalytic activity/Vol] 96 U/L 38 - 113 U/L [facility] ALT [Catalytic activity/Vol] 32 U/L 10 - 54 U/L [facility] Anion gap [Moles/Vol] 12 mmol/L 9 - 18 mmol/L [facility] AST [Catalytic activity/Vol] 29 U/L 14 - 40 U/L [facility] Bilirubin [Mass/Vol] 0.5 mg/dL 0.2 - 1.3 mg/dL [facility] Calcium [Mass/Vol] 9.7 mg/dL 8.5 - 10.2 mg/dL [facility] Chloride [Moles/Vol] 100 mmol/L 97 - 105 mmol/L [facility] CO2 [Moles/Vol] 26 mmol/L 22 - 30 mmol/L [facility] Creatinine [Mass/Vol] 1.22 mg/dL 0.73 - 1.22 mg/dL [facility] Estimated Glomerular Filtration Rate 72 mL/min/1.73m >=60 mL/min/1.73m [facility] Glucose [Mass/Vol] 86 mg/dL 74 - 99 mg/dL [facility] Potassium [Moles/Vol] 4.1 mmol/L 3.7 - 5.1 mmol/L [facility] Protein [Mass/Vol] 7.4 g/dL 6.3 - 8.0 g/dL [facility] Sodium [Moles/Vol] 138 mmol/L 136 - 144 mmol/L [facility] Urea nitrogen [Mass/Vol] 13 mg/dL 9 - 24 mg/dL [facility] HbA1c (Bld)on 01-18-2022 Average glucose Estimated from glycated hemoglobin (Bld) [Mass/Vol] 123 mg/dL [facility] HbA1c (Bld) [Mass fraction] 5.9 % High 4.3 - 5.6 % [facility] Lipid 1996 panelon 2 Cholesterol [Mass/Vol] 249 mg/dL High <200 mg/dL [facility] Cholesterol in HDL [Mass/Vol] 36 mg/dL Low >39 mg/dL [facility] Cholesterol in LDL [Mass/Vol] 143 mg/dL High <100 mg/dL [facility] Cholesterol in LDL/Cholesterol in HDL [Mass ratio] 3.97 {ratio} High <2.54 [facility] Cholesterol in VLDL [Mass/Vol] 70 mg/dL High <30 mg/dL [facility] Cholesterol non HDL [Mass/Vol] 213 mg/dL High <130 mg/dL [facility] Cholesterol.total /Cholesterol in HDL [Mass ratio] 6.92 {ratio} High <5.10 [facility] Fasting Time 12 hrs [facility] Triglyceride [Mass/Vol] 351 mg/dL High <150 mg/dL [facility] Absolute lymphocyte counton 01-09-2022 Lymphocytes Auto (Unsp spec) [#/Vol] 2.57 10*3/uL 0.83-4.51 [facility] Work Phone: [phone] Basophil percentageon 2021 Basophils/100 WBC (Bld) 0.7 % 0-1 [facility] Work Phone: [phone] Chloride [Moles/Vol] 104 mmol/L 98-107 [facility] Work Phone: [phone] Eosinophils/100 WBC (Bld) 2.3 % 0-5 [facility] Work Phone: [phone] Glucose [Mass/Vol] 104 mg/dL 74-106 [facility] Work Phone: Comment on above: Fasting Glucose resu lt from 100 to 125 mg/dL suggests IMPAIRED HOMEOSTASIS per A.D.A. criteria. Neutrophils (Bld) [#/Vol] 4.6 10*3/uL 2.0-7.7 [facility] Work Phone: [phone] Neutrophils/100 WBC (Bld) 55.9 % 47-70 [facility] Work Phone: Potassium [Moles/Vol] 4.1 mmol/L 3.5-5.1 [facility] Work Phone: Comment on above: Slight Hemolysis, Re sult may be falsely increased. Sodium [Moles/Vol] 138 mmol/L 136-145 [facility] Work Phone: WBC (Bld) [#/Vol] 8.3 10*3/uL 4.4-11.0 [facility] Work [facility]: Blood erythrocytes count (nu mber/volume)on 01-09-2022 RBC (Bld) [#/Vol] 5.60 10*6/uL 4.6-6.2 [facility] Work Phone: Blood hemoglobin measurement (mass/volume)on 01-09-2022 Hemoglobin (Bld) [Mass/Vol] 16.5 g/dL 13.0-16.5 [facility] Work Phone: Blood lymphocytes/100 leukoc yteson 01-09-2022 Lymphocytes/100 WBC (Bld) 31.1 % 19-41 [facility] Work Phone: Blood monocytes/100 leukocyt eson 01-09-2022 Monocytes/100 WBC (Bld) 9.8 % 0-10 [facility] Work Phone: Blood platelet mean volumeon 01-09-2022 Platelet mean volume (Bld) [Entitic vol] 9.1 fL 6.2-12.0 [facility] Work Phone: Determination of erythrocyte mean corpuscular volume (MCV)on 01-09-2022 MCV (RBC) [Entitic vol] 87.9 fL 80-94 [facility] Work Phone: Hematocrit Auto (Bld) [Volum e fraction]on 01-09-2022 Hematocrit (Bld) [Volume fraction] 49.2 % 40-54 [facility] Work Phone: Laboratory - Chemistry and C hemistry - challengeon 01-09-2022 CO2 [Moles/Vol] 27.0 mmol/L 21.0-32.0 [facility] Work Phone: Urea nitrogen/Creatini ne [Mass ratio] 9.3 mg/mg 10-20 [facility] Work Phone: Laboratory - Hematology and Cell countson 01-09-2022 Erythrocyte distribution width (RBC) [Entitic vol] 42.4 fL 35.1-43.9 [facility] Work Phone: Erythrocyte distribution width (RBC) [Ratio] 13.2 % 11.6-14.6 [facility] Work Phone: Immature granulocytes/100 WBC (Bld) 0.200 % 0.0-0.9 [facility] Work Phone: Comment on above: IG% - Immature Granu locytes (promyelocytes, myelocytes and metamyelocytes) > 1% indicates that a LEFT SHIFT is Present. MCH (RBC) [Entitic mass] 29.5 pg 27.0-32.0 [facility] Work Phone: Nucleated RBC/100 WBC (Bld) [Ratio] 0 % 0-5 [facility] Work Phone: MCHC Auto (RBC) [Mass/Vol]on 01-09-2022 MCHC (RBC) [Mass/Vol] 33.5 g/dL 32-36 [facility] Work Phone: No Panel Informationon 01-09 Estimated Creatinine Clearance Calc 62.42 ml/min [facility] Work Phone: Estimated GFR (MDRD) Amer 69 mL/min >60 [facility] Work Phone: Comment on above: GFR Calc Estimated GFR (MDRD) Non-Af Amer 57 mL/min >60 [facility] Work Phone: Comment on above: Non- GFR Calc Platelets bldon 01-09-2022 Platelets (Bld) [#/Vol] 269 10*3/uL 150-450 [facility] Work Phone: Serum or plasma calcium dominique urement (mass/volume)on 01-09-2022 Calcium [Mass/Vol] 9.2 mg/dL 8.5-10.1 [facility] Work Phone: Serum or plasma creatinine m easurement (mass/volume)on 01-09-2022 Creatinine [Mass/Vol] 1.40 mg/dL 0.70-1.30 [facility] Work Phone: Comment on above: The validity of the calculated GFR & GFRAA in patients over 70 years has not been determined. Clinical correlation is essential. Serum or plasma urea nitroge n measurement (mass/volume)on 01-09-2022 Urea nitrogen [Mass/Vol] 13 mg/dL 7-18 [facility] Work Phone: Thin prep Papanicolaou smear with manual screeningon 01-09-2022 Thin prep Papanicolaou smear with manual screening 7 - [facility] Work Phone: Basophil percentageon 2021 Basophil percentage 3.1 mg/dL 2.5-4.9 [facility] Work Phone: Chloride [Moles/Vol] 102 mmol/L 98-107 [facility] Work Phone: Glucose [Mass/Vol] 97 mg/dL 74-106 [facility] Work Phone: Potassium [Moles/Vol] 3.9 mmol/L 3.5-5.1 [facility] Work Phone: Sodium [Moles/Vol] 135 mmol/L 136-145 [facility] Work Phone: Laboratory - Chemistry and C hemistry - challengeon 10-03-2021 CO2 [Moles/Vol] 27.0 mmol/L 21.0-32.0 [facility] Work Phone: Urea nitrogen/Creatini ne [Mass ratio] 11.7 mg/mg 10-20 [facility] Work Phone: No Panel Informationon 10-03 Estimated GFR (MDRD) Amer 76 mL/min >60 [facility] Work Phone: Comment on above: GFR Calc Estimated GFR (MDRD) Non-Af Amer 63 mL/min >60 [facility] Work Phone: Comment on above: Non- GFR Calc Serum or plasma albumin dominique urement (mass/volume)on 10-03-2021 Albumin [Mass/Vol] 3.7 g/dL 3.2-5.0 [facility] Work Phone: Serum or plasma calcium dominique urement (mass/volume)on 10-03-2021 Calcium [Mass/Vol] 9.1 mg/dL 8.5-10.1 [facility] Work Phone: Serum or plasma creatinine m easurement (mass/volume)on 10-03-2021 Creatinine [Mass/Vol] 1.28 mg/dL 0.70-1.30 [facility] Work Phone: Comment on above: The validity of the calculated GFR & GFRAA in patients over 70 years has not been determined. Clinical correlation is essential. Serum or plasma urea nitroge n measurement (mass/volume)on 10-03-2021 Urea nitrogen [Mass/Vol] 15 mg/dL 7-18 [facility] Work Phone: MRI BRAIN W/ + W/O CONTRASTo n 01-06-2019 MRI BRAIN W/ + W/O CONTRAST ORIGINAL MRI BRAIN W/ + W/O CONTRAST Clinical Statement: PROLACTINOMA TECHNIQUE: Multiplanar, multisequence imaging of the brain was performed before and after the administration of IV contrast. Pituitary protocol. COMPARISON: Brain MRI 12/04/2016. FINDINGS: There is redemonstration of an enhancing sellar mass, measuring approximately 0.7 x 1.1 x 0.9 mm in transverse, craniocaudal and AP dimension today, previously 15 x 13 x 14 mm in. The lesion is T2 hyperintense, T1 hypointense and relatively hypoenhancing compared to normal pituitary tissue. There is no longer appreciable invasion of the cavernous sinuses. There is no narrowing of either internal carotid artery. Pituitary tissue and the infundibulum are shifted to the left. The ventricles and sulci are normal in size and configuration. There are no abnormal intra or extra-axial fluid collections. Salter-white matter differentiation is maintained. There is no abnormal restriction of diffusion. There is no abnormal enhancement of the brain or its coverings. The orbital contents are unremarkable in appearance. The paranasal sinuses are clear. IMPRESSION: The pituitary adenoma is smaller. Interpreted By: Maximus Phillip Preliminary Report By: Maximus Phillip Electronically Signed By: Maximus Phillip Dictated Date: 01/06/2019 5:35:36 PM Prelim Date: 01/06/2019 5:35:36 PM Sign Date: 01/06/2019 5:43:47 PM Ordering Provider:Aidee Cameron [facility] ([place]) Vital Signs Date Time Vital Sign Value Performing Clinician Faci lity 06-02-2024 09:31-0400 Diastolic blood pressure 86 mm[Hg] Thuan Westfall MD Work Phone: [facility] 06-02-2024 09:31-0400 Heart rate 75 /min Thuan Westfall MD Work Phone: [facility] 06-02-2024 09:31-0400 Respiratory rate 16 /min Thuan Westfall MD Work Phone: [facility] 06-02-2024 09:31-0400 Systolic blood pressure 135 mm[Hg] Thuan Westfall MD Work Phone: [facility] 09-17-2023 10:35-0400 Body mass index (BMI) [Ratio] 30.13 kg/m2 Nicci Kendrick MARINE SERVICE OPERATOR.NIGHT MANAGER Work Phone: [facility] 09-17-2023 10:35-0400 Body weight 95.25 kg Nicci Kendrick MARINE SERVICE OPERATOR.NIGHT MANAGER Work Phone: [facility] 09-17-2023 10:35-0400 Diastolic blood pressure 80 mm[Hg] Nicci Kendrick MARINE SERVICE OPERATOR.NIGHT MANAGER Work Phone: [facility] 09-17-2023 10:35-0400 Heart rate 75 /min Nicci Kendrick MARINE SERVICE OPERATOR.NIGHT MANAGER Work Phone: [facility] 09-17-2023 10:35-0400 SaO2% (BldA) [Mass fraction] 98 % Nicci Kendrick MARINE SERVICE OPERATOR.NIGHT MANAGER Work Phone: [facility] 09-17-2023 10:35-0400 Systolic blood pressure 118 mm[Hg] Nicci Kendrick MARINE SERVICE OPERATOR.NIGHT MANAGER Work Phone: [facility] 06-27-2023 10:30-0400 Body mass index (BMI) [Ratio] 30.42 kg/m2 Mira Kely MARINE SERVICE OPERATOR.NIGHT MANAGER Work Phone: [facility] 06-27-2023 10:30-0400 Body weight 96.16 kg Mira Kely MARINE SERVICE OPERATOR.NIGHT MANAGER Work Phone: [facility] 06-27-2023 10:30-0400 Diastolic blood pressure 92 mm[Hg] Mira Kely MARINE SERVICE OPERATOR.NIGHT MANAGER Work Phone: [facility] 06-27-2023 10:30-0400 Heart rate 77 /min Mira Kely MARINE SERVICE OPERATOR.NIGHT MANAGER Work Phone: [facility] 06-27-2023 10:30-0400 Respiratory rate 12 /min Mira Kely MARINE SERVICE OPERATOR.NIGHT MANAGER Work Phone: [facility] 06-27-2023 10:30-0400 SaO2% (BldA) [Mass fraction] 97 % Mira Kely MARINE SERVICE OPERATOR.NIGHT MANAGER Work Phone: [facility] 06-27-2023 10:30-0400 Systolic blood pressure 120 mm[Hg] Mira Kely MARINE SERVICE OPERATOR.NIGHT MANAGER Work Phone: [facility] 08-24-2022 10:19-0400 Diastolic blood pressure 88 mm[Hg] Pablo Alfaro MD Work Phone: [facility] 08-24-2022 10:19-0400 Heart rate 65 /min Pablo Alfaro MD Work Phone: [facility] 08-24-2022 10:19-0400 Respiratory rate 16 /min Pablo Alfaro MD Work Phone: [facility] 08-24-2022 10:19-0400 SaO2% (BldA) [Mass fraction] 95 % Pablo Alfaro MD Work Phone: [facility] 08-24-2022 10:19-0400 Systolic blood pressure 121 mm[Hg] Pablo Alfaro MD Work Phone: [facility] 08-24-2022 08:20-0400 Body temperature 97.5 [degF] Pbalo Alfaro MD Work Phone: [facility] 08-01-2022 08:56-0400 Body height 177.8 cm Thuan Westfall MD Work Phone: [facility] 08-01-2022 08:56-0400 Body temperature 98.01 [degF] Thuan Westfall MD Work Phone: [facility] 08-01-2022 08:56-0400 Body weight 98.88 kg Thuan Westfall MD Work Phone: [facility] 08-01-2022 08:56-0400 Diastolic blood pressure 72 mm[Hg] Thuan Westfall MD Work Phone: [facility] 08-01-2022 08:56-0400 Heart rate 92 /min Thuan Westfall MD Work Phone: [facility] 08-01-2022 08:56-0400 Respiratory rate 12 /min Thuan Westfall MD Work Phone: [facility] 08-01-2022 08:56-0400 SaO2% (BldA) [Mass fraction] 99 % Thuan Westfall MD Work Phone: [facility] 08-01-2022 08:56-0400 Systolic blood pressure 120 mm[Hg] Thuan Westfall MD Work Phone: [facility] 02-06-2022 10:09-0500 Body height 177.8 cm Greg Watkins MD Work Phone: [facility] 02-06-2022 10:09-0500 Body weight 100.25 kg Greg Watkins MD Work Phone: [facility] 02-06-2022 10:09-0500 Diastolic blood pressure 92 mm[Hg] Greg Watkins MD Work Phone: [facility] 02-06-2022 10:09-0500 Heart rate 102 /min Greg Watkins MD Work Phone: [facility] 02-06-2022 10:09-0500 Respiratory rate 16 /min Greg Watkins MD Work Phone: [facility] 02-06-2022 10:09-0500 SaO2% (BldA) [Mass fraction] 96 % Greg Watkins MD Work Phone: [facility] 02-06-2022 10:09-0500 Systolic blood pressure 125 mm[Hg] Greg Watkins MD Work Phone: [facility] 01-09-2022 15:03-0500 Body height 175.26 cm [facility] Work Phone: 01-09-2022 15:03-0500 Body mass index (BMI) [Ratio] 32.5 kg/m2 [facility] Work Phone: 01-09-2022 15:03-0500 Body temperature 98.8 [degF] [facility] Work Phone: 01-09-2022 15:03-0500 Body weight 99.79 kg [facility] Work Phone: 01-09-2022 15:03-0500 Diastolic blood pressure 101 mm[Hg] [facility] Work Phone: 01-09-2022 15:03-0500 Heart rate 122 /min [facility] Work Phone: 01-09-2022 15:03-0500 Respiratory rate 16 /min [facility] Work Phone: 01-09-2022 15:03-0500 SaO2% (BldA) [Mass fraction] 98 % [facility] Work Phone: 01-09-2022 15:03-0500 Systolic blood pressure 146 mm[Hg] [facility] Work Phone: 01-09-2022 14:23-0500 Body height 175.3 cm Pablo Alfaro MD Work Phone: [facility] 01-09-2022 14:23-0500 Body temperature 97.3 [degF] Pablo Alfaro MD Work Phone: [facility] 01-09-2022 14:23-0500 Body weight 101.61 kg Pablo Alfaro MD Work Phone: [facility] 01-09-2022 14:23-0500 Diastolic blood pressure 92 mm[Hg] Pablo Alfaro MD Work Phone: [facility] 01-09-2022 14:23-0500 Heart rate 110 /min Pablo Alfaro MD Work Phone: [facility] 01-09-2022 14:23-0500 Respiratory rate 16 /min Pablo Alfaro MD Work Phone: [facility] 01-09-2022 14:23-0500 SaO2% (BldA) [Mass fraction] 97 % Pablo Alfaro MD Work Phone: [facility] 01-09-2022 14:23-0500 Systolic blood pressure 124 mm[Hg] Pablo Alfaro MD Work Phone: [facility] 01-09-2022 08:46-0500 Body temperature 98.2 [degF] Marya Older MARINE SERVICE OPERATOR.NIGHT MANAGER Work Phone: [facility] 01-09-2022 08:46-0500 Body weight 100.25 kg Marya Older MARINE SERVICE OPERATOR.NIGHT MANAGER Work Phone: [facility] 01-09-2022 08:46-0500 Diastolic blood pressure 82 mm[Hg] Marya Older MARINE SERVICE OPERATOR.NIGHT MANAGER Work Phone: [facility] 01-09-2022 08:46-0500 Heart rate 80 /min Marya Older MARINE SERVICE OPERATOR.NIGHT MANAGER Work Phone: [facility] 01-09-2022 08:46-0500 Respiratory rate 16 /min Marya Older MARINE SERVICE OPERATOR.NIGHT MANAGER Work Phone: [facility] 01-09-2022 08:46-0500 Systolic blood pressure 118 mm[Hg] Marya Older MARINE SERVICE OPERATOR.NIGHT MANAGER Work Phone: [facility] 07-28-2021 08:46-0400 Body temperature 97.5 [degF] Thuan Westfall MD Work Phone: [facility] 07-28-2021 08:46-0400 Body weight 99.79 kg Thuan Westfall MD Work Phone: [facility] 07-28-2021 08:46-0400 Diastolic blood pressure 86 mm[Hg] Thuan Westfall MD Work Phone: [facility] 07-28-2021 08:46-0400 Heart rate 97 /min Thuan Westfall MD Work Phone: [facility] 07-28-2021 08:46-0400 Respiratory rate 16 /min Thuan Westfall MD Work Phone: [facility] 07-28-2021 08:46-0400 SaO2% (BldA) [Mass fraction] 98 % Thuan Westfall MD Work Phone: [facility] 07-28-2021 08:46-0400 Systolic blood pressure 108 mm[Hg] Thuan Westfall MD Work Phone: [facility] 07-17-2020 07:38-0400 Body mass index (BMI) [Ratio] 30.1 kg/m2 [facility] Work Phone: Encounters Encounter Date Encounter Type Care Provider Facility Start: 06-02-2024 End: 06-02-2024 ambulatory THUAN WESTFALL Facility:[facility] Start: 06-02-2024 End: 06-02-2024 Office outpatient visit 25 minutes Thuan Westfall MD Work Phone: [facility] [place] Comment on above: Gastroesophageal ref lux disease without esophagitis (Primary Dx); PFD (pelvic floor dysfunction); Allergy, sequela; Panic attack; Hypothyroidism, unspecified type; Anxiety; Hyperprolactinemia (HCC); Supraventricular tachycardia (HCC); Peripheral polyneuropathy Start: 04-04-2024 End: 04-08-2024 Refill Nicci Donaldsonr VIKTOR.JEWEL Work Phone: [facility] Comment on above: Refill Request Start: 03-25-2024 End: 03-27-2024 Refill Nicci Donaldsonr MARINE SERVICE OPERATOR.NIGHT MANAGER Work Phone: [facility] Comment on above: Refill Request Start: 03-04-2024 End: 03-07-2024 ambulatory Thuan Westfall MD Work Phone: Internal [place] [phone] Start: 02-22-2024 End: 03-03-2024 Refill Mira Edge APRN.NIGHT MANAGER Work Phone: [facility] Comment on above: Refill Request Start: 11-28-2023 End: 11-28-2023 ambulatory [facility] [place] Start: 11-20-2023 ambulatory [facility] Facility:[facility] Start: 11-20-2023 End: 11-20-2023 [facility] Facility:[facility] Start: 11-14-2023 ambulatory Gisel Chaudhary NP Facili ty:[facility] Start: 11-01-2023 [facility] Facility:[facility] Start: 10-03-2023 End: 10-03-2023 ambulatory [facility] Facility:[facility] Start: 09-25-2023 Telephone encounter Nicci Oconnor er VIKTOR.NIGHT MANAGER Work Phone: [facility] Comment on above: Results Start: 09-24-2023 ambulatory Nicci Donaldsonr MARINE SERVICE OPERATOR.NIGHT MANAGER Work Phone: [facility] Comment on above: Testosterone results Start: 09-19-2023 End: 09-19-2023 ambulatory [facility] Facility:[facility] Start: 09-17-2023 End: 09-17-2023 Patient encounter procedure Nicci Donaldsonr MARINE SERVICE OPERATOR.NIGHT MANAGER Work Phone: [facility] Comment on above: Hyperprolactinemia ( HCC) (Primary Dx); Mixed hyperlipidemia; Hypothyroidism, unspecified type; Gastroesophageal reflux disease without esophagitis; SVT (supraventricular tachycardia) (HCC); Encounter for therapeutic drug monitoring; Vitamin D deficiency; Prostate cancer screening Start: 09-17-2023 End: 09-17-2023 ambulatory [facility] Facility:[facility] Start: 08-29-2023 End: 08-29-2023 Emergency department patient visit [facility] Facility:[facility] Start: 06-27-2023 End: 06-27-2023 ambulatory MIRA EDGE Facility:[facility] Start: 06-27-2023 End: 06-27-2023 Patient encounter procedure Mira Edge APRN.CNP Work Phone: [facility] [place] Comment on above: Chronic seasonal all ergic rhinitis (Primary Dx) Start: 08-24-2022 End: 08-24-2022 Subsequent hospital visit by physician Pablo Alfaro MD Work Phone: Ambulatory Surgery Comment on above: Special screening fo r malignant neoplasms, colon [Z12.11] Start: 08-01-2022 End: 08-01-2022 Patient encounter procedure Thuan Westfall MD Work Phone: [facility] [place] Comment on above: Hyperprolactinemia ( HCC) (Primary Dx); Hypothyroidism, unspecified type; Gastroesophageal reflux disease without esophagitis; Allergy, sequela; Environmental allergies; Mixed hyperlipidemia; Special screening for malignant neoplasms, colon Start: 03-08-2022 End: 03-08-2022 Subsequent hospital visit by physician [facility] (I-Stat/1.5t) Work Phone: Radiology Comment on above: Prolactinoma (HCC) [ D35.2] Start: 02-16-2022 Telephone encounter Greg Watkins MD Work Phone: Endocrinology Comment on above: Patient Update Start: 02-06-2022 End: 02-06-2022 Patient encounter procedure Greg Watkins MD Work Phone: Endocrinology Comment on above: Prolactinoma (HCC) ( Primary Dx); Secondary hypogonadism; Hyperprolactinemia (HCC); Pituitary adenoma (HCC); Hypothyroidism, unspecified type; Mixed hyperlipidemia; Obesity, Class I, BMI 30-34.9 Start: 01-17-2022 ambulatory Thuan Tyson Work Phone: Internal Medicine [facility] Start: 01-09-2022 End: 01-09-2022 [facility] Start: 01-09-2022 End: 01-09-2022 Patient encounter procedure Pablo Alfaro MD Work Phone: General Surgery Comment on above: Recurrent incisional hernia with incarceration (Primary Dx) Start: 01-09-2022 End: 01-09-2022 Patient encounter procedure Marya Bailey APRN.NIGHT MANAGER Work Phone: Internal Medicine [place] Comment on above: Periumbilical abdomi nal pain (Primary Dx); Periumbilical mass; Infection in abdomen (HCC) Start: 10-03-2021 End: 10-03-2021 Patient encounter procedure [facility] Start: 07-28-2021 End: 07-28-2021 Patient encounter procedure Thuan Westfall MD Work Phone: Internal Medicine [place] Comment on above: Prostate cancer scre ening (Primary Dx); Mixed hyperlipidemia; Hypothyroidism, unspecified type; Prolactinoma (HCC); Neuropathy; Allergy, initial encounter Start: 06-13-2021 Refill Thuan Tyson Work Phone: Internal [facility] Comment on above: Refill Request Start: 06-01-2021 Refill Thuan Tyson Work Phone: Internal Medicine [place] Comment on above: Refill Request Procedures Date Procedure Procedure Detail Performing Clinician Start: 09-17-2023 Adult depression screening assessment Nicci Marks APRN.NIGHT MANAGER Work Phone: Start: 03-16-2023 Lipid 1996 panel - S maryana or Plasma Mira Edge APRN.CNP Work Phone: Start: 08-24-2022 Colonoscopy flx dx w/collj spec when pfrmd Thuan Westfall MD Work Phone: Start: 08-24-2022 Colonoscopy Pablo rizzo MD Work Phone: Start: 03-08-2022 Mri brain brain stem w/o w/contrast material Greg Watkins MD Work Phone: Start: 01-18-2022 Lipid 1996 panel - S maryana or Plasma Pablo Alfaro MD Work Phone: Start: 01-09-2022 Computed tomography of abdomen and pelvis with intravenous contrast Plan of Treatment Date Care Activity Detail Author Start: 08-24-2032 Colonoscopy Colonoscopy [facility] Start: 08-24-2032 Colorectal Cancer Screening Colorectal Cancer Screening [facility] Start: 08-24-2032 Screening for malignant neoplasm of colon [facility] Start: 03-16-2028 Lipid panel Lipid Screening [facility] Start: 01-18-2027 Lipid 1996 panel - Serum or Plasma Lipid Screening [facility] Start: 01-18-2027 LIPID SCREEN LIPID SCREEN [facility] Start: 09-18-2026 Diabetes Screening Diabetes Screening [facility] Start: 03-16-2026 Diabetes Screening Diabetes Screening [facility] Start: 11-11-2025 LIPID SCREEN LIPID SCREEN [facility] Start: 08-02-2025 Urine microalbumin profile [facility] Start: 06-02-2025 Annual PCP Team Chronic Disease Visit Annual PCP Team Chronic Disease Visit [facility] Start: 02-07-2025 DIABETES SCREEN DIABETES SCREEN [facility] Start: 02-07-2025 Diabetes Screening Diabetes Screening [facility] Start: 01-18-2025 DIABETES SCREEN DIABETES SCREEN [facility] Start: 01-09-2025 DIABETES SCREEN DIABETES SCREEN [facility] Start: 09-16-2024 Annual PCP Team Chronic Disease Visit Annual PCP Team Chronic Disease Visit [facility] Start: 09-16-2024 Anxiety Screening Anxiety Screening [facility] Start: 09-16-2024 Depression Screening Depression Screening [facility] Start: 06-26-2024 Annual PCP Team Chronic Disease Visit Annual PCP Team Chronic Disease Visit [facility] Start: 06-02-2024 End: 06-02-2024 Patient encounter procedure 06/02/2024 9:00 AM EDT Office Visit [facility] [address] [place] [address] [place] [address] Thuan Westfall MD [address] [address] Seasonal Allergies [facility] Comment on above: Seasonal Allergies Start: 03-21-2024 End: 03-21-2024 Patient encounter procedure 03/21/2024 8:40 AM EST Office Visit [facility] [address] [place] [id number] Thuan Westfall MD [address] [place] [address] 6 month follow up [facility] Comment on above: 6 month follow up Start: 03-20-2024 Covid-19 Vaccine () Covid-19 Vaccine () [facility] Comment on above: Postponed from 10/27/2022 (Declined at t his time) Start: 03-04-2024 End: 06-03-2024 Lipid 1996 panel - Serum or Plasma LIPID PANEL BASIC Lab Routine Mixed hyperlipidemia Expected: 03/04/2024, Expires: 06/03/2024 [facility] Work Phone: Comment on above: Expected: 03/04/2024, Expires: Start: 11-12-2023 DIABETES SCREEN DIABETES SCREEN [facility] Start: 10-28-2023 Covid-19 Vaccine ( season) Covid-19 Vaccine () [facility] Start: 10-28-2023 Influenza vaccination [facility] Start: 09-19-2023 End: 09-19-2023 ambulatory 09/19/2023 8:00 AM EDT Results Only [facility] [address] [place] [address] [facility] Start: 09-18-2023 End: 12-18-2023 25-hydroxyvitamin D3 [Mass/volume] in Serum or Plasma VITAMIN D 25 HYDROXY Lab Routine Vitamin D deficiency Expected: 09/18/2023, Expires: 12/18/2023 [facility] Comment on above: Expected: 09/18/2023, Expires: Start: 09-18-2023 End: 12-18-2023 CBC W Auto Differential panel - Blood COMPLETE BLOOD COUNT AND DIFFERENTIAL Lab Routine SVT (supraventricular tachycardia) (HCC) Encounter for therapeutic drug monitoring Expected: 09/18/2023, Expires: 12/18/2023 [facility] Work Phone: Comment on above: Expected: 09/18/2023, Expires: Start: 09-18-2023 End: 12-18-2023 Follitropin [Units/volume] in Serum or Plasma FOLLICLE STIMULATING HORMONE Lab Routine Hyperprolactinemia (HCC) SVT (supraventricular tachycardia) (HCC) Expected: 09/18/2023, Expires: 12/18/2023 [facility] Comment on above: Expected: 09/18/2023, Expires: Start: 09-18-2023 End: 12-18-2023 Hemoglobin A1c in Blood HEMOGLOBIN A1C Lab Routine Hyperprolactinemia (HCC) Expected: 09/18/2023, Expires: 12/18/2023 [facility] Comment on above: Expected: 09/18/2023, Expires: Start: 09-18-2023 End: 12-18-2023 Lutropin [Units/volume] in Serum or Plasma LUTEINIZING HORMONE Lab Routine Hyperprolactinemia (HCC) SVT (supraventricular tachycardia) (HCC) Expected: 09/18/2023, Expires: 12/18/2023 [facility] Comment on above: Expected: 09/18/2023, Expires: Start: 09-18-2023 End: 12-18-2023 Magnesium [Mass/volume] in Serum or Plasma MAGNESIUM Lab Routine SVT (supraventricular tachycardia) (HCC) Encounter for therapeutic drug monitoring Expected: 09/18/2023, Expires: 12/18/2023 [facility] Comment on above: Expected: 09/18/2023, Expires: Start: 09-18-2023 End: 12-18-2023 Prolactin [Mass/volume] in Serum or Plasma PROLACTIN Lab Routine Hyperprolactinemia (HCC) SVT (supraventricular tachycardia) (HCC) Encounter for therapeutic drug monitoring Expected: 09/18/2023, Expires: 12/18/2023 [facility] Comment on above: Expected: 09/18/2023, Expires: Start: 09-18-2023 End: 12-18-2023 PSA/PROSTATE SPECIFIC ANTIGEN SCREENING PSA/PROSTATE SPECIFIC ANTIGEN SCREENING Lab Routine Prostate cancer screening Expected: 09/18/2023, Expires: 12/18/2023 [facility] Comment on above: Expected: 09/18/2023, Expires: Start: 09-18-2023 End: 12-18-2023 TESTOSTERONE, FREE AND TOTAL TESTOSTERONE, FREE AND TOTAL Lab Routine Hyperprolactinemia (HCC) Expected: 09/18/2023, Expires: 12/18/2023 [facility] Comment on above: Expected: 09/18/2023, Expires: Start: 09-18-2023 End: 12-18-2023 Thyrotropin [Units/volume] in Serum or Plasma THYROID STIMULATING HORMONE Lab Routine Hypothyroidism, unspecified type SVT (supraventricular tachycardia) (HCC) Encounter for therapeutic drug monitoring Expected: 09/18/2023, Expires: 12/18/2023 [facility] Comment on above: Expected: 09/18/2023, Expires: Start: 09-18-2023 End: 12-18-2023 Thyroxine (T4) free [Mass/volume] in Serum or Plasma T4 FREE/FREE THYROXINE Lab Routine Hypothyroidism, unspecified type Encounter for therapeutic drug monitoring Expected: 09/18/2023, Expires: 12/18/2023 [facility] Comment on above: Expected: 09/18/2023, Expires: Start: 09-18-2023 End: 12-18-2023 Triiodothyronine (T3) Free [Mass/volume] in Serum or Plasma T3, FREE Lab Routine Hypothyroidism, unspecified type Encounter for therapeutic drug monitoring Expected: 09/18/2023, Expires: 12/18/2023 [facility] Comment on above: Expected: 09/18/2023, Expires: Start: 09-17-2023 End: 07-22-2024 Patient encounter procedure 09/17/2023 11:00 AM EDT Office Visit [facility] [address] [place], [place] [id number] Nicci Marks APRN.NIGHT MANAGER [address] [place], [place] [id number] 6 mth f/u needs meds refilled [facility] [place] Comment on above: 6 mth f/u needs meds refilled Start: 08-02-2023 ANNUAL PCP TEAM CHRONIC DISEASE VISIT ANNUAL PCP TEAM CHRONIC DISEASE VISIT [facility] Start: 05-15-2023 Shingrix Vaccine (2 of 2) Shingrix Vaccine (2 of 2) [facility] Start: 02-26-2023 Behavioral Health Screening Behavioral Health Screening [facility] Start: 01-30-2023 ANNUAL PCP TEAM CHRONIC DISEASE VISIT ANNUAL PCP TEAM CHRONIC DISEASE VISIT [facility] Start: 01-09-2023 ANNUAL PCP TEAM CHRONIC DISEASE VISIT ANNUAL PCP TEAM CHRONIC DISEASE VISIT [facility] Start: 10-27-2022 Influenza vaccination [facility] Start: 07-28-2022 ANNUAL PCP TEAM CHRONIC DISEASE VISIT ANNUAL PCP TEAM CHRONIC DISEASE VISIT [facility] Start: 02-16-2022 End: 04-18-2022 Prolactin [Mass/volume] in Serum or Plasma PROLACTIN BLD Lab Routine Hyperprolactinemia (HCC) Expected: 02/16/2022, Expires: 04/18/2022 [facility] Work Phone: Comment on above: Expected: 02/16/2022, Expires: 3 Start: 02-16-2022 End: 04-18-2022 Testosterone [Mass/volume] in Serum or Plasma TESTOSTERONE TOTAL Lab Routine Secondary hypogonadism Expected: 02/16/2022, Expires: 04/18/2022 [facility] Work Phone: Comment on above: Expected: 02/16/2022, Expires: 3 Start: 02-06-2022 End: 04-08-2022 Follitropin [Units/volume] in Serum or Plasma FSH BLD Lab Routine Secondary hypogonadism Expected: 02/06/2022, Expires: 04/08/2022 [facility] Work Phone: Comment on above: Expected: 02/06/2022, Expires: 3 Start: 02-06-2022 End: 04-08-2022 INSULIN LIK GR FAC I INSULIN LIK GR FAC I Lab Routine Prolactinoma (HCC) Expected: 02/06/2022, Expires: 04/08/2022 [facility] Work Phone: Comment on above: Expected: 02/06/2022, Expires: 3 Start: 02-06-2022 End: 04-08-2022 Lutropin [Units/volume] in Serum or Plasma LUTEINIZING HORMONE Lab Routine Secondary hypogonadism Expected: 02/06/2022, Expires: 04/08/2022 [facility] Work Phone: Comment on above: Expected: 02/06/2022, Expires: 3 Start: 02-06-2022 End: 04-08-2022 Prolactin [Mass/volume] in Serum or Plasma PROLACTIN BLD Lab Routine Prolactinoma ([facility]) Expected: 02/06/2022, Expires: 04/08/2022 [facility] Work Phone: Comment on above: Expected: 02/06/2022, Expires: 3 Start: 02-06-2022 End: 04-08-2022 Testosterone [Mass/volume] in Serum or Plasma TESTOSTERONE TOTAL Lab Routine Secondary hypogonadism Expected: 02/06/2022, Expires: 04/08/2022 [facility] Work Phone: Comment on above: Expected: 02/06/2022, Expires: 3 Start: 02-06-2022 End: 04-08-2022 Thyrotropin [Units/volume] in Serum or Plasma TSH BLD Lab Routine Hypothyroidism, unspecified type Expected: 02/06/2022, Expires: 04/08/2022 [facility] Work Phone: Comment on above: Expected: 02/06/2022, Expires: 3 Start: 02-06-2022 End: 04-08-2022 Thyroxine (T4) free [Mass/volume] in Serum or Plasma T4 FREE/FREE THYROX Lab Routine Hypothyroidism, unspecified type Expected: 02/06/2022, Expires: 04/08/2022 [facility] Work Phone: Comment on above: Expected: 02/06/2022, Expires: 3 Start: 01-17-2022 ANNUAL PCP TEAM CHRONIC DISEASE VISIT ANNUAL PCP TEAM CHRONIC DISEASE VISIT [facility] Start: 01-17-2022 End: 03-19-2022 SCHEDULE LAB TESTING SCHEDULE LAB TESTING Lab Routine Expected: 01/17/2022, Expires: 03/19/2022 [facility] Work Phone: Comment on above: Expected: 01/17/2022, Expires: 3 Start: 01-09-2022 Umbilical hernioplasty Hernia, Umbilical Repair w/ Mesh (Not Applicable) [facility] Work Phone: Start: 01-09-2022 End: 03-11-2022 CBC W Auto Differential panel - Blood [facility] Work Phone: Comment on above: Expected: 01/09/2022, Expires: 3 Start: 01-09-2022 End: 03-11-2022 Comprehensive metabolic 2000 panel - Serum or Plasma [facility] Work Phone: Comment on above: Expected: 01/09/2022, Expires: 3 Start: 10-27-2021 Influenza vaccination [facility] Start: 07-28-2021 End: 09-27-2021 Prolactin [Mass/volume] in Serum or Plasma [facility] Work Phone: Comment on above: Expected: 07/28/2021, Expires: 2 Start: 07-28-2021 End: 09-27-2021 PSA/PROSTSPECAG SCRN [facility] Work Phone: Comment on above: Expected: 07/28/2021, Expires: 2 Start: 07-28-2021 End: 07-28-2022 T3 FREE BLD [facility] Work Phone: Comment on above: Expected: 07/28/2021, Expires: 3 Start: 07-28-2021 End: 07-28-2022 T4 FREE/FREE THYROX [facility] Work Phone: Comment on above: Expected: 07/28/2021, Expires: 3 Start: 07-28-2021 End: 07-28-2022 Thyrotropin [Units/volume] in Serum or Plasma [facility] Work Phone: Comment on above: Expected: 07/28/2021, Expires: 3 Start: 02-26-2021 DEPRESSION ASSESSMENT DEPRESSION ASSESSMENT [facility] Start: 2020 Pneumococcal Vaccine: 50+ (1 of 1 - PCV) Pneumococcal Vaccine: 50+ (1 of 1 - PCV) [facility] Start: 2020 SHINGRIX VACCINE (1 of 2) SHINGRIX VACCINE (1 of 2) [facility] Start: 11-14-2015 COLOGUARD (FIT-DNA) COLOGUARD (FIT-DNA) [facility] Start: 11-14-2015 Colonoscopy COLONOSCOPY [facility] Start: 11-14-2015 COLORECTAL CANCER SCREENING COLORECTAL CANCER SCREENING [facility] Start: 11-14-[address] COLONOGRAPHY [facility] Start: 11-14-2015 FECAL OCCULT BLOOD FECAL OCCULT BLOOD [facility] Start: 11-14-2015 Screening for malignant neoplasm of colon [facility] Start: 11-14-2015 SIGMOIDOSCOPY SIGMOIDOSCOPY [facility] Start: 1989 ADULT PREVNAR-13 ADULT PREVNAR-13 [facility] Start: 1989 Hepatitis B Vaccine (1 of 3 - 19+ 3-dose series) Hepatitis B Vaccine (1 of 3 - 19+ 3-dose series) [facility] Start: 1989 TWO PNEUMOVAX 5 YEARS APART PRIOR TO AGE 65 (#1) TWO PNEUMOVAX 5 YEARS APART PRIOR TO AGE 65 (#1) [facility] Start: 1988 HEPATITIS C SCREENING HEPATITIS C SCREENING [facility] Start: 1988 HIV SCREENING HIV SCREENING [facility] Start: 11-14-1975 COVID-19 VACCINE (#1) COVID-19 VACCINE (#1) [facility] Start: 11-14-1975 COVID-19 VACCINE (1) COVID-19 VACCINE (1) [facility] Start: 05-14-1971 COVID-19 VACCINE (#1) COVID-19 VACCINE (#1) [facility] Start: 1970 HEPATITIS B (1 of 3 - 3-dose series) HEPATITIS B (1 of 3 - 3-dose series) [facility] Start: 1970 Hepatitis B Vaccine (1 of 3 - 3-dose series) Hepatitis B Vaccine (1 of 3 - 3-dose series) [facility] End: 02-08-2023 Ct abdomen & pelvis w/contrast material CT ABD/PEL W IVCON Radiology STAT Periumbilical abdominal pain Periumbilical mass Infection in abdomen (HCC) 1 Occurrences starting 01/09/2022 until 02/08/2023 [facility] Work Phone: Comment on above: 1 Occurrences starting 01/09/2022 until 02/08/2023 Follitropin [Units/volume] in Serum or Plasma FSH BLD Lab Routine Secondary hypogonadism 02/07/2022 8:08 AM [facility] Work Phone: INSULIN LIK GR FAC I INSULIN LIK GR FAC I Lab Routine Prolactinoma ([facility]) 02/07/2022 8:08 AM [facility] Work Phone: Lutropin [Units/volu me] in Serum or Plasma LUTEINIZING HORMONE Lab Routine Secondary hypogonadism 02/07/2022 8:08 AM [facility] Work Phone: End: 03-08-2023 Mri brain brain stem w/o w/contrast material MRI PITUITARY WO/W IVCON Radiology Routine Prolactinoma (HCC) 1 Occurrences starting 02/06/2022 until 03/08/2023 [facility] Work Phone: Comment on above: 1 Occurrences starting 02/06/2022 until 03/08/2023 Patient referral [facility] Work Phone: Prolactin [Mass/volu me] in Serum or Plasma PROLACTIN BLD Lab Routine Prolactinoma ([facility]) 02/07/2022 8:08 AM [facility] Work Phone: End: 08-02-2023 Screening colonoscopy COLONOSCOPY SCREENING Endoscopy Routine Special screening for malignant neoplasms, colon 1 Occurrences starting 08/01/2022 until 08/02/2023 [facility] Work Phone: Comment on above: 1 Occurrences starting 08/01/2022 until 08/02/2023 Testosterone [Mass/volume] in Serum or Plasma TESTOSTERONE TOTAL Lab Routine Secondary hypogonadism 02/07/2022 8:08 AM [facility] Work Phone: Thyrotropin [Units/volume] in Serum or Plasma TSH BLD Lab Routine Hypothyroidism, unspecified type 02/07/2022 8:08 AM [facility] Work Phone: Thyroxine (T4) free [Mass/volume] in Serum or Plasma T4 FREE/FREE THYROX Lab Routine Hypothyroidism, unspecified type 02/07/2022 8:08 AM [facility] Work Phone: [facility] Immunizations Immunization Date Immunization Notes Care Provider [facility] 09-17-2023 zoster vaccine recombinant Nicci Donaldsonr MARINE SERVICE OPERATOR.NIGHT MANAGER Work Phone: [facility] 03-20-2023 zoster vaccine recombinant Mira Edge MARINE SERVICE OPERATOR.NIGHT MANAGER Work Phone: [facility] 04-11-2018 influenza virus vaccine, unspecified formulation Pablo Alfaro MD Work Phone: [facility] 08-03-2015 tetanus toxoid, redu aaron diphtheria toxoid, and acellular pertussis vaccine, adsorbed Thuan Westfall MD Work Phone: [facility] 06-29-2005 tetanus and diphther ia toxoids, adsorbed, preservative free, for adult use (2 Lf of tetanus toxoid and 2 Lf of diphtheria toxoid) Thuan Westfall MD Work Phone: [facility] Payers Date Payer Category Payer Self-pay [id number] 2023 Private Health Insurance [id number] 2019 Private Health Insurance [employer] A ETNA CHOICE POS II [id number] 2019-Present [phone] [address] [place] [address] POS [id number] 2019 Private Health Insurance [id number] Private Health Insurance [id number] Unknown [id number] Unknown [id number] 62 Unknown [id number] 62 Unknown [id number] 62 Unknown [id number] 62 Unknown [id number] 62 Unknown [id number] 62 Unknown [id number] 62 Social History Date Type Detail Facility Start: 05-07-2020 End: 01-30-2022 Tobacco smoking status NHIS Never smoked tobacco [facility] Work Phone: History of tobacco use Chews Tobacco [facility] Work Phone: Start: 01-17-2021 End: 07-28-2021 Alcohol intake Current drinker of alcohol (finding) [facility] Start: 11-12-2020 End: 01-29-2022 History SDOH Alcohol Frequency 2 [facility] Start: 11-12-2020 End: 01-29-2022 History SDOH Alcohol Std Drinks 1 [facility] Start: 09-20-2006 History SDOH Alcohol Comment maybe once or twice a month [facility] Start: 11-12-2020 End: 01-29-2022 History SDOH Social Connections Meetings 3 [facility] Start: 11-12-2020 End: 01-29-2022 History SDOH Social Connections Living 5 [facility] Start: 11-12-2020 Education 21 [facility] Start: 1970 Sex Assigned At Not on file [facility] Start: 07-17-2020 End: 01-09-2022 Tobacco smoking status VAIS Unknown if ever smoked [facility] Work Phone: Start: 07-17-2020 Chew [facility] Work Phone: Start: 1970 Sex Assigned At Male [facility] Work Phone: Start: 05-07-2020 End: 01-30-2022 Tobacco use and exposure User of smokeless tobacco [facility] Start: 12-30-2021 End: 01-30-2022 Exposure to SARS-CoV-2 (event) Not sure [facility] Start: 01-09-2022 End: 09-17-2023 Alcohol intake Ex-drinker (finding) [facility] Start: 01-09-2022 Alcohol Comment Occasionally once every 3-4 months [facility] Start: 01-29-2022 History SDOH Social Connections Living 8 [facility] Start: 01-28-2022 End: 08-01-2022 History of Social function [facility] Start: 01-28-2022 End: 08-01-2022 Social connection and isolation panel [facility] Active Member of [facility] bs or Organizations Not on file [facility] Are you now , , , , never or living with a partner? Living with partner [facility] How often to you hav e a drink containing alcohol? Monthly or less [facility] How many standard dr inks containing alcohol do you have on a typical day? 1 or 2 [facility] How often do you hav e 6 or more drinks on 1 occasion? Never [facility] Do you feel stress - tense, restless, nervous, or anxious, or unable to sleep at night because your mind is troubled all the time - these days [OSQ] Very much [facility] (I/We) worried atairene er (my/our) food would run out before (I/we) got money to buy more. Never true [facility] At any time in the p ast 12 months, were you homeless or living in usp [including now]? No [facility] Are you now , , , , never or living with a partner? [facility] Do you feel stress - tense, restless, nervous, or anxious, or unable to sleep at night because your mind is troubled all the time - these days [OSQ] To some extent [facility] Functional Status Date Assessment Result Facility 07-04-2014 Are you deaf, or do you have serious difficulty hearing No 07/04/2014 11:58 AM Gabby Simons MA No [facility] 07-04-2014 Are you blind, or do you have serious difficulty seeing, even when wearing glasses No 07/04/2014 11:58 AM Gabby Simons MA [facility] 07-04-2014 Do you have serious difficulty walking or climbing stairs No 07/04/2014 11:58 AM Gabby Simons MA [facility] 07-04-2014 Do you have difficul ty dressing or bathing No 07/04/2014 11:58 AM Gabby Simons MA [facility] 07-04-2014 Because of a physica l, mental, or emotional condition, do you have difficulty doing errands alone such as visiting a physician's office or shopping No 07/04/2014 11:58 AM Gabby Simons MA [facility] Mental Status Date Assessment Result Facility 07-04-2014 Because of a physica l, mental, or emotional condition, do you have serious difficulty concentrating, remembering, or making decisions No 07/04/2014 11:58 AM Gabby Simons MA No [facility] Clinical Notes 05-06-2012 to 06-02-2024 Patient Thuan Mahmood MD - 06/02/2024 9:26 AM EDTTelephone Encounter - Jesica Lopez LPN - 04/05/2024 10:06 AM ESTTelephone Encounter - Jesica Lopez LPN - 04/05/2024 10:06 AM EST Note Date & Type Note Facility 06-02-2024 Instructions Thuan Westfall MD - 06/02/2024 9:51 AM EDT We discussed your history of supraventricular tachycardia (SVT): - You are no longer taking metoprolol, and you have not experienced any recent episodes of SVT. No further action is needed at this time. - If you experience recurrent symptoms such as a rapid heart rate, dizziness, or fainting, please seek medical attention promptly. We discussed your concerns about low energy and testosterone levels: - Your testosterone levels from a year ago were within the low-normal range (total testosterone: 319, free testosterone: 11.5). Based on these results, testosterone replacement therapy is not currently indicated. - I recommend researching online providers who specialize in bioidentical hormone replacement therapy. These providers may offer alternative options for managing your symptoms. Please note that this may involve [id number] costs. - Continue monitoring your symptoms, and let me know if they worsen or if you develop new concerns. We discussed your allergies: - I administered a Kenalog injection today to help manage your allergy symptoms. This should provide relief for the upcoming allergy season. - Continue with your regular allergy management plan, including any prescribed medications or allergy shots. We discussed your medications: - Continue taking Duloxetine (Cymbalta) 90 mg daily for anxiety. I have provided 3 refills. - Continue taking Pantoprazole (Protonix) twice daily for reflux. If you prefer to take it once daily, you may adjust as needed. - Continue taking your thyroid medication as prescribed. No new lab work is needed at this time. - You are no longer taking Cabergoline (Dostinex). If you experience any symptoms related to your prolactinoma, please let me know. We discussed your overall health and follow-up: - I provided a note for your work stating that you are fit for duty. - You do not need additional lab work at this time unless new symptoms arise. - Please monitor your blood pressure periodically, especially if you experience symptoms such as dizziness or fatigue. - Schedule a follow-up visit in one year, or sooner if you have any new or worsening symptoms. Let me know if you have any questions or concerns before your next visit. documented in this encounter [facility] 06-02-2024 Note HNO ID: [id number] Author: THUAN WESTFALL MD Service: ? Author Type: Physician Type: Progress Notes Filed: 06/02/2024 22:18 Note Text: Reason for Visit Follow up SARAH Ram is a 53-year-old male with a history of prolactinoma, neuropathy of the feet, HLD, GERD, and SVT, presenting for follow-up. Yo reports two episodes of SVT within the last 12 months, with one episode lasting approximately 3 days. He was prescribed metoprolol but discontinued it due to significant fatigue and an episode where he felt he was going to pass out while splitting wood. He describes an incident where he fell and had to army crawl to his house, stating, I thought I was going to . Since discontinuing metoprolol, he reports no further issues with SVT. He underwent an attempted ablation at [facility], but the procedure was unsuccessful in inducing SVT. He denies current use of metoprolol and reports drinking one cup of very strong coffee daily, denying the use of energy drinks like Monster or Red Bull. Yo also reports persistent fatigue, which he attributes to low testosterone levels. He discontinued cabergoline approximately a year ago, stating it was ineffective and caused side effects. He expresses a desire for testosterone replacement therapy but cites financial constraints due to high insurance co-pays and deductibles. He reports a total testosterone level of 319 ng/dL and a free testosterone level of 11.5 pg/mL from a year ago. He denies ever being on testosterone replacement therapy. Yo is currently taking duloxetine for anxiety, pantoprazole for GERD, and thyroid medication. He requests a Kenalog shot for allergies, stating he gets it every year and is currently experiencing significant itching. He also mentions upcoming travel to [place] to visit his mother, who has severe dementia and is in an assisted living facility. Social History Tobacco Use Smoking status: Never Smokeless tobacco: Current Types: Chew Vaping Use Vaping status: Never Used Substance Use Topics Alcohol use: Not Currently Comment: Occasionally once every 3-4 months Drug use: No Past medical history, appointments, medications, allergies reviewed. Pertinent Lab/Diagnostic Studies are reviewed and discussed today Current Outpatient Medications: clonazePAM (KLONOPIN) 0.5 mg tablet levothyroxine (LEVOXYL) 50 mcg tablet DULoxetine (CYMBALTA) [address] (PROTONIX) 40 mg tablet Current Facility-Administered Medications: triamcinolone acetonide 40 mg injection (KeNALog 40) Health Maintenance Hepatitis B Vaccine(1 of 3 - 19+ 3-dose series) Pneumococcal Vaccine: 50+(1 of 1 - PCV) Influenza Vaccine(1) Covid-19 Vaccine( season)@ Review Of Systems Constitutional: (+) fatigue Skin: (+) pruritus Gastrointestinal: (+) heartburn Psychiatric: (+) anxiety, (+) panic attacks, (+) decreased motivation Physical Exam BP 135/86 (BP Position: Sitting) Pulse 75 Resp 16 GENERAL: NAD, alert and oriented. SKIN: Unremarkable, no rash or skin lesions. HEAD: Normocephalic. EYES: PERRLA, EOMI, conjunctiva clear. EARS: External ears normal, canals clear, TM's normal. NOSE/SINUSES: Nares normal. Septum midline. OROPHARYNX: Lips, mucosa, and tongue normal, good dentition. No oral lesions noted. NECK: Supple, no lymphadenopathy, normal thyroid, no carotid bruits. LUNGS: Clear to auscultation bilaterally, no wheezes/rhonchi/rales. HEART: Regular rate and rhythm, no murmurs. No ectopy. EXTREMITIES: Normal, no deformities, no skin discoloration, no edema. NEURO: Awake, alert and oriented x3, cranial nerves II-XII grossly intact, normal gait, no involuntary motions. Assessment and Plan 1. PFD (pelvic floor dysfunction) (M62.89) Previously experienced symptoms of pelvic floor dysfunction, including throbbing sensations, which have since resolved. 2. Allergy, sequela (T78.40XS) Experiencing significant pruritus and anticipates worsening symptoms in the coming weeks. - Administered Kenalog injection. 3. Panic attack (F41.0) Managed with Klonopin as needed. 4. Hypothyroidism, unspecified type (E03.9) Stable on current medication regimen. - Refilled thyroid medication. 5. Gastroesophageal reflux disease without esophagitis (K21.9) Controlled with pantoprazole. - Refilled pantoprazole, instructed to take twice daily. 6. Anxiety (F41.9) Managed with duloxetine. - Refilled duloxetine 90 mg with three refills. 7. Hyperprolactinemia (HCC) (E22.1) Discontinued cabergoline approximately one year ago due to perceived ineffectiveness and side effects. - Discussed the importance of monitoring prolactin levels; advised to consider resuming cabergoline. 8. Supraventricular tachycardia (HCC) (I47.10) Experienced two episodes of SVT in the past year, one lasting three days. Previously on metoprolol but discontinued due to severe fatigue and synco (more content not included)... [facility] 06-02-2024 History of Present illness Narrative Reason for Visit Follow up HPI Yo is a 53-year-old male with a history of prolactinoma, neuropathy of the feet, HLD, GERD, and SVT, presenting for follow-up. Yo reports two episodes of SVT within the last 12 months, with one episode lasting approximately 3 days. He was prescribed metoprolol but discontinued it due to significant fatigue and an episode where he felt he was going to pass out while splitting wood. He describes an incident where he fell and had to army crawl to his house, stating, I thought I was going to . Since discontinuing metoprolol, he reports no further issues with SVT. He underwent an attempted ablation at [facility], but the procedure was unsuccessful in inducing SVT. He denies current use of metoprolol and reports drinking one cup of very strong coffee daily, denying the use of energy drinks like Monster or Red Bull. Yo also reports persistent fatigue, which he attributes to low testosterone levels. He discontinued cabergoline approximately a year ago, stating it was ineffective and caused side effects. He expresses a desire for testosterone replacement therapy but cites financial constraints due to high insurance co-pays and deductibles. He reports a total testosterone level of 319 ng/dL and a free testosterone level of 11.5 pg/mL from a year ago. He denies ever being on testosterone replacement therapy. Yo is currently taking duloxetine for anxiety, pantoprazole for GERD, and thyroid medication. He requests a Kenalog shot for allergies, stating he gets it every year and is currently experiencing significant itching. He also mentions upcoming travel to [place] to visit his mother, who has severe dementia and is in an assisted living facility. Social History Tobacco Use Smoking status: Never Smokeless tobacco: Current Types: Chew Vaping Use Vaping status: Never Used Substance Use Topics Alcohol use: Not Currently Comment: Occasionally once every 3-4 months Drug use: No Past medical history, appointments, medications, allergies reviewed. Pertinent Lab/Diagnostic Studies are reviewed and discussed today Current Outpatient Medications: clonazePAM (KLONOPIN) 0.5 mg tablet levothyroxine (LEVOXYL) 50 mcg tablet DULoxetine (CYMBALTA) [address] (PROTONIX) 40 mg tablet Current Facility-Administered Medications: triamcinolone acetonide 40 mg injection (KeNALog 40) Health Maintenance Hepatitis B Vaccine(1 of 3 - 19+ 3-dose series) Pneumococcal Vaccine: 50+(1 of 1 - PCV) Influenza Vaccine(1) Covid-19 Vaccine( season)@ Review Of Systems Constitutional: (+) fatigue Skin: (+) pruritus Gastrointestinal: (+) heartburn Psychiatric: (+) anxiety, (+) panic attacks, (+) decreased motivation Physical Exam BP 135/86 (BP Position: Sitting) Pulse 75 Resp 16 GENERAL: NAD, alert and oriented. SKIN: Unremarkable, no rash or skin lesions. HEAD: Normocephalic. EYES: PERRLA, EOMI, conjunctiva clear. EARS: External ears normal, canals clear, TM's normal. NOSE/SINUSES: Nares normal. Septum midline. OROPHARYNX: Lips, mucosa, and tongue normal, good dentition. No oral lesions noted. NECK: Supple, no lymphadenopathy, normal thyroid, no carotid bruits. LUNGS: Clear to auscultation bilaterally, no wheezes/rhonchi/rales. HEART: Regular rate and rhythm, no murmurs. No ectopy. EXTREMITIES: Normal, no deformities, no skin discoloration, no edema. NEURO: Awake, alert and oriented x3, cranial nerves II-XII grossly intact, normal gait, no involuntary motions. Assessment and Plan 1. PFD (pelvic floor dysfunction) (M62.89) Previously experienced symptoms of pelvic floor dysfunction, including throbbing sensations, which have since resolved. 2. Allergy, sequela (T78.40XS) Experiencing significant pruritus and anticipates worsening symptoms in the coming weeks. - Administered Kenalog injection. 3. Panic attack (F41.0) Managed with Klonopin as needed. 4. Hypothyroidism, unspecified type (E03.9) Stable on current medication regimen. - Refilled thyroid medication. 5. Gastroesophageal reflux disease without esophagitis (K21.9) Controlled with pantoprazole. - Refilled pantoprazole, instructed to take twice daily. 6. Anxiety (F41.9) Managed with duloxetine. - Refilled duloxetine 90 mg with three refills. 7. Hyperprolactinemia (HCC) (E22.1) Discontinued cabergoline approximately one year ago due to perceived ineffectiveness and side effects. - Discussed the importance of monitoring prolactin levels; advised to consider resuming cabergoline. 8. Supraventricular tachycardia (HCC) (I47.10) Experienced two episodes of SVT in the past year, one lasting three days. Previously on metoprolol but discontinued due to severe fatigue and syncope. Underwent unsuccessful ablation attempt. - Advised to monitor for any recurrence of symptoms. 9. Peripheral polyneuropathy (G62.9) Chronic condition, no acute changes reported. Voice recognition software was used to compose this office note. Please excuse any unintended typographical errors. The patient consented to the use of ambient AI software for draft documentation of the visit consistent with [facility] s Notice of Privacy Practices. Thuan Westfall MD documented in this encounter [facility] 04-05-2024 Telephone encounter Note Prescription Refill Information The patient has been identified by name and date of : Yes Caregiver verified no other encounters exist for this prescription request: Yes Caregiver confirmed with patient/requestor that no other refills are due, in the near future, with this provider at this time: Yes The last office visit in the department: 09/17/23 Does the patient have a future office visit with this provider/department: No Patient has been advised. Requested Prescriptions Pending Prescriptions Disp Refills levothyroxine (LEVOXYL) 50 mcg tablet 90 tablet 3 Sig: Take 1 tablet by mouth once daily. Take on empty stomach. For Thyroid Jesica Lopez LPN April 05, 2024 10:06 AM [facility] 04-05-2024 Miscellaneous Notes Prescription Refill Information The patient has been identified by name and date of : Yes Caregiver verified no other encounters exist for this prescription request: Yes Caregiver confirmed with patient/requestor that no other refills are due, in the near future, with this provider at this time: Yes The last office visit in the department: 09/17/23 Does the patient have a future office visit with this provider/department: No Patient has been advised. Requested Prescriptions Pending Prescriptions Disp Refills levothyroxine (LEVOXYL) 50 mcg tablet 90 tablet 3 Sig: Take 1 tablet by mouth once daily. Take on empty stomach. For Thyroid Jesica Lopez LPN April 05, 2024 10:06 AM documented in this encounter [facility] 03-26-2024 Miscellaneous Notes Patient has been identified by name and date of : Yes Patient phones for refill(s): Requested Prescriptions Pending Prescriptions Disp Refills pantoprazole DR (PROTONIX) 40 mg tablet 180 tablet 3 Sig: To take empty stomach with water 2 times a day. Date of last office visit in primary care: 09/17/2023 Date of next office visit in primary care: Visit date not found Please advise. Thank you. Amy Avina LPN. documented in this encounter [facility] 03-26-2024 Telephone encounter Note Patient has been identified by name and date of : Yes Patient phones for refill(s): Requested Prescriptions Pending Prescriptions Disp Refills pantoprazole DR (PROTONIX) 40 mg tablet 180 tablet 3 Sig: To take empty stomach with water 2 times a day. Date of last office visit in primary care: 09/17/2023 Date of next office visit in primary care: Visit date not found Please advise. Thank you. Amy Avina LPN. [facility] 03-04-2024 Note Patient Outreach (IN TMMN) YO CINTRON ([id number]) 1970 M Date Time Provider Department 03/04/24 THUAN WESTFALL During your visit today, we recorded the following information about you: Allergies As of Date: 03/04/2024 Noted Allergy Reaction CRESTOR (ROSUVASTATIN) 01/30/2022 14 - Other: See Comments Comments: Has neuropathy LIPITOR (ATORVASTATIN CALCIUM) 11/24/2013 14 - Other: See Comments Comments: myaglias PENICILLINS 06/29/2005 SEASONAL ALLERGIES 07/30/2017 9 - Itching SULFA (SULFONAMIDE ANTIBIOTICS) 03/23/2020 8 - GI Upset ZETIA (EZETIMIBE) 01/30/2022 6 - Diarrhea Comments: Diarrhea, immediately. Date Reviewed: 09/17/2023 Reviewed by: Nicci Marks APRN.NIGHT MANAGER - Fully Assessed Visit Diagnosis:Mixed hyperlipidemia [E78.2] Order(s):LIPID PANEL BASIC [SQLIPB] Order #: [id number] FUTURE Prescriptions as of 03/07/2024 - DULoxetine (CYMBALTA) 30 mg capsule TAKE 1 CAPSULE DAILY FOR CHRONIC MUSCULOSKELETAL PAIN - metoprolol tartrate, short acting, (LOPRESSOR) 25 mg tablet Take 12.5 mg by mouth two times a day. - pantoprazole DR (PROTONIX) 40 mg tablet To take empty stomach with water 2 times a day. - clonazePAM (KLONOPIN) 0.5 mg tablet Take 1 tablet by mouth once daily as needed for up to 90 days. - levothyroxine (LEVOXYL) 50 mcg tablet Take 1 tablet by mouth once daily. Take on empty stomach. For Thyroid - cabergoline (DOSTINEX) 0.5 mg tablet Take 0.5 tablets by mouth every Sunday and Sunday. Problem List As Of Date 03/04/2024 Noted Resolved Anxiety state [F41.1] 06/29/2005 11/18/2019 Chronic seasonal allergic rhinitis [J30.2] 06/29/2005 Mixed hyperlipidemia [E78.2] 06/29/2005 ESOPHAGEAL REFLUX [K21.9] 06/29/2005 UMBILICAL HERNIA [K42.9] 10/03/2006 Ventral hernia, unspecified, without mention of*11/19/2006 08/08/2022 LILI (obstructive sleep apnea) [G47.33] 05/06/2012 11/18/2019 Hypothyroid [E03.9] 11/24/2013 Gastroesophageal reflux disease without esophag*06/22/2017 Vitamin D deficiency [E55.9] 10/30/2018 Anxiety and depression [F41.9, F32.A] 10/30/2018 02/06/2022 Gastritis without bleeding [K29.70] 10/30/2018 02/06/2022 Panic attack [F41.0] 10/30/2018 02/06/2022 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] 02/06/2022 Hyperprolactinemia (HCC) [E22.1] 02/06/2022 Obesity, Class I, BMI 30-34.9 [E66.811] 02/07/2022 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 Requested Prescriptions Pending Prescriptions Disp Refills DULoxetine (CYMBALTA) 30 mg capsule 90 capsule 3 Sig: TAKE 1 CAPSULE DAILY FOR CHRONIC MUSCULOSKELETAL PAIN Patti Schmidt MD [facility] 02-24-2024 Miscellaneous Notes The following approved medication requests have been transmitted electronically. Requested Prescriptions Pending Prescriptions Disp Refills DULoxetine (CYMBALTA) 30 mg capsule 90 capsule 3 Sig: TAKE 1 CAPSULE DAILY FOR CHRONIC MUSCULOSKELETAL PAIN Patti Schmidt MD Prescription Refill Information The patient has been identified by name and date of : Yes Caregiver verified no other encounters exist for this prescription request: Yes Caregiver confirmed with patient/requestor that no other refills are due, in the near future, with this provider at this time: Yes The last office visit in the department: 09/17/23 Does the patient have a future office visit with this provider/department: Yes 03/21/24 Requested Prescriptions Pending Prescriptions Disp Refills DULoxetine (CYMBALTA) 30 mg capsule 90 capsule 3 Sig: TAKE 1 CAPSULE DAILY FOR CHRONIC MUSCULOSKELETAL PAIN Jesica Lopez LPN February 23, 2024 10:17 AM documented in this encounter [facility] 02-23-2024 Telephone encounter Note Prescription Refill Information The patient has been identified by name and date of : Yes Caregiver verified no other encounters exist for this prescription request: Yes Caregiver confirmed with patient/requestor that no other refills are due, in the near future, with this provider at this time: Yes The last office visit in the department: 09/17/23 Does the patient have a future office visit with this provider/department: Yes 03/21/24 Requested Prescriptions Pending Prescriptions Disp Refills DULoxetine (CYMBALTA) 30 mg capsule 90 capsule 3 Sig: TAKE 1 CAPSULE DAILY FOR CHRONIC MUSCULOSKELETAL PAIN Jesica Lopez LPN February 23, 2024 10:17 AM [facility] 11-14-2023 Note [facility] Medical Records Department [address] [place] [address] History Physical Exam 11/14/23919 MR#: [id number] Acct: [id number] Name: YO CINTRON Rep #: [id number] : 1970 53 From: Gisel Chaudhary NP AR MANAGER-C PCP: Dr. Thuan Westfall MD Status:PRE [facility] [place] Location: [facility] History and Physical Date of Admission: 11/20/23 Pleasant 53-year-old who presents for an EP study and possible ablation. 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 In the emergency room he was noted to be hemodynamically stable blood work was unremarkable with a hemoglobin of 16 electrolytes were normal TSH troponin and T3 were all noted to be normal. He was subsequently discharged with low-dose beta-loco. His EKG while he was not in the SVT demonstrated normal sinus rhythm with a rate of 96 bpm. He has not had this in the past but he says that more recently he has been having some and it appears to be worse when he stands up. His lipid profile in February demonstrated total cholesterol of 252 HDL of 34 LDL 170. His physical exam he has unremarkable his electrocardiogram demonstrates sinus rhythm with a rate of 85 bpm. Intake Vital Signs See EMR Allergies See EMR Medications See EMR [facility] Medical History Palpitations Hypogonadotropic hypogonadism Chronic musculoskeletal pain Anxiety Incarcerated umbilical hernia Pituitary adenoma Hypothyroid Hyperlipidemia Depression GERD (gastroesophageal reflux disease) Surgical History H/O umbilical hernia repair Family History Mother Hypertension Hyperlipidemia Thyroid disorderFather Hypertension HyperlipidemiaGrandfather CVA (cerebral vascular accident) Social History Smoking Status: Never smoker Smokeless tobacco user: chewing tobacco alcohol intake: current alcohol intake frequency: holidays/special occasions only substance use type: does not use ROS Const Const: Positive for fatigue; Negative for weakness, headache(s), daytime sleepiness or difficulty sleeping ENT ENT: Negative for headache(s), dizziness or Nosebleed/epistaxis Cardio Chest Pain: No Palpitations: Yes (fluttering) feels like its: fast Edema: None Resp Respiratory: Negative for SOB with activity, SOB at rest, SOB orthopnea SOB lying down or Cough GI GI: Negative nausea, vomiting or heartburn Neuro Neuro: Negative for dizziness, lightheadedness, near syncope, headache(s) or weakness Endo Endo: Positive for fatigue Cardiology Exam Const Appearance: cooperative, healthy appearing, no acute distress, well developed and well groomed Nutritional Appearance: average body habitus and well nourished Orientation: alert, awake and oriented x3 Head Head: normal to inspection, normocephalic and atraumatic Ears: hearing grossly normal bilaterally and external ears normal Nose: external nose normal, nares normal, nasal mucous membranes and turbinates normal, septum normal and no nasal discharge Face and Sinus: face symmetric Mouth: oral mucosae normal, tongue normal, oropharynx normal and moist mucous membranes Teeth and gingiva: dentition normal Throat: posterior oropharynx normal, tonsils normal and uvula midline Eyes General: appearance normal, both eyes and all related structures Eyelids: eyelids normal Conjunctivae: conjunctivae normal Pupils: PERRL, normal by confrontation and accommodation normal EOM: EOM intact bilaterally Neck Neck: normal visual inspection, trachea midline and no JVD JVD: +5 Carotids: normal carotid upstroke and bounding pulses Chest Chest inspection: normal inspection of the chest, symmetric chest movement and normal respiratory effort Auscultation: Bilateral: Clear to Auscultation Cardio Palpation: normal PMI Rate: regular rate Rhythm: regular rhythm Heart sounds: S1 normal, S2 normal and normal, physiologic split S2; Negative rub, gallop or murmur GI GI: normal to inspection, soft, no hepatosplenomegaly and bowel sounds present Neuro General: patient alert, patient awake, patient oriented x3, gait normal, moves all extremities and no focal sensory deficit Skin Skin: no rashes or lesions noted Extremities Pulses: Normal: Right Femoral Pulse, Left Femoral Pulse, Right Dorsalis Pedis Pulse, Left Dorsalis Pedis Pulse, Right Posterior Tibial Pulse, Left Posterior Tibial Pulse, Right Radial Pulse and Left Radial Pulse Lower Extremity Edema: None: Bilateral Musculoskel Musculoskeletal: No joint tenderness Psych Psychological: normal affect Supplemental Info Supplemental Information Assessment and Plan Ass (more content not included)... [facility] 09-26-2023 Telephone encounter Note Will get him back to reassess. Will likely give him trial of parenteral testosterone which he will have to pay for out of pocket since T level is normal. [facility] 09-26-2023 Miscellaneous Notes Will get him back to reassess. Will likely give him trial of parenteral testosterone which he will have to pay for out of pocket since T level is normal. Yo Arriaga is a mutual patient who was seen in our office recently. He questions having some symptoms of low testosterone and is wondering if he would be a candidate for testosterone replacement. He has a history of microprolactinoma, hyperprolactinemia, hypogonadism, and ED. He last saw Dr. Watkins 07/2022. We updated his labs on 09/19/2023. Total testosterone is 319, prolactin, LH and FSH were WNL. With his symptoms of low libido, ED, fatigue and the borderline low testosterone would he be a candidate for testosterone replacement given his endocrine history? If yes, would he be better treated with testosterone injections or would he be a candidate for something like Clomid to help boost his levels? Do you prefer to see him back in the endocrine office to address or would you like primary care to? Thank you. Nicci Marks APRN.NIGHT MANAGER documented in this encounter [facility] 09-25-2023 Telephone encounter Note Yo Arriaga is a mutual patient who was seen in our office recently. He questions having some symptoms of low testosterone and is wondering if he would be a candidate for testosterone replacement. He has a history of microprolactinoma, hyperprolactinemia, hypogonadism, and ED. He last saw Dr. Watkins 07/2022. We updated his labs on 09/19/2023. Total testosterone is 319, prolactin, LH and FSH were WNL. With his symptoms of low libido, ED, fatigue and the borderline low testosterone would he be a candidate for testosterone replacement given his endocrine history? If yes, would he be better treated with testosterone injections or would he be a candidate for something like Clomid to help boost his levels? Do you prefer to see him back in the endocrine office to address or would you like primary care to? Thank you. Nicci Marks APRN.NIGHT MANAGER [facility] 09-17-2023 Note HNO ID: [id number] Author: NICCI MARKS APRN.JEWEL Service: ? Author Type: Nurse Practitioner Type: Progress Notes Filed: 09/17/2023 12:56 Note Text: SUBJECTIVE Yo Cintron is a 52 year old male here today for a check up on his medical problems. Chief Complaint Patient presents with: F/U 6 months HPI Yo Cintron is a 52 year old male. He is an established patient of Thuan Westfall MD. Here today for a 6 month follow up. History of hyperprolactinemia, hypothyroid, GERD, hyperlipidemia. Follows with endocrine, Dr. Watkins. Concerns of fatigue and decreased libido. Would like to get updated labs checked. Recently in ER at [facility] and found to have SVT. This seemed to be positional. Occurred with a deep breath or with standing. Short runs. No prior SVT issues. Planning to follow up with [facility]. Started on metoprolol. Had a chest xray done. Has been controlled with starting the metoprolol. Behavioral Health Screening PHQ-2 Score: 0 (Lower risk for depression) BRAD-2 Score: 0 (Lower risk for anxiety) Recommendation: no further intervention at this time His medications were reviewed today and his list is now up to date. Medications Current Outpatient Medications Medication Sig metoprolol tartrate, short acting, (LOPRESSOR) 25 mg tablet Take 12.5 mg by mouth two times a day. pantoprazole DR (PROTONIX) 40 mg tablet To take empty stomach with water 2 times a day. clonazePAM (KLONOPIN) 0.5 mg tablet Take 1 tablet by mouth once daily as needed for up to 90 days. levothyroxine (LEVOXYL) 50 mcg tablet Take 1 tablet by mouth once daily. Take on empty stomach. For Thyroid DULoxetine (CYMBALTA) 30 mg capsule TAKE 1 CAPSULE DAILY FOR CHRONIC MUSCULOSKELETAL PAIN cabergoline (DOSTINEX) 0.5 mg tablet Take 0.5 tablets by mouth every Sunday and Sunday. No current facility-administered medications for this visit. ALLERGIES Allergen Reactions Crestor [Rosuvastat* Other: See Comments Has neuropathy Lipitor [Atorvastat* Other: See Comments myaglias Penicillins Seasonal Allergies Itching Sulfa (Sulfonamide * GI Upset Zetia [Ezetimibe] Diarrhea Diarrhea, immediately. 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 Obesity, Class I, Bmi 30-34.9 - 02/07/2022 Secondary hypogonadism - 02/06/2022 Hyperprolactinemia (Hcc) - 02/06/2022 Vitamin D Deficiency - 10/30/2018 Gastroesophageal Reflux Disease Without Esophagitis - 06/22/2017 Comment: Added automatically from request for surgery [id number] Hypothyroid - 11/24/2013 Umbilical Hernia Without Mention of Obstruction Or Gangrene - 10/03/2006 Chronic Seasonal Allergic Rhinitis - 06/29/2005 Mixed Hyperlipidemia - 06/29/2005 Esophageal Reflux - 06/29/2005 Social History Tobacco Use Smoking status: Never Smokeless tobacco: Current Types: Chew Vaping Use Vaping Use: Never used Substance Use Topics Alcohol use: Not Currently Comment: Occasionally once every 3-4 months Drug use: No Review of Systems Constitutional: Positive for fatigue. Respiratory: Negative. Cardiovascular: Negative. OBJECTIVE BP 118/80 Pulse 75 Wt 210 lb (95.3kg) SpO2 98% Physical Exam Vitals and nursing note reviewed. Constitutional: General: He is awake. He is not in acute distress. Appearance: Normal appearance. He is well-developed and well-groomed. He is not ill-appearing, toxic-appearing or diaphoretic. HENT: Head: Normocephalic. Right Ear: External ear normal. Left Ear: External ear normal. Nose: Nose normal. Eyes: General: Vision grossly intact. Conjunctiva/sclera: Conjunctivae normal. Pupils: Pupils are equal, round, and reactive to light. Neck: Vascular: No JVD. Trachea: Trachea normal. Cardiovascular: Rate and Rhythm: Normal rate and regular rhythm. Pulses: Normal pulses. Heart sounds: Normal heart sounds. No murmur heard. Pulmonary: Effort: Pulmonary effort is normal. No accessory muscle usage, prolonged expiration or respiratory distress. Breath sounds: Normal breath sounds. Musculoskeletal: Cervical back: Neck supple. Skin: General: Skin is warm and dry. Capillary Refill: Capillary refill takes less than 2 seconds. Neurological: General: No focal deficit present. Mental Status: He is alert and oriented to person, place, and time. Mental status is at baseline. Psychiatric: Attention and Perception: Attention and perception normal. Mood and Affect: Mood and affect normal. Speech: Speech normal. Behavior: Behavior normal. Behavior is cooperative. Thought Content: Thought content normal. Cognition and Memory: Cognition and memory normal. Judgment: Judgment normal. ASSESSMENT/PLAN: 1. Hyperprolactinemia (HCC) - ICD9: 253.1, ICD10: E22.1 (primary diagnosis) Rep (more content not included)... [facility] 09-17-2023 History of Present illness Narrative SUBJECTIVE oY Cintron is a 52 year old male here today for a check up on his medical problems. Chief Complaint Patient presents with: F/U 6 months HPI oY Cintron is a 52 year old male. He is an established patient of Thuan Westfall MD. Here today for a 6 month follow up. History of hyperprolactinemia, hypothyroid, GERD, hyperlipidemia. Follows with endocrine, Dr. Watkins. Concerns of fatigue and decreased libido. Would like to get updated labs checked. Recently in ER at [facility] and found to have SVT. This seemed to be positional. Occurred with a deep breath or with standing. Short runs. No prior SVT issues. Planning to follow up with [facility]. Started on metoprolol. Had a chest xray done. Has been controlled with starting the metoprolol. Behavioral Health Screening PHQ-2 Score: 0 (Lower risk for depression) BRAD-2 Score: 0 (Lower risk for anxiety) Recommendation: no further intervention at this time His medications were reviewed today and his list is now up to date. Medications Current Outpatient Medications Medication Sig metoprolol tartrate, short acting, (LOPRESSOR) 25 mg tablet Take 12.5 mg by mouth two times a day. pantoprazole DR (PROTONIX) 40 mg tablet To take empty stomach with water 2 times a day. clonazePAM (KLONOPIN) 0.5 mg tablet Take 1 tablet by mouth once daily as needed for up to 90 days. levothyroxine (LEVOXYL) 50 mcg tablet Take 1 tablet by mouth once daily. Take on empty stomach. For Thyroid DULoxetine (CYMBALTA) 30 mg capsule TAKE 1 CAPSULE DAILY FOR CHRONIC MUSCULOSKELETAL PAIN cabergoline (DOSTINEX) 0.5 mg tablet Take 0.5 tablets by mouth every Sunday and Sunday. No current facility-administered medications for this visit. ALLERGIES Allergen Reactions Crestor [Rosuvastat* Other: See Comments Has neuropathy Lipitor [Atorvastat* Other: See Comments myaglias Penicillins Seasonal Allergies Itching Sulfa (Sulfonamide * GI Upset Zetia [Ezetimibe] Diarrhea Diarrhea, immediately. 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 Obesity, Class I, Bmi 30-34.9 - 02/07/2022 Secondary hypogonadism - 02/06/2022 Hyperprolactinemia (Hcc) - 02/06/2022 Vitamin D Deficiency - 10/30/2018 Gastroesophageal Reflux Disease Without Esophagitis - 06/22/2017 Comment: Added automatically from request for surgery [id number] Hypothyroid - 11/24/2013 Umbilical Hernia Without Mention of Obstruction Or Gangrene - 10/03/2006 Chronic Seasonal Allergic Rhinitis - 06/29/2005 Mixed Hyperlipidemia - 06/29/2005 Esophageal Reflux - 06/29/2005 Social History Tobacco Use Smoking status: Never Smokeless tobacco: Current Types: Chew Vaping Use Vaping Use: Never used Substance Use Topics Alcohol use: Not Currently Comment: Occasionally once every 3-4 months Drug use: No Review of Systems Constitutional: Positive for fatigue. Respiratory: Negative. Cardiovascular: Negative. OBJECTIVE BP 118/80 Pulse 75 Wt 210 lb (95.3kg) SpO2 98% Physical Exam Vitals and nursing note reviewed. Constitutional: General: He is awake. He is not in acute distress. Appearance: Normal appearance. He is well-developed and well-groomed. He is not ill-appearing, toxic-appearing or diaphoretic. HENT: Head: Normocephalic. Right Ear: External ear normal. Left Ear: External ear normal. Nose: Nose normal. Eyes: General: Vision grossly intact. Conjunctiva/sclera: Conjunctivae normal. Pupils: Pupils are equal, round, and reactive to light. Neck: Vascular: No JVD. Trachea: Trachea normal. Cardiovascular: Rate and Rhythm: Normal rate and regular rhythm. Pulses: Normal pulses. Heart sounds: Normal heart sounds. No murmur heard. Pulmonary: Effort: Pulmonary effort is normal. No accessory muscle usage, prolonged expiration or respiratory distress. Breath sounds: Normal breath sounds. Musculoskeletal: Cervical back: Neck supple. Skin: General: Skin is warm and dry. Capillary Refill: Capillary refill takes less than 2 seconds. Neurological: General: No focal deficit present. Mental Status: He is alert and oriented to person, place, and time. Mental status is at baseline. Psychiatric: Attention and Perception: Attention and perception normal. Mood and Affect: Mood and affect normal. Speech: Speech normal. Behavior: Behavior normal. Behavior is cooperative. Thought Content: Thought content normal. Cognition and Memory: Cognition and memory normal. Judgment: Judgment normal. ASSESSMENT/PLAN: 1. Hyperprolactinemia (HCC) - ICD9: 253.1, ICD10: E22.1 (primary diagnosis) Repeat labs, discuss testosterone replacement with endocrine once labs back. - HEMOGLOBIN A1C - TESTOSTERONE, FREE AND TOTAL - PROLACTIN - LUTEINIZING HORMONE - FOLLICLE STIMULATING HORMONE 2. Mixed hyperlipidemia - ICD9: 272.2, ICD10: E78.2 - Counseled on healthy diet and regular exercise - Discussed need for and benefit of weight loss. BMI 30.13 kg/(m^2) 3. Hypothyroidism, unspecified type - ICD9: 244.9, ICD10: E03.9 Repeat labs. More fatigue lately. Could be testosterone related or worsening in hypothyroidism. - THYROID STIMULATING HORMONE - T3, FREE - T4 FREE/FREE THYROXINE 4. Gastroesophageal reflux disease without esophagitis - ICD9: 530.81, ICD10: K21.9 5. SVT (supraventricular tachycardia) (HCC) - ICD9: 427.89, ICD10: I47.10 Currently controlled, planning to see cardiology with [facility]. - COMPLETE BLOOD COUNT AND DIFFERENTIAL - MAGNESIUM - THYROID STIMULATING HORMONE - PROLACTIN - LUTEINIZING HORMONE - FOLLICLE STIMULATING HORMONE 6. Encounter for therapeutic drug monitoring - ICD9: V58.83, ICD10: Z51.81 - COMPLETE BLOOD COUNT AND DIFFERENTIAL - MAGNESIUM - THYROID STIMULATING HORMONE - T3, FREE - T4 FREE/FREE THYROXINE - PROLACTIN 7. Vitamin D deficiency - ICD9: 268.9, ICD10: E55.9 - VITAMIN D 25 HYDROXY 8. Prostate cancer screening - ICD9: V76.44, ICD10: Z12.5 - PSA/PROSTATE SPECIFIC ANTIGEN SCREENING Portions of this note have been entered by ancillary staff. I have reviewed and when necessary edited, so that they are an adequate record of my encounter with this patient Please note that parts of this document were created using voice recognition software and therefore may contain grammatical errors. Patient verbalizes understanding of instructions from today's visit and in agreement with treatment plan. Questions answered. Agrees to call the office if questions, concerns of issues with acute symptoms not improving or if they worsen. See diagnoses and orders for additional plan(s). Allergies and medications were reviewed, list was updated, and refills given if needed. Past medical, surgical, social, and family history reviewed and updated as appropriate. Encouraged proper diet & exercise as well as compliance with taking medications. Age-appropriate health preventative measures were discussed. Return in about 6 months (around 03/19/2024) for Follow up on chronic conditions and medications.. Nicci Marks APRN-JEWEL documented in this encounter [facility] 06-27-2023 Note HNO ID: [id number] Author: MIRA EDGE APRN.CNP Service: ? Author Type: Nurse Practitioner Type: Progress Notes Filed: 06/27/2023 10:57 Note Text: CC: Patient presents with: Allergies: Requesting kenalog injection HPI Yo Cintron is a 52 year old male who presents today for above. He has been dealing with seasonal allergies every Spring/Summer for years. Previous treatments included allergy shots and OTC medications without any relief. He has been getting Kenalog injection yearly which is very effective. Allergy symptoms including runny nose, nasal congestion, post nasal drainage, scratchy throat and itchy/watery eyes. He takes Benadryl multiple times a day which is the only other thing that helps. Review of Systems Constitutional: Negative for chills, diaphoresis, fatigue, fever and unexpected weight change. Respiratory: Negative for cough, shortness of breath and wheezing. Cardiovascular: Negative for chest pain, palpitations and leg swelling. PAST MEDICAL HISTORY Diagnosis Date ALLERGIC RHINITIS NOS 06/29/2005 Anxiety and depression 10/30/2018 ANXIETY STATE NOS 06/29/2005 CHR SOLAR SKIN DAMAGE NOS 06/01/2006 Chronic musculoskeletal pain Esophageal reflux 06/29/2005 Gastritis without bleeding 10/30/2018 HYPERLIPIDEMIA NEC/NOS 06/29/2005 Hypogonadotropic hypogonadism (HCC) 01/02/2017 Hypothyroidism 01/02/2017 Pituitary macroadenoma (HCC) 01/02/2017 Pituitary tumor [facility] Sebaceous cyst 06/01/2006 SEBORRHEIC KERATOSIS NOS 06/01/2006 SOLAR LENGINES///DYSCHROMIA OTHER 06/01/2006 PAST SURGICAL HISTORY Procedure Laterality Date COLONOSCOPY 08/24/2022 repeat in 10 years EGD 04/16/2002 incompetent LES ESOPHAGOGASTRODUODENOSCOPY TRANSORAL DIAGNOSTIC 07/16/2017 EGD HERNIA REPAIR HX REPAIR FIRST ABDOMINAL WALL HERNIA 11/12/2006 supraumbilical hernia with mesh RPR RECRT INCAL/VNT HERNIA INCARCERATED 01/09/2022 RPR UMBILICAL HRNA 5 YRS/> REDUCIBLE 11/02/2006 simple umbilical hernia ALLERGIES Crestor [Rosuvastatin], Lipitor [Atorvastatin Calcium], Penicillins, Seasonal Allergies, Sulfa (Sulfonamide Antibiotics), and Zetia [Ezetimibe] MEDICATIONS pantoprazole DR (PROTONIX) 40 mg tablet To take empty stomach with water 2 times a day. clonazePAM (KLONOPIN) 0.5 mg tablet Take 1 tablet by mouth once daily as needed for up to 90 days. omega-3 acid ethyl esters (LOVAZA) 1 gram capsule Take 2 capsules by mouth two times a day. levothyroxine (LEVOXYL) 50 mcg tablet Take 1 tablet by mouth once daily. Take on empty stomach. For Thyroid DULoxetine (CYMBALTA) 30 mg capsule TAKE 1 CAPSULE DAILY FOR CHRONIC MUSCULOSKELETAL PAIN cabergoline (DOSTINEX) 0.5 mg tablet Take 0.5 tablets by mouth every Sunday and Sunday. sildenafil (VIAGRA) 50 mg tablet Take 1 tablet by mouth as needed. (Patient not taking: Reported on 03/20/2023) peg 3350-Electrolytes (GOLYTELY) 236-22.74-6.74 -5.86 gram suspension Follow colonoscopy instructions (Patient not taking: Reported on 03/20/2023) FAMILY HISTORY Problem Relation Age of Onset Hypertension Mother HYPERLIPIDEMIA Lipids Mother Thyroid Mother Hypertension Father Lipids Father No Known Problems Sister No Known Problems Sister No Known Problems Brother No Known Problems Maternal Grandmother Stroke Maternal Grandfather No Known Problems Paternal Grandmother No Known Problems Paternal Grandfather Social History Tobacco Use Smoking status: Never Smokeless tobacco: Current Types: Chew Vaping Use Vaping Use: Never used Substance Use Topics Alcohol use: Not Currently Comment: Occasionally once every 3-4 months Drug use: No BP 120/92 Pulse 77 Resp 12 Wt 96.2 kg (212 lb) SpO2 97% BMI 30.42 kg/m? Physical Exam Vitals reviewed. Constitutional: Appearance: Normal appearance. HENT: Mouth/Throat: Lips: [place]. Mouth: Mucous membranes are moist. Pharynx: Posterior oropharyngeal erythema present. Eyes: Conjunctiva/sclera: Conjunctivae normal. Cardiovascular: Rate and Rhythm: Normal rate and regular rhythm. Heart sounds: Normal heart sounds. No murmur heard. Pulmonary: Effort: Pulmonary effort is normal. Breath sounds: Normal breath sounds and air entry. No wheezing, rhonchi or rales. Lymphadenopathy: Cervical: No cervical adenopathy. Skin: General: Skin is warm and dry. Neurological: Mental Status: He is alert. DATA REVIEWED: Most recent labs ASSESSMENT/PLAN: 1. Chronic seasonal allergic rhinitis - ICD9: 477.8, ICD10: J30.2 Patient requesting yearly Kenalog injection which is the only other medication besides Benadryl that is effective. Cautioned patient about the potential correction effects of steroid use including bone loss and hyperglycemia. He verbalized understanding and would like to proceed with the injection - TRIAMCINOLONE ACETONIDE 40 MG/ML SUSPENSION FOR INJECTION Follow-up as needed for any persistent or wo (more content not included)... [facility] 06-27-2023 History of Present illness Narrative CC: Patient presents with: Allergies: Requesting kenalog injection HPI Yo Cintron is a 52 year old male who presents today for above. He has been dealing with seasonal allergies every Spring/Summer for years. Previous treatments included allergy shots and OTC medications without any relief. He has been getting Kenalog injection yearly which is very effective. Allergy symptoms including runny nose, nasal congestion, post nasal drainage, scratchy throat and itchy/watery eyes. He takes Benadryl multiple times a day which is the only other thing that helps. Review of Systems Constitutional: Negative for chills, diaphoresis, fatigue, fever and unexpected weight change. Respiratory: Negative for cough, shortness of breath and wheezing. Cardiovascular: Negative for chest pain, palpitations and leg swelling. PAST MEDICAL HISTORY Diagnosis Date ALLERGIC RHINITIS NOS 06/29/2005 Anxiety and depression 10/30/2018 ANXIETY STATE NOS 06/29/2005 CHR SOLAR SKIN DAMAGE NOS 06/01/2006 Chronic musculoskeletal pain Esophageal reflux 06/29/2005 Gastritis without bleeding 10/30/2018 HYPERLIPIDEMIA NEC/NOS 06/29/2005 Hypogonadotropic hypogonadism (HCC) 01/02/2017 Hypothyroidism 01/02/2017 Pituitary macroadenoma (HCC) 01/02/2017 Pituitary tumor [facility] Sebaceous cyst 06/01/2006 SEBORRHEIC KERATOSIS NOS 06/01/2006 SOLAR LENGINES///DYSCHROMIA OTHER 06/01/2006 PAST SURGICAL HISTORY Procedure Laterality Date COLONOSCOPY 08/24/2022 repeat in 10 years EGD 04/16/2002 incompetent LES ESOPHAGOGASTRODUODENOSCOPY TRANSORAL DIAGNOSTIC 07/16/2017 EGD HERNIA REPAIR HX REPAIR FIRST ABDOMINAL WALL HERNIA 11/12/2006 supraumbilical hernia with mesh RPR RECRT INCAL/VNT HERNIA INCARCERATED 01/09/2022 RPR UMBILICAL HRNA 5 YRS/> REDUCIBLE 11/02/2006 simple umbilical hernia ALLERGIES Crestor [Rosuvastatin], Lipitor [Atorvastatin Calcium], Penicillins, Seasonal Allergies, Sulfa (Sulfonamide Antibiotics), and Zetia [Ezetimibe] MEDICATIONS pantoprazole DR (PROTONIX) 40 mg tablet To take empty stomach with water 2 times a day. clonazePAM (KLONOPIN) 0.5 mg tablet Take 1 tablet by mouth once daily as needed for up to 90 days. omega-3 acid ethyl esters (LOVAZA) 1 gram capsule Take 2 capsules by mouth two times a day. levothyroxine (LEVOXYL) 50 mcg tablet Take 1 tablet by mouth once daily. Take on empty stomach. For Thyroid DULoxetine (CYMBALTA) 30 mg capsule TAKE 1 CAPSULE DAILY FOR CHRONIC MUSCULOSKELETAL PAIN cabergoline (DOSTINEX) 0.5 mg tablet Take 0.5 tablets by mouth every Sunday and Sunday. sildenafil (VIAGRA) 50 mg tablet Take 1 tablet by mouth as needed. (Patient not taking: Reported on 03/20/2023) peg 3350-Electrolytes (GOLYTELY) 236-22.74-6.74 -5.86 gram suspension Follow colonoscopy instructions (Patient not taking: Reported on 03/20/2023) FAMILY HISTORY Problem Relation Age of Onset Hypertension Mother HYPERLIPIDEMIA Lipids Mother Thyroid Mother Hypertension Father Lipids Father No Known Problems Sister No Known Problems Sister No Known Problems Brother No Known Problems Maternal Grandmother Stroke Maternal Grandfather No Known Problems Paternal Grandmother No Known Problems Paternal Grandfather Social History Tobacco Use Smoking status: Never Smokeless tobacco: Current Types: Chew Vaping Use Vaping Use: Never used Substance Use Topics Alcohol use: Not Currently Comment: Occasionally once every 3-4 months Drug use: No BP 120/92 Pulse 77 Resp 12 Wt 96.2 kg (212 lb) SpO2 97% BMI 30.42 kg/m Physical Exam Vitals reviewed. Constitutional: Appearance: Normal appearance. HENT: Mouth/Throat: Lips: [place]. Mouth: Mucous membranes are moist. Pharynx: Posterior oropharyngeal erythema present. Eyes: Conjunctiva/sclera: Conjunctivae normal. Cardiovascular: Rate and Rhythm: Normal rate and regular rhythm. Heart sounds: Normal heart sounds. No murmur heard. Pulmonary: Effort: Pulmonary effort is normal. Breath sounds: Normal breath sounds and air entry. No wheezing, rhonchi or rales. Lymphadenopathy: Cervical: No cervical adenopathy. Skin: General: Skin is warm and dry. Neurological: Mental Status: He is alert. DATA REVIEWED: Most recent labs ASSESSMENT/PLAN: 1. Chronic seasonal allergic rhinitis - ICD9: 477.8, ICD10: J30.2 Patient requesting yearly Kenalog injection which is the only other medication besides Benadryl that is effective. Cautioned patient about the potential intermediate designer effects of steroid use including bone loss and hyperglycemia. He verbalized understanding and would like to proceed with the injection - TRIAMCINOLONE ACETONIDE 40 MG/ML SUSPENSION FOR INJECTION Follow-up as needed for any persistent or worsening symptoms Prescription instructions reviewed with patient as applicable. Potential red flag symptoms discussed with the patient. Reviewed appropriate action plan to take if red flag symptoms occur. Patient agreeable to treatment plan. Mira Edge APRN.NIGHT MANAGER documented in this encounter [facility] 08-24-2022 Nurse Note Arrived in phase II via cart. Left lateral position. Sedated, but responds to verbal stimuli. Color normal; skin warm and dry. Respirations wnl and unlabored. Abdomen soft and with + bowel sounds in quads X 4. Patient resting comfortably. Family at bedside. Dr. Alfaro at bedside to review procedure and recommendations. Nina Carreon RN documented in this encounter [facility] 08-24-2022 History and physical note Reason for Visit Patient presents with: F/U 6 months Yo Cintron is a 51 year old male who presents here today for Above Complaints.. Health Maintenance HEPATITIS B(1 of 3 - 3-dose series) COVID-19 VACCINE(1) HEPATITIS C SCREENING HIV SCREENING COLORECTAL CANCER SCREENING SHINGRIX VACCINE(1 of 2) DEPRESSION ASSESSMENT HPI Been to seen Dr Watkins for the prolactinoma, he did have an MRI, done and also was restarted on the dostinex. But at 2.5 mgs , 2 times a week which is a little better tolerated. His SIDE EFFECTS, are headaches, sick to his stomach, and feels Blah ,that goes away after a day. Been on it for 4 months, not much improvement in the libido, ED, but minimal improvement in the fatigue. His neuropathy is much better after stopping the statin. It is not nearly as bad as before. Cymbalta is helping. Allergies are flaring up this season , he does well with a shot of kenalog, and would like to take it now. He has lost some weight, around 6 pounds, is more active in the summer time. Does not have a treadmill inside the house. Patient is taking protonix 40 mgs daily. It keeps his symptoms at bay. Hyperlipidemia: he cannot tolerate statins. Zetia gave him intolerable diarrhea. He is not cutting down his red meat or dairy. products. For lunch he eats a couple slim jims, a couple string cheese and also 2 gogurts. He said he will try to eat a little better. Vit d- asked him to cont the 2000 units of vit d in the future. The 10-year ASCVD risk score (Lashaun BEACH, et al., 2019) is: 6.4% Values used to calculate the score: Age: 51 years Sex: Male Is Non- : No Diabetic: No Tobacco smoker: No Systolic Blood Pressure: 120 mmHg Is BP treated: No HDL Cholesterol: 36 mg/dL Total Cholesterol: 249 mg/dL No problem-specific Assessment & Plan notes found for this encounter. PAST MEDICAL HISTORY PAST MEDICAL HISTORY Diagnosis Date ALLERGIC RHINITIS NOS 06/29/2005 Anxiety and depression 10/30/2018 ANXIETY STATE NOS 06/29/2005 CHR SOLAR SKIN DAMAGE NOS 06/01/2006 Chronic musculoskeletal pain Esophageal reflux 06/29/2005 Gastritis without bleeding 10/30/2018 HYPERLIPIDEMIA NEC/NOS 06/29/2005 Hypogonadotropic hypogonadism (HCC) 01/02/2017 Hypothyroidism 01/02/2017 Pituitary macroadenoma (HCC) 01/02/2017 Pituitary tumor [facility] Sebaceous cyst 06/01/2006 SEBORRHEIC KERATOSIS NOS 06/01/2006 SOLAR LENGINES///DYSCHROMIA OTHER 06/01/2006 PAST SURGICAL HISTORY PAST SURGICAL HISTORY Procedure Laterality Date EGD 04/16/2002 incompetent LES ESOPHAGOGASTRODUODENOSCOPY TRANSORAL DIAGNOSTIC 07/16/2017 EGD REPAIR FIRST ABDOMINAL WALL HERNIA 11/12/2006 supraumbilical hernia with mesh RPR RECRT INCAL/VNT HERNIA INCARCERATED 01/09/2022 RPR UMBILICAL HRNA 5 YRS/> REDUCIBLE 11/02/2006 simple umbilical hernia FAMILY HISTORY FAMILY HISTORY Problem Relation Age of Onset Hypertension Mother HYPERLIPIDEMIA Lipids Mother Thyroid Mother Hypertension Father Lipids Father No Known Problems Sister No Known Problems Sister No Known Problems Brother No Known Problems Maternal Grandmother Stroke Maternal Grandfather No Known Problems Paternal Grandmother No Known Problems Paternal Grandfather SOCIAL HISTORY Social History Tobacco Use Smoking status: Never Smokeless tobacco: Current Types: Chew Vaping Use Vaping Use: Never used Substance Use Topics Alcohol use: Not Currently Comment: Occasionally once every 3-4 months Drug use: No Past medical history, appointments, medications, allergies reviewed. Pertinent Lab/Diagnostic Studies are reviewed and discussed today CURRENT MEDICATIONS Current Outpatient Medications: cabergoline (DOSTINEX) 0.5 mg tablet clonazePAM (KLONOPIN) 0.[address] (PROTONIX) 40 mg tablet DULoxetine (CYMBALTA) 30 mg capsule levothyroxine (LEVOXYL) 50 mcg tablet Review of Systems CONSTITUTIONAL: No fevers, chills night sweats, unintended weight loss CARDIOVASCULAR: No chest pain, dyspnea, palpitations, orthopnea, PND, ankle edema. PULM: No dyspnea, unexplained cough. GI: No dysphagia/odynophagia, problematic reflux, constipation, diarrhea, changes in stool habits, hematochezia, melena. : No new urinary complaints, including dysuria, gross hematuria or pyuria. NEURO: No new balance problems, peripheral weakness/paresthesias or numbness of concern. Physical Exam BP 120/72 (BP Site: Left Arm, BP Position: Sitting, BP Cuff Size: Large Adult) Pulse 92 Temp 36.7 C (98 F) Resp 12 Ht 177.8 cm (5' 10) Wt 98.9 kg (218 lb) SpO2 99% BMI 31.28 kg/m General appearance: Well appearing, alert, in no acute distress, well nourished. Skin: Skin color, texture, turgor normal, no suspicious rashes or lesions Head: Normocephalic, no masses, lesions, tenderness or abnormalities Eyes: Anicteric sclera. Pupils are equally round and reactive to light. Extraocular movements are intact. Lungs: Lungs clear to auscultation. No wheezing, rhonchi, rales Heart: RRR without murmur, gallop, or rubs. Extremities: No deformities, edema, skin discoloration, clubbing or cyanosis. Good capillary refill. ASSESSMENT/PLAN: 1. Hyperprolactinemia (HCC) - ICD9: 253.1, ICD10: E22.1 (primary diagnosis) On cabergoline 2. Hypothyroidism, unspecified type - ICD9: 244.9, ICD10: E03.9 - Instructed patient on importance of taking on an empty stomach either first thing in the morning or at bedtime. Stable - LEVOTHYROXINE 50 MCG TABLET 3. Gastroesophageal reflux disease without esophagitis - ICD9: 530.81, ICD10: K21.9 - Discussed lifestyle modifications including losing weight, limiting caffeine, no meals three hours before sleep, and head of bed elevation 4. Allergy, sequela - ICD9: 909.9, ICD10: T78.40XS Kenalog shot today 5. Environmental allergies - ICD9: V15.09, ICD10: Z91.09 - TRIAMCINOLONE ACETONIDE 40 MG/ML SUSPENSION FOR INJECTION 6. Mixed hyperlipidemia - ICD9: 272.2, ICD10: E78.2 7. Special screening for malignant neoplasms, colon - ICD9: V76.51, ICD10: Z12.11 - COLONOSCOPY SCREENING Thuan Westfall MD UPDATED HISTORY AND PHYSICAL EXAMINATION SERVICE DATE: 08/24/2022 SERVICE TIME: 9:26 AM PHYSICAL EXAM MUST BE COMPLETED ON ADMISSION The History and Physical (completed in the past 30 days) has been reviewed and the patient has been examined. The contents accurately reflect the patient's condition with the following additions or revisions since the H&P was completed. Examination indicates no changes. This H&P can be found in the attached. SIGNATURE: Pablo Alfaro III, MD PATIENT NAME: Yo Cintron DATE: August 24, 2022 TIME: 9:26 AM documented in this encounter [facility] 08-01-2022 History of Present illness Narrative Reason for Visit Patient presents with: F/U 6 months Yo Cintron is a 51 year old male who presents here today for Above Complaints.. Health Maintenance HEPATITIS B(1 of 3 - 3-dose series) COVID-19 VACCINE(1) HEPATITIS C SCREENING HIV SCREENING COLORECTAL CANCER SCREENING SHINGRIX VACCINE(1 of 2) DEPRESSION ASSESSMENT HPI Been to seen Dr Watkins for the prolactinoma, he did have an MRI, done and also was restarted on the dostinex. But at 2.5 mgs , 2 times a week which is a little better tolerated. His SIDE EFFECTS, are headaches, sick to his stomach, and feels Blah ,that goes away after a day. Been on it for 4 months, not much improvement in the libido, ED, but minimal improvement in the fatigue. His neuropathy is much better after stopping the statin. It is not nearly as bad as before. Cymbalta is helping. Allergies are flaring up this season , he does well with a shot of kenalog, and would like to take it now. He has lost some weight, around 6 pounds, is more active in the summer time. Does not have a treadmill inside the house. Patient is taking protonix 40 mgs daily. It keeps his symptoms at bay. Hyperlipidemia: he cannot tolerate statins. Zetia gave him intolerable diarrhea. He is not cutting down his red meat or dairy. products. For lunch he eats a couple slim jims, a couple string cheese and also 2 gogurts. He said he will try to eat a little better. Vit d- asked him to cont the 2000 units of vit d in the future. The 10-year ASCVD risk score (Lashaun BEACH, et al., 2019) is: 6.4% Values used to calculate the score: Age: 51 years Sex: Male Is Non- : No Diabetic: No Tobacco smoker: No Systolic Blood Pressure: 120 mmHg Is BP treated: No HDL Cholesterol: 36 mg/dL Total Cholesterol: 249 mg/dL No problem-specific Assessment & Plan notes found for this encounter. PAST MEDICAL HISTORY Diagnosis Date ALLERGIC RHINITIS NOS 06/29/2005 Anxiety and depression 10/30/2018 ANXIETY STATE NOS 06/29/2005 CHR SOLAR SKIN DAMAGE NOS 06/01/2006 Chronic musculoskeletal pain Esophageal reflux 06/29/2005 Gastritis without bleeding 10/30/2018 HYPERLIPIDEMIA NEC/NOS 06/29/2005 Hypogonadotropic hypogonadism (HCC) 01/02/2017 Hypothyroidism 01/02/2017 Pituitary macroadenoma (HCC) 01/02/2017 Pituitary tumor [facility] Sebaceous cyst 06/01/2006 SEBORRHEIC KERATOSIS NOS 06/01/2006 SOLAR LENGINES///DYSCHROMIA OTHER 06/01/2006 PAST SURGICAL HISTORY Procedure Laterality Date EGD 04/16/2002 incompetent LES ESOPHAGOGASTRODUODENOSCOPY TRANSORAL DIAGNOSTIC 07/16/2017 EGD REPAIR FIRST ABDOMINAL WALL HERNIA 11/12/2006 supraumbilical hernia with mesh RPR RECRT INCAL/VNT HERNIA INCARCERATED 01/09/2022 RPR UMBILICAL HRNA 5 YRS/> REDUCIBLE 11/02/2006 simple umbilical hernia FAMILY HISTORY Problem Relation Age of Onset Hypertension Mother HYPERLIPIDEMIA Lipids Mother Thyroid Mother Hypertension Father Lipids Father No Known Problems Sister No Known Problems Sister No Known Problems Brother No Known Problems Maternal Grandmother Stroke Maternal Grandfather No Known Problems Paternal Grandmother No Known Problems Paternal Grandfather Social History Tobacco Use Smoking status: Never Smokeless tobacco: Current Types: Chew Vaping Use Vaping Use: Never used Substance Use Topics Alcohol use: Not Currently Comment: Occasionally once every 3-4 months Drug use: No Past medical history, appointments, medications, allergies reviewed. Pertinent Lab/Diagnostic Studies are reviewed and discussed today Current Outpatient Medications: cabergoline (DOSTINEX) 0.5 mg tablet clonazePAM (KLONOPIN) 0.[address] (PROTONIX) 40 mg tablet DULoxetine (CYMBALTA) 30 mg capsule levothyroxine (LEVOXYL) 50 mcg tablet Review of Systems CONSTITUTIONAL: No fevers, chills night sweats, unintended weight loss CARDIOVASCULAR: No chest pain, dyspnea, palpitations, orthopnea, PND, ankle edema. PULM: No dyspnea, unexplained cough. GI: No dysphagia/odynophagia, problematic reflux, constipation, diarrhea, changes in stool habits, hematochezia, melena. : No new urinary complaints, including dysuria, gross hematuria or pyuria. NEURO: No new balance problems, peripheral weakness/paresthesias or numbness of concern. Physical Exam BP 120/72 (BP Site: Left Arm, BP Position: Sitting, BP Cuff Size: Large Adult) Pulse 92 Temp 36.7 C (98 F) Resp 12 Ht 177.8 cm (5' 10) Wt 98.9 kg (218 lb) SpO2 99% BMI 31.28 kg/m General appearance: Well appearing, alert, in no acute distress, well nourished. Skin: Skin color, texture, turgor normal, no suspicious rashes or lesions Head: Normocephalic, no masses, lesions, tenderness or abnormalities Eyes: Anicteric sclera. Pupils are equally round and reactive to light. Extraocular movements are intact. Lungs: Lungs clear to auscultation. No wheezing, rhonchi, rales Heart: RRR without murmur, gallop, or rubs. Extremities: No deformities, edema, skin discoloration, clubbing or cyanosis. Good capillary refill. ASSESSMENT/PLAN: 1. Hyperprolactinemia (HCC) - ICD9: 253.1, ICD10: E22.1 (primary diagnosis) On cabergoline 2. Hypothyroidism, unspecified type - ICD9: 244.9, ICD10: E03.9 - Instructed patient on importance of taking on an empty stomach either first thing in the morning or at bedtime. Stable - LEVOTHYROXINE 50 MCG TABLET 3. Gastroesophageal reflux disease without esophagitis - ICD9: 530.81, ICD10: K21.9 - Discussed lifestyle modifications including losing weight, limiting caffeine, no meals three hours before sleep, and head of bed elevation 4. Allergy, sequela - ICD9: 909.9, ICD10: T78.40XS Kenalog shot today 5. Environmental allergies - ICD9: V15.09, ICD10: Z91.09 - TRIAMCINOLONE ACETONIDE 40 MG/ML SUSPENSION FOR INJECTION 6. Mixed hyperlipidemia - ICD9: 272.2, ICD10: E78.2 7. Special screening for malignant neoplasms, colon - ICD9: V76.51, ICD10: Z12.11 - COLONOSCOPY SCREENING Thuan Westfall MD [facility] OPEN ACCESS QUESTIONNAIRE 1. Are you currently having any new or unusual stomach/gastrointestinal issues at this time such as constipation, diarrhea, abdominal pain, rectal bleeding etc?No 2. Do you have any difficulty swallowing? No 3. Do you have any implanted devices such as a defibrillator, pacemaker, cardiac stents or deep brain stimulator? No 4. Do you take any Blood thinners such as Coumadin, Plavix, Xarelto, Eliquis, Brilinta or any other blood thinner? No 5. Do you have any new or past cardiac (heart) or pulmonary (lung) issues? No 6. Do you currently use any oxygen? No 7. Have you been hospitalized in the past 6 weeks? No 8. Have you had difficulty with anesthesia previously re: Difficult intubation? No Other difficulty or allergic reaction to anesthesia other than post op N/V? No 9. Are you on dialysis? No 10. Do you have any bleeding disorders such as hemophilia or Factor 5? No 11. Are you an Insulin Dependent Diabetic? No IF ANY OF THE TOP ELEVEN QUESTIONS ARE ANSWERED YES PLEASE SCHEDULE THE PATIENT FOR A CONSULT. N/A 12. Is the patient's BMI 40 or greater? No:Body mass index is 31.28 kg/m .. 13. Do you take any narcotics or anti-Anxiety medications? No 14. Do you use any illegal or recreational drugs including marijuana? No 15. Any alcohol use: yes , very rarely 16. Have you been diagnosed with chronic liver disease such as hepatitis or cirrhosis? No 17. Do you have a seizure disorder? No 18. Do you have ulcerative colitis or Crohn's disease? No 19. Are you or could you be ? No 20. Any other important health information we should be made aware of prior to your colonoscopy? No To be completed by LIP: Did patient have MAC anesthesia with a previous endoscopy procedure? Yes: Patient will require a Gastro-General Surgery Consultation. Patient appropriate for Open Access Colonoscopy: Yes: appropriate for Open Access Procedure Checklist: Prior to closing the encounter: Complete questionnaire: Yes Confirm Prep order has been Ordered/Pended: Yes. Patient's procedure could be delayed if not given the script for the prep. Please ensure the prep is escripted to pharmacy or printed. Instructions for the prep will print upon filing or pending this smartset. Please send all open access questionnaires to [facility] Pool #[id number] documented in this encounter [facility] 03-08-2022 History of Present illness Narrative Radiology Service Progress Note DATE OF SERVICE: March 08, 2022 TIME: 1:46 PM PATIENT IDENTITY VERIFICATION COMPLETED USING TWO (2) STANDARD IDENTIFIERS: Name and Date of confirmed by patient verbally. FALL SCREENING: Has the patient had 2 falls in the last year or 1 fall with injury or currently using an Ambulatory Assistive Device (Walker, Cane, Wheelchair, Crutches, etc.)? No PATIENT GENDER DATA: Male PATIENT RELEVANT IMPLANT DATA REVIEWED: Yes ALLERGIES: Reviewed and unchanged CONTRAST ALLERGY: NO. EXAM: MRI - CONTRAST TYPE: GROUP II PERIPHERAL IV DATA: Ambulatory: A peripheral IV was started in the Right antecubital site with a Angio cath: 22 gauge. RADIOLOGY DEPARTMENT: MR; Exam(s) Completed: Head: Pituitary SIGNATURE: RT Alisha(R) PATIENT NAME: Yo Cintron DATE: March 08, 2022 TIME: 1:46 PM documented in this encounter [facility] 02-17-2022 Miscellaneous Notes Call to patient. MRI scheduled for 03-08-22. Advised to start new medication cabergoline 0.5 tablets every Sunday and Sunday. Sent electronically to mail order pharmacy on 02-16-22. Advised to have non-fasting AM labs drawn in 2022. Patient verbalizes understanding. VINCENT Bergman, RN February 17, 2022 11:46 AM Sent patient [employer] message with alert if not read. Please call and tell him to be sure to get MRI pituitary as ordered, is it scheduled? Also, he should start cabergoline as listed below for high prolactin, and get AM non-fasting labs done again in 03/2022. The following approved medication requests have been transmitted electronically. Requested Prescriptions Signed Prescriptions Disp Refills cabergoline (DOSTINEX) 0.5 mg tablet 12 tablet 3 Sig: Take 0.5 tablets by mouth every Sunday and Sunday. Authorizing Provider: GREG WATKINS MD documented in this encounter [facility] 02-06-2022 Instructions Greg Watkins MD - 02/06/2022 10:33 AM EST Consider unsweetened vanilla almond milk. Get labs done at [facility], weed sprayer. Will call with results. Schedule MRI See me again in 6 months. 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 Thuan Westfall, for evaluation of prolactinoma. Took cabergoline for 3 years (prolactin level was initially 1262) in the past, says prolactinoma was 7 mm. Says he stopped cabergoline because it was making him sick (5 mg once a week). Has history of low T, prolactin now going back up Poor libido, erectile dysfunction. Occasional headaches. No breast symptoms. Hypothyroidism detected 4-5 years ago. Stopped rosuvastatin due to neuropathy, resolved after stopping. Weight has been increasing. Current Outpatient Medications on File Prior to Visit Medication Sig clonazePAM (KLONOPIN) 0.5 mg tablet Take 1 tablet by mouth once daily as needed for up to [address] (PROTONIX) 40 mg tablet To take empty stomach with water 2 times a day. DULoxetine (CYMBALTA) 30 mg capsule TAKE 1 CAPSULE DAILY FOR CHRONIC MUSCULOSKELETAL PAIN levothyroxine (LEVOXYL) 50 mcg tablet Take 1 tablet by mouth once daily. Take on empty stomach. For Thyroid ALLERGIES Allergen Reactions Crestor [Rosuvastat* Other: See Comments Has neuropathy Lipitor [Atorvastat* Other: See Comments myaglias Penicillins Seasonal Allergies Itching Sulfa (Sulfonamide * GI Upset Zetia [Ezetimibe] Diarrhea Diarrhea, immediately. PAST MEDICAL HISTORY Diagnosis Date ALLERGIC RHINITIS NOS 06/29/2005 ANXIETY STATE NOS 06/29/2005 CHR SOLAR SKIN DAMAGE NOS 06/01/2006 Chronic musculoskeletal pain Esophageal reflux 06/29/2005 HYPERLIPIDEMIA NEC/NOS 06/29/2005 Hypogonadotropic hypogonadism (HCC) 01/02/2017 Hypothyroidism 01/02/2017 Pituitary macroadenoma (HCC) 01/02/2017 Pituitary tumor [facility] Sebaceous cyst 06/01/2006 SEBORRHEIC KERATOSIS NOS 06/01/2006 SOLAR LENGINES///DYSCHROMIA OTHER 06/01/2006 PAST SURGICAL HISTORY Procedure Laterality Date EGD 04/16/2002 incompetent LES ESOPHAGOGASTRODUODENOSCOPY TRANSORAL DIAGNOSTIC 07/16/2017 EGD REPAIR FIRST ABDOMINAL WALL HERNIA 11/12/2006 supraumbilical hernia with mesh RPR UMBILICAL HRNA 5 YRS/> REDUCIBLE 11/02/2006 simple umbilical hernia FAMILY HISTORY Problem Relation Age of Onset Hypertension Mother HYPERLIPIDEMIA Lipids Mother Thyroid Mother Hypertension Father Lipids Father No Known Problems Sister No Known Problems Sister No Known Problems Brother No Known Problems Maternal Grandmother Stroke Maternal Grandfather No Known Problems Paternal Grandmother No Known Problems Paternal Grandfather Social History Tobacco Use Smoking status: Never Smokeless tobacco: Current Types: Chew Vaping Use Vaping Use: Never used Substance Use Topics Alcohol use: Not Currently Comment: Occasionally once every 3-4 months Drug use: No Answers submitted by the patient for this visit: Endocrine Review of Systems (Submitted on 02/05/2022) Fatigue: Yes Night Sweats: No Recent Unintentional Weight Change: No Skin Color Changes: Yes Post-Nasal Drip: No Thyroid Pain (lower neck): No Trouble Swallowing: No Vision Disturbance: No Chest Pain: No Leg Swelling: No Blood Clots?: No Leg Pain while walking?: No Difficulty Breathing?: No Heartburn: Yes Nausea: No Vomiting?: No Diarrhea: No Constipation: No Abdominal Pain: No Bone Pain?: No Muscle Aches: No Muscle Weakness: No Joint Pain or Stiffness: No Headaches: No Dizziness: No Numbness?: Yes Urgency to Urinate?: No Increased Urination?: No Slow or Small Urine Stream?: No Flushing?: Yes Hot Flashes?: Yes Increased Thirst: No Change in Body Hair?: No Cold Intolerance: No Heat Intolerance?: No BP 125/92 Pulse 102 Resp 16 Ht 177.8 cm (5' 10) Wt 100.2 kg (221 lb) SpO2 96% BMI 31.71 kg/m General appearance: Well-appearing, obese (BMI greater than 30) male, alert, in no acute distress, well-hydrated, well nourished. BP and pulse elevated. Skin: Skin color, texture, turgor normal, no suspicious rashes or lesions Head: normocephalic, no masses, lesions, tenderness or abnormalities Eyes: Anicteric sclera. Pupils are equally round. Extraocular movements are intact. Ears: not examined Nose/Sinuses: Nares normal. No drainage or sinus tenderness. Oropharynx: Lips, mucosa, and tongue normal, teeth and gums not examined. Neck: Supple, no adenopathy; no palpable thyroid enlargement. Lungs: Breathing unlabored. Heart: RRR. No ectopy Abdomen: deferred Extremities: No deformities, edema, skin discoloration, clubbing or cyanosis. Good capillary refill. Musculoskeletal: Spine range of motion not tested. Muscular strength intact, No joint swelling, deformity, or tenderness Peripheral pulses: Normal Neuro: Gait normal. Sensation grossly intact. Latest Reference Range & Units 01/09/22 09:15 01/18/22 08:03 Sodium 136 - 144 mmol/L 138 Potassium 3.7 - 5.1 mmol/L 4.5 Chloride 97 - 105 mmol/L 100 CO2 22 - 30 mmol/L 26 BUN 9 - 24 mg/dL 12 Creatinine 0.73 - 1.22 mg/dL 1.27 (H) Glucose 74 - 99 mg/dL 92 Protein, Total 6.3 - 8.0 g/dL 7.4 Calcium 8.5 - 10.2 mg/dL 10.5 (H) Albumin 3.9 - 4.9 g/dL 4.3 Bilirubin, Total 0.2 - 1.3 mg/dL 0.4 Alkaline Phosphatase 38 - 113 U/L 95 ALT 10 - 54 U/L 30 AST 14 - 40 U/L 30 Cholesterol, Total <200 mg/dL 249 (H) Triglyceride <150 mg/dL 351 (H) HDL Cholesterol >39 mg/dL 36 (L) LDL Cholesterol <100 mg/dL 143 (H) Non HDL Cholesterol <130 mg/dL 213 (H) Latest Reference Range & Units 07/28/21 09:44 Free T4 0.9 - 1.7 ng/dL 0.9 TSH 0.270 - 4.200 mIU/L 2.210 Free T3 2.3 - 4.1 pg/mL 3.1 Prolactin 4.0 - 15.2 ng/mL 21.7 (H) Latest Reference Range & Units 11/15/20 09:06 Prolactin 4.0 - 15.2 ng/mL 9.0 Vitamin D 25 Hydroxy 31.0 - 80.0 ng/mL 30.9 (L) Latest Reference Range & Units 11/15/20 09:05 Testosterone 240 - 950 ng/dL 236 (L) (L): Data is abnormally low IMPRESSION: 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 See me again in 6 months. Greg Watkins MD Consultation requested by Dr. Thuan Westfall for an opinion regarding prolactinoma. My final recommendations will be communicated back to the requesting physician by way of shared Medical record or letter to requesting physician via US mail. I spent 60 minutes in the visit, with more than 50% of the total [id number] time of the visit in counseling / coordination of care. 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 The patient notes discomfort in this area with lifting, straining, coughing, and moving. The symptoms have increased, over the past few hours. The patient notes no symptoms of bowel obstruction and denies nausea or vomiting. The patient was seen by his primary care physician who felt the patient has a hernia. Yo was referred for evaluation and treatment. The patient is being seen by me today at the request of Dr. Bailey for my opinion and advice regarding Recurrent incisional hernia with incarceration (primary encounter diagnosis). PAST MEDICAL HISTORY Diagnosis Date ALLERGIC RHINITIS NOS 06/29/2005 ANXIETY STATE NOS 06/29/2005 CHR SOLAR SKIN DAMAGE NOS 06/01/2006 Chronic musculoskeletal pain Esophageal reflux 06/29/2005 HYPERLIPIDEMIA NEC/NOS 06/29/2005 Hypogonadotropic hypogonadism (HCC) 01/02/2017 Hypothyroidism 01/02/2017 Pituitary macroadenoma (HCC) 01/02/2017 Pituitary tumor [facility] Sebaceous cyst 06/01/2006 SEBORRHEIC KERATOSIS NOS 06/01/2006 SOLAR LENGINES///DYSCHROMIA OTHER 06/01/2006 PAST SURGICAL HISTORY Procedure Laterality Date EGD 04/16/2002 incompetent LES ESOPHAGOGASTRODUODENOSCOPY TRANSORAL DIAGNOSTIC 07/16/2017 EGD REPAIR FIRST ABDOMINAL WALL HERNIA 11/12/2006 supraumbilical hernia with mesh RPR UMBILICAL HRNA 5 YRS/> REDUCIBLE 11/02/2006 simple umbilical hernia Current Outpatient Medications Medication Sig levothyroxine (LEVOXYL) 50 mcg tablet Take 1 tablet by mouth once daily. Take on empty stomach. For Thyroid pantoprazole DR (PROTONIX) 40 mg tablet To take empty stomach with water 2 times a day. DULoxetine (CYMBALTA) 30 mg capsule TAKE 1 CAPSULE DAILY FOR CHRONIC MUSCULOSKELETAL PAIN clonazePAM (KLONOPIN) 0.5 mg tablet Take 1 tablet by mouth once daily as needed for up to 90 days. iv contrast (will be provided with radiology test) CT ABD/PEL -Inject, intravenously, once for 1 dose.No IV access, insert saline lock prior to the beginning of sedation, infusion, injection of imaging exam. Discontinue saline lock post exam. If Pt. has a central line or IVAD, may access for administration according to line specific nursing protocol. Once exam is complete flush line and de-access according to line specific nursing protocol in the CT contrast administration guidelines link. enteric contrast (will be provided with radiology test) For CT ABD/PEL W IVCON Routine order Administer, As Directed One Time Only, via Oral, Rectal, both Oral and Rectal, Enteric Tube, Stoma or Indwelling Catheter, Enteric Contrast as designated per enteric contrast guidelines rosuvastatin (CRESTOR) 10 mg tablet Take 1 tablet by mouth once daily. acetaminophen (TYLENOL EXTRA STRENGTH) 500 mg tablet Take 1 tablet by mouth every 6 hours as needed for Pain. No current facility-administered medications for this visit. ALLERGIES: Lipitor [Atorvastatin Calcium], Penicillins, Seasonal Allergies, and Sulfa (Sulfonamide Antibiotics) PERSONAL HISTORY: Social History Tobacco Use Smoking status: Never Smokeless tobacco: Current Types: Chew Vaping Use Vaping Use: Never used Substance Use Topics Alcohol use: Not Currently Comment: Occasionally once every 3-4 months Drug use: No FAMILY HISTORY: FAMILY HISTORY Problem Relation Age of Onset Hypertension Mother HYPERLIPIDEMIA Lipids Mother Thyroid Mother Hypertension Father Lipids Father No Known Problems Sister No Known Problems Sister No Known Problems Brother No Known Problems Maternal Grandmother Stroke Maternal Grandfather No Known Problems Paternal Grandmother No Known Problems Paternal Grandfather REVIEW OF SYMPTOMS: The review of systems data was entered by the nurse and reviewed by vt Nursing Notes: Adrienne Houston RN 01/09/2022 2:34 PM Signed REVIEW OF SYSTEMS: General: The patient denies fatigue, denies weight loss, denies weight gain, denies feeling hot, and denies feelings of cold. Eyes: The patient denies glaucoma, denies eye injury/surgery, does not wear glasses or contacts. Ear/Nose/Throat: The patient NOTES allergies, NOTES hayfever, denies ear infections, and denies bloody noses. Cardiovascular: The patient denies chest pain, denies heart disease, denies high blood pressure,denies cardiac stent, denies prior heart attack, denies irregular heart beat, NOTES high cholesterol, denies poor circulation, denies heart failure, other cardiac issues, denies claudication, denies cold feet, denies peripheral arterial stent. Respiratory: The patient denies tuberculosis, denies pneumonia, denies frequent cough, denies pulmonary embolism, denies shortness of breath, and denies coughing up blood. Gastrointestinal: The patient denies difficulty swallowing, NOTES acid reflux, denies ulcers, denies vomiting, denies jaundice/hepatitis, denies gallbladder problems, denies black or tarry stools, denies hemorrhoids, denies bleeding from rectum, denies diverticulitis, denies constipation, denies diarrhea, denies loss of stool control, and NOTES hernias. Kidney/Bladder: The patient denies kidney stones, NOTES kidney failure, denies urine infections, and denies bloody urine. Skin: The patient denies a history of skin cancer, denies bleeding/changing moles, and denies a history of skin rash. Neurologic: The patient denies a history of epilepsy/convulsions, denies headaches, denies head/spinal injuries, and denies stroke/TIA. Psychiatric: The patient denies psychiatric medications, denies depression, and denies voices, denies substance abuse. Endocrine: The patient NOTES thyroid disorders, denies diabetes, and NOTES hormonal problems. Hematologic: The patient denies a history of bruising, denies bleeding, and denies anemia, denies blood clots. Infections: The patient denies a history of measles and mumps, denies rheumatic fever, and denies sexually transmitted diseases. Musculoskeletal: The patient denies back pain/injury, denies back problems, denies sciatica, denies knee/foot trouble, denies arthritis, or denies gout. When was patient's last Mammogram screening? N/A Last Colonoscopy: None Adrienne Houston RN PHYSICAL EXAMINATION: General: The patient is 51 year old male, well nourished, well hydrated in no acute distress. The patient is oriented to time, place, and person. VITALS: Blood pressure 124/92, pulse 110, temperature 36.3 C (97.3 F), temperature source Temporal, resp. rate 16, height 175.3 cm (5' 9), weight 101.6 kg (224 lb), SpO2 97 %. Body mass index is 33.08 kg/m . HEENT: Normal cephalic, ataumatic, pupils are equally round, sclera are anicteric, mucous membranes are moist, oropharynx is clear. Neck has no masses, asymmetry or lymphadenopathy. Thyroid is unremarkable. Respiratory: Clear to auscultation and percussion. Normal respiratory excursion and pattern. Cardiac: Examination is regular rate and rhythm. Abdominal exam: Soft, nontender, with no palpable masses. No hepatosplenomegaly. A moderate incisional hernia Rectal exam: exam deferred Extremities: no clubbing, cyanosis or edema. No adenopathy. Other: LABORATORY VALUES: As Noted RADIOLOGIC STUDIES: As Noted Assessment IMPRESSION: Recurrent incisional hernia with incarceration (primary encounter diagnosis) PLAN: My plan is to perform a incisional hernia repair with mesh. The planned surgical procedure was discussed extensively with the patient. The risks, benefits, anticipated outcomes and possible complications were mentioned. Yo undersands that all hernia repair surgery has a chance of recurrence and/or chronic post operative pain. My staff has also explained the procedure in understandable terms and the patient was given the option to take printed material concerning the planned procedure. The patient had the opportunity to ask questions concerning the planned procedure. The patient freely consents to the planned procedure. Patient will be going to the emergency department for a stat CT scan of the abdomen. After this will be taking him to surgery. I do not believe he has bowel stuck in this but he is exquisitely tender and this needs to be done tonight My findings have been communicated to Dr. Bailey via shared medical record. This note will be forwarded to Dr. Thuan Westfall MD. Diagnoses: (K43.0) Recurrent incisional hernia with incarceration (primary encounter diagnosis) Anticipated CPT Code: recurrent incarcerated ventral/incisional hernia repair with mesh- [id number]? + [id number] Anticipated Anesthetic: General Patient weight: Blood pressure 124/92, pulse 110, temperature 36.3 C (97.3 F), temperature source Temporal, resp. rate 16, height 175.3 cm (5' 9), weight 101.6 kg (224 lb), SpO2 97 %. BMI: Body mass index is 33.08 kg/m . Planned antibiotic: clindamycin 900mg IVPB oncology social work to OR SCDs needed - Yes Return to Clinic: The patient is instructed to follow-up with me 1 week post operatively. Pablo Alfaro III, MD documented in this encounter [facility] 01-09-2022 Nurse Note REVIEW OF SYSTEMS: General: The patient denies fatigue, denies weight loss, denies weight gain, denies feeling hot, and denies feelings of cold. Eyes: The patient denies glaucoma, denies eye injury/surgery, does not wear glasses or contacts. Ear/Nose/Throat: The patient NOTES allergies, NOTES hayfever, denies ear infections, and denies bloody noses. Cardiovascular: The patient denies chest pain, denies heart disease, denies high blood pressure,denies cardiac stent, denies prior heart attack, denies irregular heart beat, NOTES high cholesterol, denies poor circulation, denies heart failure, other cardiac issues, denies claudication, denies cold feet, denies peripheral arterial stent. Respiratory: The patient denies tuberculosis, denies pneumonia, denies frequent cough, denies pulmonary embolism, denies shortness of breath, and denies coughing up blood. Gastrointestinal: The patient denies difficulty swallowing, NOTES acid reflux, denies ulcers, denies vomiting, denies jaundice/hepatitis, denies gallbladder problems, denies black or tarry stools, denies hemorrhoids, denies bleeding from rectum, denies diverticulitis, denies constipation, denies diarrhea, denies loss of stool control, and NOTES hernias. Kidney/Bladder: The patient denies kidney stones, NOTES kidney failure, denies urine infections, and denies bloody urine. Skin: The patient denies a history of skin cancer, denies bleeding/changing moles, and denies a history of skin rash. Neurologic: The patient denies a history of epilepsy/convulsions, denies headaches, denies head/spinal injuries, and denies stroke/TIA. Psychiatric: The patient denies psychiatric medications, denies depression, and denies voices, denies substance abuse. Endocrine: The patient NOTES thyroid disorders, denies diabetes, and NOTES hormonal problems. Hematologic: The patient denies a history of bruising, denies bleeding, and denies anemia, denies blood clots. Infections: The patient denies a history of measles and mumps, denies rheumatic fever, and denies sexually transmitted diseases. Musculoskeletal: The patient denies back pain/injury, denies back problems, denies sciatica, denies knee/foot trouble, denies arthritis, or denies gout. When was patient's last Mammogram screening? N/A Last Colonoscopy: None Adrienne Houston RN documented in this encounter [facility] 01-09-2022 Miscellaneous Notes Addended by: MARYA BAILEY on: 01/09/2022 10:15 AM Modules accepted: Orders documented in this encounter [facility] 01-09-2022 History of Present illness Narrative CC: Patient presents with: Recheck: Surgical hernia repair 2003, red, hot, painful HPI Yo Cintron is a 51 year old male who presents today for hernia concerns. Has had multiple hernia repairs with a small lump that sometimes was slightly tender since last repair he reports was in 2003. Started with increased pain, redness, and firmness yesterday. Patient denies any injury, increased lifting, or cause of sudden change. Denies fever, chills, shortness of breath, nausea, vomiting, diarrhea, constipation, or chest pain. Last BM was yesterday soft formed brown which he typically has daily. REVIEW OF SYSTEMS General: no fevers, no chills, no night sweats, no recurrent infections, no change in appetite, no change in energy, and no significant changes in weight Respiratory: no cough, no wheezing, no shortness of breath, no hemoptysis, Cardiovascular: no chest pain, no chest pressure, no palpitations, and no swelling GI: See HPI : No history of dysuria, frequency or incontinence Neurologic: No headache, weakness, numbness, tingling, dizziness, syncope. PAST MEDICAL HISTORY Diagnosis Date ALLERGIC RHINITIS NOS 06/29/2005 ANXIETY STATE NOS 06/29/2005 CHR SOLAR SKIN DAMAGE NOS 06/01/2006 Esophageal reflux 06/29/2005 HYPERLIPIDEMIA NEC/NOS 06/29/2005 Hypogonadotropic hypogonadism (HCC) 01/02/2017 Hypothyroidism 01/02/2017 Pituitary macroadenoma (HCC) 01/02/2017 Pituitary tumor [facility] Sebaceous cyst 06/01/2006 SEBORRHEIC KERATOSIS NOS 06/01/2006 SOLAR LENGINES///DYSCHROMIA OTHER 06/01/2006 PAST SURGICAL HISTORY Procedure Laterality Date EGD 04/16/2002 incompetent LES ESOPHAGOGASTRODUODENOSCOPY TRANSORAL DIAGNOSTIC 07/16/2017 EGD REPAIR FIRST ABDOMINAL WALL HERNIA 11/12/2006 supraumbilical hernia with mesh RPR UMBILICAL HRNA 5 YRS/> REDUCIBLE 11/02/2006 simple umbilical hernia ALLERGIES Lipitor [Atorvastatin Calcium], Penicillins, Seasonal Allergies, and Sulfa (Sulfonamide Antibiotics) MEDICATIONS levothyroxine (LEVOXYL) 50 mcg tablet Take 1 tablet by mouth once daily. Take on empty stomach. For Thyroid rosuvastatin (CRESTOR) 10 mg tablet Take 1 tablet by mouth once daily. pregabalin (LYRICA) 25 mg capsule Take 1 capsule by mouth twice daily for [address] (PROTONIX) 40 mg tablet To take empty stomach with water 2 times a day. DULoxetine (CYMBALTA) 30 mg capsule TAKE 1 CAPSULE DAILY FOR CHRONIC MUSCULOSKELETAL PAIN acetaminophen (TYLENOL EXTRA STRENGTH) 500 mg tablet Take 1 tablet by mouth every 6 hours as needed for Pain. benzocaine-menthol (CEPACOL) 15-2.6 mg lozg lozenge Take 1 Lozenge by mouth every 3 hours as needed. clonazePAM (KLONOPIN) 0.5 mg tablet Take 1 tablet by mouth once daily as needed for up to 90 days. FAMILY HISTORY Problem Relation Age of Onset Hypertension Father Lipids Father Hypertension Mother HYPERLIPIDEMIA Lipids Mother Thyroid Mother Stroke Maternal Grandfather Social History Tobacco Use Smoking status: Never Smokeless tobacco: Current Types: Chew Substance Use Topics Alcohol use: Yes Comment: maybe once or twice a month Drug use: No PHYSICAL EXAM BP 118/82 Pulse 80 Temp 36.8 C (98.2 F) (Temporal) Resp 16 Wt 100.2 kg (221 lb) BMI 31.71 kg/m General Appearance: well appearing, in no acute distress, alert Skin: Skin color, texture, turgor normal for age; Redness and slight increase in warmth to umbilical area Eyes: conjunctiva pink and moist, no icterus, sclera white, non-injected Lungs: Lungs clear to auscultation. No wheezing, rhonchi, rales. Heart: RRR without murmur, gallop, or rubs. No ectopy Abdomen: Abdomen soft, non-tender. Bowel sounds normal. No masses, organomegaly ASSESSMENT/PLAN: 1. Periumbilical abdominal pain - ICD9: 789.05, ICD10: R10.33 (primary diagnosis) - site of previous umbilical hernia repair, firm and very tender. Concern for infection versus hernia strangulation. Same day appointment made with Dr. Alfaro for further evaluation - CBC + DIFF - COMP METABOLIC PANEL - CT ABD/PEL W IVCON - IV CONTRAST (RADIOLOGY PROCEDURE) - ENTERIC CONTRAST (RADIOLOGY PROCEDURE) 2. Periumbilical mass - ICD9: 789.35, ICD10: R19.05 As above - CBC + DIFF - COMP METABOLIC PANEL - CT ABD/PEL W IVCON - IV CONTRAST (RADIOLOGY PROCEDURE) - ENTERIC CONTRAST (RADIOLOGY PROCEDURE) 3. Infection in abdomen (HCC) - ICD9: 567.9, ICD10: K65.9 As above - CT ABD/PEL W IVCON - IV CONTRAST (RADIOLOGY PROCEDURE) - ENTERIC CONTRAST (RADIOLOGY PROCEDURE) Prescription instructions reviewed with patient as applicable. Potential red flag symptoms discussed with the patient. Reviewed appropriate action plan to take if red flag symptoms occur. Patient agreeable to treatment plan. Marya Bailey APRN.CNP documented in this encounter [facility] 07-28-2021 History of Present illness Narrative Reason for Visit Patient presents with: Recheck: 6 months Yo Cintron is a 50 year old male who presents here today for Above Complaints. Health Maintenance COVID-19 VACCINE(1) HEPATITIS C SCREENING HIV SCREENING COLORECTAL CANCER SCREENING SHINGRIX VACCINE(1 of 2) HPI Gained weight since he last saw me, around 5 pounds, has been eating out a lot, at restraunts. He eats some protein, salads, he eats a lot of oreo cookies. He was not hungry as much as before with the vyvnase, He is not exercising in the winter. He does not go to a gym but he is very active. He gets in atleast 2 hours of activity on a daily basis. 15 hours a week. GERD: Patient has reflux disease, is on protonix it is finally covered. ADHD: he was tried on adhd medication, it did help his concentration for the worth of what it was. Physically he is feeling better after taking iron and d3 supplements. Lili: Not using cpap like he did before...tried but just not comfortable with it. He has gained a little weight. The neuropathy is terrible but he is dealing with it. His toes are constantly burning. Recently we changed the thyroid dose , so I would like to recheck his level. Not taking the cabergoline any more and last prolactin was normal at 9. He gets a kenalog shot every year for his allergies, and would like to cont that No problem-specific Assessment & Plan notes found for this encounter. PAST MEDICAL HISTORY Diagnosis Date ALLERGIC RHINITIS NOS 06/29/2005 ANXIETY STATE NOS 06/29/2005 CHR SOLAR SKIN DAMAGE NOS 06/01/2006 Esophageal reflux 06/29/2005 HYPERLIPIDEMIA NEC/NOS 06/29/2005 Hypogonadotropic hypogonadism (HCC) 01/02/2017 Hypothyroidism 01/02/2017 Pituitary macroadenoma (HCC) 01/02/2017 Pituitary tumor [facility] Sebaceous cyst 06/01/2006 SEBORRHEIC KERATOSIS NOS 06/01/2006 SOLAR LENGINES///DYSCHROMIA OTHER 06/01/2006 PAST SURGICAL HISTORY Procedure Laterality Date EGD 04/16/2002 incompetent LES ESOPHAGOGASTRODUODENOSCOPY TRANSORAL DIAGNOSTIC 07/16/2017 EGD REPAIR FIRST ABDOMINAL WALL HERNIA 11/12/2006 supraumbilical hernia with mesh RPR UMBILICAL HRNA 5 YRS/> REDUCIBLE 11/02/2006 simple umbilical hernia FAMILY HISTORY Problem Relation Age of Onset Hypertension Father Lipids Father Hypertension Mother HYPERLIPIDEMIA Lipids Mother Thyroid Mother Stroke Maternal Grandfather Social History Tobacco Use Smoking status: Never Smoker Smokeless tobacco: Current User Types: Chew Substance Use Topics Alcohol use: Yes Comment: maybe once or twice a month Drug use: No Past medical history, appointments, medications, allergies reviewed. Pertinent Lab/Diagnostic Studies are reviewed and discussed today Current Outpatient Medications: levothyroxine (LEVOXYL) 50 mcg tablet levothyroxine (LEVOXYL) [address] (PROTONIX) 40 mg tablet rosuvastatin (CRESTOR) 10 mg tablet lansoprazole (PREVACID) 30 mg capsule DULoxetine (CYMBALTA) 30 mg capsule DULoxetine (CYMBALTA) 30 mg capsule cabergoline (DOSTINEX) 0.5 mg tablet lisdexamfetamine (VYVANSE) 20 mg capsule lisdexamfetamine (VYVANSE) 20 mg capsule lisdexamfetamine (VYVANSE) 20 mg capsule lisdexamfetamine (VYVANSE) 20 mg chew acetaminophen (TYLENOL EXTRA STRENGTH) 500 mg tablet benzocaine-menthol (CEPACOL) 15-2.6 mg lozg lozenge clonazePAM (KLONOPIN) 0.5 mg tablet Review of Systems CONSTITUTIONAL: No fevers, chills night sweats, unintended weight loss CARDIOVASCULAR: No chest pain, dyspnea, palpitations, orthopnea, PND, ankle edema. PULM: No dyspnea, unexplained cough. GI: No dysphagia/odynophagia, problematic reflux, constipation, diarrhea, changes in stool habits, hematochezia, melena. : No new urinary complaints, including dysuria, gross hematuria or pyuria. NEURO: No new balance problems, peripheral weakness/paresthesias or numbness of concern. Physical Exam BP 108/86 Pulse 97 Temp 36.4 C (97.5 F) Resp 16 Wt 99.8 kg (220 lb) SpO2 98% BMI 31.57 kg/m General appearance: Well appearing, alert, in no acute distress, well nourished. Skin: Skin color, texture, turgor normal, no suspicious rashes or lesions Head: Normocephalic, no masses, lesions, tenderness or abnormalities Eyes: Anicteric sclera. Pupils are equally round and reactive to light. Extraocular movements are intact. Lungs: Lungs clear to auscultation. No wheezing, rhonchi, rales Heart: RRR without murmur, gallop, or rubs. Extremities: No deformities, edema, skin discoloration, clubbing or cyanosis. Good capillary refill. ASSESSMENT/PLAN: 1. Prostate cancer screening - ICD9: V76.44, ICD10: Z12.5 (primary diagnosis) - Counseled on healthy diet and regular exercise - PSA/PROSTSPECAG SCRN 2. Mixed hyperlipidemia - ICD9: 272.2, ICD10: E78.2 - good control - Continue current medication. - ROSUVASTATIN 10 MG TABLET - ROSUVASTATIN 10 MG TABLET 3. Hypothyroidism, unspecified type - ICD9: 244.9, ICD10: E03.9 - Instructed patient on importance of taking on an empty stomach either first thing in the morning or at bedtime. Newly diagnosed - Continue current medications - LEVOTHYROXINE 50 MCG TABLET - TSH BLD - T4 FREE/FREE THYROX - T3 FREE BLD - LEVOTHYROXINE 50 MCG TABLET 4. Prolactinoma (HCC) - ICD9: 227.3, ICD10: D35.2 - PROLACTIN BLD 5. Neuropathy - ICD9: 355.9, ICD10: G62.9 Thuan Westfall MD documented in this encounter [facility] 06-13-2021 Miscellaneous Notes Patient has been identified by name and date of : Yes Patient phones for refill(s): Pending Prescriptions Disp Refills LEVOTHYROXINE 50 MCG TABLET 30 tablet 5 Sig: Take 1 tablet by mouth once daily. Take on empty stomach. For Thyroid ELLIOT: No Date of last office visit in primary care: 01/17/21 Last 2 Encounter Wt Readings: Date: Wt: 01/17/2021 97.5 kg (215 lb) 11/15/2020 96.2 kg (212 lb) Previous labs/tests for medication: Thyroid: TSH (uU/mL) Date Value 11/11/2020 6.560 Please advise. Thank you. Claribel Quinteros Ma documented in this encounter [facility] 06-01-2021 Miscellaneous Notes Send to local pharmacy [facility] Patient has been identified by name and date of : Yes Patient phones for refill(s): Pending Prescriptions Disp Refills LEVOTHYROXINE 50 MCG TABLET 5 tablet 0 Sig: Take 1 tablet by mouth once daily. Take on empty stomach. For Thyroid ELLIOT: No Date of last office visit in primary care: 01/17/21 Last 2 Encounter Wt Readings: Date: Wt: 01/17/2021 97.5 kg (215 lb) 11/15/2020 96.2 kg (212 lb) Previous labs/tests for medication: Thyroid: TSH (uU/mL) Date Value 11/11/2020 6.560 Please advise. Thank you. Lori Bustos LPN Patient is going out of town at the weekend and his mail order script will not be here in time. He is asking for 5 pills to get him through his trip in [place]. Please send to the [facility] in [place] on [address]. documented in this encounter [facility] 10-30-2018 History of Past i llness Narrative Problem Noted Date Resolved Date Anxiety and depression 10/30/2018 2 Gastritis without bleeding 10/30/201802/06 Panic attack 10/30/2018 02/06/2022 LILI (obstructive sleep apnea) 05/06/2012 Overview: PSG done 12/30/2009 The patient had 64 obstructive, 0 central, 0 mixed and 87 hypopneic episodes. AHI 26 Titration done 01/16/2010 recommendation of CPAP @ 8 cm. Anxiety state 06/29/2005 11/18/2019 documented as of this encounter (statuses as of 02/07/2022) [facility] History of Past illness Narrative* Problem Noted Date Resolved Date Anxiety and depression 10/30/2018 2 Gastritis without bleeding 10/30/201802/06 Panic attack 10/30/2018 02/06/2022 LILI (obstructive sleep apnea) 05/06/2012 Overview: PSG done 12/30/2009 The patient had 64 obstructive, 0 central, 0 mixed and 87 hypopneic episodes. AHI 26 Titration done 01/16/2010 recommendation of CPAP @ 8 cm. Anxiety state 06/29/2005 11/18/2019 documented as of this encounter (statuses as of 02/19/2022) [facility] History of Past illness Narrative* Problem Noted Date Resolved Date Anxiety and depression 10/30/2018 2 Gastritis without bleeding 10/30/201802/06 Panic attack 10/30/2018 02/06/2022 LILI (obstructive sleep apnea) 05/06/2012 Overview: PSG done 12/30/2009 The patient had 64 obstructive, 0 central, 0 mixed and 87 hypopneic episodes. AHI 26 Titration done 01/16/2010 recommendation of CPAP @ 8 cm. Anxiety state 06/29/2005 11/18/2019 documented as of this encounter (statuses as of 08/02/2022) [facility] History of Past illness Narrative* Problem Noted Date Diagnosed Date Resolved Date Anxiety and depression 10/30/201802/06 Gastritis without bleeding 10/30/2018 1 04/09/2021 Panic attack 10/30/2018 02/06/2022 LILI (obstructive sleep apnea) 05/06/2012 11/18/2019 Overview: PSG done 12/30/2009 The patient had 64 obstructive, 0 central, 0 mixed and 87 hypopneic episodes. AHI 26 Titration done 01/16/2010 recommendation of CPAP @ 8 cm. Ventral hernia, unspecified, without mention of obstruction or gangrene 11/19/2006 08/08/2022 Anxiety state 06/29/2005 11/18/2019 documented as of this encounter (statuses as of 12/31/2022) [facility] History of Past illness Narrative* Problem Noted Date Diagnosed Date Resolved Date Anxiety and depression 10/30/201802/06 Gastritis without bleeding 10/30/2018 1 04/09/2021 Panic attack 10/30/2018 02/06/2022 LILI (obstructive sleep apnea) 05/06/2012 11/18/2019 Overview: PSG done 12/30/2009 The patient had 64 obstructive, 0 central, 0 mixed and 87 hypopneic episodes. AHI 26 Titration done 01/16/2010 recommendation of CPAP @ 8 cm. Ventral hernia, unspecified, without mention of obstruction or gangrene 11/19/2006 08/08/2022 Anxiety state 06/29/2005 11/18/2019 documented as of this encounter (statuses as of 12/31/2022) [facility] History of Past illness Narrative* Problem Noted Date Resolved Date LILI (obstructive sleep apnea) 05/06/2012 Overview: PSG done 12/30/2009 The patient had 64 obstructive, 0 central, 0 mixed and 87 hypopneic episodes. AHI 26 Titration done 01/16/2010 recommendation of CPAP @ 8 cm. Anxiety state 06/29/2005 11/18/2019 documented as of this encounter (statuses as of 06/01/2021) [facility] History of Past illness Narrative* Problem Noted Date Resolved Date LILI (obstructive sleep apnea) 05/06/2012 Overview: PSG done 12/30/2009 The patient had 64 obstructive, 0 central, 0 mixed and 87 hypopneic episodes. AHI 26 Titration done 01/16/2010 recommendation of CPAP @ 8 cm. Anxiety state 06/29/2005 11/18/2019 documented as of this encounter (statuses as of 06/13/2021) [facility] History of Past illness Narrative* Problem Noted Date Resolved Date LILI (obstructive sleep apnea) 05/06/2012 Overview: PSG done 12/30/2009 The patient had 64 obstructive, 0 central, 0 mixed and 87 hypopneic episodes. AHI 26 Titration done 01/16/2010 recommendation of CPAP @ 8 cm. Anxiety state 06/29/2005 11/18/2019 documented as of this encounter (statuses as of 07/28/2021) [facility] History of Past illness Narrative* Problem Noted Date Resolved Date LILI (obstructive sleep apnea) 05/06/2012 Overview: PSG done 12/30/2009 The patient had 64 obstructive, 0 central, 0 mixed and 87 hypopneic episodes. AHI 26 Titration done 01/16/2010 recommendation of CPAP @ 8 cm. Anxiety state 06/29/2005 11/18/2019 documented as of this encounter (statuses as of 01/09/2022) [facility] History of Past illness Narrative* Problem Noted Date Resolved Date LILI (obstructive sleep apnea) 05/06/2012 Overview: PSG done 12/30/2009 The patient had 64 obstructive, 0 central, 0 mixed and 87 hypopneic episodes. AHI 26 Titration done 01/16/2010 recommendation of CPAP @ 8 cm. Anxiety state 06/29/2005 11/18/2019 documented as of this encounter (statuses as of 01/10/2022) [facility] History of Past illness Narrative* Problem Noted Date Resolved Date LILI (obstructive sleep apnea) 05/06/2012 Overview: PSG done 12/30/2009 The patient had 64 obstructive, 0 central, 0 mixed and 87 hypopneic episodes. AHI 26 Titration done 01/16/2010 recommendation of CPAP @ 8 cm. Anxiety state 06/29/2005 11/18/2019 documented as of this encounter (statuses as of 01/20/2022) [facility] Diagnosis Hypothyroidism, unspecified type [facility] Hypothyroidism, unspecified type [facility] Diagnosis Prostate cancer screening- Primary Special screening for malignant neoplasm of prostate Mixed hyperlipidemia Hypothyroidism, unspecified type Prolactinoma (HCC) Benign neoplasm of pituitary gland and craniopharyngeal duct (pouch) Neuropathy Mononeuritis of unspecified site Allergy, initial encounter [facility] noteNo assessment information availableW[facility] Work Phone: [facility]* Diagnosis Periumbilical abdominal pain- Primary Abdominal pain, periumbilic Periumbilical mass Abdominal or pelvic swelling, mass or lump, periumbilic Infection in abdomen (HCC) Unspecified peritonitis documented in this encounter [facility] note* Diagnosis Recurrent incisional hernia with incarceration- Primary Incisional hernia with obstruction documented in this encounter [facility] note* Diagnosis Medication management Encounter for long-term (current) use of other medications Mixed hyperlipidemia documented in this encounter [facility] note* Diagnosis Prolactinoma (HCC)- Primary Benign neoplasm of pituitary gland and craniopharyngeal duct (pouch) Secondary hypogonadism Other testicular hypofunction Hyperprolactinemia (HCC) Other and unspecified anterior pituitary hyperfunction Pituitary adenoma (HCC) Benign neoplasm of pituitary gland and craniopharyngeal duct (pouch) Hypothyroidism, unspecified type Mixed hyperlipidemia Obesity, Class I, BMI 30-34.9 Obesity, unspecified documented in this encounter [facility] note* Diagnosis Pituitary adenoma (HCC)- Primary Benign neoplasm of pituitary gland and craniopharyngeal duct (pouch) Secondary hypogonadism Other testicular hypofunction Hyperprolactinemia (HCC) Other and unspecified anterior pituitary hyperfunction documented in this encounter [facility] note* Diagnosis Hyperprolactinemia (HCC)- Primary Other and unspecified anterior pituitary hyperfunction Hypothyroidism, unspecified type Gastroesophageal reflux disease without esophagitis Esophageal reflux Allergy, sequela Environmental allergies Other allergy, other than to medicinal agents Mixed hyperlipidemia Special screening for malignant neoplasms, colon documented in this encounter [facility] note* Diagnosis Encounter for screening for malignant neoplasm of colon- Primary Special screening for malignant neoplasms, colon Special screening for malignant neoplasms, colon documented in this encounter [facility] note* Diagnosis Prolactinoma (HCC) Benign neoplasm of pituitary gland and craniopharyngeal duct (pouch) documented in this encounter [facility] note* Diagnosis Chronic seasonal allergic rhinitis- Primary documented in this encounter [facility] note* Diagnosis Hyperprolactinemia (HCC)- Primary Other and unspecified anterior pituitary hyperfunction Mixed hyperlipidemia Hypothyroidism, unspecified type Gastroesophageal reflux disease without esophagitis Esophageal reflux SVT (supraventricular tachycardia) (HCC) Other specified cardiac dysrhythmias Encounter for therapeutic drug monitoring Vitamin D deficiency Unspecified vitamin D deficiency Prostate cancer screening Special screening for malignant neoplasm of prostate documented in this encounter [facility] note* Diagnosis HYPERLIPIDEMIA NEC/NOS- Primary Other and unspecified hyperlipidemia Hypothyroid Unspecified hypothyroidism ANXIETY STATE NOS Anxiety state, unspecified Mixed hyperlipidemia documented in this encounter [facility] note* Diagnosis HYPERLIPIDEMIA NEC/NOS- Primary Other and unspecified hyperlipidemia Hypothyroid Unspecified hypothyroidism ANXIETY STATE NOS Anxiety state, unspecified Hypothyroidism, unspecified type documented in this encounter [facility] note* Diagnosis HYPERLIPIDEMIA NEC/NOS- Primary Other and unspecified hyperlipidemia Hypothyroid Unspecified hypothyroidism ANXIETY STATE NOS Anxiety state, unspecified Gastroesophageal reflux disease without esophagitis- Primary Esophageal reflux PFD (pelvic floor dysfunction) Pelvic muscle wasting Allergy, sequela Panic attack Panic disorder without agoraphobia Hypothyroidism, unspecified type Anxiety Anxiety state, unspecified Hyperprolactinemia (HCC) Other and unspecified anterior pituitary hyperfunction Supraventricular tachycardia (HCC) Other specified cardiac dysrhythmias Peripheral polyneuropathy Unspecified hereditary and idiopathic peripheral neuropathy documented in this encounter [facility] for referral (narrative)* Outpatient Procedure (Routine) - Pending Review Specialty Diagnoses / Procedures Referred By Chadwick neal Referred To Contact [facility] Diagnoses Special screening for malignant neoplasms, colon Procedures COLONOSCOPY SCREENING COLONOSCOPY FLX DX W/COLLJ SPEC WHEN Thuan Bajwa MD [facility] [place] [address] [facility] Disease [address] [address] Referral ID Status Reason Start Date Expiration Date Visits Requested Visits Authorized [id number] Pending Review Auto-Generat ed Referral 08/01/2022 08/02/2023 1 1 [facility] for referral (narrative)* Outpatient Procedure (Routine) - Closed Specialty Diagnoses / Procedures Referred By Chadwick neal Referred To Contact [facility] Diagnoses Special screening for malignant neoplasms, colon Procedures COLONOSCOPY SCREENING COLONOSCOPY FLX DX W/COLLJ SPEC WHEN Thuan Bajwa MD [address] [place] [address] [facility] Disease [address] [address] Referral ID Status Reason Start Date Expiration Date V isits Requested Visits Authorized [id number] Closed Auto-Generate d Referral 08/01/2022 08/02/2023 1 1 [facility]* Outpatient Procedure (Routine) - Closed Specialty Diagnoses / Procedures Referred By Contac t Referred To Contact [facility] Diagnoses Special screening for malignant neoplasms, colon Procedures COLONOSCOPY SCREENING COLONOSCOPY FLX DX W/COLLJ SPEC WHEN Thuan Bajwa MD [address] [place] [address] [facility] [place] [address] [place] [address] Referral ID Status Reason Start Date Expiration Date V isits Requested Visits Authorized [id number] Closed Auto-Generate d Referral 08/01/2022 08/02/2023 1 1 [facility] Summary Purpose Family History No Family History Records FoundNo Family History Records FoundNo Family History Records Found Advance Directives No Advanced Directives Records FoundDocuments on File Type Date Recorded Patient Cpas Expl anation Advance Directive(s) 07/16/2017 8:06 AM Advance Directive Response Recorded Date/ Time Living Will No July 17, 2020 7 :44am Power of [place] Feather Trimmer No July 17, 2020 7:44am Advance Directive Response Recorded Date/ Time Living Will No January 09 3:45pm Power of [place] Feather Trimmer No January 09, 2022 3:45pm Medications Administered Section Inactive Administered Medications - up to 3 most recent administrations Medication Order MAR Action Action Date Dose Rate Site triamcinolone acetonide 40 mg injection (KeNALog 40) 40 mg, INTRAMUSCULAR, ONCE, 1 dose, On Jyoti 07/28/21 at 0930 Given 07/28/2021 9:57 AM EDT 40 mg Del toid, Right Inactive Administered Medications - up to 3 most recent administrations Medication Order MAR Action Action Date Dose Rate Site triamcinolone acetonide 40 mg injection (KeNALog 40) 40 mg, INTRAMUSCULAR, ONCE, 1 dose, On 08/01/22 at 1000 Given 08/01/2022 9:59 AM EDT 40 mg Arm, Right Inactive Administered Medications - up to 3 most recent administrations Medication Order MAR Action Action Date Dose Rate Site diphenhydrAMINE 12.5-50 mg injection (BENADRYL) 12.5-50 mg, INTRAVENOUS, DIRECTED, Starting on Jyoti 08/24/22 at 1000, Until Jyoti 08/24/22 at 1359, DOSING DIRECTED BY PHYSICIAN FOR PROCEDURAL SEDATION ONLY, Intraprocedure Given 08/24/2022 9:28 AM EDT 50 mg fentaNYL 50 mcg/mL 25-100 mcg injection (SUBLIMAZE) 25-100 mcg, INTRAVENOUS, DIRECTED, Starting on Jyoti 08/24/22 at 1000, Until Jyoti 08/24/22 at 1359, DOSING DIRECTED BY PHYSICIAN FOR PROCEDURAL SEDATION ONLY, Intraprocedure Given 08/24/2022 9:33 AM EDT 50 mcg Given 08/24/2022 9:26 AM EDT 50 mcg lactated ringers iv infusion 30 mL/hr, INTRAVENOUS, CONTINUOUS, Starting on Jyoti 08/24/22 at 0830, Until Jyoti 08/24/22 at 0951, Preprocedure New Bag/Syringe/Bottle 08/24/2022 8:30 AM EDT 30 mL/hr 30 mL/hr midazolam 1-5 mg injection (VERSED) 1-5 mg, INTRAVENOUS, DIRECTED, Starting on Jyoti 08/24/22 at 1000, Until Jyoti 08/24/22 at 1359, DOSING DIRECTED BY PHYSICIAN FOR PROCEDURAL SEDATION ONLY, Intraprocedure Given 08/24/2022 9:33 AM EDT 1 mg Given 08/24/2022 9:29 AM EDT 1 mg Given 08/24/2022 9:26 AM EDT 3 mg Reason for Referral Specialty Diagnoses / Procedures Referred By Chadwick neal Referred To Contact CT IMAGING Diagnoses Periumbilical abdominal pain Periumbilical mass Infection in abdomen (HCC) Procedures CT ABD/PEL W IVCON CT ABD & PELVIS W/CONTRAST Marya Bailey APRN.NIGHT MANAGER [address] [place] [address] Ct Imaging Referral ID Status Reason Start Date Expiration Date Visits Requested Visits Authorized [id number] Pending Review Auto-Generat ed Referral 2 02/08/2023 1 1 Specialty Diagnoses / Procedures Referred By Chadwick neal Referred To Contact [facility] IMAG[facility] Diagnoses Prolactinoma (HCC) Procedures MRI PITUITARY WO/W IVCON MRI BRAIN BRAIN STEM W/O W/CONTRAST MATERIAL Greg Watkins MD [address] [place] [id number] [facility] Referral ID Status Reason Start Date Expiration Date Visits Requested Visits Authorized [id number] Authorized Auto-Generat ed Referral 03/08/2023 1 1 Specialty Diagnoses / Procedures Referred By Chadwick neal Referred To Contact MR IMAG[facility] Diagnoses Prolactinoma (HCC) Procedures MRI PITUITARY WO/W IVCON MRI BRAIN BRAIN STEM W/O W/CONTRAST MATERIAL Greg Watkins MD [address] [address] [place] [address] Referral ID Status Reason Start Date Expiration Date V isits Requested Visits Authorized [id number] Closed Auto-Generate d Referral 02/06/2022 03/08/2023 1 1 Chief Complaint and Reason for Visit Chief Complaint ABD PAIN Additional Source Comments (unrecognized sect ion and content) No Status Records FoundNo Status Records FoundNo Status Records Found INFORMATION SOURCE (unrecogn ized section and content) DATE CREATED AUTHOR 01/06/2019 [facility] ([place]) DATE CREATED AUTHOR AUTHOR'S ORGANIZ ATION 12/19/2023 [facility] DATE CREATED AUTHOR AUTHOR'S ORGANIZ ATION 06/03/2024 [facility] Source Comments (unrecognize d section and content) In the event this informatio n is protected by the Federal Confidentiality of Alcohol and Drug Abuse Patient Records regulations: The Federal rules restrict any use of the information to criminally investigate or prosecute any alcohol or drug abuse patient.[facility] the event this information is protected by the Federal Confidentiality of Alcohol and Drug Abuse Patient Records regulations: The Federal rules restrict any use of the information to criminally investigate or prosecute any alcohol or drug abuse patient.[facility] the event this information is protected by the Federal Confidentiality of Alcohol and Drug Abuse Patient Records regulations: The Federal rules restrict any use of the information to criminally investigate or prosecute any alcohol or drug abuse patient.[facility] the event this information is protected by the Federal Confidentiality of Alcohol and Drug Abuse Patient Records regulations: The Federal rules restrict any use of the information to criminally investigate or prosecute any alcohol or drug abuse patient.[facility] Center[facility] the event this information is protected by the Federal Confidentiality of Alcohol and Drug Abuse Patient Records regulations: The Federal rules restrict any use of the information to criminally investigate or prosecute any alcohol or drug abuse patient.[facility] Center[facility] the event this information is protected by the Federal Confidentiality of Alcohol and Drug Abuse Patient Records regulations: The Federal rules restrict any use of the information to criminally investigate or prosecute any alcohol or drug abuse patient.[facility] Center[facility] the event this information is protected by the Federal Confidentiality of Alcohol and Drug Abuse Patient Records regulations: The Federal rules restrict any use of the information to criminally investigate or prosecute any alcohol or drug abuse patient.[facility] the event this information is protected by the Federal Confidentiality of Alcohol and Drug Abuse Patient Records regulations: The Federal rules restrict any use of the information to criminally investigate or prosecute any alcohol or drug abuse patient.[facility] Center[facility] the event this information is protected by the Federal Confidentiality of Alcohol and Drug Abuse Patient Records regulations: The Federal rules restrict any use of the information to criminally investigate or prosecute any alcohol or drug abuse patient.[facility] Center[facility] the event this information is protected by the Federal Confidentiality of Alcohol and Drug Abuse Patient Records regulations: The Federal rules restrict any use of the information to criminally investigate or prosecute any alcohol or drug abuse patient.[facility] Center[facility] the event this information is protected by the Federal Confidentiality of Alcohol and Drug Abuse Patient Records regulations: The Federal rules restrict any use of the information to criminally investigate or prosecute any alcohol or drug abuse patient.[facility] Center[facility] the event this information is protected by the Federal Confidentiality of Alcohol and Drug Abuse Patient Records regulations: The Federal rules restrict any use of the information to criminally investigate or prosecute any alcohol or drug abuse patient.[facility] Center[facility] the event this information is protected by the Federal Confidentiality of Alcohol and Drug Abuse Patient Records regulations: The Federal rules restrict any use of the information to criminally investigate or prosecute any alcohol or drug abuse patient.[facility] CenterIn the event this information is protected by the Federal Confidentiality of Alcohol and Drug Abuse Patient Records regulations: The Federal rules restrict any use of the information to criminally investigate or prosecute any alcohol or drug abuse patient.[facility] CenterIn the event this information is protected by the Federal Confidentiality of Alcohol and Drug Abuse Patient Records regulations: The Federal rules restrict any use of the information to criminally investigate or prosecute any alcohol or drug abuse patient.[facility] Center[facility] the event this information is protected by the Federal Confidentiality of Alcohol and Drug Abuse Patient Records regulations: The Federal rules restrict any use of the information to criminally investigate or prosecute any alcohol or drug abuse patient.[facility] CenterIn the event this information is protected by the Federal Confidentiality of Alcohol and Drug Abuse Patient Records regulations: The Federal rules restrict any use of the information to criminally investigate or prosecute any alcohol or drug abuse patient.[facility] CenterIn the event this information is protected by the Federal Confidentiality of Alcohol and Drug Abuse Patient Records regulations: The Federal rules restrict any use of the information to criminally investigate or prosecute any alcohol or drug abuse patient.[facility] CenterIn the event this information is protected by the Federal Confidentiality of Alcohol and Drug Abuse Patient Records regulations: The Federal rules restrict any use of the information to criminally investigate or prosecute any alcohol or drug abuse patient.[facility] CenterIn the event this information is protected by the Federal Confidentiality of Alcohol and Drug Abuse Patient Records regulations: The Federal rules restrict any use of the information to criminally investigate or prosecute any alcohol or drug abuse patient.[facility] Reason for Visit (unrecogniz ed section and content) Reason Onset Date Comments Refill Request 06/01/2021 Reason Onset Date Comments Refill Request 06/13/2021 Reason Comments Recheck 6 months Reason Comments Recheck Surgical hernia repa ir 2004, red, hot, painful Reason Comments Consult Reason Comments Prolactinoma New Patient Specialty Diagnoses / Procedures Referred By Contac t Referred To Contact Endocrinology Diagnoses Prolactinoma (HCC) Procedures CONSULT TO ENDOCRINOLOGY OFFICE/OUTPATIENT NEW HIGH MDM 60-74 MINUTES Thuan Westfall MD [address] [place] [address] Referral ID Status Reason Start Date Expiration Date Visits Requested Visits Authorized [id number] Pending Review PCP Requested Referral 01/30/2022 01/30/2023 1 1 Reason Comments Patient Update Reason Comments F/U 6 months Specialty Diagnoses / Procedures Referred By Contac t Referred To Contact MR IMAGING Diagnoses Prolactinoma (HCC) Procedures MRI PITUITARY WO/W IVCON MRI BRAIN BRAIN STEM W/O W/CONTRAST MATERIAL Greg Watkins MD [address] [place] [address], [address] [place] [address] [facility] [facility] Referral ID Status Reason Start Date Expiration Date V isits Requested Visits Authorized [id number] Closed Auto-Generate d Referral 02/06/2022 03/08/2023 1 1 Reason Comments Allergies Requesting kenalog i njection Reason Comments F/U 6 months Reason Comments Results Reason Onset Date Comments Refill Request 02/22/2024 Reason Onset Date Comments Refill Request 03/25/2024 Reason Onset Date Comments Refill Request 04/04/2024 Reason Comments F/U 6 Month Allergy shot, medica tion refills and letter for work Care Teams (unrecognized sec tion and content) Lead Slot Technician Relationship Specialty Start Date End Date Thuan Westfall MD [address] [place], [place] [id number] PCP - General Internal Medicine 10/05/15 Lead Slot Technician Relationship Specialty Start Date End Date Thuan Westfall MD [address] [place], [place] [id number] PCP - General Internal Medicine 10/05/15 Lead Slot Technician Relationship Specialty Start Date End Date Thuan Westfall MD [address] [place] [address] PCP - General Internal Medicine 10/05/15 Lead Slot Technician Relationship Specialty Start Date End Date Thuan Westfall MD [address] [facility] [place] [address] PCP - General Internal Medicine 10/05/15 Lead Slot Technician Relationship Specialty Start Date End Date Thuan Westfall MD [address] [facility] [place] [address] PCP - General Internal Medicine 10/05/15 Lead Slot Technician Relationship Specialty Start Date End Date Thuan Westfall MD [address] [facility] [place] [address] PCP - General Internal Medicine 10/05/15 Lead Slot Technician Relationship Specialty Start Date End Date Thuan Westfall MD [address] [facility] [place] [address] PCP - General Internal Medicine 10/05/15 Lead Slot Technician Relationship Specialty Start Date End Date Thuan Westfall MD [address] [facility] [place] [address] PCP - General Internal Medicine 10/05/15 Lead Slot Technician Relationship Specialty Start Date End Date Thuan Westfall MD [address] [facility] [place] [address] PCP - General Internal Medicine 10/05/15 Lead Slot Technician Relationship Specialty Start Date End Date Thuan Westfall MD [address] [facility] [place] [address] PCP - General Internal Medicine 10/05/15 Lead Slot Technician Relationship Specialty Start Date End Date Thuan Westfall MD [address] [facility] [place] [address] PCP - General Internal Medicine 10/05/15 Lead Slot Technician Relationship Specialty Start Date End Date Thuan Westfall MD [address] [place] [address] PCP - General Internal Medicine 10/05/15 Lead Slot Technician Relationship Specialty Start Date End Date Thuan Westfall MD [address] [place] [address] PCP - General Internal Medicine 10/05/15 Lead Slot Technician Relationship Specialty Start Date End Date Thuan Westfall MD [address] [place] [address] PCP - General Internal Medicine 10/05/15 Lead Slot Technician Relationship Specialty Start Date End Date Thuan Westfall MD [address] [place] [address] PCP - General Internal Medicine 10/05/15 Lead Slot Technician Relationship Specialty Start Date End Date Thuan Westfall MD [address] [place] [address] PCP - General Internal Medicine 10/05/15 Val Landis PA-C [address] [place] [id number] Tractor Crane Operator Family Medicine 02/03/24 Marya Bailey APRN.CNP [address] [place] [address] Tractor Crane Operator Internal Medicine 02/03/24 Syl Serrato PA-C [address] [place] [address] Tractor Crane Operator Family Medicine 02/03/24 Lead Slot Technician Relationship Specialty Start Date End Date Thuan Westfall MD [address] [place] [address] PCP - General Internal Medicine 10/05/15 Val Landis PA-C [address] [place] [id number] Tractor Crane Operator Family Medicine 02/03/24 Marya Bailey APRN.NIGHT MANAGER [address] [place] [address] Tractor Crane Operator Internal Medicine 02/03/24 Syl Serrato PA-C [address] [place] [address] Tractor Crane Operator Family Medicine 02/03/24 Lead Slot Technician Relationship Specialty Start Date End Date Thuan Westfall MD [address] [place] [address] PCP - General Internal Medicine 10/05/15 Val Landis PA-C [address] [place] [address] Tractor Crane Operator Family Medicine 02/03/24 Marya Bailey APRN.NIGHT MANAGER [address] [place] [address] Tractor Crane Operator Internal Medicine 02/03/24 Syl Serrato PA-C [address] [place] [address] Tractor Crane Operator Family Medicine 02/03/24 Lead Slot Technician Relationship Specialty Start Date End Date Thuan Westfall MD [address] [place] [address] PCP - General Internal Medicine 10/05/15 Marya Bailey APRN.[facility] [address] [place] [address] Tractor Crane Operator Internal Medicine 02/03/24 Goals (unrecognized section and content) Goals may be documented in a n alternate sectionGoals may be documented in an alternate section FOR RECORDS PERTAINING TO PATIENTS WHO ARE OR HAVE BEEN ENROLLED IN A CHEMICAL DEPENDENCY/SUBSTANCEABUSE PROGRAM, SOME INFORMATION MAY BE OMITTED. This clinical summary was aggregated from multiple sources. Caution should be exercised in using it in the provision of clinical care. This summary normalizes information from multiple sources, and as a consequence, information in this document may materially change the coding, format and clinical context of patient data. In addition, data may be omitted in some cases. CLINICAL DECISIONS SHOULD BE BASED ON THE PRIMARY CLINICAL RECORDS. [employer] provides no warranty or guarantee of the accuracy or completeness of information in this document.
--- NOTE | 2024-10-25 12:09 | ED.VIS.LOWEX ---
HPI History of Present Illness Chief Complaint: Lower Extremity Injury Narrative Narrative: 53-year-old male who denies significant past medical history presents with pain in his right calf after pushing a mail truck up a hill out of the way. 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 He was on duty today when he was helping push a mail truck out of the way. He felt a pop in his right posterior calf, and now has pain with plantarflexion and dorsiflexion of his right foot. He denies other injuries. Otherwise, he does not really have pain with standing although it might be slightly dull and achy. He feels he may have strained a muscle versus had a tendon rupture. [facility] Medical History Palpitations Hypogonadotropic hypogonadism Chronic musculoskeletal pain Anxiety Incarcerated umbilical hernia Pituitary adenoma Hypothyroid Hyperlipidemia Depression GERD (gastroesophageal reflux disease) Home Medications ?Medication ?Instructions ?Recorded ?Last Taken ?Type duloxetine 30 mg capsule,delayed 30 mg PO DAILY 07/17/20 Unknown History release levothyroxine 50 mcg tablet 50 mcg PO DAILY 07/17/20 11/20/23 History (Levoxyl) pantoprazole 40 mg tablet,delayed 40 mg PO DAILY 10/03/23 Unknown History release cabergoline 0.5 mg tablet 0.5 mg PO SUWE 11/28/23 Unknown History Allergy/AdvReac Type Severity Reaction Status Date / Time Penicillins (PCN) Allergy Rash Verified 10/25/24 10:58 atorvastatin AdvReac Severe myalgia Verified 10/25/24 10:58 rosuvastatin (From Crestor) AdvReac Severe myalgia Verified 10/25/24 10:58 ezetimibe (From Zetia) AdvReac Intermediate Myalgia Verified 10/25/24 10:58 Sulfa (Sulfonamide AdvReac Nausea Verified 10/25/24 10:58 Antibiotics) Family History Mother Hypertension Hyperlipidemia Thyroid disorder Father Hypertension Hyperlipidemia Grandfather CVA (cerebral vascular accident) Surgical History History of electrophysiologic study (11/20/23) H/O umbilical hernia repair Social History Smoking Status: Never smoker Smokeless tobacco user: chewing tobacco alcohol intake: current alcohol intake frequency: holidays/special occasions only substance use type: does not use ROS ROS ED ROS Narrative Review of systems positive for right mid calf pain in between calf muscles and about the mid calf worse with plantarflexion and dorsiflexion of the right foot. No other injury. No pain with standing. EXAM Physical Exam Narrative Exam Narrative: GCS 15. ABCs intact. Cardiovascular examination regular rate and rhythm. Lungs clear to auscultation bilaterally. Abdomen is soft nontender with positive bowel sounds inspection of the right lower extremity shows positive flexion extension at right knee with full range of motion of right foot including plantarflexion and dorsiflexion. Mild tenderness to palpation in right mid calf, no erythema, no crepitance, no swelling. Negative Fabian test. No palpable Achilles tendon deficit. Palpable dorsalis pedis pulse. Const Vital Signs: 10/25/24 10:55 10/25/24 12:25 Temperature 99.4 F H 98.2 F Temperature Source Oral Pulse Rate 107 H 98 Respiratory Rate 18 18 Blood Pressure 163/111 H 156/115 H Blood Pressure Mean 128 128 Pulse Ox 96 99 Oxygen Delivery Method Room Air MDM MDM MDM Narrative Medical decision making narrative: Differential diagnosis includes but not limited to gastrocnemius tear versus soleus tear versus strain of these muscles versus plantaris tendon rupture. I have low suspicion for a very high Achilles tendon rupture as well. There could be a combination of other muscle strain/injury to his right calf. I have low suspicion for compartment syndrome currently. Calf is soft. He declined any analgesics including ibuprofen. X-rays were obtained of the right tibia and fibula to look for avulsion fracture as well. He will continue ice and elevation and Luis wrap will be applied. He will follow-up with in our clinic as this is a Worker's Compensation injury and take [id number] medications. He was also referred to orthopedics on-call, Dr. Rice. Patient declined crutches as well. Disposition is discharged in stable condition. History & Record Review Discussion w/independent historian: Patient Radiography Diagnostic Testing: Clinical Impression(s) from Imaging Studies Tibia/Fibula X-Ray 10/25/24 11:57 IMPRESSION: Normal right tibia and fibula. Reading Location: [facility] Discharge Plan Triage Chief Complaint: Lower Extremity Injury ED Provider: Giuliano Blanc Dx/Rx/DC Orders Clinical Impression: Strain of right calf muscle, Injury of calf Instructions: ED Bandage Elastic Wrap, ED Muscle Strain, Extremity Prescriptions: No Action pantoprazole 40 mg tablet,delayed release (DR/EC) 40 mg PO DAILY levothyroxine [Levoxyl] 50 mcg tablet 50 mcg PO DAILY duloxetine 30 mg capsule,delayed release(DR/EC) 30 mg PO DAILY cabergoline 0.5 mg tablet 0.5 mg PO SUWE Primary Care Provider: Criss Chandler Referrals: Criss Chandler MD [Primary Care Provider] - Braulio Rice DO [Med Staff - Active Staff] - As soon as possible Activity Restrictions/Additional Instructions: Elevate right lower extremity when possible. Follow-up with the [facility] or Day of Workmen's Compensation provider of your choice including orthopedics. Print Language: Nigerian Disposition Disposition: Home, Self Care Discharge Date/Time: 10/25/24 12:25
[2024-10-25 12:25] VITALS: BP 156/115; PULSE 98; RESP 18; TEMP 36.8; O2SAT 99
== END 2024-10-25 12:25 | disposition home or self-care (01) ==
PROVIDERS: Emergency Provider Emergency Medicine; PCP Internal Medicine; Visit Provider Emergency Medicine
DX: S86.111A Strain of other muscle(s) and tendon(s) of posterior muscle group at lower leg level, right leg, initial encounter (principal); E78.5 Hyperlipidemia, unspecified; K21.9 Gastro-esophageal reflux disease without esophagitis; E03.9 Hypothyroidism, unspecified; F41.9 Anxiety disorder, unspecified; X58.XXXA Exposure to other specified factors, initial encounter; Z79.899 Other long term (current) drug therapy
CPT/HCPCS: 73590; 99282

== ENCOUNTER → 2025-02-11 | Outpatient (CLI) | payer OTHER, SELFPAY ==
--- NOTE | 2025-02-11 06:39 | CT_ITS ---
PROCEDURE: LIMITED CHEST CT CARDIAC ONLY 02/11/2025 REASON FOR EXAM: SVT Elevated cholesterol level. TECHNIQUE: Procedure Code: [id number] Modality: CT Procedure: LIMITED CHEST CT CARDIAC ONLY CONTRAST: None One or more dose reduction techniques were used (e.g., Automated exposure control, adjustment of the mA and/or kV according to patient size, use of iterative reconstruction technique). RADIATION DOSE SUMMARY: CTDlvol: 12.19 mGy DLP: 219.42 mGycm COMPARISON: None FINDINGS: The heart is nonenlarged. Coronary artery calcification. The visualized portions of the lungs are unremarkable. Small hiatal hernia. CT/Limited Chest CT Cardiac Only IMPRESSION: Coronary artery calcification. Reading Location: [facility]
--- OUTSIDE RECORDS SUMMARY | 2025-02-11 06:40 | XMS RPT_ITS | CCD ---
Author Organization [facility] Care Team Providers Care Clearance Diver Name Role Phone Geraldine JUNIOR, Thuan Primary Care Provider Thuan Westfall MD Primary Care Provider [phone] Val Landis PA-C Unavailable [phone] Older PRODUCTION [email or web address].[email or web address], Marya Unavailable Syl Serrato PA-C Unavailable MIRA EDGE Attending Unavailable GANTA, THUAN Primary Care Unavailable GANTA, THUAN Primary Care Unavailable NICCI MARKS Attending Unavailable GANTA, THUAN Primary Care Unavailable NICCI MARKS Referring Unavailable GANTA, THUAN Primary Care Unavailable GANTA, THUAN Attending Unavailable Dr. Thuan Westfall MD Primary Care Provider [phone] Giuliano Blanc MD Emergency Provider [phone] Stuart, Khurram Consulting Unavailable Stuart, Khurram Referring Unavailable Gisel Chaudhary NP Attending Unavailable Ganta, Thuan Primary Care Unavailable Stuart, Khurram Attending Unavailable Stuart, Khurram Referring Unavailable Ganta, Thuan Primary Care Unavailable Stuart, Khurram Consulting Unavailable Stuart, Khurram Attending Unavailable Stuart, Khurram Referring Unavailable Ganta, Thuan Primary Care Unavailable Giuliano Blanc Attending Unavailable Ganta, Thuan Primary Care Unavailable Issa Perales NP Attending Unavailable Ganta, Thuan Primary Care Unavailable Ganta, Thuan Referring Unavailable Allergies Allergy Classification Reported Allergen(s) Allergy Type Date of Onset Reaction(s) Facility (20 sources) atorvastatin; Translations: [ATORVASTATIN CALCIUM] Drug Allergy 4 Other: See Comments [facility] Work Phone: (5 sources) Penicillins; Translations: [PENICILLINS] Propensity to adverse reactions 6 Rash [facility] (20 sources) Seasonal allergy; Translations: [SEASONAL ALLERGIES] Allergy to substance 8 Itching [facility] Work Phone: (20 sources) Sulfonamides (Antibiotic); Translations: [SULFA (SULFONAMIDE ANTIBIOTICS)] Drug Allergy 8 GI Upset [facility] (16 sources) Penicillins Propensity to adverse reactions 6 [facility] (2 sources) Penicillins Allergy to substance 2 Rash [facility] (2 sources) Sulfonamides (Antibiotic) Propensity to adverse reactions 2 Nausea [facility] (16 sources) ezetimibe; Translations: [EZETIMIBE] Drug Allergy 2 Diarrhea [facility] Work Phone: (16 sources) rosuvastatin; Translations: [ROSUVASTATIN] Drug Allergy 2 Other: See Comments [facility] Work Phone: (1 source) Penicillins Propensity to adverse reactions 6 [facility] (1 source) atorvastatin Drug Allergy 5 myalgia [facility] (1 source) atorvastatin Drug Allergy 5 [facility] Repository (1 source) ezetimibe Drug Allergy 5 [facility] (1 source) Penicillins Drug allergy (disorder) 5 [facility] (1 source) rosuvastatin Drug Allergy 5 [facility] (1 source) Sulfonamides (Antibiotic) Drug allergy (disorder) 5 [facility] Repository Medications Current Medications Medication Drug Class(es) Dates Sig (Normalized) Sig (Original) cephalexin 500 mg oral capsule (1 source) Cephalosporin Antibacterial Start: 07-17-2020 take 500 mg by mouth every twelve hours Cephalexin Active 500 MG PO EVERY 12 HOURS July 17, 2020 12:00am DULoxetine 30 mg delayed release oral capsule (20 sources) Serotonin and Norepinephrine Reuptake Inhibitor Start: 02-24-2024 End: 06-02-2024 DULoxetine (CYMBALTA) 30 mg capsule Indications: Anxiety TAKE 1 CAPSULE DAILY FOR CHRONIC MUSCULOSKELETAL PAIN 90 capsule 3 06/02/2024 Active Start: 02-27-2023 End: 02-22-2024 DULoxetine (CYMBALTA) 30 mg capsule TAKE 1 CAPSULE DAILY FOR CHRONIC MUSCULOSKELETAL PAIN 90 capsule 3 02/27/2023 02/22/2024 Discontinued Start: 07-17-2020 End: 07-28-2021 DULoxetine (CYMBALTA) 30 mg capsule TAKE 1 CAPSULE DAILY FOR CHRONIC MUSCULOSKELETAL PAIN 90 capsule 3 01/30/2022 Active Comment on above: TAKE 1 CAPSULE [...] capsule (3 sources) Proton Pump Inhibitor Start: 021 End: take 1 capsule by mouth once daily lansoprazole (PREVACID) 30 mg capsule Take 1 capsule by mouth once daily. 90 capsule 3 01/21/2021 07/28/2021 Discontinued Comment on above: Take 1 capsule by [facility] once daily. levothyroxine sodium 0.05 mg oral tablet (20 sources) l-Thyroxine Start: 025 End: 025 take 1 tablet by mouth once daily for thyroid dysfunction levothyroxine (LEVOXYL) 50 mcg tablet Indications: Hypothyroidism, unspecified type Take 1 tablet by mouth once daily. Take on empty stomach. For Thyroid 90 tablet 3 06/02/2024 Active Start: 07-17-2020 End: 04-04-2024 take 1 tablet by mouth once daily for thyroid dysfunction levothyroxine (LEVOXYL) 50 mcg tablet Indications: Hypothyroidism, unspecified type Take 1 tablet by mouth once daily. Take on empty stomach. For Thyroid 90 tablet 3 03/20/2023 04/04/2024 Discontinued Comment on above: Take 1 tablet by k[facility] once daily. Take on empty stomach. For [...] on above: Take 1 tablet by k[facility] once daily for 30 days. Take 1 capsule by [facility] once daily for 30 days. Take 1 capsule by mo [facility] once daily for 30 days. Do not start before February 24, 2021. Take 1 capsule by [facility] once daily for 30 days. Do not start before March 26, 2021. pantoprazole 40 mg delayed release oral tablet (20 sources) Proton Pump Inhibitor Start: 03-27-2024 End: 06-02-[address] (PROTONIX) 40 mg tablet Indications: Gastroesophageal reflux disease without esophagitis To take empty stomach with water 2 times a day. 180 tablet 3 06/02/2024 Active Start: 10-03-2023 take 1 tablet by k[facility]ore th once daily Pantoprazole 40 mg tablet,delayed release (DR/EC) Active 40 mg PO DAILY October 03, 2023 2:47pm Start: 09-10-2023 End: 10-03-2023 take 1 tablet by mouth twice daily Pantoprazole 40 mg tablet,delayed release (DR/EC) Discontinued 40 mg PO TWICE A DAY September 10, 2023 10:01am October 03, 2023 2:47pm Start: 03-20-2023 End: 03-25-[address] (PROTONIX) [...] 180 tablet 3 03/16/2021 Active Start: 11-19-2017 End: 09-10-2023 take 1 tablet by mouth once daily Pantoprazole 40 MG tablet Discontinued 40 mg PO DAILY November 19, 2017 12:00am September 10, 2023 10:02am Comment on above: To take empty stomac [...] on above: Take 1 tablet by [facility] every 6 hours as needed for Pain. acetaminophen 325 mg / oxyCODONE hydrochloride 5 mg oral tablet (1 source) Opioid Agonist Start: 01-09-2022 End: 08-29-2023 Oxycodone-Acetamino phen (Percocet) 5-325 mg tablet Discontinued 1 {tbl} PO Q4H as needed for pain 20 5 0 January 09, 2022 August 29, 2023 11:42am Recurrent incisional hernia with incarceration Incisional hernia with obstruction, without gangrene benzocaine 15 mg / menthol 2.6 mg oral lozenge (4 sources) Standardized Chemical Allergen Start: 07-10-2020 End: 01-09-2022 benzocaine-menthol (CEPACOL) 15-2.6 mg lozg lozenge Take 1 Lozenge by mouth every 3 hours as needed. 15 Lozenge 0 07/10/2020 01/09/2022 Discontinued (Discontinued by Patient) Comment on above: Take 1 Lozenge by mo [facility] every 3 hours as needed. cabergoline 0.5 mg oral tablet (20 sources) Ergot Derivative Start: 08-09-2022 End: 06-02-2024 take 1 tablet by mouth once Cabergoline 0.5 mg tablet Discontinued 0.5 mg PO .every September 10, 2023 10:02am November 28, 2023 8:54am Start: 02-19-2022 End: 08-07-2022 take 0.5 tablet [...] Comment on above: Take 1 tablet [facility] one time a week. Take 0.5 tablets by mouth every Sunday and Sunday. clonazePAM 0.5 mg oral tablet (18 sources) Benzodiazepine Start: 03-20-19 End: 10-26-19 take 1 tablet by mouth once daily as needed for anxiety Clonazepam 0.5 mg tablet Discontinued 0.5 mg PO DAILY as needed for anxiety November 28, 2023 8:53am October 25, 2024 11:10am Start: 01-31-2022 End: 05-01-2022 take 1 tablet by mouth once daily as needed clonazePAM (KLONOPIN) 0.5 mg tablet Indications: PFD (pelvic floor dysfunction) Take 1 tablet by mouth once daily as needed for up to 90 days. 30 tablet 1 01/31/2022 Active Start: 11-18-2019 take 1 tablet by k[facility]ore once daily as needed clonazePAM (KLONOPIN) 0.5 mg tablet Indications: PFD (pelvic floor dysfunction) Take 1 tablet by mouth once daily as needed for up to 90 days. 30 tablet 1 11/18/2019 Active Comment on above: Take 1 tablet by [facility] once daily as needed for up to 90 days. metoprolol tartrate 25 mg oral tablet (10 sources) beta-Adrenergic Loco Start: 08-29-2023 End: 06-02-2024 Metoprolol Tartrate 25 mg tablet Discontinued 12.5 mg PO TWICE A DAY 45 3 November 12, 2023 8:49am November 28, 2023 8:54am omega-3 acid ethyl esters (nursing home) 1000 mg oral capsule (4 sources) Start: 03-20-2023 End: 10-03-2023 [place]-3 Acid Ethyl Esters 1 gram capsule Discontinued 2 NMA PO TWICE A DAY September 10, 2023 12:00am October 03, 2023 2:46pm Start: 08-07-2022 omega-3 acid e thyl esters (LOVAZA) 1 gram capsule Indications: Mixed hyperlipidemia Take 2 capsules by mouth twice daily. 360 capsule 3 08/07/2022 Active Comment on above: Take 2 capsules by m [facility] twice daily. polyethylene glycol [id number] [id number] mg / potassium chloride 2970 mg / sodium bicarbonate 6740 mg / sodium chloride 5860 mg / sodium sulfate 32519 mg powder for oral solution (3 sources) [...] on above: Take 1 capsule by mo [facility] twice daily for 180 days. rosuvastatin calcium 10 mg oral tablet (10 sources) HMG-CoA Reductase Inhibitor Start: 018 End: take 1 tablet by mouth once daily rosuvastatin (CRESTOR) 10 mg tablet Indications: Mixed hyperlipidemia Take 1 tablet by mouth once daily. 90 tablet 3 07/28/2021 02/07/2022 Discontinued (Side Effects) Comment on above: TAKE 1 TABLET ONCE D AILY Take 1 tablet by kishore once daily. sildenafil 50 mg oral tablet (4 sources) Phosphodiesterase 5 Inhibitor Start: 023 End: take 1 tablet by mouth every twenty-four hours as needed Sildenafil 50 mg tablet Discontinued 50 mg PO Q24H as needed for erectile dysfunction September 10, 2023 12:00am October 25, 2024 11:10am Comment on above: Take 1 tablet by k[facility]ore th as needed. 1 ml triamcinolone acetonide 40 mg/ml injection (7 sources) Corticosteroid Start: End: triamcinolone acetonide 40 mg injection (KeNALog 40) [...] [Umbilical hernia without obstruction or gangrene] Onset: 7 Resolved: 3 10-03-2006 Episodic Abdominal pain (6 sources) Flank pain; Translations: [Unspecified abdominal pain] Episodic Allergic reactions (4 sources) Allergic condition; Translations: [Allergy, unspecified, initial encounter] Episodic Anxiety disorders (20 sources) Mixed anxiety and depressive disorder; Translations: [Anxiety disorder, unspecified] Onset: 6 Resolved: 2 10-30-2018 Chronic Cardiac dysrhythmias (4 sources) Supraventricular tachycardia; Translations: [SVT (supraventricular tachycardia) (HCC)] Onset: 4 09-17-2023 Chronic Disorders of lipid metabolism (20 sources) Mixed hyperlipidemia; Translations: [Mixed hyperlipidemia] Onset: 6 07-23-2018 Chronic Esophageal disorders (20 sources) Gastroesophageal reflux disease; Translations: [Gastro-esophageal reflux disease without esophagitis] Onset: 6 06-29-2005 Chronic Mood disorders (1 source) Depressive disorder; Translations: [Depression] 09-10-2023 Chronic Nausea and vomiting (2 sources) Nausea; Translations: [Nausea] 01-09-2022 Episodic Nutritional deficiencies (20 sources) Vitamin D deficiency; Translations: [Vitamin D deficiency, unspecified] Onset: 9 10-30-2018 Chronic Other and unspecified benign neoplasm (11 sources) Pituitary adenoma; 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] Onset: 9 10-30-2018 Episodic Other and unspecified benign neoplasm (3 sources) Prolactinoma; 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] Episodic Other connective tissue disease (1 source) Pelvic floor dysfunction; Translations: [Other specified disorders of muscle] 06-02-2024 Episodic Other connective tissue disease (1 source) Chronic musculoskeletal pain; Translations: [Myalgia, other site] 09-10-2023 Episodic Other connective tissue disease (1 source) Pain in right lower leg; Translations: [Pain in right lower leg] Onset: 5 Episodic Other endocrine disorders (16 sources) Male hypogonadism; Translations: [Testicular hypofunction] Onset: 2 Chronic Other endocrine disorders (19 sources) Hyperprolactinemia; Translations: [Hyperprolactinemia] Onset: 2 Chronic Other endocrine disorders (1 source) Hyperprolactinemia; Translations: [Hyperprolactinemia (HCC)] Onset: 2 Chronic Other endocrine disorders (1 source) Hypogonadotropic hypogonadism; Translations: [Hypopituitarism] 09-10-2023 Chronic Other gastrointestinal disorders (1 source) Central abdominal mass; Translations: [Periumbilic swelling, mass or lump] Episodic Other injuries and conditions due to external causes (1 source) Calf injury; Translations: [Unspecified injury of unspecified lower leg, initial encounter] 10-25-2024 Episodic Other nervous system disorders (1 source) [...] disease of abdomen; Translations: [Peritonitis, unspecified] Episodic Sprains and strains (1 source) Strain of calf muscle; Translations: [Strain of other muscle(s) and tendon(s) at lower leg level, right leg, initial encounter] 10-25-2024 Episodic Thyroid disorders (20 sources) Hypothyroidism; Translations: [Hypothyroidism, unspecified] Onset: 4 Chronic Unclassified (2 sources) Supraventricular tachycardia, unspecified; Translations: [Supraventricular tachycardia, unspecified] Onset: 4 Past or Other Problems Problem Classification Problem Date Documented Da te Episodic/Chronic Cardiac dysrhythmias (2 sources) Palpitations; Translations: [Palpitations] Onset: 12-18-2023 09-10-2023 Episodic Gastritis and duodenitis (15 sources) Gastritis; [...] Test Name Value Interpretation Reference Range Facility Emergency Department Summary on 10-25-2024 Emergency Department Summary [facility] Medical Records Department [address] [place] [address] Emergency Department Summary 10/25/24 MR#: [id number] Acct: [id number] Name: YO CINTRON Rep #: [id number] : 1970 53 From: Giuliano Blanc MD PCP: Dr. Thuan Westfall MD Status:DEP ER Location: ED HPI History of Present Illness Chief Complaint: Lower Extremity Injury Narrative Narrative: 53-year-old male who denies significant past medical history presents with pain in his right calf after pushing a mail truck up a hill out of the way. 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 He was on duty today when he was helping push a mail truck out of the way. He felt a pop in his right posterior calf, and now has pain with plantarflexion and dorsiflexion of his right foot. He denies other injuries. Otherwise, he does not really have pain with standing although it might be slightly dull and achy. He feels he may have strained a muscle versus had a tendon rupture. [facility] Medical History Palpitations Hypogonadotropic hypogonadism Chronic musculoskeletal pain Anxiety Incarcerated umbilical hernia Pituitary adenoma Hypothyroid Hyperlipidemia Depression GERD (gastroesophageal reflux disease) Home Medications ???Medication ???Instructions ???Recorded ???Last Taken ???Type duloxetine 30 mg capsule,delayed 30 mg PO DAILY 07/17/20 Unknown Hi story release levothyroxine 50 mcg tablet 50 mcg PO DAILY 07/17/20 11/20/23 History (Levoxyl) pantoprazole 40 mg tablet,delayed 40 mg PO DAILY 10/03/23 Unknown H istory release cabergoline 0.5 mg tablet 0.5 mg PO SUWE 11/28/23 Unknown Hi story Allergy/AdvReac Type Severity Reaction Status Date / Time Penicillins (PCN) Allergy Rash Verified 10/25/24 10:58 atorvastatin AdvReac Severe myalgia Verified 10/25/24 10:58 rosuvastatin (From Crestor) AdvReac Severe myalgia Verified 10/25/24 10:58 ezetimibe (From Zetia) AdvReac Intermediate Myalgia Verified 10/25/24 10:58 Sulfa (Sulfonamide AdvReac Nausea Verified 10/25/24 10:58 Antibiotics) Family History Mother Hypertension Hyperlipidemia Thyroid disorder Father Hypertension Hyperlipidemia Grandfather CVA (cerebral vascular accident) Surgical History History of electrophysiologic study (11/20/23) H/O umbilical hernia repair Social History Smoking Status: Never smoker Smokeless tobacco user: chewing tobacco alcohol intake: current alcohol intake frequency: holidays/special occasions only substance use type: does not use ROS ROS ED ROS Narrative Review of systems positive for right mid calf pain in between calf muscles and about the mid calf worse with plantarflexion and dorsiflexion of the right foot. No other injury. No pain with standing. EXAM Physical Exam Narrative Exam Narrative: GCS 15. ABCs intact. Cardiovascular examination regular rate and rhythm. Lungs clear to auscultation bilaterally. Abdomen is soft nontender with positive bowel sounds inspection of the right lower extremity shows positive flexion extension at right knee with full range of motion of right foot including plantarflexion and dorsiflexion. Mild tenderness to palpation in right mid calf, no erythema, no crepitance, no swelling. Negative Fabian test. No palpable Achilles tendon deficit. Palpable dorsalis pedis pulse. Const Vital Signs: 10/25/24 10:55 10/25/24 12:25 Temperature 99.4 F H 98.2 F Temperature Source Oral Pulse Rate 107 H 98 Respiratory Rate 18 18 Blood Pressure 163/111 H 156/115 H Blood Pressure Mean 128 128 Pulse Ox 96 99 Oxygen Delivery Method Room Air MDM MDM MDM Narrative Medical decision making narrative: Differential diagnosis includes but not limited to gastrocnemius tear versus soleus tear versus strain of these muscles versus plantaris tendon rupture. I have low suspicion for a very high Achilles tendon rupture as well. There could be a combination of other muscle strain/injury to his right calf. I have low suspicion for compartment syndrome currently. Calf is soft. He declined any analgesics including ibuprofen. X-rays were obtained of the right tibia and fibula to look for avulsion fracture as well. He will continue ice and elevation and Luis wrap will be applied. He will follow-up with in our clinic as this is a Worker's Compensation injury and take [id number] medications. He was also referred to orthopedics on-call, Dr. Rice. Patient declined crutches as well. Disposition is discharged in stable condition. History Record Review Discussion w/independent historian: Patient Radiography Diagnos (more content not included)... Normal [facility] Tibia Fibula 2 Viewson 10-25 Tibia Fibula 2 Views [facility] Imaging Services [address] [place] [address] Tibia Fibula 2 Views MR#: [id number] Acct: [id number] Name: YO CINTRON Rep #: [id number] : 1970 M 53 From: Sunil Carrillo MD PCP: Dr. Thuan Westfall MD Status: REG ER Study: Tibia Fibula 2 Views Date of Exam: 10/25/24 Exam# [id number] Ordering Dr: Giuliano Blanc MD EXAM: Two-view x-ray evaluation of the right tibia and fibula. CLINICAL HISTORY: Posterior calf pain. COMPARISON: None. TECHNIQUE: AP and lateral views of the right tibia and fibula were obtained. FINDINGS: The tibia and fibula are intact. The knee and ankle joints appear unremarkable. 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 There are no soft tissue abnormalities. RAD/Tibia Fibula 2 Views IMPRESSION: Normal right tibia and fibula. Reading Location: [facility] CC: Dr. Giuliano Blanc MD; Dr. 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 He underwent an attempted ablation at [facility], but the procedure was unsuccessful in inducing [...] itching. He also mentions upcoming travel to [place] to visit his mother, who has severe [...] monitoring prolactin (more content not included)... Normal [facility] Cardiology Visit Reporton Cardiology Visit Report [facility] 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 Dumont at [facility] in which no inducible SVT was noted. [...] BP Intake Visit Reasons: 8 W FU Legal Administrative Secretary Required: No Is patient in pain?: No [...] the past year?: Yes (Trip and fall) [facility] Medical History Palpitations Hypogonadotropic hypogonadism Chronic musculoskeletal [...] easy bruis (more content not included)... Normal [facility] Basic Metabolic Profile (BMP )on 11-20-2023 BUN/CRE 10.2 RATIO Normal 12-15 [facility] Comment on above: Performed By: #### L 100.0500, L500.2500 #### [facility] [address] [place], [address] CA,Total 9.5 mg/dL Normal 8.5-10.1 [facility] Comment on above: Performed By: #### L 100.0500, L500.2500 #### [facility] [address] [place], [address] Chloride [Moles/Vol] 107 mmol/L Normal 98-107 [facility] Comment on above: Performed By: #### L 100.0500, L500.2500 #### [facility] [address] [place], [address] CO2 [Moles/Vol] 27.0 mmol/L Normal 21.0-32.0 [facility] Comment on above: Performed By: #### L 100.0500, L500.2500 #### [facility] [address] [place], [address] Creatinine [Mass/Vol] 1.18 mg/dL Normal 0.70-1.30 [facility] Comment on above: Result Comment: The validity of the calculated GFR GFRAA in patients over 70 years has not been determined. Clinical correlation is essential. Performed By: #### L 100.0500, L500.2500 #### [facility] [address] [place], [address] ECRCL 83.31 ml/min Normal [facility] Comment on above: Performed By: #### L 100.0500, L500.2500 #### [facility] [address] [place], [address] EST GFR - AA 83 mL/min Normal >60 [facility] Comment on above: Result Comment: Afri can [place] Citizen GFR Calc Performed By: #### L 100.0500, L500.2500 #### [facility] [address] [place], [address] GAP 5 Normal 5-15 [facility] Comment on above: Performed By: #### L 100.0500, L500.2500 #### [facility] [address] [place], [address] GFR/1.73 sq M.predicted among non-blacks MDRD (S/P/Bld) [Vol rate/Area] 69 mL/min/{1.73_m2} Normal >60 [facility] Comment on above: Result Comment: Non- GFR Calc Performed By: #### L 100.0500, L500.2500 #### [facility] [address] [place], [address] Glucose [Mass/Vol] 104 mg/dL Normal 74-106 [facility] Comment on above: Result Comment: Fast ing Glucose result from 100 to 125 mg/dL suggests IMPAIRED HOMEOSTASIS per A.D.A. criteria. Performed By: #### L 100.0500, L500.2500 #### [facility] [address] [place], [address] Potassium [Moles/Vol] 4.2 mmol/L Normal 3.5-5.1 [facility] Comment on above: Performed By: #### L 100.0500, L500.2500 #### [facility] [address] [place], [address] Sodium [Moles/Vol] 139 mmol/L Normal 136-145 [facility] Comment on above: Performed By: #### L 100.0500, L500.2500 #### [facility] [address] [place], [address] Urea nitrogen [Mass/Vol] 12 mg/dL Normal 7-18 [facility] Comment on above: Performed By: #### L 100.0500, L500.2500 #### [facility] [address] [place], [address] CBC-Complete Blood Cnt No Di ffon 11-20-2023 Erythrocyte distribution width (RBC) [Ratio] 12.9 % Normal 11.6-14.6 [facility] Comment on above: Performed By: #### L 100.0500, L500.2500 #### [facility] [address] [place], [address] Hematocrit (Bld) [Volume fraction] 48.7 % Normal 40-54 [facility] Comment on above: Performed By: #### L 100.0500, L500.2500 #### [facility] [address] [place], [address] Hemoglobin (Bld) [Mass/Vol] 15.6 g/dL Normal 13.0-16.5 [facility] Comment on above: Performed By: #### L 100.0500, L500.2500 #### [facility] [address] [place], [address] MCH (RBC) [Entitic mass] 28.4 pg Normal 27.0-32.0 [facility] Comment on above: Performed By: #### L 100.0500, L500.2500 #### [facility] [address] [place], [address] MCHC (RBC) [Mass/Vol] 32.0 g/dL Normal 32-36 [facility] Comment on above: Performed By: #### L 100.0500, L500.2500 #### [facility] [address] [place], [address] MCV (RBC) [Entitic vol] 88.5 fL Normal 80-94 [facility] Comment on above: Performed By: #### L 100.0500, L500.2500 #### [facility] [address] [place], [address] Platelet mean volume (Bld) [Entitic vol] 9.1 fL Normal 6.2-12.0 [facility] Comment on above: Performed By: #### L 100.0500, L500.2500 #### [facility] [address] [place], [address] Platelets (Bld) [#/Vol] 251 10*3/uL Normal 150-450 [facility] Comment on above: Performed By: #### L 100.0500, L500.2500 #### [facility] [address] [place], [address] RBC (Bld) [#/Vol] 5.50 10*6/uL Normal 4.6-6.2 [facility] Comment on above: Performed By: #### L 100.0500, L500.2500 #### [facility] [address] [place], [address] RDW SD 42.3 fl Normal 35.1-43.9 [facility] Comment on above: Performed By: #### L 100.0500, L500.2500 #### [facility] [address] [place], [address] WBC (Bld) [#/Vol] 6.9 10*3/uL Normal 4.4-11.0 [facility] Comment on above: Performed By: #### L 100.0500, L500.2500 #### [facility] [address] [place], [address] CVS/ELECTROSTUon 11-20-2023 CVS/ELECTROSTU [facility] [address] [place] [address] Electrophysiology Report MR#: [id number] Acct: [id number] Name: YO CINTRON Rep #: [id number] : 1970 M 53 From: Khurram Dumont MD PCP: Dr. Thuan Westfall MD Status: [facility] Study: Date of Exam: Exam# Ordering Dr: Electrophysiology Report Electrophysiology Report Yo West is a 53 year old male who has a past medical history of palpitations, hypogonadotropic hypogonadism, depression, hyperlipidemia, hypothyroidism, and an incarcerated hernia, who presented to the [place] [facility] lab for further evaluation regarding palpitations [...] Dumont MD Date Dictated: 11/20/231128 Date Transcribed: 11/20/231128 Sugar Cane Grower: WHITNEY Signed Normal [facility] 09-25-2023 [facility] Telephone (INTMWS) YO CINTRON ([id number]) 1970 M Date Time Provider Department 09/25/23 NICCI MARKS During your visit today, we recorded the following information about you: Nicci Marks APRN.JEWEL 09/25/2023 4:12 PM Signed Yo Arriaga is [...] 9:55 AM Signed Patient scheduled 10.17.2023. Sent XL Video message. I will postpone and follow up on this to make sure patient reads it. Dayna Carney 10/02/2023 7:54 AM Signed Patient read XL Video message 10.01.2023 and is aware appointment is [...] Date Reviewed: 09/17/2023 Reviewed by: Nicci Marks APRN.WASTEWATER ENGINEER - Fully Assessed Reason for Visit: Results [...] Status:Closed by NICCI MARKS on 09/26/23 Normal [facility] 25(OH)D3 Regil-Arlinon 2023 25-hydroxyvitamin D3 [Mass/Vol] 55.0 ng/mL Normal 31.0-80.0 [facility] Comment on above: Order Comment: Speci men Type: BLOOD SPECIMEN Ordering Facility: [facility] Address: [address] [place] [address] Performed By: #### 1 989-3 #### [facility] CLIA [id number] [address] [place] [address] [place] CBC W Auto Differential pane l (Bld)on 09-19-2023 Basophils (Bld) [#/Vol] 0.06 10*3/uL Normal <0.11 [facility] Comment on above: Order Comment: Speci men Type: BLOOD SPECIMEN Ordering Facility: [facility] Address: [address] [place] [address] Performed By: #### 5 7021-8 #### [facility] CLIA [id number] [address] [place] [address] [place] Basophils/100 WBC (Bld) 0.9 % Normal [facility] Comment on above: Order Comment: Speci men Type: BLOOD SPECIMEN Ordering Facility: [facility] Address: [address] [place] [address] Performed By: #### 5 7021-8 #### [facility] CLIA [id number] [address] [place] [address] [place] Differential cell count method Nom (Bld) Auto Normal [facility] Comment on above: Order Comment: Speci men Type: BLOOD SPECIMEN Ordering Facility: [facility] Address: [address] [place] [address] Performed By: #### 5 7021-8 #### [facility] CLIA [id number] [address] [place] [address] [place] Eosinophils (Bld) [#/Vol] 0.12 10*3/uL Normal <0.46 [facility] Comment on above: Order Comment: Speci men Type: BLOOD SPECIMEN Ordering Facility: [facility] Address: [address] [place] [address] Performed By: #### 5 7021-8 #### [facility] CLIA [id number] [address] [place] [address] [place] Eosinophils/100 WBC (Bld) 1.8 % Normal [facility] Comment on above: Order Comment: Speci men Type: BLOOD SPECIMEN Ordering Facility: [facility] Address: [address] [place] [address] Performed By: #### 5 7021-8 #### [facility] CLIA [id number] [address] [place] [address] [place] Erythrocyte distribution width (RBC) [Ratio] 13.8 % Normal 11.5-15.0 [facility] Comment on above: Order Comment: Speci men Type: BLOOD SPECIMEN Ordering Facility: [facility] Address: [address] [place] [address] Performed By: #### 5 7021-8 #### [facility] CLIA [id number] [address] [place] [address] [place] Hematocrit (Bld) [Volume fraction] 50.4 % Normal 39.0-51.0 [facility] Comment on above: Order Comment: Speci men Type: BLOOD SPECIMEN Ordering Facility: [facility] Address: [address] [place] [address] Performed By: #### 5 7021-8 #### [facility] CLIA [id number] [address] [place], [place] [address] [place] Hemoglobin (Bld) [Mass/Vol] 16.1 g/dL Normal 13.0-17.0 [facility] Comment on above: Order Comment: Speci men Type: BLOOD SPECIMEN Ordering Facility: [facility] Address: [address] [place] [address] Performed By: #### 5 7021-8 #### [facility] CLIA [id number] [address] [place] [address] [place] Immature granulocytes (Bld) [#/Vol] 10*3/uL Normal <0.10 [facility] Comment on above: Order Comment: Speci men Type: BLOOD SPECIMEN Ordering Facility: [facility] Address: [address] [place] [address] Performed By: #### 5 7021-8 #### [facility] CLIA [id number] [address] [place] [address] [place] Immature granulocytes/100 WBC (Bld) 0.3 % Normal [facility] Comment on above: Order Comment: Speci men Type: BLOOD SPECIMEN Ordering Facility: [facility] Address: [address] [place] [address] Performed By: #### 5 7021-8 #### [facility] CLIA [id number] [address] [place] [address] [place] Lymphocytes (Bld) [#/Vol] 1.84 10*3/uL Normal 1.00-4.00 [facility] Comment on above: Order Comment: Speci men Type: BLOOD SPECIMEN Ordering Facility: [facility] Address: [address] [place] [address] Performed By: #### 5 7021-8 #### [facility] CLIA [id number] [address] [place] [address] [place] Lymphocytes/100 WBC (Bld) 26.9 % Normal [facility] Comment on above: Order Comment: Speci men Type: BLOOD SPECIMEN Ordering Facility: [facility] Address: [address] [place] [address] Performed By: #### 5 7021-8 #### [facility] CLIA [id number] [address] [place] [address] [place] MCH (RBC) [Entitic mass] 28.8 pg Normal 26.0-34.0 [facility] Comment on above: Order Comment: Speci men Type: BLOOD SPECIMEN Ordering Facility: [facility] Address: [address] [place] [address] Performed By: #### 5 7021-8 #### [facility] CLIA [id number] [address] [place] [address] [place] MCHC (RBC) [Mass/Vol] 31.9 g/dL Normal 30.5-36.0 [facility] Comment on above: Order Comment: Speci men Type: BLOOD SPECIMEN Ordering Facility: [facility] Address: [address] [place] [address] Performed By: #### 5 7021-8 #### [facility] CLIA [id number] [address] [place] [address] [place] MCV (RBC) [Entitic vol] 90.2 fL Normal 80.0-100.0 [facility] Comment on above: Order Comment: Speci men Type: BLOOD SPECIMEN Ordering Facility: [facility] Address: [address] [place] [address] Performed By: #### 5 7021-8 #### [facility] CLIA [id number] [address] [place] [address] [place] Monocytes (Bld) [#/Vol] 0.63 10*3/uL Normal <0.87 [facility] Comment on above: Order Comment: Speci men Type: BLOOD SPECIMEN Ordering Facility: [facility] Address: [address] [place] [address] Performed By: #### 5 7021-8 #### [facility] CLIA [id number] [address] [place] [address] [place] Monocytes/100 WBC (Bld) 9.2 % Normal [facility] Comment on above: Order Comment: Speci men Type: BLOOD SPECIMEN Ordering Facility: [facility] Address: [address] [place] [address] Performed By: #### 5 7021-8 #### [facility] CLIA [id number] [address] [place] [address] [place] Neutrophils (Bld) [#/Vol] 4.17 10*3/uL Normal 1.45-7.50 [facility] Comment on above: Order Comment: Speci men Type: BLOOD SPECIMEN Ordering Facility: [facility] Address: [address] [place] [address] Performed By: #### 5 7021-8 #### [facility] CLIA [id number] [address] [place] [address] [place] Neutrophils/100 WBC (Bld) 60.9 % Normal [facility] Comment on above: Order Comment: Speci men Type: BLOOD SPECIMEN Ordering Facility: [facility] Address: [address] [place] [address] Performed By: #### 5 7021-8 #### [facility] CLIA [id number] [address] [place] [address] [place] Nucleated RBC (Bld) [#/Vol] 10*3/uL Normal <0.01 [facility] Comment on above: Order Comment: Speci men Type: BLOOD SPECIMEN Ordering Facility: [facility] Address: [address] [place] [address] Performed By: #### 5 7021-8 #### [facility] CLIA [id number] [address] [place] [address] [place] Nucleated RBC/100 WBC (Bld) [Ratio] 0.0 /100 WBC Normal [facility] Comment on above: Order Comment: Speci men Type: BLOOD SPECIMEN Ordering Facility: [facility] Address: [address] [place] [address] Performed By: #### 5 7021-8 #### [facility] CLIA [id number] [address] [place] [address] [place] Platelet mean volume (Bld) [Entitic vol] 9.7 fL Normal 9.0-12.7 [facility] Comment on above: Order Comment: Speci men Type: BLOOD SPECIMEN Ordering Facility: [facility] Address: [address] [place] [address] Performed By: #### 5 7021-8 #### [facility] CLIA [id number] [address] [place] [address] [place] Platelets (Bld) [#/Vol] 269 10*3/uL Normal 150-400 [facility] Comment on above: Order Comment: Speci men Type: BLOOD SPECIMEN Ordering Facility: [facility] Address: [address] [place] [address] Performed By: #### 5 7021-8 #### [facility] CLIA [id number] [address] [place] [address] [place] RBC (Bld) [#/Vol] 5.59 10*6/uL Normal 4.20-6.00 [facility] Comment on above: Order Comment: Speci men Type: BLOOD SPECIMEN Ordering Facility: [facility] Address: [address] [place] [address] Performed By: #### 5 7021-8 #### [facility] CLIA [id number] [address] [place] [address] [place] WBC (Bld) [#/Vol] 6.84 10*3/uL Normal 3.70-11.00 [facility] Comment on above: Order Comment: Speci men Type: BLOOD SPECIMEN Ordering Facility: [facility] Address: [address] [place] [address] Performed By: #### 5 7021-8 #### [facility] CLIA [id number] [address] [place] [address] [place] Comprehensive metabolic 2000 panelon 09-19-2023 Albumin [Mass/Vol] 4.5 g/dL Normal 3.9-4.9 [facility] Comment on above: Order Comment: Speci men Type: BLOOD SPECIMEN Ordering Facility: [facility] Address: [address] [place] [address] Performed By: #### 1 989-3 #### [facility] CLIA [id number] [address] [place] [address] [place] ALP [Catalytic activity/Vol] 93 U/L Normal 38-113 [facility] Comment on above: Order Comment: Speci men Type: BLOOD SPECIMEN Ordering Facility: [facility] Address: [address] [place] [address] Performed By: #### 1 989-3 #### [facility] CLIA [id number] [address] [place] [address] [place] ALT [Catalytic activity/Vol] 26 U/L Normal 10-54 [facility] Comment on above: Order Comment: Speci men Type: BLOOD SPECIMEN Ordering Facility: [facility] Address: [address] [place] [address] Performed By: #### 1 989-3 #### [facility] CLIA [id number] [address] [place] [address] [place] Anion gap [Moles/Vol] 12 mmol/L Normal 8-15 [facility] Comment on above: Order Comment: Speci men Type: BLOOD SPECIMEN Ordering Facility: [facility] Address: [address] [place] [address] Performed By: #### 1 989-3 #### [facility] CLIA [id number] [address] [place] [address] [place] AST [Catalytic activity/Vol] 23 U/L Normal 14-40 [facility] Comment on above: Order Comment: Speci men Type: BLOOD SPECIMEN Ordering Facility: [facility] Address: [address] [place] [address] Performed By: #### 1 989-3 #### [facility] CLIA [id number] [address] [place] [address] [place] Bilirubin [Mass/Vol] 0.4 mg/dL Normal 0.2-1.3 [facility] Comment on above: Order Comment: Speci men Type: BLOOD SPECIMEN Ordering Facility: [facility] Address: [address] [place] [address] Performed By: #### 1 989-3 #### [facility] CLIA [id number] [address] [place] [address] [place] Calcium [Mass/Vol] 10.0 mg/dL Normal 8.5-10.2 [facility] Comment on above: Order Comment: Speci men Type: BLOOD SPECIMEN Ordering Facility: [facility] Address: [address] [place] [address] Performed By: #### 1 989-3 #### [facility] CLIA [id number] [address] [place] [address] [place] Chloride [Moles/Vol] 101 mmol/L Normal 98-107 [facility] Comment on above: Order Comment: Speci men Type: BLOOD SPECIMEN Ordering Facility: [facility] Address: [address] [place] [address] Performed By: #### 1 989-3 #### [facility] CLIA [id number] [address] [place] [address] [place] CO2 [Moles/Vol] 27 mmol/L Normal 22-30 [facility] Comment on above: Order Comment: Speci men Type: BLOOD SPECIMEN Ordering Facility: [facility] Address: [address] [place] [address] Performed By: #### 1 989-3 #### [facility] CLIA [id number] [address] [place] [address] [place] Creatinine [Mass/Vol] 1.19 mg/dL Normal 0.73-1.22 [facility] Comment on above: Order Comment: Tova pope Type: BLOOD SPECIMEN Ordering Facility: [facility] Address: [address] [place] [address] Performed By: #### 1 989-3 #### [facility] CLIA [id number] [address] [place] [address] [facility] Creatinine and Glomerular filtration rate.predicted panel (S/P/Bld) 73 mL/min/1.73m??? Normal >=60 [facility] Comment on above: Order Comment: Tova pope Type: BLOOD SPECIMEN Ordering Facility: [facility] Address: [address] [place] [address] Result Comment: Andree mated Glomerular Filtration Rate [...] GFR. Performed By: #### 1 989-3 #### [facility] CLIA [id number] [address] [place] [address] [place] Glucose [Mass/Vol] 97 mg/dL Normal 74-99 [facility] Comment on above: Order Comment: Tova pope Type: BLOOD SPECIMEN Ordering Facility: [facility] Address: [address] [place] [address] Result Comment: The [place] [employer] (ADA) provides guidance for cutoff [...] Standards of Medical Care in Diabetes 2016, [place] [employer]. Diabetes Care. 2016.39(Suppl 1). Performed By: #### 1 989-3 #### [facility] CLIA [id number] [address] [place] [address] [place] Potassium [Moles/Vol] 4.3 mmol/L Normal 3.7-5.1 [facility] Comment on above: Order Comment: Speci men Type: BLOOD SPECIMEN Ordering Facility: [facility] Address: [address] [place] [address] Performed By: #### 1 989-3 #### [facility] CLIA [id number] [address] [place] [address] [place] Protein [Mass/Vol] 7.4 g/dL Normal 6.3-8.0 [facility] Comment on above: Order Comment: Speci men Type: BLOOD SPECIMEN Ordering Facility: [facility] Address: [address] [place] [address] Performed By: #### 1 989-3 #### [facility] CLIA [id number] [address] [place] [address] [place] Sodium [Moles/Vol] 140 mmol/L Normal 136-144 [facility] Comment on above: Order Comment: Speci men Type: BLOOD SPECIMEN Ordering Facility: [facility] Address: [address] [place] [address] Performed By: #### 1 989-3 #### [facility] CLIA [id number] [address] [place] [address] [place] Urea nitrogen [Mass/Vol] 12 mg/dL Normal 9-24 [facility] Comment on above: Order Comment: Speci men Type: BLOOD SPECIMEN Ordering Facility: [facility] Address: [address] [place] [address] Performed By: #### 1 989-3 #### [facility] CLIA [id number] [address] [place] [address] [place] FSH SerPl-aCncon 09-19-2023 Follitropin Qn 4.4 m[IU]/mL Normal 1.5-12.4 [facility] Comment on above: Order Comment: Tova pope Type: BLOOD SPECIMEN Ordering Facility: [facility] Address: [address] [place] [address] Performed By: #### 1 989-3 #### [facility] CLIA [id number] [address] [place] [address] [place] HbA1c (Bld)on 09-19-2023 Average glucose Estimated from glycated hemoglobin (Bld) [Mass/Vol] 120 mg/dL Normal [facility] Comment on above: Order Comment: Tova pope Type: BLOOD SPECIMEN Ordering Facility: [facility] Address: [address] [place] [address] Result Comment: eAG: (Estimated average glucose) is a calculated value from HgbA1c and is sales representative wire rope of the average blood glucose level in the last 2-3 month period. Performed By: #### 5 5454-3 #### [facility] CLIA [id number] [address] [place] [address] [place] HbA1c (Bld) [Mass fraction] 5.8 % High 4.3-5.6 [facility] Comment on above: Order Comment: Tova pope Type: BLOOD SPECIMEN Ordering Facility: [facility] Address: [address] [place] [address] Result Comment: [place] Diabetes Association guidelines indicate that patients with HgbA1c in the range 5.7-6.4% are at increased risk for development of diabetes, and intervention by lifestyle modification may be beneficial. HgbA1c greater or equal to 6.5% is considered diagnostic of diabetes. Performed By: #### 5 5454-3 #### [facility] CLIA [id number] [address] [place] [address] [place] LH SerPl-aCncon 09-19-2023 Lutropin Qn 4.5 m[IU]/mL Normal 1.8-10.8 [facility] Comment on above: Order Comment: Speci men Type: BLOOD SPECIMEN Ordering Facility: [facility] Address: [address] [place] [address] Performed By: #### 1 989-3 #### [facility] CLIA [id number] [address] [place] [address] [place] Magnesium SerPl-mCncon 09-18 Magnesium [Mass/Vol] 2.3 mg/dL Normal 1.7-2.3 [facility] Comment on above: Order Comment: Speci men Type: BLOOD SPECIMEN Ordering Facility: [facility] Address: [address] [place] [address] Performed By: #### 1 9123-9, 3024-7, 3051-0, 3016-3 #### [facility] CLIA [id number] [address] [place] [address] [place] PSA/PROSTATE SPECIFIC ANTIGE N SCREENINGon 09-19-2023 Prostate specific Ag [Mass/Vol] 0.78 ng/mL Normal <2.60 [facility] Comment on above: Order Comment: Speci men Type: BLOOD SPECIMEN [facility] - [employer] Address: [address] [place] [address] Result Comment: Tota l PSA test methodology used is the Electrochemiluminescence Immunoassay by [employer]. Total PSA values by differing methodologies cannot be interchanged. Performed By: #### 1 989-3 #### [facility] CLIA [id number] [address] [place] [address] [place] Prolactin SerPl-mCncon 09-18 Prolactin [Mass/Vol] 9.3 ng/mL Normal 4.0-15.2 [facility] Comment on above: Order Comment: Speci men Type: BLOOD SPECIMEN Ordering Facility: [facility] [employer] Address: [address] [place] [address] Result Comment: Prol actin test is performed using the [employer] Electrochemiluminescence Immunoassay method. Results obtained with different methods or kits cannot be used interchangeably. Performed By: #### 5 7021-8 #### [facility] CLIA [id number] [address] [place] [address] [place] T3Free SerPl-mCncon 20 24 Free T3 [Mass/Vol] 2.8 pg/mL Normal 2.3-4.1 [facility] Comment on above: Order Comment: Speci men Type: BLOOD SPECIMEN Ordering Facility: [facility] [employer] Address: [address] [place] [address] Performed By: #### 1 9123-9, 3024-7, 3051-0, 3016-3 #### [facility] CLIA [id number] [address] [place] [address] [place] T4 Free SerPl-mCncon 024 Free T4 [Mass/Vol] 1.1 ng/dL Normal 0.9-1.7 [facility] Comment on above: Order Comment: Speci men Type: BLOOD SPECIMEN Ordering Facility: [facility] [employer] Address: [address] [place] [address] Performed By: #### 1 9123-9, 3024-7, 3051-0, 3016-3 #### [facility] CLIA [id number] [address] [place] [address] [place] TESTOSTERONE, FREE AND TOTAL on 09-19-2023 TESTOSTERONE, FREE, S 11.5 ng/dL Normal 4.06-15.6 [facility] Comment on above: Order Comment: Speci men Type: BLOOD SPECIMEN Ordering Facility: [facility] [employer] Address: [address] [place] [address] Result Comment: ADDITIONAL INFORMATION This test was developed and its performance characteristics determined by [facility] in a manner consistent with CLIA requirements. This test has not been cleared or approved by the U.S. Food and Drug Administration. Performed By: #### 1 989-3 #### [facility] CLIA [id number] [address] [place] [address] [place] TESTOSTERONE, TOTAL, S 319 ng/dL Normal 240-950 [facility] Comment on above: Order Comment: Speci men Type: BLOOD SPECIMEN Ordering Facility: [facility] [employer] Address: [address] [place] [address] Result Comment: ADDITIONAL INFORMATION Testing performed by Liquid Chromatography-Tandem Mass Spectrometry (LC-MS/MS). This test was developed and its performance characteristics determined by [facility] in a manner consistent with CLIA requirements. This test has not been cleared or approved by the U.S. Food and Drug Administration. Test Performed by: [place] [address] Composition Floor Setter: Jed Rahman Ph.D.; CLIA# [id number] Performed By: #### 1 989-3 #### [facility] CLIA [id number] [address] [place] [address] [place] TSH SerPl-aCncon 09-19-2023 TSH Qn 2.120 m[IU]/L Normal 0.270-4.200 [facility] Comment on above: Order Comment: Speci men Type: BLOOD SPECIMEN Ordering Facility: [facility] [employer] Address: [address] [place] [address] Performed By: #### 1 9123-9, 3024-7, 3051-0, 3016-3 #### [facility] CLIA [id number] [address] [place] [address] [place] CNOVon 09-17-2023 CNOV Office Visit (INTMWS ) YO CINTRON ([id number]) 1970 M Date Time Provider Department 09/17/23 11:00 AM NICCI MARKS During your visit today, we recorded the following information about you: Pulse Blood pressure Weight 75/minute 118/80 95.3 kg Nicci Marks APRN.WASTEWATER ENGINEER 09/17/2023 12:56 PM Signed SUBJECTIVE Yo Cintron [...] updated labs checked. Recently in ER at [facility] and found to have SVT. This seemed to be positional. Occurred with a deep breath or with standing. Short runs. No prior SVT issues. Planning to follow up with [facility]. Started on metoprolol. Had a [...] Comment: Added automatically from request for surgery [id number] Hypothyroid - 11/24/2013 Umbilical Hernia Without Mention [...] Behavior is (more content not included)... Normal [facility] CNOVon 06-27-2023 CNOV Office Visit (INTMWS ) YO CINTRON ([id number]) 1970 M Date Time Provider Department 06/27/23 10:40 AM MIRA EDGE INTMWS During your visit today, we recorded the following information about you: Pulse Respiration Blood pressure Weight 77/minute 12/minute 120/92 96.2 kg Mira Edge, PRODUCTION TROUBLESHOOTER.[facility] 06/27/2023 10:57 AM Signed CC: Patient presents [...] 01/02/2017 Pituitary macroadenoma (HCC) 01/02/2017 Pituitary tumor [facility] Endocrinology Sebaceous cyst 06/01/2006 SEBORRHEIC KERATOSIS [...] Constitutional: Appearance: Normal appearance. HENT: Mouth/Throat: Lips: [place]. Mouth: Mucous membranes are moist. Pharynx: Posterior [...] about the (more content not included)... Normal [facility] COLONOSCOPY SCREENINGon 06- [facility] MRI PITUITARY WO/W IVCONon 0 03-08-2022 [facility] Comprehensive metabolic 2000 panelon 02-07-2022 Albumin [Mass/Vol] 4.4 g/dL 3.9 - 4.9 g/dL [facility] ALP [Catalytic activity/Vol] 96 U/L 38 - 113 U/L [facility] ALT [Catalytic activity/Vol] 32 U/L 10 - 54 U/L [facility] Anion gap [Moles/Vol] 12 mmol/L 9 - 18 mmol/L [facility] AST [Catalytic activity/Vol] 29 U/L 14 - 40 U/L [facility] Bilirubin [Mass/Vol] 0.5 mg/dL 0.2 - 1.3 mg/dL [facility] Calcium [Mass/Vol] 9.7 mg/dL 8.5 - 10.2 mg/dL [facility] Chloride [Moles/Vol] 100 mmol/L 97 - 105 mmol/L [facility] CO2 [Moles/Vol] 26 mmol/L 22 - 30 mmol/L [facility] Creatinine [Mass/Vol] 1.22 mg/dL 0.73 - 1.22 mg/dL [facility] Estimated Glomerular Filtration Rate 72 mL/min/1.73m >=60 mL/min/1.73m [facility] Glucose [Mass/Vol] 86 mg/dL 74 - 99 mg/dL [facility] Potassium [Moles/Vol] 4.1 mmol/L 3.7 - 5.1 mmol/L [facility] Protein [Mass/Vol] 7.4 g/dL 6.3 - 8.0 g/dL [facility] Sodium [Moles/Vol] 138 mmol/L 136 - 144 mmol/L [facility] Urea nitrogen [Mass/Vol] 13 mg/dL 9 - 24 mg/dL [facility] HbA1c (Bld)on 01-18-2022 Average glucose Estimated from glycated hemoglobin (Bld) [Mass/Vol] 123 mg/dL [facility] HbA1c (Bld) [Mass fraction] 5.9 % High 4.3 - 5.6 % [facility] Lipid 1996 panelon 2 Cholesterol [Mass/Vol] 249 mg/dL High <200 mg/dL [facility] Cholesterol in HDL [Mass/Vol] 36 mg/dL Low >39 mg/dL [facility] Cholesterol in LDL [Mass/Vol] 143 mg/dL High <100 mg/dL [facility] Cholesterol in LDL/Cholesterol in HDL [Mass ratio] 3.97 {ratio} High <2.54 [facility] Cholesterol in VLDL [Mass/Vol] 70 mg/dL High <30 mg/dL [facility] Cholesterol non HDL [Mass/Vol] 213 mg/dL High <130 mg/dL [facility] Cholesterol.total /Cholesterol in HDL [Mass ratio] 6.92 {ratio} High <5.10 [facility] Fasting Time 12 hrs [facility] Triglyceride [Mass/Vol] 351 mg/dL High <150 mg/dL [facility] Absolute lymphocyte counton 01-09-2022 Lymphocytes Auto (Unsp spec) [#/Vol] 2.57 10*3/uL 0.83-4.51 [facility] Work Phone: [phone] Basophil percentageon 2021 Basophils/100 WBC (Bld) 0.7 % 0-1 [facility] Work Phone: [phone] Chloride [Moles/Vol] 104 mmol/L 98-107 [facility] Work Phone: [phone] Eosinophils/100 WBC (Bld) 2.3 % 0-5 [facility] Work Phone: [phone] Glucose [Mass/Vol] 104 mg/dL 74-106 [facility] Work Phone: Comment on above: Fasting Glucose resu lt from 100 to 125 mg/dL suggests IMPAIRED HOMEOSTASIS per A.D.A. criteria. Neutrophils (Bld) [#/Vol] 4.6 10*3/uL 2.0-7.7 [facility] Work Phone: Neutrophils/100 WBC (Bld) 55.9 % 47-70 [facility] Work Phone: Potassium [Moles/Vol] 4.1 mmol/L 3.5-5.1 [facility] Work Phone: [phone] Comment on above: Slight Hemolysis, Re sult may be falsely increased. Sodium [Moles/Vol] 138 mmol/L 136-145 [facility] Work Phone: WBC (Bld) [#/Vol] 8.3 10*3/uL 4.4-11.0 [facility] Work Phone: Blood erythrocytes count (nu mber/volume)on 01-09-2022 RBC (Bld) [#/Vol] 5.60 10*6/uL 4.6-6.2 [facility] Work Phone: Blood hemoglobin measurement (mass/volume)on 01-09-2022 Hemoglobin (Bld) [Mass/Vol] 16.5 g/dL 13.0-16.5 [facility] Work Phone: Blood lymphocytes/100 leukoc yteson 01-09-2022 Lymphocytes/100 WBC (Bld) 31.1 % 19-41 [facility] Work Phone: Blood monocytes/100 leukocyt eson 01-09-2022 Monocytes/100 WBC (Bld) 9.8 % 0-10 [facility] Work Phone: Blood platelet mean volumeon 01-09-2022 Platelet mean volume (Bld) [Entitic vol] 9.1 fL 6.2-12.0 [facility] Work Phone: Determination of erythrocyte mean corpuscular volume (MCV)on 01-09-2022 MCV (RBC) [Entitic vol] 87.9 fL 80-94 [facility] Work Phone: Hematocrit Auto (Bld) [Volum e fraction]on 01-09-2022 Hematocrit (Bld) [Volume fraction] 49.2 % 40-54 [facility] Work Phone: Laboratory - Chemistry and C hemistry - challengeon 01-09-2022 CO2 [Moles/Vol] 27.0 mmol/L 21.0-32.0 [facility] Work Phone: Urea nitrogen/Creatini ne [Mass ratio] 9.3 mg/mg 10-20 [facility] Work Phone: Laboratory - Hematology and Cell countson 01-09-2022 Erythrocyte distribution width (RBC) [Entitic vol] 42.4 fL 35.1-43.9 [facility] Work Phone: Erythrocyte distribution width (RBC) [Ratio] 13.2 % 11.6-14.6 [facility] Work Phone: Immature granulocytes/100 WBC (Bld) 0.200 % 0.0-0.9 [facility] Work Phone: Comment on above: IG% - Immature Granu locytes (promyelocytes, myelocytes and metamyelocytes) > 1% indicates that a LEFT SHIFT is Present. MCH (RBC) [Entitic mass] 29.5 pg 27.0-32.0 [facility] Work Phone: Nucleated RBC/100 WBC (Bld) [Ratio] 0 % 0-5 [facility] Work Phone: MCHC Auto (RBC) [Mass/Vol]on 01-09-2022 MCHC (RBC) [Mass/Vol] 33.5 g/dL 32-36 [facility] Work Phone: No Panel Informationon 01-09 Estimated Creatinine Clearance Calc 62.42 ml/min [facility] Work Phone: Estimated GFR (MDRD) Amer 69 mL/min >60 [facility] Work Phone: Comment on above: GFR Calc Estimated GFR (MDRD) Non-Af Amer 57 mL/min >60 [facility] Work Phone: Comment on above: Non- GFR Calc Platelets bldon 01-09-2022 Platelets (Bld) [#/Vol] 269 10*3/uL 150-450 [facility] Work Phone: Serum or plasma calcium dominique urement (mass/volume)on 01-09-2022 Calcium [Mass/Vol] 9.2 mg/dL 8.5-10.1 [facility] Work Phone: Serum or plasma creatinine m easurement (mass/volume)on 01-09-2022 Creatinine [Mass/Vol] 1.40 mg/dL 0.70-1.30 [facility] Work Phone: Comment on above: The validity of the calculated GFR & GFRAA in patients over 70 years has not been determined. Clinical correlation is essential. Serum or plasma urea nitroge n measurement (mass/volume)on 01-09-2022 Urea nitrogen [Mass/Vol] 13 mg/dL 7-18 [facility] Work Phone: Thin prep Papanicolaou smear with manual screeningon 01-09-2022 Thin prep Papanicolaou smear with manual screening 7 5-15 [facility] Work Phone: Basophil percentageon 2021 Basophil percentage 3.1 mg/dL 2.5-4.9 [facility] Work Phone: Chloride [Moles/Vol] 102 mmol/L 98-107 [facility] Work Phone: Glucose [Mass/Vol] 97 mg/dL 74-106 [facility] Work Phone: Potassium [Moles/Vol] 3.9 mmol/L 3.5-5.1 [facility] Work Phone: Sodium [Moles/Vol] 135 mmol/L 136-145 [facility] Work Phone: Laboratory - Chemistry and C hemistry - challengeon 10-03-2021 CO2 [Moles/Vol] 27.0 mmol/L 21.0-32.0 [facility] Work Phone: Urea nitrogen/Creatini ne [Mass ratio] 11.7 mg/mg 10-20 [facility] Work Phone: No Panel Informationon 10-03 Estimated GFR (MDRD) Amer 76 mL/min >60 [facility] Work Phone: Comment on above: GFR Calc Estimated GFR (MDRD) Non-Af Amer 63 mL/min >60 [facility] Work Phone: Comment on above: Non- GFR Calc Serum or plasma albumin dominique urement (mass/volume)on 10-03-2021 Albumin [Mass/Vol] 3.7 g/dL 3.2-5.0 [facility] Work Phone: Serum or plasma calcium dominique urement (mass/volume)on 10-03-2021 Calcium [Mass/Vol] 9.1 mg/dL 8.5-10.1 [facility] Work Phone: Serum or plasma creatinine m easurement (mass/volume)on 10-03-2021 Creatinine [Mass/Vol] 1.28 mg/dL 0.70-1.30 [facility] Work Phone: Comment on above: The validity of the calculated GFR & GFRAA in patients over 70 years has not been determined. Clinical correlation is essential. Serum or plasma urea nitroge n measurement (mass/volume)on 10-03-2021 Urea nitrogen [Mass/Vol] 15 mg/dL 7-18 [facility] Work Phone: MRI BRAIN W/ + W/O [...] Date: 01/06/2019 5:43:47 PM Ordering Provider:Aidee Cameron [facility] ([place]) Vital Signs Date Time Vital Sign Value Performing Clinician Silas currie 10-25-2024 12:25-0400 Body temperature 98.2 [degF] Dr. Thuan Westfall MD Work Phone: [phone] [place] [address] 10-25-2024 12:25-0400 Diastolic blood pressure 115 mm[Hg] Dr. Thuan Westfall MD Work Phone: [phone] [place] [address] 10-25-2024 12:25-0400 Heart rate 98 /min Dr. Thuan Westfall MD Work Phone: [phone] [place] [address] 10-25-2024 12:25-0400 Respiratory rate 18 /min Dr. Thuan Westfall MD Work Phone: [phone] [place] [address] 10-25-2024 12:25-0400 SaO2% (BldA) [Mass fraction] 99 % Dr. Thuan Westfall MD Work Phone: [phone])[phone] [place] [address] 10-25-2024 12:25-0400 Systolic blood pressure 156 mm[Hg] Dr. Thuan Westfall MD Work Phone: [phone] [place] [address] 10-25-2024 10:55-0400 Body height 177.[address] Thuan Westfall MD Work Phone: [phone] [place] [address] 10-25-2024 10:55-0400 Body mass index (BMI) [Ratio] 30.2 kg/m2 Dr. Thuan Westfall MD Work Phone: [phone])[phone] [place] [address] 10-25-2024 10:55-0400 Body weight 95.[address] Thuan Westfall MD Work Phone: [phone] [place] [address] 06-02-2024 09:31-0400 Diastolic blood pressure 86 mm[Hg] Thuan Westfall MD Work Phone: [phone] [place] [address] 06-02-2024 09:31-0400 Heart rate 75 /min Thuan Westfall MD Work Phone: [phone] [place] [address] 06-02-2024 09:31-0400 Respiratory rate 16 /min Thuan Westfall MD Work Phone: [phone] [place] [address] 06-02-2024 09:31-0400 Systolic blood pressure 135 mm[Hg] Thuan Westfall MD Work Phone: [facility] 09-17-2023 10:35-0400 Body mass index (BMI) [Ratio] 30.13 kg/m2 Nicci Kendrick PRODUCTION TROUBLESHOOTER.WASTEWATER ENGINEER Work Phone: [facility] 09-17-2023 10:35-0400 Body weight 95.25 kg Nicci Kendrick PRODUCTION TROUBLESHOOTER.WASTEWATER ENGINEER Work Phone: [facility] 09-17-2023 10:35-0400 Diastolic blood pressure 80 mm[Hg] Nicci Kendrick PRODUCTION TROUBLESHOOTER.WASTEWATER ENGINEER Work Phone: [facility] 09-17-2023 10:35-0400 Heart rate 75 /min Nicci Kendrick PRODUCTION TROUBLESHOOTER.WASTEWATER ENGINEER Work Phone: [facility] 09-17-2023 10:35-0400 SaO2% (BldA) [Mass fraction] 98 % Nicci Kendrick PRODUCTION TROUBLESHOOTER.WASTEWATER ENGINEER Work Phone: [facility] 09-17-2023 10:35-0400 Systolic blood pressure 118 mm[Hg] Nicci Kendrick PRODUCTION TROUBLESHOOTER.WASTEWATER ENGINEER Work Phone: [facility] 06-27-2023 10:30-0400 Body mass index (BMI) [Ratio] 30.42 kg/m2 Mira Kely PRODUCTION TROUBLESHOOTER.WASTEWATER ENGINEER Work Phone: [facility] 06-27-2023 10:30-0400 Body weight 96.16 kg Mira Kely PRODUCTION TROUBLESHOOTER.WASTEWATER ENGINEER Work Phone: [facility] 06-27-2023 10:30-0400 Diastolic blood pressure 92 mm[Hg] Mira Kely PRODUCTION TROUBLESHOOTER.WASTEWATER ENGINEER Work Phone: [facility] 06-27-2023 10:30-0400 Heart rate 77 /min Mira Kely PRODUCTION TROUBLESHOOTER.WASTEWATER ENGINEER Work Phone: [facility] 06-27-2023 10:30-0400 Respiratory rate 12 /min Mira Kely PRODUCTION TROUBLESHOOTER.WASTEWATER ENGINEER Work Phone: [facility] 06-27-2023 10:30-0400 SaO2% (BldA) [Mass fraction] 97 % Mira Edge PRODUCTION TROUBLESHOOTER.WASTEWATER ENGINEER Work Phone: [facility] 06-27-2023 10:30-0400 Systolic blood pressure 120 mm[Hg] Mira Edge PRODUCTION TROUBLESHOOTER.WASTEWATER ENGINEER Work Phone: [facility] 08-24-2022 10:19-0400 Diastolic blood pressure 88 mm[Hg] Pablo Alfaro MD Work Phone: [facility] 08-24-2022 10:19-0400 Heart rate 65 /min Pablo Alfaro MD Work Phone: [facility] 08-24-2022 10:19-0400 Respiratory rate 16 /min Pablo Alfaro MD Work Phone: [facility] 08-24-2022 10:19-0400 SaO2% (BldA) [Mass fraction] 95 % Pablo Alfaro MD Work Phone: [facility] 08-24-2022 10:19-0400 Systolic blood pressure 121 mm[Hg] Pablo Alfaro MD Work Phone: [facility] 08-24-2022 08:20-0400 Body temperature 97.5 [degF] Pablo Alfaro MD Work Phone: [facility] 08-01-2022 08:56-0400 Body height 177.8 cm Thuan Westfall MD Work Phone: [facility] 08-01-2022 08:56-0400 Body temperature 98.01 [degF] Thuan Westfall MD Work Phone: [facility] 08-01-2022 08:56-0400 Body weight 98.88 kg Thuan Westfall MD Work Phone: [facility] 08-01-2022 08:56-0400 Diastolic blood pressure 72 mm[Hg] Thuan Westfall MD Work Phone: [facility] 08-01-2022 08:56-0400 Heart rate 92 /min Thuan Westfall MD Work Phone: [facility] 08-01-2022 08:56-0400 Respiratory rate 12 /min Thuan Westfall MD Work Phone: [facility] 08-01-2022 08:56-0400 SaO2% (BldA) [Mass fraction] 99 % Thuan Westfall MD Work Phone: [facility] 08-01-2022 08:56-0400 Systolic blood pressure 120 mm[Hg] Thuan Westfall MD Work Phone: [facility] 02-06-2022 10:09-0500 Body height 177.8 cm Greg Watkins MD Work Phone: [facility] 02-06-2022 10:09-0500 Body weight 100.25 kg Greg Watkins MD Work Phone: [facility] 02-06-2022 10:09-0500 Diastolic blood pressure 92 mm[Hg] Greg Watkins MD Work Phone: [facility] 02-06-2022 10:09-0500 Heart rate 102 /min Greg Watkins MD Work Phone: [facility] 02-06-2022 10:09-0500 Respiratory rate 16 /min Greg Watkins MD Work Phone: [facility] 02-06-2022 10:09-0500 SaO2% (BldA) [Mass fraction] 96 % Greg Watkins MD Work Phone: [facility] 02-06-2022 10:09-0500 Systolic blood pressure 125 mm[Hg] Greg Watkins MD Work Phone: [facility] 01-09-2022 15:03-0500 Body height 175.26 cm [facility] Work Phone: 01-09-2022 15:03-0500 Body mass index (BMI) [Ratio] 32.5 kg/m2 [facility] Work Phone: 01-09-2022 15:03-0500 Body temperature 98.8 [degF] [facility] Work Phone: 01-09-2022 15:03-0500 Body weight 99.79 kg [facility] Work Phone: 01-09-2022 15:03-0500 Diastolic blood pressure 101 mm[Hg] [facility] Work Phone: 01-09-2022 15:03-0500 Heart rate 122 /min [facility] Work Phone: 01-09-2022 15:03-0500 Respiratory rate 16 /min [facility] Work Phone: 01-09-2022 15:03-0500 SaO2% (BldA) [Mass fraction] 98 % [facility] Work Phone: 01-09-2022 15:03-0500 Systolic blood pressure 146 mm[Hg] [facility] Work Phone: 01-09-2022 14:23-0500 Body height 175.3 cm Pablo Alfaro MD Work Phone: [facility] 01-09-2022 14:23-0500 Body temperature 97.3 [degF] Pablo Alfaro MD Work Phone: [facility] 01-09-2022 14:23-0500 Body weight 101.61 kg Pablo Alfaro MD Work Phone: [facility] 01-09-2022 14:23-0500 Diastolic blood pressure 92 mm[Hg] Pablo Alfaro MD Work Phone: [facility] 01-09-2022 14:23-0500 Heart rate 110 /min Pablo Alfaro MD Work Phone: [facility] 01-09-2022 14:23-0500 Respiratory rate 16 /min Pablo Alfaro MD Work Phone: [facility] 01-09-2022 14:23-0500 SaO2% (BldA) [Mass fraction] 97 % Pablo Alfaro MD Work Phone: [facility] 01-09-2022 14:23-0500 Systolic blood pressure 124 mm[Hg] Pablo Alfaro MD Work Phone: [facility] 01-09-2022 08:46-0500 Body temperature 98.2 [degF] Marya Older PRODUCTION TROUBLESHOOTER.WASTEWATER ENGINEER Work Phone: [facility] 01-09-2022 08:46-0500 Body weight 100.25 kg Marya Older PRODUCTION TROUBLESHOOTER.WASTEWATER ENGINEER Work Phone: [facility] 01-09-2022 08:46-0500 Diastolic blood pressure 82 mm[Hg] Marya Older PRODUCTION TROUBLESHOOTER.WASTEWATER ENGINEER Work Phone: [facility] 01-09-2022 08:46-0500 Heart rate 80 /min Marya Older PRODUCTION TROUBLESHOOTER.WASTEWATER ENGINEER Work Phone: [facility] 01-09-2022 08:46-0500 Respiratory rate 16 /min Marya Older PRODUCTION TROUBLESHOOTER.WASTEWATER ENGINEER Work Phone: [facility] 01-09-2022 08:46-0500 Systolic blood pressure 118 mm[Hg] Marya Older PRODUCTION TROUBLESHOOTER.WASTEWATER ENGINEER Work Phone: [facility] 07-28-2021 08:46-0400 Body temperature 97.5 [degF] Thuan Westfall MD Work Phone: [facility] 07-28-2021 08:46-0400 Body weight 99.79 kg Thuan Westfall MD Work Phone: [facility] 07-28-2021 08:46-0400 Diastolic blood pressure 86 mm[Hg] Thuan Westfall MD Work Phone: [facility] 07-28-2021 08:46-0400 Heart rate 97 /min Thuan Westfall MD Work Phone: [facility] 07-28-2021 08:46-0400 Respiratory rate 16 /min Thuan Westfall MD Work Phone: [facility] 07-28-2021 08:46-0400 SaO2% (BldA) [Mass fraction] 98 % Thuan Westfall MD Work Phone: [facility] 07-28-2021 08:46-0400 Systolic blood pressure 108 mm[Hg] Thuan Westfall MD Work Phone: [facility] 07-17-2020 07:38-0400 Body mass index (BMI) [Ratio] 30.1 kg/m2 [facility] Work Phone: Encounters Encounter Date Encounter Type Care Provider Facility Start: 10-25-2024 End: 10-25-2024 Emergency department patient visit Dr. Thuan Westfall MD Work Phone: -Emergency Department Work Phone: Start: 06-02-2024 End: 06-02-2024 ambulatory THUAN WESTFALL Facility:[facility] Start: 06-02-2024 End: 06-02-2024 Office outpatient visit 25 minutes Thuan Westfall MD Work Phone: [facility] [place] Comment on above: Gastroesophageal ref lux disease without esophagitis (Primary Dx); PFD (pelvic floor dysfunction); Allergy, sequela; Panic attack; Hypothyroidism, unspecified type; Anxiety; Hyperprolactinemia (HCC); Supraventricular tachycardia (HCC); Peripheral polyneuropathy Start: 04-04-2024 End: 04-08-2024 Refill Nicci Marks PRODUCTION TROUBLESHOOTER.WASTEWATER ENGINEER Work Phone: Internal [facility] Comment on above: Refill Request Start: 03-25-2024 End: 03-27-2024 Refill Nicci Marks PRODUCTION TROUBLESHOOTER.WASTEWATER ENGINEER Work Phone: Internal [facility] Comment on above: Refill Request Start: 03-04-2024 End: 03-07-2024 ambulatory Thuan Westfall MD Work Phone: Internal Medicine [facility] Start: 02-22-2024 End: 03-03-2024 Refill Mira Edge APRN.WASTEWATER ENGINEER Work Phone: Internal [facility] [place] Comment on above: Refill Request Start: 11-28-2023 End: 11-28-2023 ambulatory Issa Perales NP Facility:[facility] Start: 11-20-2023 ambulatory Khurram Chen ty:[facility] Start: 11-20-2023 End: 11-20-2023 ambulatory Khurram Stuart Facility:[facility] Start: 11-14-2023 ambulatory Khurram Stuart [facility] ty:[facility] Start: 09-25-2023 Telephone encounter Nicci Oconnor er PRODUCTION TROUBLESHOOTER.WASTEWATER ENGINEER Work Phone: Internal Medicine [place] Comment on above: Results Start: 09-24-2023 ambulatory Nicci Marks PRODUCTION TROUBLESHOOTER.WASTEWATER ENGINEER Work Phone: Internal Medicine [place] Comment on above: Testosterone results Start: 09-19-2023 End: 09-19-2023 ambulatory THUAN GANPAMELLA Facility:[facility] Start: 09-17-2023 End: 09-17-2023 Patient encounter procedure Nicci Marks PRODUCTION TROUBLESHOOTER.WASTEWATER ENGINEER Work Phone: Internal Medicine [place] Comment on above: Hyperprolactinemia ( HCC) (Primary Dx); Mixed hyperlipidemia; Hypothyroidism, unspecified type; Gastroesophageal reflux disease without esophagitis; SVT (supraventricular tachycardia) (HCC); Encounter for therapeutic drug monitoring; Vitamin D deficiency; Prostate cancer screening Start: 09-17-2023 End: 09-17-2023 ambulatory [facility] Facility:[facility] Start: 06-27-2023 End: 06-27-2023 ambulatory MIRA EDGE Facility:[facility] Start: 06-27-2023 End: 06-27-2023 Patient encounter procedure Mira Edge APRN.WASTEWATER ENGINEER Work Phone: Internal Medicine [place] Comment on above: Chronic seasonal all ergic rhinitis (Primary Dx) Start: 08-24-2022 End: 08-24-2022 Subsequent hospital visit by physician Pablo Alfaro MD Work Phone: Ambulatory Surgery Comment on above: Special screening fo r malignant neoplasms, colon [Z12.11] Start: 08-01-2022 End: 08-01-2022 Patient encounter procedure Thuan Westfall MD Work Phone: Internal Medicine [place] Comment on above: Hyperprolactinemia ( HCC) (Primary Dx); Hypothyroidism, unspecified type; Gastroesophageal reflux disease without esophagitis; Allergy, sequela; Environmental allergies; Mixed hyperlipidemia; Special screening for malignant neoplasms, colon Start: 03-08-2022 End: 03-08-2022 Subsequent hospital visit by physician [facility] (I-Stat/1.5t) Work Phone: Radiology Comment on [...] ambulatory Thuan Tyson Work Phone: Internal Medicine [facility] Start: 01-09-2022 End: 01-09-2022 Emergency department patient visit [facility]-Emergency Department Start: 01-09-2022 End: 01-09-2022 Patient encounter procedure Pablo Alfaro MD Work Phone: General Surgery Comment on above: Recurrent incisional hernia with incarceration (Primary Dx) Start: 01-09-2022 End: 01-09-2022 Patient encounter procedure Marya Bailey APRN.CNP Work Phone: Internal [facility] [place] Comment on above: Periumbilical abdomi nal pain (Primary Dx); Periumbilical mass; Infection in abdomen (HCC) Start: 10-03-2021 End: 10-03-2021 Patient encounter procedure [facility] Start: 07-28-2021 End: 07-28-2021 Patient encounter procedure Thuan Westfall MD Work Phone: Internal Medicine [place] Comment on above: Prostate cancer scre ening (Primary Dx); Mixed hyperlipidemia; Hypothyroidism, unspecified type; Prolactinoma (HCC); Neuropathy; Allergy, initial encounter Start: 06-13-2021 Refill Thuan Tyson Work Phone: Internal [facility] [place] Comment on above: Refill Request Start: 06-01-2021 Refill Thuan Tyson Work Phone: Internal [facility] [place] Comment on above: Refill Request Procedures Date Procedure Procedure Detail Performing Clinician Start: 10-25-2024 Plain X-ray of tibia and fibula Dr. Thuan Westfall MD Work Phone: Start: 09-17-2023 Adult depression screening assessment Nicci Marks PRODUCTION TROUBLESHOOTER.WASTEWATER ENGINEER Work Phone: Start: 03-16-2023 Lipid 1996 panel - S maryana or Plasma Mira Edge PRODUCTION TROUBLESHOOTER.WASTEWATER ENGINEER Work Phone: Start: 08-24-2022 Colonoscopy flx dx [...] Activity Detail Author Start: 08-24-2032 Colonoscopy Colonoscopy [facility] Start: 08-24-2032 Colorectal Cancer Screening Colorectal Cancer Screening [facility] Start: 08-24-2032 Screening for malignant neoplasm of colon [facility] Start: 03-16-2028 Lipid panel Lipid Screening [facility] Start: 01-18-2027 Lipid 1996 panel - Serum or Plasma Lipid Screening [facility] Start: 01-18-2027 LIPID SCREEN LIPID SCREEN [facility] Start: 09-18-2026 Diabetes Screening Diabetes Screening [facility] Start: 03-16-2026 Diabetes Screening Diabetes Screening [facility] Start: 11-11-2025 LIPID SCREEN LIPID SCREEN [facility] Start: 08-02-2025 Urine microalbumin profile [facility] Start: 06-02-2025 Annual PCP Team Chronic Disease Visit Annual PCP Team Chronic Disease Visit [facility] Start: 02-07-2025 DIABETES SCREEN DIABETES SCREEN [facility] Start: 02-07-2025 Diabetes Screening Diabetes Screening [facility] Start: 01-18-2025 DIABETES SCREEN DIABETES SCREEN [facility] Start: 01-09-2025 DIABETES SCREEN DIABETES SCREEN [facility] Start: 10-25-2024 [facility] Start: 09-16-2024 Annual PCP Team Chronic Disease Visit Annual PCP Team Chronic Disease Visit [facility] Start: 09-16-2024 Anxiety Screening Anxiety Screening [facility] Start: 09-16-2024 Depression Screening Depression Screening [facility] Start: 06-26-2024 Annual PCP Team Chronic Disease Visit Annual PCP Team Chronic Disease Visit [facility] Start: 06-02-2024 End: 06-02-2024 Patient encounter procedure 06/02/2024 9:00 AM EDT Office Visit [facility] [address] [place] [address] Thuan Westfall MD [address] [facility] [place], [place] [id number] Seasonal Allergies [facility] Comment on above: Seasonal Allergies Start: 03-21-2024 End: 03-21-2024 Patient encounter procedure 03/21/2024 8:40 AM EST Office Visit [facility] [address] [place] [address] Thuan Westfall MD [address] [facility] [place] [address] 6 month follow up [facility] Comment on above: 6 month follow up Start: 03-20-2024 Covid-19 Vaccine () Covid-19 Vaccine () [facility] Comment on above: Postponed from 10/27/2022 (Declined at t his time) Start: 03-04-2024 End: 06-03-2024 Lipid 1996 panel - Serum or Plasma LIPID PANEL BASIC Lab Routine Mixed hyperlipidemia Expected: 03/04/2024, Expires: 06/03/2024 [facility] Work Phone: Comment on above: Expected: 03/04/2024, Expires: Start: 11-12-2023 DIABETES SCREEN DIABETES SCREEN [facility] Start: 10-28-2023 Covid-19 Vaccine ( season) Covid-19 Vaccine () [facility] Start: 10-28-2023 Influenza vaccination [facility] Start: 09-19-2023 End: 09-19-2023 ambulatory 09/19/2023 8:00 AM EDT Results Only [place] [facility] Draw Station [id number] [facility] [address] [place] [id number] [place] Draw Station Start: 09-18-2023 End: 12-18-2023 25-hydroxyvitamin D3 [Mass/volume] in Serum or Plasma VITAMIN D 25 HYDROXY Lab Routine Vitamin D deficiency Expected: 09/18/2023, Expires: 12/18/2023 [facility] Comment on above: Expected: 09/18/2023, Expires: Start: 09-18-2023 End: 12-18-2023 CBC W Auto Differential panel - Blood COMPLETE BLOOD COUNT AND DIFFERENTIAL Lab Routine SVT (supraventricular tachycardia) (HCC) Encounter for therapeutic drug monitoring Expected: 09/18/2023, Expires: 12/18/2023 [facility] Work Phone: Comment on above: Expected: 09/18/2023, Expires: Start: 09-18-2023 End: 12-18-2023 Follitropin [Units/volume] in Serum or Plasma FOLLICLE STIMULATING HORMONE Lab Routine Hyperprolactinemia (HCC) SVT (supraventricular tachycardia) (HCC) Expected: 09/18/2023, Expires: 12/18/2023 [facility] Comment on above: Expected: 09/18/2023, Expires: Start: 09-18-2023 End: 12-18-2023 Hemoglobin A1c in Blood HEMOGLOBIN A1C Lab Routine Hyperprolactinemia (HCC) Expected: 09/18/2023, Expires: 12/18/2023 [facility] Comment on above: Expected: 09/18/2023, Expires: Start: 09-18-2023 End: 12-18-2023 Lutropin [Units/volume] in Serum or Plasma LUTEINIZING HORMONE Lab Routine Hyperprolactinemia (HCC) SVT (supraventricular tachycardia) (HCC) Expected: 09/18/2023, Expires: 12/18/2023 [facility] Comment on above: Expected: 09/18/2023, Expires: Start: 09-18-2023 End: 12-18-2023 Magnesium [Mass/volume] in Serum or Plasma MAGNESIUM Lab Routine SVT (supraventricular tachycardia) (HCC) Encounter for therapeutic drug monitoring Expected: 09/18/2023, Expires: 12/18/2023 [facility] Comment on above: Expected: 09/18/2023, Expires: Start: 09-18-2023 End: 12-18-2023 Prolactin [Mass/volume] in Serum or Plasma PROLACTIN Lab Routine Hyperprolactinemia (HCC) SVT (supraventricular tachycardia) (HCC) Encounter for therapeutic drug monitoring Expected: 09/18/2023, Expires: 12/18/2023 [facility] Comment on above: Expected: 09/18/2023, Expires: Start: 09-18-2023 End: 12-18-2023 PSA/PROSTATE SPECIFIC ANTIGEN SCREENING PSA/PROSTATE SPECIFIC ANTIGEN SCREENING Lab Routine Prostate cancer screening Expected: 09/18/2023, Expires: 12/18/2023 [facility] Comment on above: Expected: 09/18/2023, Expires: Start: 09-18-2023 End: 12-18-2023 TESTOSTERONE, FREE AND TOTAL TESTOSTERONE, FREE AND TOTAL Lab Routine Hyperprolactinemia (HCC) Expected: 09/18/2023, Expires: 12/18/2023 [facility] Comment on above: Expected: 09/18/2023, Expires: Start: 09-18-2023 End: 12-18-2023 Thyrotropin [Units/volume] in Serum or Plasma THYROID STIMULATING HORMONE Lab Routine Hypothyroidism, unspecified type SVT (supraventricular tachycardia) (HCC) Encounter for therapeutic drug monitoring Expected: 09/18/2023, Expires: 12/18/2023 [facility] Comment on above: Expected: 09/18/2023, Expires: Start: 09-18-2023 End: 12-18-2023 Thyroxine (T4) free [Mass/volume] in Serum or Plasma T4 FREE/FREE THYROXINE Lab Routine Hypothyroidism, unspecified type Encounter for therapeutic drug monitoring Expected: 09/18/2023, Expires: 12/18/2023 [facility] Comment on above: Expected: 09/18/2023, Expires: Start: 09-18-2023 End: 12-18-2023 Triiodothyronine (T3) Free [Mass/volume] in Serum or Plasma T3, FREE Lab Routine Hypothyroidism, unspecified type Encounter for therapeutic drug monitoring Expected: 09/18/2023, Expires: 12/18/2023 [facility] Comment on above: Expected: 09/18/2023, Expires: Start: 09-17-2023 End: 09-17-2023 Patient encounter procedure 09/17/2023 11:00 AM EDT Office Visit Internal Medicine [place] [id number] Nicci Marks APRN.[facility] [address] [place], [place] [address] 6 mth f/u needs meds refilled [facility] [place] Comment on above: 6 mth f/u needs meds refilled Start: 08-02-2023 ANNUAL PCP TEAM CHRONIC DISEASE VISIT ANNUAL PCP TEAM CHRONIC DISEASE VISIT [facility] Start: 05-15-2023 Shingrix Vaccine (2 of 2) Shingrix Vaccine (2 of 2) [facility] Start: 02-26-2023 Behavioral Health Screening Behavioral Health Screening [facility] Start: 01-30-2023 ANNUAL PCP TEAM CHRONIC DISEASE VISIT ANNUAL PCP TEAM CHRONIC DISEASE VISIT [facility] Start: 01-09-2023 ANNUAL PCP TEAM CHRONIC DISEASE VISIT ANNUAL PCP TEAM CHRONIC DISEASE VISIT [facility] Start: 10-27-2022 Influenza vaccination [facility] Start: 07-28-2022 ANNUAL PCP TEAM CHRONIC DISEASE VISIT ANNUAL PCP TEAM CHRONIC DISEASE VISIT [facility] Start: 02-16-2022 End: 04-18-2022 Prolactin [Mass/volume] in Serum or Plasma PROLACTIN BLD Lab Routine Hyperprolactinemia (HCC) Expected: 02/16/2022, Expires: 04/18/2022 [facility] Work Phone: Comment on above: Expected: 02/16/2022, Expires: 3 Start: 02-16-2022 End: 04-18-2022 Testosterone [Mass/volume] in Serum or Plasma TESTOSTERONE TOTAL Lab Routine Secondary hypogonadism Expected: 02/16/2022, Expires: 04/18/2022 [facility] Work Phone: Comment on above: Expected: 02/16/2022, Expires: 3 Start: 02-06-2022 End: 04-08-2022 Follitropin [Units/volume] in Serum or Plasma FSH BLD Lab Routine Secondary hypogonadism Expected: 02/06/2022, Expires: 04/08/2022 [facility] Work Phone: Comment on above: Expected: 02/06/2022, Expires: 3 Start: 02-06-2022 End: 04-08-2022 INSULIN LIK GR FAC I INSULIN LIK GR FAC I Lab Routine Prolactinoma ([facility]) Expected: 02/06/2022, Expires: 04/08/2022 [facility] Work Phone: Comment on above: Expected: 02/06/2022, Expires: 3 Start: 02-06-2022 End: 04-08-2022 Lutropin [Units/volume] in Serum or Plasma LUTEINIZING HORMONE Lab Routine Secondary hypogonadism Expected: 02/06/2022, Expires: 04/08/2022 [facility] Work Phone: Comment on above: Expected: 02/06/2022, Expires: 3 Start: 02-06-2022 End: 04-08-2022 Prolactin [Mass/volume] in Serum or Plasma PROLACTIN BLD Lab Routine Prolactinoma ([facility]) Expected: 02/06/2022, Expires: 04/08/2022 [facility] Work Phone: Comment on above: Expected: 02/06/2022, Expires: 3 Start: 02-06-2022 End: 04-08-2022 Testosterone [Mass/volume] in Serum or Plasma TESTOSTERONE TOTAL Lab Routine Secondary hypogonadism Expected: 02/06/2022, Expires: 04/08/2022 [facility] Work Phone: Comment on above: Expected: 02/06/2022, Expires: 3 Start: 02-06-2022 End: 04-08-2022 Thyrotropin [Units/volume] in Serum or Plasma TSH BLD Lab Routine Hypothyroidism, unspecified type Expected: 02/06/2022, Expires: 04/08/2022 [facility] Work Phone: Comment on above: Expected: 02/06/2022, Expires: 3 Start: 02-06-2022 End: 04-08-2022 Thyroxine (T4) free [Mass/volume] in Serum or Plasma T4 FREE/FREE THYROX Lab Routine Hypothyroidism, unspecified type Expected: 02/06/2022, Expires: 04/08/2022 [facility] Work Phone: Comment on above: Expected: 02/06/2022, Expires: 3 Start: 01-17-2022 ANNUAL PCP TEAM CHRONIC DISEASE VISIT ANNUAL PCP TEAM CHRONIC DISEASE VISIT [facility] Start: 01-17-2022 End: 03-19-2022 SCHEDULE LAB TESTING SCHEDULE LAB TESTING Lab Routine Expected: 01/17/2022, Expires: 03/19/2022 [facility] Work Phone: Comment on above: Expected: 01/17/2022, Expires: 3 Start: 01-09-2022 Umbilical hernioplasty Hernia, Umbilical Repair w/ Mesh (Not Applicable) [facility] Work Phone: Start: 01-09-2022 End: 03-11-2022 CBC W Auto Differential panel - Blood [facility] Work Phone: Comment on above: Expected: 01/09/2022, Expires: 3 Start: 01-09-2022 End: 03-11-2022 Comprehensive metabolic 2000 panel - Serum or Plasma [facility] Work Phone: Comment on above: Expected: 01/09/2022, Expires: 3 Start: 10-27-2021 Influenza vaccination [facility] Start: 07-28-2021 End: 09-27-2021 Prolactin [Mass/volume] in Serum or Plasma [facility] Work Phone: Comment on above: Expected: 07/28/2021, Expires: 2 Start: 07-28-2021 End: 09-27-2021 PSA/PROSTSPECAG SCRN [facility] Work Phone: Comment on above: Expected: 07/28/2021, Expires: 2 Start: 07-28-2021 End: 07-28-2022 T3 FREE BLD [facility] Work Phone: Comment on above: Expected: 07/28/2021, Expires: 3 Start: 07-28-2021 End: 07-28-2022 T4 FREE/FREE THYROX [facility] Work Phone: Comment on above: Expected: 07/28/2021, Expires: 3 Start: 07-28-2021 End: 07-28-2022 Thyrotropin [Units/volume] in Serum or Plasma [facility] Work Phone: Comment on above: Expected: 07/28/2021, Expires: 3 Start: 02-26-2021 DEPRESSION ASSESSMENT DEPRESSION ASSESSMENT [facility] Start: 2020 Pneumococcal Vaccine: 50+ (1 of 1 - PCV) Pneumococcal Vaccine: 50+ (1 of 1 - PCV) [facility] Start: 2020 SHINGRIX VACCINE (1 of 2) SHINGRIX VACCINE (1 of 2) [facility] Start: 11-14-2015 COLOGUARD (FIT-DNA) COLOGUARD (FIT-DNA) [facility] Start: 11-14-2015 Colonoscopy COLONOSCOPY [facility] Start: 11-14-2015 COLORECTAL CANCER SCREENING COLORECTAL CANCER SCREENING [facility] Start: 11-14-[address] COLONOGRAPHY [facility] Start: 11-14-2015 FECAL OCCULT BLOOD FECAL OCCULT BLOOD [facility] Start: 11-14-2015 Screening for malignant neoplasm of colon [facility] Start: 11-14-2015 SIGMOIDOSCOPY SIGMOIDOSCOPY [facility] Start: 1989 ADULT PREVNAR-13 ADULT PREVNAR-13 [facility] Start: 1989 Hepatitis B Vaccine (1 of 3 - 19+ 3-dose series) Hepatitis B Vaccine (1 of 3 - 19+ 3-dose series) [facility] Start: 1989 TWO PNEUMOVAX 5 YEARS APART PRIOR TO AGE 65 (#1) TWO PNEUMOVAX 5 YEARS APART PRIOR TO AGE 65 (#1) [facility] Start: 1988 HEPATITIS C SCREENING HEPATITIS C SCREENING [facility] Start: 1988 HIV SCREENING HIV SCREENING [facility] Start: 11-14-1975 COVID-19 VACCINE (#1) COVID-19 VACCINE (#1) [facility] Start: 11-14-1975 COVID-19 VACCINE (1) COVID-19 VACCINE (1) [facility] Start: 05-14-1971 COVID-19 VACCINE (#1) COVID-19 VACCINE (#1) [facility] Start: 1970 HEPATITIS B (1 of 3 - 3-dose series) HEPATITIS B (1 of 3 - 3-dose series) [facility] Start: 1970 Hepatitis B Vaccine (1 of 3 - 3-dose series) Hepatitis B Vaccine (1 of 3 - 3-dose series) [facility] End: 02-08-2023 Ct abdomen & pelvis w/contrast material CT ABD/PEL W IVCON Radiology STAT Periumbilical abdominal pain Periumbilical mass Infection in abdomen (HCC) 1 Occurrences starting 01/09/2022 until 02/08/2023 [facility] Work Phone: Comment on above: 1 Occurrences starting 01/09/2022 until 02/08/2023 Follitropin [Units/volume] in Serum or Plasma FSH BLD Lab Routine Secondary hypogonadism 02/07/2022 8:08 AM EST [facility] Work Phone: INSULIN LIK GR FAC I INSULIN LIK GR FAC I Lab Routine Prolactinoma (HCC) 02/07/2022 8:08 AM [facility] Work Phone: Lutropin [Units/volu me] in Serum or Plasma LUTEINIZING HORMONE Lab Routine Secondary hypogonadism 02/07/2022 8:08 AM [facility] Work Phone: End: 03-08-2023 Mri brain brain stem w/o w/contrast material MRI PITUITARY WO/W IVCON Radiology Routine Prolactinoma (HCC) 1 Occurrences starting 02/06/2022 until 03/08/2023 [facility] Work Phone: Comment on above: 1 Occurrences starting 02/06/2022 until 03/08/2023 Patient Education ED Bandage Chhaya stic Wrap ED Muscle Strain, Extremity [facility] Work Phone: Patient referral [facility] Work Phone: Prolactin [Mass/volu me] in Serum or Plasma PROLACTIN BLD Lab Routine Prolactinoma (HCC) 02/07/2022 8:08 AM [facility] Work Phone: End: 08-02-2023 Screening colonoscopy COLONOSCOPY SCREENING Endoscopy Routine Special screening for malignant neoplasms, colon 1 Occurrences starting 08/01/2022 until 08/02/2023 [facility] Work Phone: Comment on above: 1 Occurrences starting 08/01/2022 until 08/02/2023 Testosterone [Mass/volume] in Serum or Plasma TESTOSTERONE TOTAL Lab Routine Secondary hypogonadism 02/07/2022 8:08 AM [facility] Work Phone: Thyrotropin [Units/volume] in Serum or Plasma TSH BLD Lab Routine Hypothyroidism, unspecified type 02/07/2022 8:08 AM [facility] Work Phone: Thyroxine (T4) free [Mass/volume] in Serum or Plasma T4 FREE/FREE THYROX Lab Routine Hypothyroidism, unspecified type 02/07/2022 8:08 AM [facility] Work Phone: [facility] Immunizations Immunization Date Immunization Notes Care Provider Myah vyas 09-17-2023 zoster vaccine recombinant Nicci Donaldsonr PRODUCTION TROUBLESHOOTER.WASTEWATER ENGINEER Work Phone: [facility] 03-20-2023 zoster vaccine recombinant Mira Kely PRODUCTION TROUBLESHOOTER.WASTEWATER ENGINEER Work Phone: [facility] 04-11-2018 influenza virus vaccine, unspecified formulation Pablo Alfaro MD Work Phone: [facility] 08-03-2015 tetanus toxoid, redu aaron diphtheria toxoid, and acellular pertussis vaccine, adsorbed Thuan Westfall MD Work Phone: [facility] 06-29-2005 tetanus and diphther ia toxoids, adsorbed, preservative free, for adult use (2 Lf of tetanus toxoid and 2 Lf of diphtheria toxoid) Thuan Westfall MD Work Phone: [facility] Payers Date Payer Category Payer Unknown [id number] 2023 Self-pay [id number] 2023 Private Health Insurance [id number] 2019 Private Health Insurance [employer]ET[employer] A ETNA CHOICE POS II [id number] 2019-Present [phone] [address] [place] [address] POS [id number] 2019 Private Health Insurance [id number] Private Health Insurance [id number] Unknown [id number] Unknown [id number] Unknown [id number] 62 Unknown [id number] 62 Unknown [id number] 62 Unknown [id number] Social History Date Type Detail Facility Start: 05-07-2020 End: 10-25-2024 Tobacco smoking status NHIS Never smoked tobacco [facility] Work Phone: History of tobacco use Chews Tobacco [facility] Work Phone: Start: 01-17-2021 End: 07-28-2021 Alcohol intake Current drinker of alcohol (finding) [facility] Start: 11-12-2020 End: 01-29-2022 History SDOH Alcohol Frequency 2 [facility] Start: 11-12-2020 End: 01-29-2022 History SDOH Alcohol Std Drinks 1 [facility] Start: 09-20-2006 History SDOH Alcohol Comment maybe once or twice a month [facility] Start: 11-12-2020 End: 01-29-2022 History SDOH Social Connections Meetings 3 [facility] Start: 11-12-2020 End: 01-29-2022 History SDOH Social Connections Living 5 [facility] Start: 11-12-2020 Education 21 [facility] Start: 1970 Sex Assigned At Not on file [facility] Start: 07-17-2020 End: 01-09-2022 Tobacco smoking status NHIS Unknown if ever smoked [facility] Work Phone: Start: 07-17-2020 Chew [facility] Start: 1970 Sex Assigned At Male [facility] Start: 05-07-2020 End: 01-30-2022 Tobacco use and exposure User of smokeless tobacco [facility] Start: 12-30-2021 End: 01-30-2022 Exposure to SARS-CoV-2 (event) Not sure [facility] Start: 01-09-2022 End: 09-17-2023 Alcohol intake Ex-drinker (finding) [facility] Start: 01-09-2022 Alcohol Comment Occasionally once every 3-4 months [facility] Start: 01-29-2022 History SDOH Social Connections Living 8 [facility] Start: 01-28-2022 End: 08-01-2022 History of Social function [facility] Start: 01-28-2022 End: 08-01-2022 Social connection and isolation panel [facility] Active Member of [facility] bs or Organizations Not on file [facility] Are you now , , , , never or living with a partner? Living with partner [facility] How often to you hav e a drink containing alcohol? Monthly or less [facility] How many standard dr inks containing alcohol do you have on a typical day? 1 or 2 [facility] How often do you hav e 6 or more drinks on 1 occasion? Never [facility] Do you feel stress - tense, restless, nervous, or anxious, or unable to sleep at night because your mind is troubled all the time - these days [OSQ] Very much [facility] (I/We) worried fidelina er (my/our) food would run out before (I/we) got money to buy more. Never true [facility] At any time in the p ast 12 months, were you homeless or living in jail [including now]? No [facility] Are you now , , , , never or living with a partner? [facility] Do you feel stress - tense, restless, nervous, or anxious, or unable to sleep at night because your mind is troubled all the time - these days [OSQ] To some extent [facility] Functional Status Date Assessment Result Facility 07-04-2014 Are you deaf, or do you have serious difficulty hearing No 07/04/2014 11:58 AM Gabby Simons MA No [facility] 07-04-2014 Are you blind, or do you have serious difficulty seeing, even when wearing glasses No 07/04/2014 11:58 AM Gabby Simons MA No [facility] 07-04-2014 Do you have serious difficulty walking or climbing stairs No 07/04/2014 11:58 AM Gabby Simons MA No [facility] 07-04-2014 Do you have difficul ty dressing or bathing No 07/04/2014 11:58 AM EDT Nia BRANDI Pierre No [facility] 07-04-2014 Because of a physica l, mental, or emotional condition, do you have difficulty doing errands alone such as visiting a physician's office or shopping No 07/04/2014 11:58 AM EDT NiaGabby MA No [facility] Mental Status Date Assessment Result Facility 07-04-2014 Because of a physica l, mental, or emotional condition, do you have serious difficulty concentrating, remembering, or making decisions No 07/04/2014 11:58 AM EDT NiaGabby MA No [facility] Clinical Notes 05-06-2012 to 10-25-2024 Patient InstructionsThuan Westfall MD - 06/02/2024 9:26 AM EDTTelephone Encounter - Jesica Lopez LPN - 04/05/2024 10:06 AM ESTTelephone Encounter - Jesica Lopez LPN - 04/05/2024 10:06 AM EST Note Date & Type Note Facility 10-25-2024 Radiology Diagnostic study note [facility] Imaging Services [address] [place] [address] Tibia & Fibula 2 Views MR#: [id number] Acct: [id number] Name: YO CINTRON Rep #: [id number] : 1970 M 53 From: Pal Carrillo MD PCP: Dr. Thuan Westfall MD Status: REG E R Study:Tibia & Fibula 2 Views Date of Exam: 10/25/24 Exam# [id number] Ordering Dr: Giuliano Blanc MD EXAM: Two-view x-ray evaluation of the right tibia and fibula. CLINICAL HISTORY: Posterior calf pain. COMPARISON: None. TECHNIQUE: AP and lateral views of the right tibia and fibula were obtained. FINDINGS: The tibia and fibula are intact. The knee and ankle joints appear unremarkable. 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 There are no soft tissue abnormalities. RAD/Tibia & Fibula 2 Views IMPRESSION: Normal right tibia and fibula. Reading Location: [facility] CC: Dr. Giuliano Blanc MD; Dr. Thuan Westfall MD ~ Sugar Cane Grower: Signed [facility] Work Phone: 06-02-2024 Instructions Thuan Westfall MD - 06/02/2024 [...] symptoms. Please note that this may involve [id number] costs. - Continue monitoring your symptoms, and [...] your next visit. documented in this encounter [facility] 06-02-2024 Note HNO ID: [id number] Author: THUAN WESTFALL MD Service: ? Author Type: Physician Type: Progress Notes Filed: 06/02/2024 22:18 Note Text: Reason for Visit Follow up HPI Yo [...] SVT. He underwent an attempted ablation at [facility], but the procedure was unsuccessful in inducing [...] itching. He also mentions upcoming travel to [place] to visit his mother, who has severe [...] fatigue and synco (more content not included)... [facility] 06-02-2024 History of Present illness Narrative Reason [...] SVT. He underwent an attempted ablation at [facility], but the procedure was unsuccessful in inducing [...] itching. He also mentions upcoming travel to [place] to visit his mother, who has severe [...] patient consented to the use of ambient Appscend software for draft documentation of the visit consistent with [facility] s Notice of Privacy Practices. Thuan Westfall MD documented in this encounter [facility] 04-05-2024 Telephone encounter Note Prescription Refill Information [...] Lopez LPN April 05, 2024 10:06 AM [facility] 04-05-2024 Miscellaneous Notes Prescription Refill Information The [...] 2024 10:06 AM documented in this encounter [facility] 03-26-2024 Miscellaneous Notes Patient has been identified [...] Amy Avina LPN. documented in this encounter [facility] 03-26-2024 Telephone encounter Note Patient has been [...] Please advise. Thank you. Amy Avina LPN. [facility] 03-04-2024 Note Patient Outreach (IN TMMN) YO CINTRON ([id number]) 1970 M Date Time Provider Department 03/04/24 [...] Date Reviewed: 09/17/2023 Reviewed by: Nicci Marks APRN.WASTEWATER ENGINEER - Fully Assessed Visit Diagnosis:Mixed hyperlipidemia [E78.2] Order(s):LIPID PANEL BASIC [SQLIPB] Order #: [id number] FUTURE Prescriptions as of 03/07/2024 - DULoxetine [...] for malignant neoplasms, colo*08/24/2022 Encounter Status:Closed by [employer], PRODUSER on 03/07/24 [facility] 02-24-2024 Telephone encounter Note The following approved medication requests have been transmitted electronically. Requested Prescriptions Pending Prescriptions Disp Refills DULoxetine (CYMBALTA) 30 mg capsule 90 capsule 3 Sig: TAKE 1 CAPSULE DAILY FOR CHRONIC MUSCULOSKELETAL PAIN Patti Schmidt MD [facility] 12-29-2024 Miscellaneous Notes The following approved medication requests [...] 2024 10:17 AM documented in this encounter [facility] 02-23-2024 Telephone encounter Note Prescription Refill Information [...] Lopez LPN February 23, 2024 10:17 AM [facility] 11-14-2023 Note [facility] Medical Records Department [address] [place] [address] History Physical Exam 11/14/23 0920 MR#: [id number] Acct: [id number] Name: YO CINTRON Rep #: [id number] : 1970 53 From: Gisel Chaudhary NP SHIPPING LEAD PERSON-C PCP: Dr. Thuan Westfall MD Status:PRE [facility] Location: [facility] History and Physical Date of Admission: 11/20/23 Pleasant 53-year-old who presents for an EP study and possible ablation. 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 [facility] 09-26-2023 Telephone encounter Note Will get him back to reassess. Will likely give him trial of parenteral testosterone which he will have to pay for out of pocket since T level is normal. [facility] 09-26-2023 Miscellaneous Notes Will get him back [...] primary care to? Thank you. Nicci Marks APRN.WASTEWATER ENGINEER documented in this encounter [facility] 09-25-2023 Telephone encounter Note Yo Arriaga is [...] primary care to? Thank you. Nicci Marks APRN.WASTEWATER ENGINEER [facility] 09-17-2023 Note HNO ID: [id number] Author: NICCI MARKS APRN.JEWEL Service: ? Author [...] updated labs checked. Recently in ER at [facility] and found to have SVT. This seemed to be positional. Occurred with a deep breath or with standing. Short runs. No prior SVT issues. Planning to follow up with [facility]. Started on metoprolol. Had a [...] Comment: Added automatically from request for surgery [id number] Hypothyroid - 11/24/2013 Umbilical Hernia Without Mention [...] (primary diagnosis) Rep (more content not included)... [facility] 09-17-2023 History of Present illness Narrative SUBJECTIVE Yo Cintron is a 52 year [...] updated labs checked. Recently in ER at [facility] and found to have SVT. This seemed to be positional. Occurred with a deep breath or with standing. Short runs. No prior SVT issues. Planning to follow up with [facility]. Started on metoprolol. Had a [...] Comment: Added automatically from request for surgery [id number] Hypothyroid - 11/24/2013 Umbilical Hernia Without Mention [...] Currently controlled, planning to see cardiology with [facility]. - COMPLETE BLOOD COUNT AND [...] Nicci Marks APRN-JEWEL documented in this encounter [facility] 06-27-2023 Note HNO ID: [id number] Author: MIRA EDGE APRN.CNP Service: ? 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 HENT: Mouth/Throat: Lips: [place]. Mouth: Mucous membranes are moist. Pharynx: Posterior [...] is effective. Cautioned patient about the potential termite treater effects of steroid use including bone loss and hyperglycemia. He verbalized understanding and would like to proceed with the injection - TRIAMCINOLONE ACETONIDE 40 MG/ML SUSPENSION FOR INJECTION Follow-up as needed for any persistent or wo (more content not included)... 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 HENT: Mouth/Throat: Lips: [place]. Mouth: Mucous membranes are moist. Pharynx: Posterior [...] is effective. Cautioned patient about the potential termite treater effects of steroid use including bone loss [...] Patient agreeable to treatment plan. Mira Edge APRN.WASTEWATER ENGINEER documented in this encounter [facility] 08-24-2022 Nurse Note Arrived in phase II via cart. Left lateral position. Sedated, but responds to verbal stimuli. Color normal; skin warm and dry. Respirations wnl and unlabored. Abdomen soft and with + bowel sounds in quads X 4. Patient resting comfortably. Family at bedside. Dr. Alfaro at bedside to review procedure and recommendations. Nina Carreon RN documented in this encounter 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 Are you currently [...] Please send all open access questionnaires to [facility] Pool #[id number] documented in this encounter [facility] 03-08-2022 History of Present illness Narrative Radiology [...] TIME: 1:46 PM documented in this encounter [facility] 02-17-2022 Miscellaneous Notes Call to patient. MRI scheduled for 03-08-22. Advised to start new medication cabergoline 0.5 tablets every Sunday and Sunday. Sent electronically to mail order pharmacy on 02-16-22. Advised to have non-fasting AM labs drawn in 2022. Patient verbalizes understanding. VINCENT Bergman, RN February 17, 2022 11:46 AM Sent patient Personal Medicine message with alert if not read. Please [...] GREG WATKINS MD documented in this encounter [facility] 02-06-2022 Instructions Greg Watkins MD - 02/06/2022 10:33 AM EST Consider unsweetened vanilla almond milk. Get labs done at [facility], transfer engineer. Will call with results. Schedule MRI See me again in 6 months. documented in this encounter 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 documented in this encounter 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 Yo figueroaands that all hernia repair surgery has a [...] recurrent incarcerated ventral/incisional hernia repair with mesh- [id number]? + [id number] Anticipated Anesthetic: General Patient weight: Blood pressure 124/92, pulse 110, temperature 36.3 C (97.3 F), temperature source Temporal, resp. rate 16, height 175.3 cm (5' 9), weight 101.6 kg (224 lb), SpO2 97 %. BMI: Body mass index is 33.08 kg/m . Planned antibiotic: clindamycin 900mg IVPB program manager environmental planning to OR SCDs needed - Yes Return to Clinic: The patient is instructed to follow-up with me 1 week post operatively. Pablo Alfaro III, MD documented in this encounter [facility] 01-09-2022 Nurse Note REVIEW OF SYSTEMS: General: [...] Adrienne Houston RN documented in this encounter [facility] 01-09-2022 Miscellaneous Notes Addended by: MARYA BAILEY on: 01/09/2022 10:15 AM Modules accepted: Orders documented in this encounter [facility] 01-09-2022 History of Present illness Narrative CC: [...] 01/02/2017 Pituitary macroadenoma (HCC) 01/02/2017 Pituitary tumor [facility] Sebaceous cyst 06/01/2006 SEBORRHEIC KERATOSIS [...] Marya Bailey APRN.CNP documented in this encounter [facility] 07-28-2021 History of Present illness Narrative Reason [...] better after taking iron and d3 supplements. 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 Neuropathy - ICD9: 355.9, ICD10: G62.9 hTuan Westfall MD documented in this encounter [facility] 06-13-2021 Miscellaneous Notes Patient has been identified [...] Claribel Quinteros Ma documented in this encounter [facility] 06-01-2021 Miscellaneous Notes Send to local pharmacy [facility] [place] Patient has been identified by name and [...] to get him through his trip in [place]. Please send to the [facility] [place] on [address]. documented in this encounter [facility] 10-30-2018 History of Past i llness Narrative [...] of this encounter (statuses as of 02/07/2022) [facility] History of Past illness Narrative* Problem Noted [...] of this encounter (statuses as of 02/19/2022) [facility] History of Past illness Narrative* Problem Noted Date Resolved Date Anxiety and depression 10/30/2018 Gastritis without bleeding 10/30/201802/06 Panic attack 10/30/2018 02/06/2022 LILI (obstructive sleep apnea) 05/06/2012 Overview: PSG done 12/30/2009 The patient had 64 obstructive, 0 central, 0 mixed and 87 hypopneic episodes. AHI 26 Titration done 01/16/2010 recommendation of CPAP @ 8 cm. Anxiety state 06/29/2005 11/18/2019 documented as of this encounter (statuses as of 08/02/2022) [facility] History of Past illness Narrative* Problem Noted [...] of this encounter (statuses as of 12/31/2022) [facility] History of Past illness Narrative* Problem Noted [...] of this encounter (statuses as of 12/31/2022) [facility] History of Past illness Narrative* Problem Noted Date Resolved Date LILI (obstructive sleep apnea) 05/06/2012 Overview: PSG done 12/30/2009 The patient had 64 obstructive, 0 central, 0 mixed and 87 hypopneic episodes. AHI 26 Titration done 01/16/2010 recommendation of CPAP @ 8 cm. Anxiety state 06/29/2005 11/18/2019 documented as of this encounter (statuses as of 06/01/2021) [facility] History of Past illness Narrative* Problem Noted Date Resolved Date LILI (obstructive sleep apnea) 05/06/2012 Overview: PSG done 12/30/2009 The patient had 64 obstructive, 0 central, 0 mixed and 87 hypopneic episodes. AHI 26 Titration done 01/16/2010 recommendation of CPAP @ 8 cm. Anxiety state 06/29/2005 11/18/2019 documented as of this encounter (statuses as of 06/13/2021) [facility] History of Past illness Narrative* Problem Noted Date Resolved Date LILI (obstructive sleep apnea) 05/06/2012 Overview: PSG done 12/30/2009 The patient had 64 obstructive, 0 central, 0 mixed and 87 hypopneic episodes. AHI 26 Titration done 01/16/2010 recommendation of CPAP @ 8 cm. Anxiety state 06/29/2005 11/18/2019 documented as of this encounter (statuses as of 07/28/2021) [facility] History of Past illness Narrative* Problem Noted Date Resolved Date LILI (obstructive sleep apnea) 05/06/2012 Overview: PSG done 12/30/2009 The patient had 64 obstructive, 0 central, 0 mixed and 87 hypopneic episodes. AHI 26 Titration done 01/16/2010 recommendation of CPAP @ 8 cm. Anxiety state 06/29/2005 11/18/2019 documented as of this encounter (statuses as of 01/09/2022) [facility] History of Past illness Narrative* Problem Noted Date Resolved Date LILI (obstructive sleep apnea) 05/06/2012 Overview: PSG done 12/30/2009 The patient had 64 obstructive, 0 central, 0 mixed and 87 hypopneic episodes. AHI 26 Titration done 01/16/2010 recommendation of CPAP @ 8 cm. Anxiety state 06/29/2005 11/18/2019 documented as of this encounter (statuses as of 01/10/2022) [facility] History of Past illness Narrative* Problem Noted Date Resolved Date LILI (obstructive sleep apnea) 05/06/2012 Overview: PSG done 12/30/2009 The patient had 64 obstructive, 0 central, 0 mixed and 87 hypopneic episodes. AHI 26 Titration done 01/16/2010 recommendation of CPAP @ 8 cm. Anxiety state 06/29/2005 11/18/2019 documented as of this encounter (statuses as of 01/20/2022) [facility] Diagnosis Hypothyroidism, unspecified type [facility] Diagnosis Hypothyroidism, unspecified type [facility] Diagnosis Prostate cancer screening- Primary Special screening for malignant neoplasm of prostate Mixed hyperlipidemia Hypothyroidism, unspecified type Prolactinoma (HCC) Benign neoplasm of pituitary gland and craniopharyngeal duct (pouch) Neuropathy Mononeuritis of unspecified site Allergy, initial encounter documented in this encounter [facility] noteNo assessment information availableWHocking Valley Community [facility] Work Phone: Evaluation note* Diagnosis Periumbilical abdominal pain- Primary Abdominal pain, periumbilic Periumbilical mass Abdominal or pelvic swelling, mass or lump, periumbilic Infection in abdomen (HCC) Unspecified peritonitis documented in this encounter [facility] note* Diagnosis Recurrent incisional hernia with incarceration- Primary Incisional hernia with obstruction documented in this encounter [facility] note* Diagnosis Medication management Encounter for long-term (current) use of other medications Mixed hyperlipidemia documented in this encounter [facility] note* Diagnosis Prolactinoma (HCC)- Primary Benign neoplasm of pituitary gland and craniopharyngeal duct (pouch) Secondary hypogonadism Other testicular hypofunction Hyperprolactinemia (HCC) Other and unspecified anterior pituitary hyperfunction Pituitary adenoma (HCC) Benign neoplasm of pituitary gland and craniopharyngeal duct (pouch) Hypothyroidism, unspecified type Mixed hyperlipidemia Obesity, Class I, BMI 30-34.9 Obesity, unspecified documented in this encounter [facility] note* Diagnosis Pituitary adenoma (HCC)- Primary Benign neoplasm of pituitary gland and craniopharyngeal duct (pouch) Secondary hypogonadism Other testicular hypofunction Hyperprolactinemia (HCC) Other and unspecified anterior pituitary hyperfunction documented in this encounter [facility] note* Diagnosis Hyperprolactinemia (HCC)- Primary Other and unspecified anterior pituitary hyperfunction Hypothyroidism, unspecified type Gastroesophageal reflux disease without esophagitis Esophageal reflux Allergy, sequela Environmental allergies Other allergy, other than to medicinal agents Mixed hyperlipidemia Special screening for malignant neoplasms, colon documented in this encounter [facility] note* Diagnosis Encounter for screening for malignant neoplasm of colon- Primary Special screening for malignant neoplasms, colon Special screening for malignant neoplasms, colon documented in this encounter [facility] note* Diagnosis Prolactinoma (HCC) Benign neoplasm of pituitary gland and craniopharyngeal duct (pouch) documented in this encounter [facility] note* Diagnosis Chronic seasonal allergic rhinitis- Primary documented in this encounter [facility] note* Diagnosis Hyperprolactinemia (HCC)- Primary Other and unspecified anterior pituitary hyperfunction Mixed hyperlipidemia Hypothyroidism, unspecified type Gastroesophageal reflux disease without esophagitis Esophageal reflux SVT (supraventricular tachycardia) (HCC) Other specified cardiac dysrhythmias Encounter for therapeutic drug monitoring Vitamin D deficiency Unspecified vitamin D deficiency Prostate cancer screening Special screening for malignant neoplasm of prostate [facility]* Diagnosis HYPERLIPIDEMIA NEC/NOS- Primary Other and unspecified hyperlipidemia Hypothyroid Unspecified hypothyroidism ANXIETY STATE NOS Anxiety state, unspecified Mixed hyperlipidemia [facility] Diagnosis HYPERLIPIDEMIA NEC/NOS- Primary Other and unspecified hyperlipidemia Hypothyroid Unspecified hypothyroidism ANXIETY STATE NOS Anxiety state, unspecified Hypothyroidism, unspecified type documented in this encounter [facility] note* Diagnosis HYPERLIPIDEMIA NEC/NOS- Primary [...] idiopathic peripheral neuropathy documented in this encounter [facility] Dis[facility] instructionsAdditional Instructions Elevate right lower extremity when possible. Follow-up with the [facility] clinic or [facility] [employer] provider of your choice including orthopedics.[facility] Work Phone: Reason for referral (narrative)* Outpatient Procedure (Routine) - Pending Review Specialty Diagnoses / Procedures Referred By Chadwick neal Referred To Contact [facility] Diagnoses Special screening for malignant neoplasms, colon Procedures COLONOSCOPY SCREENING COLONOSCOPY FLX DX W/COLLJ SPEC WHEN Thuan Bajwa MD [address] [place] [address] [facility] Disease [place] [address] [place] [id number] Referral ID Status Reason Start Date Expiration Date Visits Requested Visits Authorized [id number] Pending Review Auto-Generat ed Referral 08/01/2022 08/02/2023 1 1 [facility] (narrative[facility] Outpatient Procedure (Routine) - Closed Specialty Diagnoses / Procedures Referred By Chadwick neal Referred To Contact [facility] Diagnoses Special screening for malignant neoplasms, colon Procedures COLONOSCOPY SCREENING COLONOSCOPY FLX DX W/COLLJ SPEC WHEN Thuan Bajwa MD [address] [place] [address] [facility] [id number] [place] [address] Referral ID Status Reason Start Date Expiration Date V isits Requested Visits Authorized [id number] Closed Auto-Generate d Referral 08/01/2022 08/02/2023 1 1 [facility]No reason for referral information availableWHocking Valley [facility] Work Phone: Reason for visit Narrative* Outpatient Procedure (Routine) - Closed Specialty Diagnoses / Procedures Referred By Contac t Referred To Contact [facility] Diagnoses Special screening for malignant neoplasms, colon Procedures COLONOSCOPY SCREENING COLONOSCOPY FLX DX W/COLLJ SPEC WHEN PFRMD Thuan Westfall MD [address] [place] [address] [facility] [id number] [place] [address] Referral ID Status Reason Start Date Expiration Date V isits Requested Visits Authorized [id number] Closed Auto-Generate d Referral 08/01/2022 08/02/2023 1 1 [facility] Summary Purpose Family History No Family History Records Found Relationship Condition Age at Onset Recorded Date/T yung mother Hypertension Unknown Hyperlipidemia Unknown Disorder of thyroid Unknown father Hypertension Unknown grandfather Cerebrovascular accident (CVA) Unknown Advance Directives No Advanced Directives Records FoundDocuments on File Type Date Recorded Patient Supervisor Matrix Expl anation Advance Directive(s) 07/16/2017 8:06 AM Advance Directive Response Recorded Date/ Time Living Will No July 17, 2020 7 :44am Power of Streetcar Dispatcher No July 17, 2020 7:44am Advance Directive Response Recorded Date/ Time Living Will No January 09, 3:45pm Power of Streetcar Dispatcher No January 09, 2022 3:45pm Advance Directive Response Recorded Date/ Time Do you have a Healthcare Power of Streetcar Dispatcher? No October 25, 2024 10:55am Advance Directives No October 9:03am Medications Administered Section Inactive Administered Medications - up to 3 most recent administrations Medication Order MAR Action Action Date Dose Rate Site triamcinolone acetonide 40 mg injection (KeNALog 40) 40 mg, INTRAMUSCULAR, ONCE, 1 dose, On Sun07/28/21 at 0930 Given 07/28/2021 9:57 AM EDT 40 mg Del toid, Right Inactive Administered Medications - up to 3 most recent administrations Medication Order MAR Action Action Date Dose Rate Site triamcinolone acetonide 40 mg injection (KeNALog 40) 40 mg, INTRAMUSCULAR, ONCE, 1 dose, On Sun08/01/22 at 1000 Given 08/01/2022 9:59 AM EDT [...] Referral Specialty Diagnoses / Procedures Referred By Contac t Referred To Contact CT IMAGING Diagnoses Periumbilical abdominal pain Periumbilical mass Infection in abdomen (HCC) Procedures CT ABD/PEL W IVCON CT ABD & PELVIS W/CONTRAST Marya Bailey APRN.WASTEWATER ENGINEER [address] [place] [address] Ct Imaging Referral ID Status Reason Start Date Expiration Date Visits Requested Visits Authorized [id number] Pending Review Auto-Generat ed Referral 2 02/08/2023 1 1 Specialty Diagnoses / Procedures Referred By Contac t Referred To Contact MR IMAGING Diagnoses Prolactinoma (HCC) Procedures MRI PITUITARY WO/W IVCON MRI BRAIN BRAIN STEM W/O W/CONTRAST MATERIAL Greg Watkins MD [address] [place] [id number] Mr Imaging Referral ID Status Reason Start Date Expiration Date Visits Requested Visits Authorized [id number] Authorized Auto-Generat ed Referral 2 03/08/2023 1 1 Specialty Diagnoses / Procedures Referred By Contac t Referred To Contact MR IMAGING Diagnoses Prolactinoma (HCC) Procedures MRI PITUITARY WO/W IVCON MRI BRAIN BRAIN STEM W/O W/CONTRAST MATERIAL Greg Watkins MD [address] [place] [id number] [place] [address] Referral ID Status Reason Start Date Expiration Date V isits Requested Visits Authorized [id number] Closed Auto-Generate d Referral 02/06/2022 03/08/2023 1 1 Chief Complaint and Reason for Visit Chief Complaint ABD PAIN Chief Complaint Admit Date calf pain October 25, 2024 10 :54am Additional Source Comments (unrecognized sect ion and content) No Status Records FoundNo Status Records FoundNo Status Records Found INFORMATION SOURCE (unrecogn ized section and content) DATE CREATED AUTHOR 01/06/2019 [facility] DATE CREATED AUTHOR AUTHOR'S ORGANIZ ATION 06/03/2024 [facility] DATE CREATED AUTHOR AUTHOR'S ORGANIZ ATION 11/[facility] Source Comments (unrecognize d section and content) In the event this informatio n is protected by the Federal Confidentiality of Alcohol and Drug Abuse Patient Records regulations: The Federal rules restrict any use of the information to criminally investigate or prosecute any alcohol or drug abuse patient.[facility] the event this information is protected by the Federal Confidentiality of Alcohol and Drug Abuse Patient Records regulations: The Federal rules restrict any use of the information to criminally investigate or prosecute any alcohol or drug abuse patient.[facility] the event this information is protected by the Federal Confidentiality of Alcohol and Drug Abuse Patient Records regulations: The Federal rules restrict any use of the information to criminally investigate or prosecute any alcohol or drug abuse patient.[facility] the event this information is protected by the Federal Confidentiality of Alcohol and Drug Abuse Patient Records regulations: The Federal rules restrict any use of the information to criminally investigate or prosecute any alcohol or drug abuse patient.[facility] HospitalIn the event this information is protected by the Federal Confidentiality of Alcohol and Drug Abuse Patient Records regulations: The Federal rules restrict any use of the information to criminally investigate or prosecute any alcohol or drug abuse patient.[facility] Hospital[facility] the event this information is protected by the Federal Confidentiality of Alcohol and Drug Abuse Patient Records regulations: The Federal rules restrict any use of the information to criminally investigate or prosecute any alcohol or drug abuse patient.[facility] the event this information is protected by the Federal Confidentiality of Alcohol and Drug Abuse Patient Records regulations: The Federal rules restrict any use of the information to criminally investigate or prosecute any alcohol or drug abuse patient.[facility] the event this information is protected by the Federal Confidentiality of Alcohol and Drug Abuse Patient Records regulations: The Federal rules restrict any use of the information to criminally investigate or prosecute any alcohol or drug abuse patient.[facility] the event this information is protected by the Federal Confidentiality of Alcohol and Drug Abuse Patient Records regulations: The Federal rules restrict any use of the information to criminally investigate or prosecute any alcohol or drug abuse patient.[facility] Hospital[facility] the event this information is protected by the Federal Confidentiality of Alcohol and Drug Abuse Patient Records regulations: The Federal rules restrict any use of the information to criminally investigate or prosecute any alcohol or drug abuse patient.[facility] HospitalIn the event this information is protected by the Federal Confidentiality of Alcohol and Drug Abuse Patient Records regulations: The Federal rules restrict any use of the information to criminally investigate or prosecute any alcohol or drug abuse patient.[facility] HospitalIn the event this information is protected by the Federal Confidentiality of Alcohol and Drug Abuse Patient Records regulations: The Federal rules restrict any use of the information to criminally investigate or prosecute any alcohol or drug abuse patient.[facility] HospitalIn the event this information is protected by the Federal Confidentiality of Alcohol and Drug Abuse Patient Records regulations: The Federal rules restrict any use of the information to criminally investigate or prosecute any alcohol or drug abuse patient.[facility] Hospital[facility] the event this information is protected by the Federal Confidentiality of Alcohol and Drug Abuse Patient Records regulations: The Federal rules restrict any use of the information to criminally investigate or prosecute any alcohol or drug abuse patient.[facility] Hospital[facility] the event this information is protected by the Federal Confidentiality of Alcohol and Drug Abuse Patient Records regulations: The Federal rules restrict any use of the information to criminally investigate or prosecute any alcohol or drug abuse patient.[facility] Hospital[facility] the event this information is protected by the Federal Confidentiality of Alcohol and Drug Abuse Patient Records regulations: The Federal rules restrict any use of the information to criminally investigate or prosecute any alcohol or drug abuse patient.[facility] HospitalIn the event this information is protected by the Federal Confidentiality of Alcohol and Drug Abuse Patient Records regulations: The Federal rules restrict any use of the information to criminally investigate or prosecute any alcohol or drug abuse patient.[facility] HospitalIn the event this information is protected by the Federal Confidentiality of Alcohol and Drug Abuse Patient Records regulations: The Federal rules restrict any use of the information to criminally investigate or prosecute any alcohol or drug abuse patient.[facility] HospitalIn the event this information is protected by the Federal Confidentiality of Alcohol and Drug Abuse Patient Records regulations: The Federal rules restrict any use of the information to criminally investigate or prosecute any alcohol or drug abuse patient.[facility] HospitalIn the event this information is protected by the Federal Confidentiality of Alcohol and Drug Abuse Patient Records regulations: The Federal rules restrict any use of the information to criminally investigate or prosecute any alcohol or drug abuse patient.[facility] Reason for Visit (unrecogniz ed section and content) Reason Onset Date Comments Refill Request 06/01/2021 Reason Onset Date Comments Refill Request 06/13/2021 Reason Comments Recheck 6 months Reason Comments Recheck Surgical hernia repa ir 2004, red, hot, painful Reason Comments Consult Reason Comments Prolactinoma New Patient Specialty Diagnoses / Procedures Referred By Chadwick t Referred To Contact Endocrinology Diagnoses Prolactinoma (HCC) Procedures CONSULT TO ENDOCRINOLOGY OFFICE/OUTPATIENT NEW HIGH MDM 60-74 MINUTES Thuan Westfall MD [address] [place] [address] Referral ID Status Reason Start Date Expiration Date Visits Requested Visits Authorized [id number] Pending Review PCP Requested Referral 01/30/2022 01/30/2023 1 1 Reason Comments Patient Update Reason Comments F/U 6 months Specialty Diagnoses / Procedures Referred By Comfortac t Referred To Contact MR IMAGING Diagnoses Prolactinoma (HCC) Procedures MRI PITUITARY WO/W IVCON MRI BRAIN BRAIN STEM W/O W/CONTRAST MATERIAL Greg Watkins MD [address] [place] [address], [address] [place] [address] Mr [facility] [place] [address] Referral ID Status Reason Start Date Expiration Date V isits Requested Visits Authorized [id number] Closed Auto-Generate d Referral 02/06/2022 03/08/2023 1 [...] Care Teams (unrecognized sec tion and content) Clearance Diver Relationship Specialty Start Date End Date Thuan Westfall MD [address] [place] [address] PCP - General Internal Medicine 10/05/15 Clearance Diver Relationship Specialty Start Date End Date Thuan Westfall MD [address] [place] [address] PCP - General Internal Medicine 10/05/15 Clearance Diver Relationship Specialty Start Date End Date Thuan Westfall MD [address] [place] [address] PCP - General Internal Medicine 10/05/15 Clearance Diver Relationship Specialty Start Date End Date Thuan Westfall MD [address] [place] [address] PCP - General Internal Medicine 10/05/15 Clearance Diver Relationship Specialty Start Date End Date Thuan Westfall MD [address] [place] [address] PCP - General Internal Medicine 10/05/15 Clearance Diver Relationship Specialty Start Date End Date Thuan Westfall MD [address] [place] [address] PCP - General Internal Medicine 10/05/15 Clearance Diver Relationship Specialty Start Date End Date hTuan Westfall MD [address] [place] [address] PCP - General Internal Medicine 10/05/15 Clearance Diver Relationship Specialty Start Date End Date Thuan Westfall MD [address] [place] [address] PCP - General Internal Medicine 10/05/15 Clearance Diver Relationship Specialty Start Date End Date Thuan Westfall MD [address] [place] [address] PCP - General Internal Medicine 10/05/15 Clearance Diver Relationship Specialty Start Date End Date Thuan Westfall MD [address] [place] [address] PCP - General Internal Medicine 10/05/15 Clearance Diver Relationship Specialty Start Date End Date Thuan Westfall MD [address] [place] [address] PCP - General Internal Medicine 10/05/15 Clearance Diver Relationship Specialty Start Date End Date Thuan Westfall MD [address] [place] [address] PCP - General Internal Medicine 10/05/15 Clearance Diver Relationship Specialty Start Date End Date Thuan Westfall MD [address] [place] [address] PCP - General Internal Medicine 10/05/15 Clearance Diver Relationship Specialty Start Date End Date Thuan Westfall MD [address] [place] [address] PCP - General Internal Medicine 10/05/15 Clearance Diver Relationship Specialty Start Date End Date Thuan Westfall MD [address] [place] [address] PCP - General Internal Medicine 10/05/15 Clearance Diver Relationship Specialty Start Date End Date Thuan Westfall MD [address] [place] [address] PCP - General Internal Medicine 10/05/15 Val Landis PA-C [address] [place] [address] [employer] Out [employer] Member Family Medicine 02/03/24 Marya Bailey APRN.WASTEWATER ENGINEER [address] [place] [address] [employer] Member Internal Medicine 02/03/24 Syl Serrato PA-C [address] [place] [address] [facility] Clearance Diver Relationship Specialty Start Date End Date Thuan Westfall MD [address] [place] [address] PCP - General Internal Medicine 10/05/15 Val Landis PA-C [address] [place] [address] [employer] 02/03/24 Marya Bailey APRN.WASTEWATER ENGINEER [address] [place] [address] [facility] Internal Medicine 02/03/24 Syl Serrato PA-C [address] [place] [address] [facility] 02/03/24 Clearance Diver Relationship Specialty Start Date End Date Thuan Westfall MD [address] [place] [address] PCP - General Internal Medicine 10/05/15 Val Landis PA-C [address] [place] [address] [employer] Out Crew Member Family Medicine 02/03/24 Marya Bailey APRN.WASTEWATER ENGINEER [address] [facility], [place] [address] [employer] Out [employer] Member Internal Medicine 02/03/24 Syl Serrato PA-C [address] [facility], [place] [address] [employer] Out Crew Member Family Medicine 02/03/24 Clearance Diver Relationship Specialty Start Date End Date Thuan Westfall MD [address] [facility], [place] [address] PCP - General Internal Medicine 10/05/15 Marya Bailey APRN.WASTEWATER ENGINEER [address] [facility], [place] [address] [employer] Out Crew Member Internal Medicine 02/03/24 Team Status: Active Member Role/Relationship Status Dates Dr. Thuan Westfall MD Primary Care Provider Active Team Status: Inactive Member Role/Relationship Status Dates Dr. Thuan Westfall MD Primary Care Provider Active Start: October 25, 2024 End: October 25, 2024 Giuliano Blanc MD Emergency Provider Active Star t: October 25, 2024 End: October 25, 2024 Goals (unrecognized section and content) Goals may be documented in a n alternate sectionGoals may be documented in an alternate sectionGoals may be documented in an [...] BE BASED ON THE PRIMARY CLINICAL RECORDS. [facility]. provides no warranty or guarantee of the accuracy or completeness of information in this document.
--- NOTE | 2025-02-11 17:48 | CA.SCORE ---
Calcium Scoring Date of Study:: 02/11/25 Indications Indications: FH Coronary Calcium Scoring: High-resolution Computed Tomographic imaging of the chest was performed on [02/11/25 ], with particular attention paid to the coronary arteries. Images from the examination were analyzed for the presence and extent of coronary artery calcification , using coronary calcium quantification software. The patient tolerated the procedure well and there were no complications. The results of the coronary calcification analysis are provided below. Findings Coronary Artery Left Main (LM): 0 Left Anterior Descending (LAD): 57.2 Left Circumflex (LCX): 0 Right Coronary Artery (RCA): 0.79 Total Agatston Score: 57.99 Percentile Rankin-75 Calcium Scoring Interpretation: Different methods to categorize the overall amount of coronary plaque. Overall amount CAC SIS Visual of coronary plaque P1 Mild -100 <2 1-2 vessels with mild amount of plaque P2 Moderate 101-300 3-4 1-2 vessels with moderate amount, 3 vessels with mild amount of plaque P3 Severe 301-999 5-7 3 vessels with moderate amount, 1 vessel with severe amount of plaque P4 Extensive >1000 >8 2-3 vessels with severe amount of plaque Calcium Score: Mild: 1-2 vessels w/mild amount of plaque Conclusion: Mild single-vessel plaque disease
== END | disposition home or self-care (01) ==
LOC: CT 06:37
PROVIDERS: PCP Internal Medicine; Referring Provider Internal Medicine Cardiovascular Disease; Visit Provider Internal Medicine Cardiovascular Disease
DX: I47.10 Supraventricular tachycardia, unspecified (principal)
CPT/HCPCS: 75571; 76380